=== PATIENT | female | born 1950 | race Caucasian/White ===

== ENCOUNTER → 2024-01-01 10:17 | Outpatient (REF) | payer MEDICARE, OTHER, SELFPAY | LOC: HWRAD 10:17 | PROVIDERS: ATTENDING PHYSICIAN Nurse Practitioner Family | DX: F17.210 Nicotine dependence, cigarettes, uncomplicated (principal) | CPT/HCPCS: 71271 ==

== ENCOUNTER → 2024-03-18 13:54 | Outpatient (REF) | payer MEDICARE, OTHER, SELFPAY | LOC: RAD 13:54 | PROVIDERS: ATTENDING PHYSICIAN Surgery Vascular Surgery; FAMILY PHYSICIAN Internal Medicine | DX: N18.9 Chronic kidney disease, unspecified (principal); Z01.818 Encounter for other preprocedural examination | CPT/HCPCS: 93985 ==

== ENCOUNTER 2024-03-23 09:55 | Day surgery (SDC) | payer MEDICARE, OTHER, SELFPAY ==
--- NOTE | 2024-03-17 11:12 | PTCARENOTE ---
Patients 01/[address] abnormal- Nancy @ Dr. Musa office notified
[2024-03-23] VITALS (28 sets, daily range): BP systolic 139–215; BP diastolic 40–119; BMI 26.1
[2024-03-23 10:52] LABS: Glucose - Point of Care 108 mg/dl (70-99)
[2024-03-23] MEDS: VANCOCIN 200 IV (10:53)
[2024-03-23] MEDS: BACTROBAN NASAL 1 GRAM NASAL (10:53)
[2024-03-23] MEDS: PERIDEX 0.12% ORAL RINSE 15 ML PO (10:54)
[2024-03-23] MEDS: NSS 500 IV (10:54)
[2024-03-23 11:06] LABS: Hematocrit 31.8 % (37.0-47.0); Hemoglobin 10.2 g/dL (12.0-16.0); Mean Corp Hgb Conc. 32.1 g/dL (33.0-37.0); Mean Corpuscular Hgb 28.3 pg (27.0-31.0); Mean Corpuscular Volume 88.3 fL (81.0-99.0); Mean Platelet Volume 9.2 fL (7.4-10.4); Platelet Count 267 10^3/uL (130-400); Red Cell Dist. Width 13.9 % (11.5-14.5); White Blood Cell Count 7.4 10^3/uL (4.8-10.8)
[2024-03-23 11:17] LABS: INR 0.96; PT 12.5 Sec (11.4-14.6)
[2024-03-23] MEDS: APRESOLINE 10 MG IV ×2 (11:27→12:34)
[2024-03-23 12:05] LABS: Blood Urea Nitrogen 64 mg/dl (7-17); Carbon Dioxide 26 mmol/L (22-30); Chloride 102 mmol/L (98-107); Estimated Creatinine Clearance 15 ml/min; Glucose 112 mg/dl (70-99); Potassium 4.4 mmol/L (3.5-5.1); Sodium 133 mmol/L (135-145); eGFR 16.68
--- NOTE | 2024-03-23 12:26 | PTCARENOTE ---
1110: Dr. Gudino advised of BPs 200s/50's. Rec'd orders for hydralazine 10mg.
1125: Hydralazine administered.
1140: Dr. Gudino at bedside for anesthesia eval.
1200: pt oob with assist to BR. Voids w/o difficulty.
1215: Dr Gudino advised of current BP 199/63.
--- NOTE | 2024-03-23 12:52 | W.SUR.PREOP ---
Pre-Operative Surgical Note
-
I have examined this patient prior to the performance of the scheduled procedure.
The patient's condition is unchanged from the time of the current History and
Physical and the patient is able to undergo the scheduled procedure.
--- NOTE | 2024-03-23 15:37 | W.IMMPOSTOP ---
Surgical Immed Post Op Note
-
Primary Surgeon: Dr. Collin Rhodes III, MD
Assisting Surgeon: Dr. Thomas Martinez MD, PhD (PGY-1)
Pre-op Diagnosis: End stage renal disease with need for dialysis
Post-op Diagnosis: End stage renal disease with need for dialysis
Procedure Performed: left upper extremity AV fistula (brachio-basilic) first stage
Anesthesia Type: General
Specimen / Cultures: None
Estimated Blood Loss: 20cc
Complications: None
Operative Findings: Patient was placed in the supine position. Ultrasound was used to identify and nick the course of the brachial artery and basilic vein. Following intubation, the patient's left upper extremity was prepped and draped. Incision
was made and the soft tissues were dissected down to expose the basilic vein. The vein was exposed circumferentially and branches were suture ligated and divided. A vessel loop was passed around the basilic vein proximally. Then the brachial artery
was dissected and exposed circumferentially. Proximal and distal control were obtained on the brachial artery. The basilic vein was divided and heparinized saline was injected into the vein proximally. Arteriotomy was made and extended in the
brachial artery and heparinized saline was injected into the artery. An end to side anastomosis was performed with running 7-0 prolene sutures. Repair stitched were placed as needed. A 3-0 vicryl was used to tack a stump from a venous branch off of
the basilic vein to avoid it from kinking. Hemostasis was achieved and the soft tissue and skin was closed in layers with skin glue. At the conclusion of the case, an excellent thrill was noted in the basilic vein and a strong radial pulse was noted
in the left upper extremity.
[2024-03-23 15:41] LABS: Glucose - Point of Care 145 mg/dl (70-99)
--- NOTE | 2024-03-23 16:03 | OR.RPT ---
Operative Report
Operative Report
Date of Operation: 03/23/2024
Pre Op Diagnosis: Chronic kidney disease with anticipated need for hemodialysis
Post Op Diagnosis: Chronic kidney disease with anticipated need for hemodialysis
Procedure: Creation of left upper extremity brachiobasilic AV fistula (first stage of a planned two-stage basilic vein transposition)
Surgeon: Collin Rhodes III, MD
Web Merchandiser: Thomas Martinez MD PhD, PGY1
Anesthesia: General
Complications: None
Estimated Blood Loss: 20 cc
History and Indications for Procedure: 73-year-old female with chronic kidney disease and anticipated need for hemodialysis initiation she was taken to the operating room for AV access creation.
Procedure in Detail: Ted Foster was correctly identified and placed supine on the operating table. After adequate induction of anesthesia the left arm was positioned, prepped and draped in the usual sterile fashion. Preoperative antibiotics
were administered. A timeout procedure was performed with the nursing and anesthesia staff confirming the patients identity as well as the nature and laterality of the procedure.
I performed intraoperative ultrasound on the veins of the left arm. I identified the upper arm basilic vein from the elbow to the axilla. The brachial artery was also identified in the distal upper arm and proximal forearm. The appropriate site for
the incision was then identified in the distal upper arm, just proximal to the elbow.
An incision was then made in the distal upper arm. Careful sharp dissection was performed and the basilic vein exposed. Branches of the vein were ligated between ties. The brachial artery was exposed with sharp dissection. Proximal and distal
control was obtained with vessel loops.
The distal end of the basilic vein was ligated with a clip. The vein was transected and flushed proximally with heparinized saline. The vein flushed easily and without resistance and dilated quite nicely. The vessel loops on the artery were secured.
An arteriotomy was made with an 11-blade. This was extended just slightly proximally and distally with Valle scissors. The proximal and distal artery was flushed with heparinized saline. The end of the vein was spatulated slightly. An end-to-side
anastomosis was performed from the end of the basilic vein to the brachial artery with a running 7-0 Prolene. At the completion of the anastomosis the proximal vessel loop was released first. After several heartbeats the distal brachial artery loop
was released. The suture line was closely inspected and hemostasis achieved. There was an excellent thrill in the vein. There was a good pulse in the brachial artery proximal and distal to the anastomosis.
The wound was irrigated with saline. Hemostasis was achieved in the wound bed. The wound was closed in multiple layers and sterile dressings applied. The patient had an easily palpable thrill which was marked at the skin level. She had a palpable
left radial pulse at the wrist.
The patient tolerated the procedure well and was taken to the PACU in stable condition.
Attestation: I was present and responsible for the entire procedure
Signed:
Collin Rhodes III, MD
[facility]
[phone] (xbso)
== END 2024-03-23 17:30 | disposition home or self-care (01) ==
LOC: CATH 09:55
PROVIDERS: ATTENDING PHYSICIAN Surgery Vascular Surgery; FAMILY PHYSICIAN Family Medicine
DX: I13.0 Hypertensive heart and chronic kidney disease with heart failure and stage 1 through stage 4 chronic kidney disease, or unspecified chronic kidney disease (principal); E11.22 Type 2 diabetes mellitus with diabetic chronic kidney disease; N18.9 Chronic kidney disease, unspecified; I50.30 Unspecified diastolic (congestive) heart failure; Z87.891 Personal history of nicotine dependence; Z79.4 Long term (current) use of insulin
CPT/HCPCS: 36821; 80048; 82962; 85027; 85610; 85730

== ENCOUNTER 2024-03-27 11:36 | Inpatient (IN) | payer MEDICARE, OTHER, SELFPAY ==
[2024-03-27] VITALS (10 sets, daily range): BP systolic 92–156; BP diastolic 55–73; BMI 26.6; BMI 25.9
--- NOTE | 2024-03-27 07:08 | ED.GENMED ---
History of Present Illness
General
Chief Complaint: Breathing Problem
Source: patient
Exam Limitations: dementia
Time Seen by Provider: 03/27/24 06:39
Nursing documentation reviewed up to this point in time: agreed with
Travel History
Have you had any contact with someone who has COVID-19?: No
Do you have any symptoms of coronavirus? Fever > 100 degrees, chills, cough, shortness of breath, sore throat, loss of taste or smell, muscle aches, or headache?: No
History of Present Illness
History of Present Illness:
73-year-old female from her facility usually is on the second floor uses nighttime oxygen today was found on the first floor, short of breath EMS was called low pulse ox placed on oxygen given a neb now feeling better she is without complaints
patient's poor historian, denies any chest pain or shortness of breath no fevers
Past History
Past History
ED Past Medical History: CHF, COPD, Fibromyalgia, GERD, HTN, Hypercholesterolemia, IDDM, Hypothyroidism, Psychiatric and Other
ED Past Surgical History: Appendectomy, Cholecystectomy, Gynecological, Orthopedic and Other
Social History
Tobacco: Former smoker
Alcohol: Former
Drug: Former user
Personal:
Living: custodial
Employment: Not employed
Family History
Family History: Other
Review of Systems
Review of Systems
All Other Systems: Not applicable
Constitutional: Denies fever or fatigue
Respiratory: Reports cough and trouble breathing
Phy Exam
Physical Exam
Physical Exam:
Physical Exam
General: no apparent distress, not acutely ill
Neck: No jaw
Heart: Regular
Lungs: Rhonchi right greater than
Abdomen: Not
Neuro: alert and oriented.
Skin: no rash
Psychiatric: cooperative
Extremities: Question healing fistula to left antecubital fossa
Scores
Heart Failure Risk
Heart Failure Risk Score: Not Applicable
Course
Orders/Labs/Results
Orders:
Orders
03/27/24 07:06
Electrocardiogram (*1) Stat
Reason for Study: Other
Other Reason for Exam: pneumonia
Cardiac Monitoring- Treatment ONCE
EKG- Treatment ONCE
CR Chest - 2 Views Urgent
Comment:
Reason For Exam: SOB
03/27/24 07:07
Ipratropium/Albuterol Sulfate [Duoneb] 3 ml INH R NOW STA
03/27/24 07:32
Complete Blood Count/With Diff Urgent
Comprehensive Metabolic Panel Urgent
NT-proBNP Urgent
Comment: ADD ON
03/27/24 09:26
Furosemide [Lasix] 60 mg IV NOW STA
03/27/24 09:30
Add On- LAB Urgent
Tests Added?: Pbnp
03/27/24 11:14
Admit/Transfer Patient As Directed
Co-Sign Provider:
Level of Care: Inpatient admission
Assign to:: Telemetry
Physician / Group: Berto
Diagnosis: Possible CHF
Reason for Telemetry: Acute Heart Failure
Date to Stop Telemetry: 03/30/24
Time to Stop Telemetry: 11:00
Reason for Hospitalization: see progress note
Expected length of stay greater than two midnights?: Yes
ELOS- Estimated Length of Stay in days: 3
I certify the patient meets the requirements for IP care: Yes
Code Status As Directed
Resuscitation Status: Full Code
03/30/24 11:00
DC Protocol for Telemetry ONCE
Abnormal Lab Results
03/27/24
07:32
WBC 12.6 H 10^3/uL
(4.8-10.8)
RBC 3.49 L 10^6/uL
(4.20-5.40)
Hgb 9.9 L g/dL
(12.0-16.0)
Hct 30.7 L %
(37.0-47.0)
MCHC 32.2 L g/dL
(33.0-37.0)
Abs Immat Gran (auto) 0.1 H 10^3/uL
(0-0.05)
Absolute Neuts (auto) 10.8 H 10^3/uL
(1.4-6.5)
Absolute Lymphs (auto) 0.4 L 10^3/uL
(1.2-3.4)
Absolute Monos (auto) 1.1 H 10^3/uL
(0.1-0.6)
Immature Gran % 0.7 H %
(0-0.5)
Neutrophils % 85.5 H %
(42.2-75.2)
Lymphocytes % 3.3 L %
(20.5-51.1)
Sodium 131 L mmol/L
(135-145)
BUN 77 H mg/dl
(7-17)
Creatinine 3.4 H mg/dL
(0.6-1.0)
Glucose 154 H mg/dl
(70-99)
Calcium 7.5 L mg/dl
(8.4-10.2)
Total Protein 5.2 L g/dl
(6.3-8.2)
Albumin 3.1 L g/dl
(3.5-5.0)
03/27/24 07:32
03/27/24 07:32
Vital Signs
Initial and Last Documented VS:
Initial Vital Signs
Temp Pulse Resp BP Pulse Ox
98 F 87 28 133/66 99
03/27/24 06:16 03/27/24 06:16 03/27/24 06:16 03/27/24 06:16 03/27/24 06:16
Last Documented Vital Signs
Temp Pulse Resp BP Pulse Ox
98 F 89 24 104/61 100
03/27/24 06:16 03/27/24 10:14 03/27/24 09:30 03/27/24 11:05 03/27/24 12:30
MDM/Problems Addressed
Differential Diagnosis Includes:
Chronic SOB with oxygen COPD heart failure aspiration
MDM/Problems Addressed:
Shortness of
Chronic conditions affecting care: COPD
Acute Exacerbation and/or Progression of Chronic Illness: COPD
*Radiology
Radiology exam reviewed: preliminary read by ED provider
*EKG
Interpreted by ED Provider?: Yes
Interpretation: abnormal
Comparison EKG: no comparison EKG present
Heart Rate: 78
Rate: normal
Ischemia: non-specific ST changes
*Clinical Nurse Manager Interpretation
Rate: normal
Interpretation: normal
Heart Rate: 78
Rhythm: sinus
*Critical Care Note
Total Time (30-74mins, 75-104mins- exclusive of procedures): Not Applicable
Update Note
Update Note:
Update, patient feels comfortable at her baseline oxygen does have some rhonchi will give a neb check chest x-ray labs and EKG
10 AM chest x-ray noted report noted labs noted has increased oxygen requirement increased creatinine we will try to diurese low threshold to admit message sent to hospitalist and textile technical officer
ED Attending Note
-
Portions of this chart may have been created with voice recognition software.� Occasional wrong word or��sound alike� substitutions may have occurred due to the inherent limitations of voice recognition software.
Discharge Plan
Departure
Patient Disposition: Admit
Date of Disposition: 03/27/24
Time of Disposition: 10:19
Admit to: Telemetry
Presentation/result/management discussed w/ accepting MD/DO: Hospitalist
Patient with high blood pressure during this ER visit?: Yes
Condition: Fair
Discharge Problem:
Chronic diastolic (congestive) heart failure, CKD (chronic kidney disease) stage 4, GFR 15-29 ml/min, Anemia, Bipolar disorder, Chronic obstructive pulmonary disease, Alzheimer's dementia, Chronic respiratory failure with hypoxia, Acute heart
failure with preserved ejection fraction (HFpEF), Respiratory insufficiency
Interventions
Interventions:
*Risk Screen - Suicide Last Done: 03/27/24 06:17
*General Assessment Last Done: 03/27/24 06:17
*Neglect/Abuse Screening Last Done: 03/27/24 06:19
*ED COVID-19 Vaccine History Last Done: 03/27/24 06:20
ED- Cardiac Assessment Last Done: 03/27/24 06:42
ED- Pulmonary Assessment Last Done: 03/27/24 06:44
[2024-03-27] MEDS: DUONEB 3 ML INH (07:32)
[2024-03-27 07:43] LABS: % Basophils 0.3 % (0-2); % Eosinophils 1.6 % (0-6); % Immature Granulocytes 0.7 % (0-0.5); % Lymphocytes 3.3 % (20.5-51.1); % Monocytes 8.6 % (1.7-9.3); % Neutrophils 85.5 % (42.2-75.2); Absolute Eosinophils 0.2 10^3/uL (0-0.7); Absolute Immature Granulocytes 0.1 10^3/uL (0-0.05); Absolute Lymphocytes 0.4 10^3/uL (1.2-3.4); Absolute Monocytes 1.1 10^3/uL (0.1-0.6); Absolute Neutrophils 10.8 10^3/uL (1.4-6.5); Hematocrit 30.7 % (37.0-47.0); Hemoglobin 9.9 g/dL (12.0-16.0); Mean Corp Hgb Conc. 32.2 g/dL (33.0-37.0); Mean Corpuscular Hgb 28.4 pg (27.0-31.0); Mean Platelet Volume 8.9 fL (7.4-10.4); Nucleated Red Blood Cells % 0 %; Platelet Count 236 10^3/uL (130-400); Red Blood Cell Count 3.49 10^6/uL (4.20-5.40); Red Cell Dist. Width 13.9 % (11.5-14.5); White Blood Cell Count 12.6 10^3/uL (4.8-10.8)
[2024-03-27 07:55] LABS: ALT (SGPT) 15 U/L (0-35); AST (SGOT) 26 U/L (14-36); Albumin 3.1 g/dl (3.5-5.0); Alkaline Phosphatase 73 U/L (38-126); Blood Urea Nitrogen 77 mg/dl (7-17); Calcium 7.5 mg/dl (8.4-10.2); Carbon Dioxide 26 mmol/L (22-30); Chloride 98 mmol/L (98-107); Estimated Creatinine Clearance 13 ml/min; Glucose 154 mg/dl (70-99); Potassium 3.8 mmol/L (3.5-5.1); Sodium 131 mmol/L (135-145); Total Bilirubin 0.2 mg/dl (0.2-1.3); Total Protein 5.2 g/dl (6.3-8.2); eGFR 13.78
[2024-03-27] MEDS: LASIX 60 MG IV (10:14)
[2024-03-27 10:31] LABS: NT-proBNP 25600 pg/ml
--- NOTE | 2024-03-27 11:23 | HPS.HSE ---
Family Physician
-
Family Physician: YUE HAZEL MD
Chief Complaint
-
Shortness of breath
History of Present Illness
Patient has dementia. She is pleasantly confused in the ER. She is not able to provide history because of confusion. She thinks that her son brought her here to the hospital when she is actually living in a assisted living facility.
History is from the ER, daughter.
Patient had a AV fistula placed last week and she did okay.
Daughter says she was called In the morning from the facility due to her mom having shortness of breath.
According to daughter patient is on chronic oxygen but she never wears it and that is a problem.
Apparently she was found on the first floor of the facility with shortness of breath. EMS was called. Her pulse ox was low and she was placed on oxygen. She also got nebulizer en route.
Medical History
Past Medical History
Past Medical History: Reports CHF (Normal EF), GERD, HTN, Hypothyroidism, IDDM and Renal Failure
Past Surgical History: Reports Appendectomy and Cholecystectomy
Social History
Unable to obtain full social history at this time due to: Dementia
Tobacco: Non-smoker
Alcohol: None
Drug: None
Living: Assisted Living
Family History
Family History: Not pertinent
Allergies / Home Medications
Allergies reflects when Allergies were last updated in [facility].
Home Medications with original date entered in [facility]
Allergy/Medication List:
Allergies
Allergy/AdvReac Type Severity Reaction Status Date / Time
amoxicillin [From Augmentin] Allergy Rash Verified 03/18/24 08:53
bee venom protein (honey bee) Allergy Unknown Verified 03/18/24 08:53
cephalexin [From Keflex] Allergy Unknown Verified 03/18/24 08:53
clarithromycin Allergy gi problems Verified 03/18/24 08:53
clavulanic acid Allergy Unknown Verified 03/18/24 08:53
[From Augmentin]
ibuprofen Allergy Contraindication Verified 03/18/24 08:53
(use
Tylenol)
per MR
iodine Allergy Unknown Verified 03/18/24 08:53
iodoform Allergy Rash Verified 03/18/24 08:53
lamotrigine Allergy enid Verified 03/18/24 08:53
shanice
syndrome
morphine [Morphine] Allergy Unknown Verified 03/18/24 08:53
nitrofurantoin Allergy headache Verified 03/18/24 08:53
oxcarbazepine Allergy Hives Verified 03/18/24 08:53
potassium iodide Allergy Unknown Verified 03/18/24 08:53
quetiapine [From Seroquel] Allergy Unknown Verified 03/18/24 08:53
shellfish derived Allergy Unknown Verified 03/18/24 08:53
sodium iodide Allergy Rash Verified 03/18/24 08:53
Home Medications
acetaminophen 325 mg tablet (Tylenol) 325 mg PO TID PRN mild pain 05/28/22
albuterol sulfate 90 mcg/actuation aerosol inhaler 2 puff inhalation R Q6HPRN PRN sob/wheezing 05/28/22
aspirin 81 mg tablet,delayed release 81 mg PO DAILY@0800 Blood clot prevention/tx 05/28/22
atorvastatin 20 mg tablet 20 mg PO DAILY@1999 High cholesterol 05/28/22
fluticasone fur. 100 mcg-umeclid 62.5 mcg-vilant 25 mcg inhalat.powder (Trelegy Ellipta) 1 inh inhalation R DAILY@0800 Lung/breathing issues 05/28/22
levothyroxine 75 mcg tablet 75 mcg PO DAILY@0600 Thyroid 05/28/22
aripiprazole 2 mg tablet 2 mg PO BID@0800,1999 Mental Health/Anxiety 05/01/23
loratadine 10 mg tablet 10 mg PO DAILY@0800 Allergies 05/01/23
sennosides 8.6 mg-docusate sodium 50 mg tablet (Senexon-S) 1 tab PO BID@0800,1999 Constipation 05/10/23
diphenhydramine HCl 25 mg tablet 25 mg PO DAILYPRN PRN itching 06/02/23
sodium bicarbonate 650 mg tablet 650 mg PO BID@0800,1999 Supplement 06/02/23
umeclidinium 62.5 mcg/actuation blister powder for inhalation (Incruse Ellipta) 1 inh inhalation R DAILY@0800 Lung/Breathing Issues 06/02/23
diltiazem HCl 240 mg capsule,extended release 24 hr 240 mg PO DAILY@0800 Heart Disease/Condition 11/03/23
hydralazine 100 mg tablet 100 mg PO TID blood pressure 11/03/23
ipratropium 0.5 mg-albuterol 3 mg (2.5 mg base)/3 mL nebulization soln 3 ml inhalation R QIDPRN PRN sob 11/03/23
loperamide 2 mg tablet (Imodium A-D) 2 mg PO QIDPRN PRN diarrhea 11/03/23
metoprolol tartrate 50 mg tablet 50 mg PO BID@0800,1999 blood pressure 11/03/23
prednisone 5 mg tablet 5 mg PO DAILY@0800 inflammation 11/03/23
sertraline 50 mg tablet 50 mg PO DAILY@0800 Mental Health/Anxiety 11/03/23
insulin glargine 100 unit/mL subcutaneous solution 5 unit SC HS diabetes 11/19/23
insulin aspart U-100 100 unit/mL (3 mL) subcutaneous pen (Novolog FlexPen U-100 Insulin aspart) 2 unit (0.02 mL) SC QAC #15 mL 11/21/23
Review of Systems
-
Unable to obtain full review of systems at this time due to: Dementia
Physical Exam
Vital Signs
Vital Signs
Temp Pulse Resp BP Pulse Ox
98 F 89 19 100/55 100
03/27/24 06:16 03/27/24 10:14 03/27/24 09:15 03/27/24 10:14 03/27/24 09:15
Physical Exam
General: No Apparent Distress and Comfortable
HEENT: Moist mucous membranes
Respiratory: Crackles (bibasal) and Non Labored Respirations; No Wheezes or Accessory Resp Muscle Use
Cardiac: S1/S2 and Regular Rhythm
GI: Soft and Non Tender
Musculoskeletal: No Edema
Neuro: Awake, Alert, Oriented (self only) and No Motor Deficits
Psych: Calm
Laboratory Results
-
03/27/24 07:32
03/27/24 07:32
Laboratory Results
Total Bilirubin 0.2 mg/dl (0.2-1.3) 03/27/24 07:32
AST 26 U/L (14-36) 03/27/24 07:32
ALT 15 U/L (0-35) 03/27/24 07:32
Alkaline Phosphatase 73 U/L (38-126) 03/27/24 07:32
Data Reviewed
-
Diagnostic Radiology: Report Reviewed by me (cxr)
Lab Data: Labs Reviewed by me
Impression/Plan
-
Acute shortness of breath-difficult to assess her symptomatic she has got dementia. She is currently stays comfortable with her breathing. Apparently she was noted to be acutely short of breath this morning in the facility. She got chronic
hypoxic respiratory insufficiency on O2 but she does not wear it so she was found to be hypoxic which improved with the application of oxygen. She is currently on nasal cannula saturating well.
Bilateral pleural effusion with bilateral atelectasis/consolidation but other effusions noted. BNP is very high. Increased creatinine compared to baseline noted. I suspect possible acute CHF. I do see her weight is stable.
Admit to telemetry. Started IV Lasix. Consult nephrology. Check troponins. EKG shows no evidence of acute ST-T changes.
Mild elevation leukocytosis noted but no fever. No cough. Doubt pneumonia. Hold on antibiotics. If continued rise will consider antibiotics. No active bronchospasm.
Patient known to have normal EF.
Chronic hypoxic respite insufficiency-continue with oxygen.
History of obstructive sleep apnea.
COPD
No evidence of exacerbation.
CKD stage IV
Elevated creatinine compared to baseline noted rule out FIDENCIO. Consult nephrology.
HX CVA
-BLOOD COORDINATOR asa/statin
GERD
ESSENTIAL HYPERTENSION
-Continue home medication
DM
-Continued home treatment
HYPOTHYROIDISM
Continue home medication
DEMENTIA
Continue home medications
DVT PPx hep subQ
FULL CODE
--- NOTE | 2024-03-27 14:56 | W.CON.NEPH ---
Consultation
-
Date/Time Consultation Requested: 03/27/24 1130
Date/Time Consultation Performed: 03/27/24 1530
Requesting Provider: Bhavik Glynn
Performing Provider: Heather Gamble
Reason for Consultation: CKD 4
Medical History
-
Chief Complaint: sob
History of Present Illness:
Ms Jean is 73y/o F from assisted living with dementia on Sertraline, CKD4 baseline cr high [address] Amaya last saw on 03/17 HTN on CCB, BB, hydralazine, DCHF On lasix ,IDDM brought to the hospital after found on floor, hypoxic and sob.
Daughter was called in and who brought her to ER. Pt can not provide history with baseline confusion. Patient had a AV fistula placed last week , reportedly patient is on chronic oxygen but she never wears it and that is a problem. No family during
visit, most of the history obtained through chart and nursing. Pt is very confused and only knows name and place.She offers no cp or sob. on RA currently. No n/v or dysuria.
Past Medical History
CHF (Normal EF), GERD, HTN, Hypothyroidism, IDDM
CKD stage IV, Optical stroke, depression, chronic pain, fibromyalgia, bipolar in remission, history of AK I from lithium toxicity, hemodialysis 2006
COPD, bilateral carotid artery stenosis, anxiety and history of pancreatitis, hyperlipidemia
Past Surgical History: Other (Appendectomy and Cholecystectomy, AVF 03/23/24, hysterectomy, fractured leg repair with pins, left knee surgery, C3-4 567 fusion, bunionectomy)
Social History
Tobacco: Former Smoker
Alcohol: Former
Living: Assisted Living
Family History
father age of 60 with lung cancer, heart disease.
Mother age of 50s with uterine cancer
Brother with the diabetes
Family History: Not Pertinent
Allergies / Home Medications
Allergy/AdvReac Type Severity Reaction Status Date / Time
amoxicillin [From Augmentin] Allergy Rash Verified 03/27/24 12:41
bee venom protein (honey bee) Allergy Unknown Verified 03/27/24 12:41
cephalexin [From Keflex] Allergy Unknown Verified 03/27/24 12:41
clarithromycin Allergy gi problems Verified 03/27/24 12:41
clavulanic acid Allergy Unknown Verified 03/27/24 12:41
[From Augmentin]
ibuprofen Allergy Contraindication Verified 03/27/24 12:41
(use
Tylenol)
per MR
iodine Allergy Unknown Verified 03/27/24 12:41
iodoform Allergy Rash Verified 03/27/24 12:41
lamotrigine Allergy enid Verified 03/27/24 12:41
shanice
syndrome
morphine [Morphine] Allergy Unknown Verified 03/27/24 12:41
nitrofurantoin Allergy headache Verified 03/27/24 12:41
oxcarbazepine Allergy Hives Verified 03/27/24 12:41
potassium iodide Allergy Unknown Verified 03/27/24 12:41
quetiapine [From Seroquel] Allergy Unknown Verified 03/27/24 12:41
shellfish derived Allergy Unknown Verified 03/27/24 12:41
sodium iodide Allergy Rash Verified 03/27/24 12:41
�Medication �Instructions �Recorded �Confirmed �Type
acetaminophen 325 mg tablet 325 mg PO TID PRN mild pain 05/28/22 03/27/24 History
(Tylenol)
albuterol sulfate 90 mcg/actuation 2 puff inhalation R Q6HPRN PRN 05/28/22 03/27/24 History
aerosol inhaler sob/wheezing
aspirin 81 mg tablet,delayed 81 mg PO DAILY Blood clot 05/28/22 03/27/24 History
release prevention/tx
atorvastatin 20 mg tablet 20 mg PO QPM High cholesterol 05/28/22 03/27/24 History
fluticasone fur. 100 mcg-umeclid 1 inh inhalation R DAILY 05/28/22 03/27/24 History
62.5 mcg-vilant 25 mcg Lung/breathing issues
inhalat.powder (Trelegy Ellipta)
levothyroxine 75 mcg tablet 75 mcg PO DAILY@0600 Thyroid 05/28/22 03/27/24 History
aripiprazole 2 mg tablet 2 mg PO BID Mental Health/Anxiety 05/01/23 03/27/24 History
loratadine 10 mg tablet 10 mg PO DAILY Allergies 05/01/23 03/27/24 History
sennosides 8.6 mg-docusate sodium 1 tab PO BID Constipation 05/10/23 03/27/24 History
50 mg tablet (Senexon-S)
diphenhydramine HCl 25 mg tablet 25 mg PO HS 06/02/23 03/27/24 History
sodium bicarbonate 650 mg tablet 650 mg PO BID Supplement 06/02/23 03/27/24 History
umeclidinium 62.5 mcg/actuation 1 inh inhalation R DAILY 06/02/23 03/27/24 History
blister powder for inhalation Lung/Breathing Issues
(Incruse Ellipta)
diltiazem HCl 240 mg 240 mg PO DAILY Heart 11/03/23 03/27/24 History
capsule,extended release 24 hr Disease/Condition
hydralazine 100 mg tablet 100 mg PO TID blood pressure 11/03/23 03/27/24 History
ipratropium 0.5 mg-albuterol 3 mg 3 ml inhalation R QIDPRN PRN sob 11/03/23 03/27/24 History
(2.5 mg base)/3 mL nebulization
soln
loperamide 2 mg tablet (Imodium 2 mg PO QIDPRN PRN diarrhea 11/03/23 03/27/24 History
A-D)
metoprolol tartrate 50 mg tablet 50 mg PO BID blood pressure 11/03/23 03/27/24 History
prednisone 5 mg tablet 5 mg PO DAILY inflammation 11/03/23 03/27/24 History
sertraline 50 mg tablet 50 mg PO DAILY Mental 11/03/23 03/27/24 History
Health/Anxiety
insulin glargine 100 unit/mL 5 unit SC HS diabetes 11/19/23 03/27/24 History
subcutaneous solution
insulin aspart U-100 100 unit/mL 2 unit (0.02 mL) SC QAC #15 mL 11/21/23 03/27/24 Rx
(3 mL) subcutaneous pen (Novolog
FlexPen U-100 Insulin aspart)
bacitracin 500 unit/gram topical 1 applic topical TID 03/27/24 03/27/24 History
ointment
calcium carbonate 500 mg PO DAILY 03/27/24 03/27/24 History
diphenhydramine HCl 25 mg capsule 25 mg PO DAILY PRN itching 03/27/24 03/27/24 History
(Benadryl)
furosemide 40 mg tablet 60 mg PO DAILY 03/27/24 03/27/24 History
Review of Systems
-
difficult to obtain as patient is confused
Physical Exam
Vital Signs
Vital Signs
Temp Pulse Resp BP Pulse Ox
98 F 89 24 104/61 100
03/27/24 06:16 03/27/24 10:14 03/27/24 09:30 03/27/24 11:05 03/27/24 12:30
Lab Results
WBC 12.6 10^3/uL (4.8-10.8) H 03/27/24 07:32
RBC 3.49 10^6/uL (4.20-5.40) L 03/27/24 07:32
Hgb 9.9 g/dL (12.0-16.0) L 03/27/24 07:32
Hct 30.7 % (37.0-47.0) L 03/27/24 07:32
Plt Count 236 10^3/uL (130-400) 03/27/24 07:32
Sodium 131 mmol/L (135-145) L 03/27/24 07:32
Potassium 3.8 mmol/L (3.5-5.1) 03/27/24 07:32
Chloride 98 mmol/L (98-107) 03/27/24 07:32
Carbon Dioxide 26 mmol/L (22-30) 03/27/24 07:32
BUN 77 mg/dl (7-17) H 03/27/24 07:32
Creatinine 3.4 mg/dL (0.6-1.0) H 03/27/24 07:32
eGFR 13.78 03/27/24 07:32
Glucose 154 mg/dl (70-99) H 03/27/24 07:32
Calcium 7.5 mg/dl (8.4-10.2) L 03/27/24 07:32
Fkg-L-Avnmwbtpkqd Pept 94819 pg/ml 03/27/24 07:32
Albumin 3.1 g/dl (3.5-5.0) L 03/27/24 07:32
CXR:
IMPRESSION:
Increased bibasilar opacification since prior study which could represent atelectasis and/or pneumonia and possible small bilateral pleural effusions.
Physical Exam
General: Awake, Alert, No Distress and Nontoxic
HEENT: EOMI and Anicteric
Respiratory: Clear, Normal Excursion and Nonlabored Respirations
Cardiac: S1/S2
Abdomen: Soft, Nontender and Nondistended
Musculoskeletal: No Cyanosis and No Edema
Skin: No Rash
Neuro: Nonfocal/Grossly Intact
Psych: Appropriate and Other (confused)
Vascular Access: AVF
Data Reviewed
-
Radiology: Image Personally Visualized and interpreted and Report Reviewed by me
Labs: Labs Reviewed by me
Assessment/Plan
-
Impression:
Acute shortness of breath-suspected acute DCHF
Acute on Chronic hypoxic respite insufficiency
History of obstructive sleep apnea.
COPD
CKD stage IV-cr in [address] Amaya
Anemia
hyponatremia
HX CVA
GERD
ESSENTIAL HYPERTENSION
DM
HYPOTHYROIDISM
DEMENTIA
Plan:
A/w sob from facility
CXR noted bilat infiltrate and mild effusion with high BNP
agree with diuresis lasix 80 IV daily
renal function stable at baseline
hypervolemic hypernatremia-start FR
BP are soft, holding meds
follow h/h, check fe labs
monitor daily labs and wts
no emergent need of HD
[2024-03-27] MEDS: NSS (PRESERVATIVE FREE) 0.25 ML IV (15:00)
[2024-03-27] MEDS: ATIVAN 0.5 MG IV (15:00)
--- NOTE | 2024-03-27 15:35 | PTCARENOTE ---
Pt recieved from ED. Pt is restless and agitated. Attempting to pull out her IV and refused BP check.Pt is wandering in room Ativan was given as per order. Report given to 2N RN. was notified in regards of troponin levels.
--- NOTE | 2024-03-27 15:43 | CM ---
Patient from [facility] with Hx dementia with Dx Acute shortness of breath.
Spoke with Holley, nurse [facility]; the patient resides at [facility].
She is assisted with ADLs and ambulates independently without any assistive devices.
Her only DME is oxygen.
No VN services currently
PCP - Asim Rutherford
Pharmacy - [facility]
Holley says daughter Lulu has been their primary contact re; patient's care.
Spoke with patient's daughter Lulu, [place];
she confirms her mother is confused at baseline but recognizes family members/
She expressed concern patient was wandering at [facility] and whether family shoud consider SNF for more close observation. She does not think her mother needs a locked memory care unit.
Lulu volunteers that the patient recently had a new HD fistula placed in preparation for possible dialysis.
She says all 3 children are POA for healthcare - her sister Lisbeth, brother Jonathon and herself.
CM Consult: Advanced Directive
Lulu would like to speak with Dr Thomson to clarify the family's wishes in regard to code status---> message to Dr Thomson.
Daughter is hoping patient can return to [facility] at d/c.
Plan contact [facility] about patient's return when closer to d/c.
--- NOTE | 2024-03-27 15:53 | PTCARENOTE ---
Pt received from via wheelchair, minimal assist ambulating to bed from wheelchair, VSS, pt resting comfortably in bed with 1:1 sitter at bedside.
[2024-03-27 15:57] LABS: Glucose - Point of Care 154 mg/dl (70-99)
[2024-03-27] MEDS: ASPIR LOW (ENTERIC COATED) 81 MG PO (17:25)
[2024-03-27] MEDS: CARDIZEM CD 240 MG PO (17:25)
[2024-03-27] MEDS: LIPITOR 20 MG PO (17:25)
[2024-03-27] MEDS: BACITRACIN OINTMENT 1 APPLIC TOPICAL ×2 (17:26→21:47)
[2024-03-27] MEDS: ZOLOFT 50 MG PO (17:26)
[2024-03-27] MEDS: DELTASONE 5 MG PO (17:26)
[2024-03-27 17:28] LABS: Glucose - Point of Care 131 mg/dl (70-99)
[2024-03-27] MEDS: NOVOLOG FLEXPEN 2 UNITS SC (17:28)
[2024-03-27] MEDS: SYMBICORT 160/4.5 MCG INHALER 2 PUFF INH (18:10)
[2024-03-27] MEDS: ABILIFY 2 MG PO (19:54)
[2024-03-27] MEDS: SENOKOT-S 1 TABLET PO (19:55)
[2024-03-27] MEDS: LOPRESSOR 50 MG PO (19:55)
[2024-03-27] MEDS: HEPARIN 5000 UNITS SC (19:55)
[2024-03-27] MEDS: SODIUM BICARBONATE 650 MG PO (19:56)
[2024-03-27 21:19] LABS: Glucose - Point of Care 230 mg/dl (70-99)
[2024-03-27] MEDS: BENADRYL 25 MG PO (21:46)
[2024-03-27] MEDS: APRESOLINE 100 MG PO (21:46)
[2024-03-27] MEDS: LANTUS 0.0500000000000000028 UNITS SC (21:46)
[2024-03-28 03:23] VITALS: BP 120/60
[2024-03-28] MEDS: BENADRYL 25 MG PO ×2 (05:45→22:27)
[2024-03-28] MEDS: SYNTHROID 75 MCG PO (05:45)
[2024-03-28 07:57] VITALS: BP 169/82
[2024-03-28] MEDS: OSCAL CAL 500 500 MG PO (08:30)
[2024-03-28] MEDS: ABILIFY 2 MG PO ×2 (08:30→20:07)
[2024-03-28] MEDS: CARDIZEM CD 240 MG PO (08:30)
[2024-03-28] MEDS: ASPIR LOW (ENTERIC COATED) 81 MG PO (08:31)
[2024-03-28] MEDS: LOPRESSOR 50 MG PO ×2 (08:31→20:06)
[2024-03-28] MEDS: APRESOLINE 100 MG PO ×3 (08:31→22:28)
[2024-03-28] MEDS: LASIX 80 MG IV (08:31)
[2024-03-28] MEDS: CLARITIN 10 MG PO (08:31)
[2024-03-28] MEDS: SODIUM BICARBONATE 650 MG PO ×2 (08:31→20:07)
[2024-03-28] MEDS: SENOKOT-S 1 TABLET PO ×2 (08:31→20:07)
[2024-03-28] MEDS: DELTASONE 5 MG PO (08:31)
[2024-03-28] MEDS: ZOLOFT 50 MG PO (08:31)
[2024-03-28] MEDS: HEPARIN 5000 UNITS SC ×2 (08:32→20:04)
[2024-03-28 08:44] LABS: Glucose - Point of Care 130 mg/dl (70-99)
[2024-03-28] MEDS: SPIRIVA RESPIMAT 2.5 MCG INH (09:05)
[2024-03-28] MEDS: SYMBICORT 160/4.5 MCG INHALER INH (09:06)
[2024-03-28] MEDS: BACITRACIN OINTMENT 1 APPLIC TOPICAL ×3 (09:33→22:27)
[2024-03-28] MEDS: NOVOLOG FLEXPEN 2 UNITS SC ×3 (09:33→18:04)
[2024-03-28 09:38] LABS: Blood Urea Nitrogen 81 mg/dl (7-17); Calcium 8.4 mg/dl (8.4-10.2); Carbon Dioxide 22 mmol/L (22-30); Chloride 98 mmol/L (98-107); Estimated Creatinine Clearance 14 ml/min; Glucose 133 mg/dl (70-99); Iron 54 ug/dl (37-170); Potassium 4.3 mmol/L (3.5-5.1); Sodium 130 mmol/L (135-145); eGFR 14.82
[2024-03-28 09:47] LABS: Percent Saturation 18 % (20-50); Total Iron Binding Capacity 285 ug/dl (265-497)
[2024-03-28 10:22] LABS: Troponin I 0.747 ng/ml
--- NOTE | 2024-03-28 10:28 | W.PN.NEPH.PH ---
Today's Communication / Plan
-
cotn lasix
Assessment/Plan
-
Impression:
Acute shortness of breath-suspected acute DCHF
Acute on Chronic hypoxic respite insufficiency
History of obstructive sleep apnea.
COPD
CKD stage IV-cr in [address] Amaya
Anemia
hyponatremia
HX CVA
GERD
ESSENTIAL HYPERTENSION
DM
HYPOTHYROIDISM
DEMENTIA
Plan:
A/w sob from facility
CXR noted bilat infiltrate and mild effusion with high BNP
cont diuresis lasix 80 IV daily
renal function stable at baseline
hypervolemic hypernatremia-cont FR
BP are labile, back on home meds
follow h/h,Fe sat 18%, start IV fe
monitor daily labs and wts
no emergent need of HD
-
-
Date of Service: March 28, 2024
CC / HPI / ROS
-
Chief Complaint:
CKD4
History of Present Illness:
cr better at 3.2, k 4.3, na 130
BP increasing trend
wt is down
on 3lit O2
Review of Systems:
confused
can not provide any history
offers no cp or sob
Labs
-
Labs:
WBC 12.6 10^3/uL (4.8-10.8) H 03/27/24 07:32
RBC 3.49 10^6/uL (4.20-5.40) L 03/27/24 07:32
Hgb 9.9 g/dL (12.0-16.0) L 03/27/24 07:32
Hct 30.7 % (37.0-47.0) L 03/27/24 07:32
Plt Count 236 10^3/uL (130-400) 03/27/24 07:32
Sodium 130 mmol/L (135-145) L 03/28/24 09:10
Potassium 4.3 mmol/L (3.5-5.1) 03/28/24 09:10
Chloride 98 mmol/L (98-107) 03/28/24 09:10
Carbon Dioxide 22 mmol/L (22-30) 03/28/24 09:10
BUN 81 mg/dl (7-17) H 03/28/24 09:10
Creatinine 3.2 mg/dL (0.6-1.0) H 03/28/24 09:10
eGFR 14.82 03/28/24 09:10
Glucose 133 mg/dl (70-99) H 03/28/24 09:10
Calcium 8.4 mg/dl (8.4-10.2) 03/28/24 09:10
Ovo-J-Tknkgwqlddt Pept 97444 pg/ml 03/27/24 07:32
Albumin 3.1 g/dl (3.5-5.0) L 03/27/24 07:32
Physical Exam
-
Vital Signs:
Vital Signs
Temp Pulse Resp BP Pulse Ox
98.3 F 75 20 169/82 97
03/28/24 03:23 03/28/24 08:30 03/28/24 03:23 03/28/24 08:30 03/28/24 03:23
Cardiovascular:: Regular rate and rhythm
Respiratory:: Bilateral: Rales (at bases)
Lung Excursion:: Normal
Abdomen:: Nontender and Soft
Extremity Edema:: None: Bilateral:
Rhodes Catheter: No
[2024-03-28 11:15] VITALS: BP 138/60
[2024-03-28 12:00] LABS: Glucose - Point of Care 198 mg/dl (70-99)
--- NOTE | 2024-03-28 12:05 | CON.CAR ---
Consultation
Consultation Request
Date/Time Consultation Requested: 03/28/2024
Date/Time Consultation Performed: 03/28/2024
Requesting Provider: Dr. Thomson
Performing Provider: Dr. Ramirez
Reason for Consultation: Shortness of breath
Medical History
-
Chief Complaint: Shortness of breath
History of Present Illness:
72-year-old female (known to Dr. Dai, her primary solutions manager; patient has been noncompliant with office follow-up and was last evaluated 02/2022) currently living at assisted living with significant dementia (currently on 1:1 monitoring), chronic
HFpEF, known coronary and aortic calcification on CT, paroxysmal atrial tachycardia, COPD, and CKD (followed by Nephrology; underwent AV fistula graft last week) presenting with shortness of breath.� The patient was brought to the hospital after
being found on the floor short of breath and hypoxic. The patient is a poor historian due to her underlying dementia; unable to answer questions appropriately. She underwent an AV fistula graft last week. Cardiology was consulted for elevated
cardiac troponin and CHF.
Past Medical History
Past Medical History: Arrhythmias (PAT), CHF (HFpEF), COPD, HTN and Hypercholesterolemia
Past Surgical History: Appendectomy, Gynecological (Hysterectomy) and Orthopedic (Multiple procedures)
Social History
Tobacco: Non-Smoker
Alcohol: None
Drug: None
Living: Assisted Living
Family History
Family History: Reviewed & Not Pertinent
Allergies / Home Medications
Allergy/AdvReac Type Severity Reaction Status Date / Time
amoxicillin [From Augmentin] Allergy Rash Verified 03/27/24 12:41
bee venom protein (honey bee) Allergy Unknown Verified 03/27/24 12:41
cephalexin [From Keflex] Allergy Unknown Verified 03/27/24 12:41
clarithromycin Allergy gi problems Verified 03/27/24 12:41
clavulanic acid Allergy Unknown Verified 03/27/24 12:41
[From Augmentin]
ibuprofen Allergy Contraindication Verified 05/04/24 12:41
(use
Tylenol)
per MR
iodine Allergy Unknown Verified 03/27/24 12:41
iodoform Allergy Rash Verified 03/27/24 12:41
lamotrigine Allergy enid Verified 03/27/24 12:41
shanice
syndrome
morphine [Morphine] Allergy Unknown Verified 03/27/24 12:41
nitrofurantoin Allergy headache Verified 03/27/24 12:41
oxcarbazepine Allergy Hives Verified 03/27/24 12:41
potassium iodide Allergy Unknown Verified 03/27/24 12:41
quetiapine [From Seroquel] Allergy Unknown Verified 03/27/24 12:41
shellfish derived Allergy Unknown Verified 03/27/24 12:41
sodium iodide Allergy Rash Verified 03/27/24 12:41
�Medication �Instructions �Recorded �Confirmed �Type
acetaminophen 325 mg tablet 325 mg PO TID PRN mild pain 05/28/22 03/27/24 History
(Tylenol)
albuterol sulfate 90 mcg/actuation 2 puff inhalation R Q6HPRN PRN 05/28/22 03/27/24 History
aerosol inhaler sob/wheezing
aspirin 81 mg tablet,delayed 81 mg PO DAILY Blood clot 05/28/22 03/27/24 History
release prevention/tx
atorvastatin 20 mg tablet 20 mg PO QPM High cholesterol 05/28/22 03/27/24 History
fluticasone fur. 100 mcg-umeclid 1 inh inhalation R DAILY 05/28/22 03/27/24 History
62.5 mcg-vilant 25 mcg Lung/breathing issues
inhalat.powder (Trelegy Ellipta)
levothyroxine 75 mcg tablet 75 mcg PO DAILY@0600 Thyroid 05/28/22 03/27/24 History
aripiprazole 2 mg tablet 2 mg PO BID Mental Health/Anxiety 05/01/23 03/27/24 History
loratadine 10 mg tablet 10 mg PO DAILY Allergies 05/01/23 03/27/24 History
sennosides 8.6 mg-docusate sodium 1 tab PO BID Constipation 05/10/23 03/27/24 History
50 mg tablet (Senexon-S)
diphenhydramine HCl 25 mg tablet 25 mg PO HS Sleep 06/02/23 03/27/24 History
sodium bicarbonate 650 mg tablet 650 mg PO BID Supplement 06/02/23 03/27/24 History
umeclidinium 62.5 mcg/actuation 1 inh inhalation R DAILY 06/02/23 03/27/24 History
blister powder for inhalation Lung/Breathing Issues
(Incruse Ellipta)
diltiazem HCl 240 mg 240 mg PO DAILY Heart 11/03/23 03/27/24 History
capsule,extended release 24 hr Disease/Condition
hydralazine 100 mg tablet 100 mg PO TID blood pressure 11/03/23 03/27/24 History
ipratropium 0.5 mg-albuterol 3 mg 3 ml inhalation R QIDPRN PRN sob 11/03/23 03/27/24 History
(2.5 mg base)/3 mL nebulization
soln
loperamide 2 mg tablet (Imodium 2 mg PO QIDPRN PRN diarrhea 11/03/23 03/27/24 History
A-D)
metoprolol tartrate 50 mg tablet 50 mg PO BID blood pressure 11/03/23 03/27/24 History
prednisone 5 mg tablet 5 mg PO DAILY inflammation 11/03/23 03/27/24 History
sertraline 50 mg tablet 50 mg PO DAILY Mental 11/03/23 03/27/24 History
Health/Anxiety
insulin glargine 100 unit/mL 5 unit SC HS diabetes 11/19/23 03/27/24 History
subcutaneous solution
insulin aspart U-100 100 unit/mL 2 unit (0.02 mL) SC QAC #15 mL 11/21/23 03/27/24 Rx
(3 mL) subcutaneous pen (Novolog
FlexPen U-100 Insulin aspart)
bacitracin 500 unit/gram topical 1 applic topical TID Infection 03/27/24 03/27/24 History
ointment
calcium carbonate 500 mg PO DAILY Supplement 03/27/24 03/27/24 History
diphenhydramine HCl 25 mg capsule 25 mg PO DAILY PRN itching 03/27/24 03/27/24 History
(Benadryl)
furosemide 40 mg tablet 60 mg PO DAILY Fluid 03/27/24 03/27/24 History
Retention/Swelling
Review of Systems
-
Unable to obtain full review of systems at this time due to: Dementia
Physical Exam
Vital Signs
Temp Pulse Resp BP Pulse Ox
98.6 F 66 18 138/60 98
03/28/24 11:15 03/28/24 11:15 03/28/24 11:15 03/28/24 11:15 03/28/24 11:15
Lab Results
03/27/24 07:32
03/28/24 09:10
Troponin I 0.747 ng/ml H* 03/28/24 09:10
Qxh-T-Odzuzcwgwnq Pept 03720 pg/ml 03/27/24 07:32
Physical Exam
General: No Apparent Distress and Comfortable
HEENT: Normocephalic
Respiratory: Rhonchi
Cardiac: S1/S2, Murmur (Soft 2/6 systolic murmur) and Peripheral Edema (Trace)
Breast: Deferred by me
GI: Soft and Non Tender
Rectal: Deferred by Provider
Musculoskeletal: Edema (Trace)
Skin: Warm and Dry
Neuro: AO x 3
Psych: Calm and Confused
Impression / Plan
-
72-year-old female (known to Dr. Dai, her primary solutions manager; patient has been noncompliant with office follow-up and was last evaluated 02/2022) currently living at assisted living with significant dementia (currently on 1:1 monitoring), chronic
HFpEF, known coronary and aortic calcification on CT, paroxysmal atrial tachycardia, hyperlipidemia, COPD, and CKD (followed by Nephrology; underwent AV fistula graft last week) presenting with shortness of breath.� The patient was brought to the
hospital after being found on the floor short of breath and hypoxic. The patient is a poor historian due to her underlying dementia; unable to answer questions appropriately. She underwent an AV fistula graft last week. Cardiology was consulted
for elevated cardiac troponin and CHF.
Acute on chronic hypoxic respiratory insufficiency/HFpEF:
-Continue Lasix 80 mg IV BID for now (she is typically on 60 mg PO daily at home); monitor renal function.
-Treatment of underlying COPD as per primary team.
-Monitor Daily weight, I/Os, and BMP (diuresis requires intensive monitoring given her renal disease).
CKD4:
-Creatinine is 3.2 today, was 3.4 yesterday; nephrology consulted.
Elevated troponin
-New inferolateral T wave inversion; could be ischemic in etiology, but patient denies any chest pain and looks comfortable.
-Troponin peak 1.32, down trending down.
-The patient is a poor candidate for any aggressive cardiac measures due to significant dementia and inability to comply with recommendations.
-Troponin elevation could also be secondary to acute nonischemic myocardial injury in the setting of progressive CKD and HFpEF.
-Will obtain repeat echocardiogram tomorrow.
-Continue aspirin 81 mg daily and statin.
Paroxysmal atrial tachycardia:
-Continue metoprolol tartrate 50 twice daily and Cardizem CD 40 mg daily.
-conveyor monitor.
Hypertension:
-Blood pressure fairly controlled on current medications; continue.
Hyperlipidemia:
-Continue atorvastatin 20 mg daily.
Former tobacco abuse:
-Continue cessation
Advanced Dementia:
-Currently on 1:1 observation; management as primary team.
Data Reviewed
-
EKG: Report Reviewed by me (EKG: Sinus rhythm; new inferolateral T wave inversion)
Old Records: Reviewed (Cardiology office note 02/27/22.)
--- NOTE | 2024-03-28 13:24 | W.PN.HOSP.TC ---
Today's Communication/Plan
-
cw IV diuretics
ECHO in am
Assessment / Plan
Assessment / Plan
Acute shortness of breath-difficult to assess her symptomatic she has got dementia. She is currently stays comfortable with her breathing. Apparently she was noted to be acutely short of breath this morning in the facility. She got chronic
hypoxic respiratory insufficiency on O2 but she does not wear it so she was found to be hypoxic which improved with the application of oxygen. She is currently on nasal cannula saturating well.
Bilateral pleural effusion with bilateral atelectasis/consolidation but other effusions noted. BNP is very high. Increased creatinine compared to baseline noted. I suspect possible acute CHF. I do see her weight is stable.
cw telemetry.
cw IV Lasix.
Nephrology following.
Mild elevation leukocytosis noted but no fever. No cough. Doubt pneumonia. Hold on antibiotics. If continued rise will consider antibiotics. No active bronchospasm.
Patient known to have normal EF.
Elevated Troponins -cardiology input noted. Unclear if ischemic or nonischemic myocardial injury in the setting of chronic kidney disease and heart failure. Repeat echo for tomorrow. Recommend to continue medical management. Patient without
chest pain.
Hyponatremia in setting of CHF and hypervolemia -cw Lasix and follow
Chronic hypoxic respite insufficiency-continue with oxygen.
History of obstructive sleep apnea.
COPD
No evidence of exacerbation.
CKD stage IV
Elevated creatinine compared to baseline noted rule out FIDENCIO. Consult nephrology.
HX CVA
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
GERD
ESSENTIAL HYPERTENSION
-Continue home medication
DM
-Continued home treatment
HYPOTHYROIDISM
Continue home medication
DEMENTIA
Continue home medications
DVT PPx hep subQ
FULL CODE
Anticipated Discharge: > 48 hours
Subjective/Interval History
-
Date of Service: March 28, 2024
Pleasantly confused.
Denies any shortness of breath or chest pain.
No agitation. Cooperative with exam. Follows commands.
Objective Data
-
Labs:
Laboratory Results
03/28/24
09:10
Sodium 130 L
Potassium 4.3
Chloride 98
Carbon Dioxide 22
BUN 81 H
Creatinine 3.2 H
Glucose 133 H
Calcium 8.4
Vital Signs:
Vital Signs
Temp Pulse Resp BP Pulse Ox
98.6 F 66 18 138/60 98
03/28/24 11:15 03/28/24 11:15 03/28/24 11:15 03/28/24 11:15 03/28/24 11:15
I&O
03/27/24 03/28/24 03/29/24
06:59 06:59 06:59
Intake Total 640 / 640 900 / 900
Balance 640 / 640 900 / 900
Review of Systems
-
Unable to obtain full review of systems at this time due to: Dementia
Physical Exam
-
General: No Apparent Distress
HEENT: Moist Mucous Membranes
Respiratory: Clear to Auscultation
Cardiac: Regular Rhythm and S1/S2
GI: Soft
Neuro: Awake, Alert and Oriented (Self)
Psych: Calm
Data Reviewed
-
Labs: Labs Reviewed by me
[2024-03-28] MEDS: FERRLECIT 110 MG IV (13:32)
[2024-03-28] MEDS: TYLENOL 325 MG PO (13:32)
[2024-03-28 14:51] VITALS: BMI 26.2
[2024-03-28 14:58] VITALS: BP 146/63
[2024-03-28 17:20] LABS: Glucose - Point of Care 141 mg/dl (70-99)
[2024-03-28] MEDS: LIPITOR 20 MG PO (18:04)
[2024-03-28 19:15] VITALS: BP 156/61
[2024-03-28] MEDS: SYMBICORT 160/4.5 MCG INHALER 2 PUFF INH (19:56)
[2024-03-28 21:29] LABS: Glucose - Point of Care 184 mg/dl (70-99)
[2024-03-28] MEDS: LANTUS 0.0500000000000000028 UNITS SC (22:27)
[2024-03-28 23:25] VITALS: BP 163/72
[2024-03-29 03:25] VITALS: BP 168/75
[2024-03-29 06:00] VITALS: BMI 26.5
[2024-03-29] MEDS: SYNTHROID 75 MCG PO (06:06)
[2024-03-29] MEDS: TYLENOL 650 MG PO (06:07)
[2024-03-29 07:01] LABS: Blood Urea Nitrogen 81 mg/dl (7-17); Calcium 7.7 mg/dl (8.4-10.2); Carbon Dioxide 25 mmol/L (22-30); Chloride 96 mmol/L (98-107); Estimated Creatinine Clearance 14 ml/min; Glucose 122 mg/dl (70-99); Potassium 3.9 mmol/L (3.5-5.1); Sodium 127 mmol/L (135-145); eGFR 14.82
[2024-03-29] MEDS: SYMBICORT 160/4.5 MCG INHALER 2 PUFF INH ×2 (07:24→20:08)
[2024-03-29] MEDS: SPIRIVA RESPIMAT 2.5 MCG 2 PUFF INH (07:25)
[2024-03-29 08:34] VITALS: BP 166/69
[2024-03-29] MEDS: ASPIR LOW (ENTERIC COATED) 81 MG PO (10:09)
[2024-03-29] MEDS: ABILIFY 2 MG PO ×2 (10:09→19:58)
[2024-03-29] MEDS: DELTASONE 5 MG PO (10:09)
[2024-03-29] MEDS: SODIUM BICARBONATE 650 MG PO ×2 (10:09→19:59)
[2024-03-29] MEDS: APRESOLINE 100 MG PO ×3 (10:09→22:30)
[2024-03-29] MEDS: CARDIZEM CD 240 MG PO (10:09)
[2024-03-29] MEDS: CLARITIN 10 MG PO (10:09)
[2024-03-29] MEDS: ZOLOFT 50 MG PO (10:10)
[2024-03-29] MEDS: HEPARIN 5000 UNITS SC ×2 (10:10→19:59)
[2024-03-29] MEDS: OSCAL CAL 500 500 MG PO (10:10)
[2024-03-29] MEDS: LOPRESSOR 50 MG PO (10:10)
[2024-03-29] MEDS: BACITRACIN OINTMENT 1 APPLIC TOPICAL ×3 (10:10→22:12)
[2024-03-29] MEDS: SENOKOT-S 1 TABLET PO ×2 (10:10→19:59)
[2024-03-29] MEDS: LASIX 80 MG IV ×2 (10:11→17:00)
[2024-03-29] MEDS: NOVOLOG FLEXPEN 2 UNITS SC ×3 (10:12→17:12)
[2024-03-29 10:44] LABS: Glucose - Point of Care 130 mg/dl (70-99)
--- NOTE | 2024-03-29 10:47 | W.PN.NEPH.PH ---
Today's Communication / Plan
-
Add fluid restriction
Increase Lasix to 80 mg IV twice daily
Follow BMP
Check postvoid bladder scan
Assessment/Plan
-
Impression:
Acute shortness of breath-suspected acute DCHF
Acute on Chronic hypoxic respite insufficiency
History of obstructive sleep apnea.
COPD
CKD stage IV-cr in [address] Amaya
Anemia
hyponatremia
HX CVA
GERD
ESSENTIAL HYPERTENSION
DM
HYPOTHYROIDISM
DEMENTIA
Plan:
A/w sob from facility
Hyponatremia worsening
Creatinine unchanged at baseline
CXR noted bilat infiltrate and mild effusion with high BNP
cont diuresis lasix 80 IV daily , urine output not recorded , weights up
Will increase Lasix to 80 IV twice daily, check postvoid bladder scan
hypervolemic hypernatremia-will add fluid restriction
BP are labile, back on home meds
follow h/h,Fe sat 18%, started IV fe
monitor daily labs and wts
no emergent need of HD
-
-
Date of Service: March 29, 2024
CC / HPI / ROS
-
Chief Complaint:
CKD4
History of Present Illness:
cr \\at 3.2, k 4.3
Hyponatremia worsening
BP increasing trend
on 3lit O2
Review of Systems:
confused
can not provide any history
offers no cp or sob
Weights up
Urine output not recorded
Labs
-
Labs:
WBC 12.6 10^3/uL (4.8-10.8) H 03/27/24 07:32
RBC 3.49 10^6/uL (4.20-5.40) L 03/27/24 07:32
Hgb 9.9 g/dL (12.0-16.0) L 03/27/24 07:32
Hct 30.7 % (37.0-47.0) L 03/27/24 07:32
Plt Count 236 10^3/uL (130-400) 03/27/24 07:32
Sodium 127 mmol/L (135-145) L 03/29/24 05:29
Potassium 3.9 mmol/L (3.5-5.1) 03/29/24 05:29
Chloride 96 mmol/L (98-107) L 03/29/24 05:29
Carbon Dioxide 25 mmol/L (22-30) 03/29/24 05:29
BUN 81 mg/dl (7-17) H 03/29/24 05:29
Creatinine 3.2 mg/dL (0.6-1.0) H 03/29/24 05:29
eGFR 14.82 03/29/24 05:29
Glucose 122 mg/dl (70-99) H 03/29/24 05:29
Calcium 7.7 mg/dl (8.4-10.2) L 03/29/24 05:29
Ptm-R-Kxgibcxiiah Pept 32506 pg/ml 03/27/24 07:32
Albumin 3.1 g/dl (3.5-5.0) L 03/27/24 07:32
Physical Exam
-
Vital Signs:
Vital Signs
Temp Pulse Resp BP Pulse Ox
97.9 F 65 18 166/69 99
03/29/24 08:34 03/29/24 08:34 03/29/24 08:34 03/29/24 08:34 03/29/24 08:34
Cardiovascular:: Regular rate and rhythm
Respiratory:: Bilateral: Coarse
Lung Excursion:: Normal
Abdomen:: Nontender and Soft
Bowel Sounds:: Normal
Extremity Edema:: +1: Bilateral:
Rhodes Catheter: No
[2024-03-29 11:25] VITALS: BP 141/52
--- NOTE | 2024-03-29 11:29 | W.PN.CD ---
Today's Communication / Plan
-
change metoprolol to coreg 25mg bid
stop diltiazem
cont IV lasix
Impression / Plan
-
72-year-old female (known to Dr. Dai, her primary lawyer criminal; patient has been noncompliant with office follow-up and was last evaluated 02/2022) currently living at assisted living with significant dementia (currently on 1:1 monitoring), chronic
HFpEF, known coronary and aortic calcification on CT, paroxysmal atrial tachycardia, hyperlipidemia, COPD, and CKD4 (followed by Nephrology; underwent AV fistula graft last week) presenting with shortness of breath.� The patient was brought to the
hospital after being found on the floor short of breath and hypoxic. The patient is a poor historian due to her underlying dementia; unable to answer questions appropriately. She underwent an AV fistula graft last week. Cardiology was consulted
for elevated cardiac troponin and CHF.
Elevated troponin
-no chest pain
-New inferior and anterolateral T wave inversion
-Troponin peak 1.32
-echo 03/29: EF 55% and apical hypokinesis; Stage II DD, no sig valve disease
-I suspect this is Takustubo with acute non-ischemic myocardial injury
-she is not a good candidate for cath with advanced dementia and CKD4
-med mgmt: change metoprolol to coreg 25mg bid
-other meds will be limited by CKD4
Acute on chronic HFpEF:
-high risk with CKD4, and nephrology consulted
-cont lasix 80mg IV bid
CKD4:
-fistula placed last week for HD planning
Paroxysmal atrial tachycardia:
-Continue coreg
-I stopped diltiazem with uptitration of beta eddie
Hypertension:
-monitor with diuresis: now on hydralazine 100mg tid, coreg 25mg bid
-I stopped diltiazem with uptitration of beta eddie: can add amlodipine if BP trends up
CAD: by coronary artery calcification on CT
-no angina
-cont ASA, statin
Hyperlipidemia:
-Continue atorvastatin 20 mg daily.
Former tobacco abuse:
-Continue cessation
Advanced Dementia:
-Currently on 1:1 observation; management as primary team.
Physical Exam
Vital Signs/Labs
Vital Signs
Temp Pulse Resp BP Pulse Ox
97.9 F 64 18 141/52 98
03/29/24 08:34 03/29/24 11:25 03/29/24 11:25 03/29/24 11:25 03/29/24 11:25
03/28/24 03/29/24 03/30/24
06:59 06:59 06:59
Actual Weight 68.492 kg 69.899 kg
03/27/24 07:32
03/29/24 05:29
03/27/24
07:32
Zqs-S-Wnniwcplbwf Pept [id number]
LAB Results
03/27/24 03/27/24 03/27/24
15:03 17:15 23:33
Troponin I 1.150 H* 1.320 H* 1.050 H*
03/28/24
09:10
Troponin I 0.747 H*
Physical Exam
Constitutional: No acute distress and Comfortable
EENT: Moist mucous membranes
Cardiovascular: Rhythm & rate is regular, Systolic murmur absent, Pedal edema present and JVD present
Respiratory: Respiratory effort normal and Lungs clear to auscul.
GI: Soft, Distention absent and Flat
Neuro/Psych: Alert
Data Reviewed
-
Date of Service: March 29, 2024
EKG: Other (Tele: SR 60s)
Labs: Labs Reviewed by me
[2024-03-29] MEDS: FERRLECIT 110 MG IV (13:19)
[2024-03-29 13:31] LABS: Glucose - Point of Care 243 mg/dl (70-99)
--- NOTE | 2024-03-29 15:31 | W.PN.HOSP.TC ---
Addendum entered and electronically signed by Tien Ernst MD 03/30/24 01:13:
Attending Addendum-
I saw and evaluated the patient. I reviewed the resident�s note and agree with findings and plan as documented in the resident�s note. Patient is poor historian due to dementia Patient is residnet of [facility]. Has no complaints. Full 12 point ROS
reviewed and negative except as documented-limited due to dementia Eam: Gen NAD heart RRR lungs crackles at base abd soft NT ND Le trace edema Plan:
# AE HFpEF-
- daily weights strict I and O fluid restrict
- weights stable appears on the dryer side
- lasix per nephro
- echo 5/-EF 55% ? takotsubos
- poor candidate for cath
- DC metoprolol started on coreg
#Elevated Troponins
-cardiology input noted.
-likely nonischemic myocardial injury in the setting of chronic kidney disease and heart failure
-trend
#Hypervolemic Hyponatremia
- lasix trial
- repeat labs in am
- likely check osms/urine studies if worsening
# Chronic hypoxic respiratory insufficiency-continue with oxygen.
History of obstructive sleep apnea.
# COPD
No evidence of exacerbation.
# CKD stage IV ->V
- CR @ baseline 3
- appreciate nephro input
- AV fistula placed last week
- maturation 4-6 weeks
- no need for urgent HD
- cont IV lasix and monitor
- check renal us and PVR's
# HX CVA
-MINING MANAGER asa/statin
# GERD
-cont meds
# ESSENTIAL HYPERTENSION
-Continue home medication
-DC metoprolol start coreg
# DM
-Continued home insulin treatment
# HYPOTHYROIDISM
-Continue home medication
# DEMENTIA
- Continue home medications
- poor prog
# Pulmonary Nodules/Ex Tob Abuse
- seen on LDCT 01/17
- f/u 3 months this month
DVT PPx hep subQ
FULL CODE
Time spent coordinating care, review of plan of care with resident, review of records, med rec, consults, notes, labs, rads, d/w nursing � 57 mins
Original Note:
Today's Communication/Plan
-
CBC and CMP in a.m.
IV Lasix increased to 80 mg twice daily, monitor and replete electrolytes
Monitor I's and O's and trend weight
Monitor H&H
Monitor creatinine level
Assessment / Plan
Assessment / Plan
Assessment:
Ms. Foster is a 73-year-old female with dementia, HFpEF, paroxysmal atrial tachycardia, COPD, CKD, from assisted nursing facility who was admitted 03/27/2024 with hypoxia and shortness of breath.� She is on chronic oxygen in the facility but never
wears them.� She was admitted with a presumptive decompensated CHF.� Patient is a poor historian because of dementia.� She underwent an AV fistula graft last week and tolerated. Bilateral pleural effusion with bilateral atelectasis/consolidation but
other effusions noted. BNP is very high. Increased creatinine compared to baseline noted.
Impression:
Presentation with hypoxia and acute shortness of breath
Oxygen requirement improved.
Elevated troponin on admission
Trending down, peaked at 1.32
Mild leukocytosis with no fever.
Worsening hyponatremia.
Microcytic anemia
Iron deficiency anemia.
Conditions MINING MANAGER:
History of obstructive sleep apnea.
COPD
CKD stage IV-cr in [address] Amaya
Anemia
hyponatremia
HX CVA
GERD
ESSENTIAL HYPERTENSION
DM
HYPOTHYROIDISM
DEMENTIA
Presentation with hypoxia and acute shortness of breath:
-Acute on chronic hypoxic respiratory insufficiency secondary to pulmonary effusion vs acute decompensated heart failure.
-IV Lasix increased to 80 mg twice daily today per nephrology.
-BP labile
-Monitor I & O's.
-Trend weight.
-Supplemental oxygen as needed.
Elevated troponin level on admission:
-Patient with no chest pain.
-Troponin level trending down, peaked at 1.32. Most likely due to nonischemic myocardial stretch in the setting of HFpEF and CKD.
-Echo 03/29/2024 with preserved LV ejection fraction and new hypokinesis of apical segments representing Takotsubo cardiomyopathy.
-Not a candidate for heart cath given advanced dementia and CKD stage IV.
-Metoprolol changed to Coreg 25 mg twice daily by cardiology.
-Cardiology following, recs appreciated.
Mild leukocytosis with no fever:
-Patient with mild cough with no fever.
-CXR 03/27/2024 with increased bilateral bibasilar opacification likely atelectasis/pneumonia, small bilateral pleural effusion.
-This is likely reactive, doubt pneumonia.
-Trend white counts, consider antibiotics if worsening.
Worsening hyponatremia.
-This is most likely hypervolemic hyponatremia in the setting of decompensated CHF and acute on chronic CKD
-Continue IV Lasix.
-Monitor daily weights/I's and O's.
-Follow labs and replete electrolytes as needed.
Microcytic anemia
-Iron deficiency anemia.
-Iron transfusion today, patient tolerated.
-Monitor H&H.
CKD stage IV:
-Worsening creatinine compared to baseline.
-Left AV fistula in place in preparation for HD.
-Patient not stable for HD at this moment.
-Renally dose all medications.
-Nephrology following.
Proximal atrial tachycardia:
-Stop Cardizem.
-Continue Coreg at 25 mg twice daily.
-Cardiology following.
Hyperlipidemia
-Continue atorvastatin 20 mg daily.
Advanced dementia:
-1:1 discontinued per nursing request.
-Patient will remain on bed alarm and possibly admit sitter if she becomes agitated.
-Close monitoring.
COPD
- No evidence of exacerbation.
CKD stage IV
HX CVA
-MINING MANAGER asa/statin
GERD
ESSENTIAL HYPERTENSION
-Continue home medication
DM
-Continued home treatment
Hypothyroidism
Continue levothyroxine at home dose
DVT PPx
-Heparin subQ
FULL CODE

Data:
Echo 03/29/2024:
Normal left ventricular systolic function. LV ejection fraction is 55% by visual assessment.
Hyokinesis of the apical segments: pattern may be consistent with Takustubo cardiomyopathy.
Stage II diastolic dysfunction suggestive of abnormal relaxation and increased filling pressures.
Aortic sclerosis without stenosis.
Mild tricuspid regurgitation. Mildly elevated PASP. Estimated pulmonary artery pressure of 42 mmHg assuming a right atrial pressure of 3 mmHg.
Compared to 07/18/23: apical hypokinesis is new.
CXR 03/27/2024:
Increased bibasilar opacification since prior study which could represent atelectasis and/or pneumonia and possible small bilateral pleural effusions.
Anticipated Discharge: > 48 hours
Subjective/Interval History
-
Date of Service: March 29, 2024
Objective Data
-
Labs:
Laboratory Results
03/29/24
05:29
Sodium 127 L
Potassium 3.9
Chloride 96 L
Carbon Dioxide 25
BUN 81 H
Creatinine 3.2 H
Glucose 122 H
Calcium 7.7 L
Vital Signs:
Vital Signs
Temp Pulse Resp BP Pulse Ox
97.9 F 64 18 141/52 98
03/29/24 08:34 03/29/24 11:25 03/29/24 11:25 03/29/24 11:25 03/29/24 11:25
I&O
03/28/24 03/29/24 03/30/24
06:59 06:59 06:59
Intake Total 640 / 640 2099
Balance 640 / 640 2099
Review of Systems
-
Unable to obtain full review of systems at this time due to: Dementia
Physical Exam
-
General: No Apparent Distress and Comfortable
HEENT: Moist Mucous Membranes
Respiratory: Crackles (Mild bilateral basal) and Non Labored Respirations; Negative Wheezes
Cardiac: Regular Rhythm and S1/S2
GI: Soft, Nontender and Normal Bowel Sounds
Musculoskeletal: No Clubbing and No Edema
Skin: Warm and Dry
Neuro: Awake, Alert and Oriented (Self only)
Psych: Calm and Confused
Data Reviewed
-
Diagnostic Radiology: Image personally visualized and interpreted, Report Reviewed by me and Discussed with Physician
Labs: Labs Reviewed by me
Old Records: Reviewed
[2024-03-29 15:39] VITALS: BP 142/62
--- NOTE | 2024-03-29 16:23 | CM ---
Fluid restriction, Lasix IV increased, , following BMP, post-void bladder scan, cardiac med adjustments, Has HD fistula, no need for HD at this time. Discharge Plan of Care: TBD...prefers return to [place].
[2024-03-29] MEDS: LIPITOR 20 MG PO (17:02)
[2024-03-29 17:13] LABS: Glucose - Point of Care 121 mg/dl (70-99)
--- NOTE | 2024-03-29 17:28 | PTCARENOTE ---
Pt calm throughout shift. 1:1 order d/c's. Continues with bed and chair alarm. OOB in recliner watching movies and having a good appetite fro meals. Urinated throughout shift in toilet, no incontinence noted. Pt bladder scanned as per order PVR
20ml. Call fowler within reach.
[2024-03-29 19:25] VITALS: BP 147/58
[2024-03-29] MEDS: COREG 25 MG PO (19:58)
[2024-03-29 21:58] LABS: Glucose - Point of Care 140 mg/dl (70-99)
[2024-03-29] MEDS: BENADRYL 25 MG PO (22:13)
[2024-03-29] MEDS: LANTUS 0.0500000000000000028 UNITS SC (22:31)
[2024-03-29 23:30] VITALS: BP 144/50
[2024-03-30 03:58] VITALS: BP 140/47
[2024-03-30] MEDS: SYNTHROID 75 MCG PO (05:49)
[2024-03-30 06:00] VITALS: BMI 26.1
[2024-03-30 07:01] LABS: % Basophils 0.7 % (0-2); % Immature Granulocytes 0.4 % (0-0.5); % Lymphocytes 9.5 % (20.5-51.1); % Monocytes 8.1 % (1.7-9.3); % Neutrophils 76.3 % (42.2-75.2); Absolute Eosinophils 0.3 10^3/uL (0-0.7); Absolute Lymphocytes 0.5 10^3/uL (1.2-3.4); Absolute Monocytes 0.5 10^3/uL (0.1-0.6); Absolute Neutrophils 4.2 10^3/uL (1.4-6.5); Hemoglobin 8.6 g/dL (12.0-16.0); Mean Corp Hgb Conc. 31.9 g/dL (33.0-37.0); Mean Corpuscular Hgb 28.4 pg (27.0-31.0); Mean Corpuscular Volume 89.1 fL (81.0-99.0); Mean Platelet Volume 9.7 fL (7.4-10.4); Nucleated Red Blood Cells % 0 %; Platelet Count 229 10^3/uL (130-400); Red Blood Cell Count 3.03 10^6/uL (4.20-5.40); Red Cell Dist. Width 14.1 % (11.5-14.5); White Blood Cell Count 5.6 10^3/uL (4.8-10.8)
[2024-03-30 07:15] VITALS: BP 153/60
[2024-03-30 07:20] LABS: Blood Urea Nitrogen 85 mg/dl (7-17); Calcium 7.9 mg/dl (8.4-10.2); Carbon Dioxide 26 mmol/L (22-30); Chloride 98 mmol/L (98-107); Estimated Creatinine Clearance 13 ml/min; Glucose 100 mg/dl (70-99); Potassium 3.7 mmol/L (3.5-5.1); Sodium 130 mmol/L (135-145); eGFR 14.29
[2024-03-30] MEDS: SPIRIVA RESPIMAT 2.5 MCG 2 PUFF INH (07:54)
[2024-03-30] MEDS: SYMBICORT 160/4.5 MCG INHALER 2 PUFF INH ×2 (07:54→19:39)
[2024-03-30 08:01] LABS: Glucose - Point of Care 99 mg/dl (70-99)
--- NOTE | 2024-03-30 08:03 | W.PN.CD ---
Today's Communication / Plan
-
- continue diuresis to new goal weight
Impression / Plan
-
Impression: 72F with dyspnea and hypoxia
PMH: significant dementia, chronic HFpEF, known coronary and aortic calcification on CT, paroxysmal atrial tachycardia, hyperlipidemia, COPD, and CKD4 (
Elevated troponin
-no chest pain
-New inferior and anterolateral T wave inversion
-Troponin peak 1.32
-echo /6: EF 55% and apical hypokinesis; Stage II DD, no sig valve disease
-We suspect this is Takustubo with acute non-ischemic myocardial injury
-she is not a good candidate for cath with advanced dementia and CKD4
-med mgmt: change metoprolol to coreg 25mg bid
-other meds will be limited by CKD4
Acute on chronic HFpEF:
-high risk with CKD4, and nephrology consulted
-cont lasix 80mg IV bid
-we will need to reset goal weight
CKD4:
-fistula placed last week for HD planning
-HD in advanced dementia is an interesting issue
Paroxysmal atrial tachycardia:
-Continue coreg
-We stopped diltiazem with uptitration of beta eddie
Hypertension:
-monitor with diuresis: now on hydralazine 100mg tid, coreg 25mg bid
-I stopped diltiazem with uptitration of beta eddie: can add amlodipine if BP trends up
CAD: by coronary artery calcification on CT
-no angina
-cont ASA, statin
Hyperlipidemia:
-Continue atorvastatin 20 mg daily.
Former tobacco abuse:
-Continue cessation
Advanced Dementia:
Subjective: Seems comfortable.
Physical Exam
Vital Signs/Labs
Vital Signs
Temp Pulse Resp BP Pulse Ox
36.7 C 65 14 140/47 92
03/30/24 03:58 03/30/24 07:58 03/30/24 07:58 03/30/24 03:58 03/30/24 07:58
03/29/24 03/30/24 03/31/24
06:59 06:59 06:59
Actual Weight 154 lb 1.6 oz 151 lb 14.4 oz
03/30/24 06:07
03/30/24 06:06
03/27/24
07:32
Mrn-K-Horeujkzask Pept [id number]
LAB Results
03/27/24 03/27/24 03/27/24
15:03 17:15 23:33
Troponin I 1.150 H* 1.320 H* 1.050 H*
03/28/24
09:10
Troponin I 0.747 H*
Physical Exam
Constitutional: No acute distress
EENT: Anicteric and Moist mucous membranes
Cardiovascular: Rhythm & rate is regular, Pedal edema is absent, Systolic murmur absent and Diastolic murmur absent
Respiratory: Respiratory effort normal
GI: Soft, Distention absent, Non tender and Normal bowel sounds
Neuro/Psych: Alert
Data Reviewed
-
Date of Service: March 30, 2024
[2024-03-30] MEDS: NOVOLOG FLEXPEN SC (08:39)
[2024-03-30] MEDS: APRESOLINE 100 MG PO ×3 (08:41→22:40)
[2024-03-30] MEDS: OSCAL CAL 500 500 MG PO (08:41)
[2024-03-30] MEDS: CLARITIN 10 MG PO (08:41)
[2024-03-30] MEDS: ABILIFY 2 MG PO ×2 (08:41→20:30)
[2024-03-30] MEDS: ASPIR LOW (ENTERIC COATED) 81 MG PO (08:41)
[2024-03-30] MEDS: SENOKOT-S 1 TABLET PO ×2 (08:42→20:30)
[2024-03-30] MEDS: HEPARIN 5000 UNITS SC ×2 (08:42→20:30)
[2024-03-30] MEDS: ZOLOFT 50 MG PO (08:42)
[2024-03-30] MEDS: DELTASONE 5 MG PO (08:42)
[2024-03-30] MEDS: SODIUM BICARBONATE 650 MG PO ×2 (08:42→20:30)
[2024-03-30] MEDS: COREG 25 MG PO ×2 (08:42→20:30)
[2024-03-30] MEDS: BACITRACIN OINTMENT 1 APPLIC TOPICAL ×3 (08:45→22:40)
[2024-03-30] MEDS: LASIX IV (08:58)
[2024-03-30] MEDS: LASIX 80 MG PO ×2 (10:28→16:56)
--- NOTE | 2024-03-30 11:05 | W.PN.NEPH.PH ---
Today's Communication / Plan
-
Observe on oral Lasix
Maintain fluid restrict
Assessment/Plan
-
Impression:
Acute shortness of breath-suspected acute DCHF
Acute on Chronic hypoxic respite insufficiency
History of obstructive sleep apnea.
COPD
CKD stage IV-cr in [address] Amaya
Anemia
hyponatremia
HX CVA
GERD
ESSENTIAL HYPERTENSION
DM
HYPOTHYROIDISM
DEMENTIA
LUE AVF
Plan:
A/w sob from facility
hypervolemic Hyponatremia improved to 130 after adding fluid restriction and maintaining lasix
Creatinine at 3.3 and remains non oliguric
CXR noted bilateral infiltrate and mild effusion with high BNP
maintain Lasix to 80po twice daily, checked postvoid bladder scan
BP are labile, back on home meds
follow h/h,Fe sat 18%, started IV fe
monitor daily labs and wts
no emergent need of HD
-
-
Date of Service: March 30, 2024
CC / HPI / ROS
-
Chief Complaint:
CKD4
History of Present Illness:
creatinine at 3.3,
Hyponatremia improved
BP increasing trend
Review of Systems:
Remains on oxygen
Able to answer most questions
offers no cp or sob
Weights down
Urine output not recorded
Labs
-
Labs:
WBC 5.6 10^3/uL (4.8-10.8) 03/30/24 06:07
RBC 3.03 10^6/uL (4.20-5.40) L 03/30/24 06:07
Hgb 8.6 g/dL (12.0-16.0) L 03/30/24 06:07
Hct 27.0 % (37.0-47.0) L 03/30/24 06:07
Plt Count 229 10^3/uL (130-400) 03/30/24 06:07
Sodium 130 mmol/L (135-145) L 03/30/24 06:06
Potassium 3.7 mmol/L (3.5-5.1) 03/30/24 06:06
Chloride 98 mmol/L (98-107) 03/30/24 06:06
Carbon Dioxide 26 mmol/L (22-30) 03/30/24 06:06
BUN 85 mg/dl (7-17) H 03/30/24 06:06
Creatinine 3.3 mg/dL (0.6-1.0) H 03/30/24 06:06
eGFR 14.29 03/30/24 06:06
Glucose 100 mg/dl (70-99) H 03/30/24 06:06
Calcium 7.9 mg/dl (8.4-10.2) L 03/30/24 06:06
Sag-R-Hrdrenqdyid Pept 70725 pg/ml 03/27/24 07:32
Albumin 3.1 g/dl (3.5-5.0) L 03/27/24 07:32
Physical Exam
-
Vital Signs:
Vital Signs
Temp Pulse Resp BP Pulse Ox
98.4 F 72 14 153/60 100
03/30/24 07:15 03/30/24 10:28 03/30/24 07:58 03/30/24 10:28 03/30/24 08:00
Cardiovascular:: Regular rate and rhythm
Respiratory:: Bilateral: Coarse
Lung Excursion:: Normal
Abdomen:: Nontender and Soft
Extremity Edema:: None: Bilateral:
Rhodes Catheter: No
Other Findings::
Left upper extremity AV fistula with good thrill and bruit, tender to touch
[2024-03-30 11:15] VITALS: BP 148/61
[2024-03-30 12:13] LABS: Glucose - Point of Care 177 mg/dl (70-99)
[2024-03-30] MEDS: NOVOLOG FLEXPEN 2 UNITS SC ×2 (12:17→16:56)
[2024-03-30] MEDS: TYLENOL 650 MG PO (13:43)
--- NOTE | 2024-03-30 14:13 | W.PN.HOSP.TC ---
Addendum entered and electronically signed by Tien Ernst MD 03/31/24 00:34:
Attending Addendum-
I saw and evaluated the patient. I reviewed the resident�s note and agree with findings and plan as documented in the resident�s note. Patient is poor historian due to dementia. nursing states patient was agitated last PM. Currently calm. 'i feel
good today. whats the problem?' Has no complaints. Full 12 point ROS reviewed and negative except as documented-limited due to dementia Exam: Gen NAD heart RRR lungs crackles at base abd soft NT ND LE trace edema Neuro AAO x 1 Plan:
# AE HFpEF-
- resolved
- daily weights strict I and O fluid restrict
- weights stable appears on the dryer side
- IV lasix transition to PO
- echo 5/6-EF 55% ? takotsubo
- poor candidate for cath
- DC metoprolol started on coreg
#Elevated Troponins
-cardiology input noted.
-likely nonischemic myocardial injury in the setting of chronic kidney disease and heart failure
-trend
#Hypervolemic Hyponatremia
- lasix transition to PO
- repeat labs in am
- likely check osms/urine studies if worsening
# Chronic hypoxic respiratory insufficiency-
- History of obstructive sleep apnea
- weaned off 02
# COPD
No evidence of exacerbation.
# CKD stage IV ->V
- CR @ baseline 3
- appreciate nephro input
- AV fistula placed last week
- maturation 4-6 weeks
- no need for urgent HD
- cont IV lasix and monitor
# HX CVA
-PROJECT DEVELOPMENT MANAGER asa/statin
# GERD
-cont meds
# ESSENTIAL HYPERTENSION
- stable monitor
- DC metoprolol cont coreg
# DM
-Continue home insulin treatment
-monitor accuchecks
# HYPOTHYROIDISM
-Continue home medication
# DEMENTIA
- Continue home medications
- poor prog
# Pulmonary Nodules/Ex Tob Abuse
- seen on LDCT 01/17
- f/u 3 months this month
DVT PPx hep subQ
Code Verified with POA- DNR
Dispo DC in 24 to 48 hours to [place]
Time spent coordinating care, review of plan of care with resident, review of records, med rec, consults, notes, labs, rads, d/w nursing � 55 mins
Original Note:
Today's Communication/Plan
-
Continue fluid restriction while on diuresis
Monitor creatinine
Monitor H&H with p.o. iron every other day
Daughter updated CODE STATUS is DNR.
Assessment / Plan
Assessment / Plan
Assessment:
Ms. Foster is a 73-year-old female with dementia, HFpEF, paroxysmal atrial tachycardia, COPD, CKD, from assisted nursing facility (), who was admitted 03/27/2024 with hypoxia and shortness of breath.� She is on chronic oxygen in the
facility but never wears them.� She was admitted with a presumptive decompensated CHF.� Patient is a poor historian because of dementia.� She underwent an AV fistula graft last week and tolerated. Bilateral pleural effusion with bilateral
atelectasis/consolidation but other effusions noted. BNP is very high. Increased creatinine compared to baseline noted.
Impression:
Presentation with hypoxia and acute shortness of breath
Saturating 100% on room air
Elevated troponin on admission
Resolved
Mild leukocytosis with no fever.
Resolved
Worsening hyponatremia.
Improving
Anemia.
Normocytic with iron supplementation
Conditions PROJECT DEVELOPMENT MANAGER:
History of obstructive sleep apnea.
COPD
CKD stage IV-cr in [address] Amaya
Anemia
hyponatremia
HX CVA
GERD
ESSENTIAL HYPERTENSION
DM
HYPOTHYROIDISM
DEMENTIA
Presentation with hypoxia and acute shortness of breath:
-Acute on chronic hypoxic respiratory insufficiency secondary to pulmonary effusion vs acute decompensated heart failure.
-Oxygen requirements improved patient now saturating 100% on room air with 80 mg IV Lasix twice daily.
-IV Lasix changed to PO 80 mg twice daily due to patient's agitation.
-Monitor I & O's and trend daily weight while on Lasix.
Elevated troponin level on admission:
-Patient with no chest pain.
-Troponin level trending down, peaked at 1.32. Most likely due to nonischemic myocardial stretch (Takotsubo) in the setting of HFpEF and CKD.
-Echo 03/29/2024 with preserved LV ejection fraction and new hypokinesis of apical segments representing Takotsubo cardiomyopathy.
-Continue Coreg.
-Cardiology following, recs appreciated.
Mild leukocytosis with no fever:
-WBC count within normal limits.
-CXR 03/27/2024 with increased bilateral bibasilar opacification likely atelectasis/pneumonia, small bilateral pleural effusion.
-This is likely reactive, doubt pneumonia.
Worsening hyponatremia.
-Improved IV Lasix and fluid restriction; most likely hypervolemic hyponatremia in the setting of decompensated CHF and acute on chronic CKD.
-Transitioned to 80 mg twice daily oral Lasix, patient tolerating IV lines.
-Monitor daily weights/I's&O's.
-Follow labs and replete electrolytes as needed.
Microcytic anemia
-Iron deficiency anemia.
-Patient pulled IV lines, hence transitioned to oral iron supplementation.
-Monitor H&H.
CKD stage IV:
-Baseline creatinine 2.9-3.1.
-Worsening creatinine 3.3 today.
-Left AV fistula in place in preparation for HD, however I do not think patient is a candidate for HD given her dementia.
-Renally dose all medications.
-Nephrology following.
Proximal atrial tachycardia:
-Continue Coreg at 25 mg twice daily, Cardizem discontinued by cardiology.
-Cardiology following.
Hyperlipidemia
-Continue atorvastatin 20 mg daily.
Advanced dementia:
-Patient on bed alarm.
-Close monitoring.
Essential hypertension:
-BP labile.
-Continue home medication
-Monitor hemodynamics
COPD:
- No evidence of exacerbation.
HX CVA:
-PROJECT DEVELOPMENT MANAGER asa/statin, continue
Hypothyroidism:
Continue levothyroxine at home dose.
DVT PPx:
-Heparin subQ.
DNR (daughter updated 03/30/2024)

Data:
Echo 03/29/2024:
Normal left ventricular systolic function. LV ejection fraction is 55% by visual assessment.
Hyokinesis of the apical segments: pattern may be consistent with Takustubo cardiomyopathy.
Stage II diastolic dysfunction suggestive of abnormal relaxation and increased filling pressures.
Aortic sclerosis without stenosis.
Mild tricuspid regurgitation. Mildly elevated PASP. Estimated pulmonary artery pressure of 42 mmHg assuming a right atrial pressure of 3 mmHg.
Compared to 8/25/23: apical hypokinesis is new.
CXR 03/27/2024:
Increased bibasilar opacification since prior study which could represent atelectasis and/or pneumonia and possible small bilateral pleural effusions.
Anticipated Discharge: 24 - 48 hours
Subjective/Interval History
-
Date of Service: March 30, 2024
No significant acute events reported overnight. Patient's intermittently agitated pulling her IV lines but easily redirected. Called daughter (Lulu) today, who updated CODE STATUS of normal to be DNR living Will. Daughter's #[phone], reach
out formal questions or clarifications.
Objective Data
-
Labs:
Laboratory Results
03/30/24 03/30/24
06:06 06:07
WBC 5.6
Hgb 8.6 L
Hct 27.0 L
Plt Count 229
Sodium 130 L
Potassium 3.7
Chloride 98
Carbon Dioxide 26
BUN 85 H
Creatinine 3.3 H
Glucose 100 H
Calcium 7.9 L
Vital Signs:
Vital Signs
Temp Pulse Resp BP Pulse Ox
98.3 F 66 16 148/61 100
03/30/24 11:15 03/30/24 11:15 03/30/24 11:15 03/30/24 11:15 03/30/24 11:15
I&O
03/29/24 03/30/24 03/31/24
06:59 06:59 06:59
Intake Total 2099 1540 / 1540
Balance 2099 1540 / 1540
Review of Systems
-
Unable to obtain full review of systems at this time due to: Dementia
Physical Exam
-
General: No Apparent Distress and Comfortable
HEENT: Moist Mucous Membranes
Respiratory: Crackles (Mild bilateral basal) and Non Labored Respirations; Negative Wheezes
Cardiac: Regular Rhythm and S1/S2
GI: Soft, Nontender and Normal Bowel Sounds
Musculoskeletal: No Clubbing and No Edema
Skin: Warm and Dry
Neuro: Awake, Alert and Oriented (Self only)
Psych: Calm and Confused
Data Reviewed
-
Diagnostic Radiology: Image personally visualized and interpreted, Report Reviewed by me and Discussed with Physician
Labs: Labs Reviewed by me
Old Records: Reviewed
[2024-03-30 15:15] VITALS: BP 141/49
--- NOTE | 2024-03-30 16:07 | CM ---
On PO Lasix and fluid restriction. Await therapy evaluation. resides at [facility] [place].
[2024-03-30 16:53] LABS: Glucose - Point of Care 184 mg/dl (70-99)
[2024-03-30] MEDS: LIPITOR 20 MG PO (17:01)
[2024-03-30 19:28] VITALS: BP 130/59
[2024-03-30 21:35] LABS: Glucose - Point of Care 153 mg/dl (70-99)
[2024-03-30] MEDS: BENADRYL 25 MG PO (22:40)
[2024-03-30] MEDS: LANTUS 0.0500000000000000028 UNITS SC (22:40)
--- NOTE | 2024-03-30 22:46 | PTCARENOTE ---
Pt removing tele box frequently. tele discontinuation protocol reassessed and pt meets criteria to have tele removed. Tele d/c'd per protocol.
[2024-03-30 23:02] VITALS: BP 148/63
[2024-03-31] MEDS: SYNTHROID 75 MCG PO (05:36)
[2024-03-31 05:39] VITALS: BMI 25.9
[2024-03-31 07:14] LABS: Blood Urea Nitrogen 88 mg/dl (7-17); Calcium 7.8 mg/dl (8.4-10.2); Carbon Dioxide 27 mmol/L (22-30); Chloride 98 mmol/L (98-107); Estimated Creatinine Clearance 13 ml/min; Glucose 84 mg/dl (70-99); Potassium 3.9 mmol/L (3.5-5.1); Sodium 130 mmol/L (135-145); eGFR 14.29
--- NOTE | 2024-03-31 07:22 | W.PN.HOSP.TC ---
Addendum entered and electronically signed by Tien Ernst MD 03/31/24 23:11:
Attending Addendum-
I saw and evaluated the patient. I reviewed the resident�s note and agree with findings and plan as documented in the resident�s note. Patient is poor historian due to dementia. pleasant 'i dont want to go i like it here' Has no complaints. Full 12
point ROS reviewed and negative except as documented-limited due to dementia Exam: Gen NAD heart RRR lungs crackles at base abd soft NT ND LE trace edema Neuro AAO x 1 Plan:
# AE HFpEF-
- resolved
- daily weights strict I and O fluid restrict
- weights stable appears on the dryer side
- IV lasix transition to PO 80 po BID
- echo 5/6-EF 55% ? takotsubo
- poor candidate for cath
- DC metoprolol cont coreg
#Elevated Troponins
-cardiology input noted.
-likely nonischemic myocardial injury in the setting of chronic kidney disease and heart failure
-trend
#Hypervolemic Hyponatremia
- lasix transition to PO
- likely check osms/urine studies if worsening
- chronic and stable
# Chronic hypoxic respiratory insufficiency-
- History of obstructive sleep apnea
- weaned off 02
# COPD
No evidence of exacerbation.
# CKD stage IV ->V
- CR @ baseline 3
- appreciate nephro input
- AV fistula placed last week
- maturation 4-6 weeks
- no need for urgent HD
- cont IV lasix and monitor
# HX CVA
-LOCUM [employer]ENENS HOSPITALIST asa/statin
# GERD
-cont meds
# ESSENTIAL HYPERTENSION
- stable monitor
- DC metoprolol cont coreg
# DM
-Continue home insulin treatment L 5 novolog 2/2/2
-monitor accuchecks
# HYPOTHYROIDISM
-Continue home medication
# DEMENTIA
- Continue home medications
- poor prog
# Pulmonary Nodules/Ex Tob Abuse
- seen on LDCT 01/17
- f/u 3 months as OP
Code Verified with POA- DNR
Dispo DC to [facility]
Time spent coordinating care, review of plan of care with resident, review of records, dc planning, transition of care,med rec, consults, notes, labs, rads, d/w nursing � 36 mins
Original Note:
Today's Communication/Plan
-
Continue oral Lasix 80 mg 3 times daily
Continue home medications
Discharge planning
Assessment / Plan
Assessment / Plan
Assessment:
Ms. Foster is a 73-year-old female with dementia, HFpEF, paroxysmal atrial tachycardia, COPD, CKD, from assisted nursing facility ([facility]), who was admitted 03/27/2024 with hypoxia and shortness of breath.� She is on chronic oxygen in the
facility but never wears them.� She was admitted with a presumptive decompensated CHF.� Patient is a poor historian because of dementia.� She underwent an AV fistula graft last week and tolerated. Bilateral pleural effusion with bilateral
atelectasis/consolidation but other effusions noted. BNP is very high. Increased creatinine compared to baseline noted.
Impression:
Presentation with hypoxia and acute shortness of breath
Saturating 100% on room air
Elevated troponin on admission
Resolved
Mild leukocytosis with no fever.
Resolved
Worsening hyponatremia.
Improving
Anemia.
Normocytic with iron supplementation
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
History of obstructive sleep apnea.
COPD
CKD stage IV-cr in [address] Amaya
Anemia
hyponatremia
HX CVA
GERD
ESSENTIAL HYPERTENSION
DM
HYPOTHYROIDISM
DEMENTIA
Presentation with hypoxia and acute shortness of breath:
-Acute on chronic hypoxic respiratory insufficiency secondary to pulmonary effusion vs acute decompensated heart failure.
-Oxygen requirements improved patient now saturating 100% on room air with 80 mg IV Lasix twice daily.
-IV Lasix changed to PO 80 mg twice daily due to patient's agitation.
-Monitor I & O's and trend daily weight while on Lasix.
Acute decompensated HFpEF:
-Resolved.
-Troponin level trending down, peaked at 1.32. Most likely due to nonischemic myocardial stretch (Takotsubo) in the setting of HFpEF and CKD.
-Echo 03/29/2024 with preserved LV ejection fraction and new hypokinesis of apical segments representing Takotsubo cardiomyopathy.
-Continue Coreg.
-Cardiology following, recs appreciated.
Mild leukocytosis with no fever:
-WBC count within normal limits.
-CXR 03/27/2024 with increased bilateral bibasilar opacification likely atelectasis/pneumonia, small bilateral pleural effusion.
-This is likely reactive, doubt pneumonia.
Hyponatremia:
-Improved stable at 130 with IV Lasix and fluid restriction.
-Transitioned to 80 mg twice daily oral Lasix, patient tolerating IV lines.
-Monitor daily weights/I's&O's.
-Follow labs and replete electrolytes as needed.
Microcytic anemia
-Iron deficiency anemia.
-Patient pulled IV lines, hence transitioned to oral iron supplementation.
-Monitor H&H.
CKD stage IV:
-Creatinine stable at 3.3.
-Left AV fistula in place in preparation for HD, however I do not think patient is a candidate for HD given her dementia.
-Renally dose all medications.
-Nephrology following.
Proximal atrial tachycardia:
-Continue Coreg at 25 mg twice daily, Cardizem discontinued by cardiology.
-Cardiology following.
Hyperlipidemia
-Continue atorvastatin 20 mg daily.
Advanced dementia:
-Patient on bed alarm.
-Close monitoring.
Essential hypertension:
-BP labile.
-Continue home medication
-Monitor hemodynamics
COPD:
- No evidence of exacerbation.
HX CVA:
-LOC[employer] TENENS HOSPITALIST asa/statin, continue
Hypothyroidism:
Continue levothyroxine at home dose.
DVT PPx:
-Heparin subQ.
DNR (daughter updated 03/30/2024)

Data:
Echo 03/29/2024:
Normal left ventricular systolic function. LV ejection fraction is 55% by visual assessment.
Hyokinesis of the apical segments: pattern may be consistent with Takustubo cardiomyopathy.
Stage II diastolic dysfunction suggestive of abnormal relaxation and increased filling pressures.
Aortic sclerosis without stenosis.
Mild tricuspid regurgitation. Mildly elevated PASP. Estimated pulmonary artery pressure of 42 mmHg assuming a right atrial pressure of 3 mmHg.
Compared to 07/18/23: apical hypokinesis is new.
CXR 03/27/2024:
Increased bibasilar opacification since prior study which could represent atelectasis and/or pneumonia and possible small bilateral pleural effusions.
Anticipated Discharge: Today
Subjective/Interval History
-
Date of Service: March 31, 2024
There was no significant event reported overnight. Patient was seen in bed in no acute distress. Denies chest pain, shortness of breath, abdominal pain, headache, chills.
Objective Data
-
Labs:
Laboratory Results
03/31/24
05:49
Sodium 130 L
Potassium 3.9
Chloride 98
Carbon Dioxide 27
BUN 88 H
Creatinine 3.3 H
Glucose 84
Calcium 7.8 L
Vital Signs:
Vital Signs
Temp Pulse Resp BP Pulse Ox
98.1 F 68 18 148/63 93
03/30/24 23:02 03/30/24 23:02 03/30/24 23:02 03/30/24 23:02 03/30/24 23:02
I&O
03/30/24 03/31/24 04/01/24
06:59 06:59 06:59
Intake Total 1540 / 1540 1180 / 1180
Output Total 1000 / 1000
Balance 1540 / 1540 180 / 180
Review of Systems
-
Unable to obtain full review of systems at this time due to: Dementia
Physical Exam
-
General: No Apparent Distress and Comfortable
HEENT: Moist Mucous Membranes
Respiratory: Crackles (Mild bilateral basal) and Non Labored Respirations; Negative Wheezes
Cardiac: Regular Rhythm and S1/S2
GI: Soft, Nontender and Normal Bowel Sounds
Musculoskeletal: No Clubbing and No Edema
Skin: Warm and Dry
Neuro: Awake, Alert and Oriented (Self only)
Psych: Calm and Confused
Data Reviewed
-
Diagnostic Radiology: Image personally visualized and interpreted, Report Reviewed by me and Discussed with Physician
Labs: Labs Reviewed by me
Old Records: Reviewed
[2024-03-31 07:31] LABS: Glucose - Point of Care 96 mg/dl (70-99)
[2024-03-31] MEDS: SYMBICORT 160/4.5 MCG INHALER 2 PUFF INH (07:39)
[2024-03-31] MEDS: SPIRIVA RESPIMAT 2.5 MCG 2 PUFF INH (07:39)
--- NOTE | 2024-03-31 08:29 | W.PN.CD ---
Today's Communication / Plan
-
- cont lasix as directed by nephrology
- no new cardiac recommendations and I will sign off
- follow up with us in 2-4 weeks after discharge
Impression / Plan
-
Impression: 72F with dyspnea and hypoxia
PMH: significant dementia, chronic HFpEF, known coronary and aortic calcification on CT, paroxysmal atrial tachycardia, hyperlipidemia, COPD, and CKD4 (
Elevated troponin
-no chest pain
-New inferior and anterolateral T wave inversion
-Troponin peak 1.32
-echo 03/29: EF 55% and apical hypokinesis; Stage II DD, no sig valve disease
-We suspect this is Takustubo with acute non-ischemic myocardial injury
-she is not a good candidate for cath with advanced dementia and CKD4
-med mgmt: change metoprolol to coreg 25mg bid
-other meds will be limited by CKD4
Acute on chronic HFpEF:
-high risk with CKD4, and nephrology consulted
-cont lasix as directed by nephrology
-we will need to reset goal weight
CKD4:
-fistula placed last week for HD planning
-HD in advanced dementia is an interesting issue
Paroxysmal atrial tachycardia:
-Continue coreg
-We stopped diltiazem with uptitration of beta eddie
Hypertension:
-monitor with diuresis: now on hydralazine 100mg tid, coreg 25mg bid
-I stopped diltiazem with uptitration of beta eddie: can add amlodipine if BP trends up
CAD: by coronary artery calcification on CT
-no angina
-cont ASA, statin
Hyperlipidemia:
-Continue atorvastatin 20 mg daily.
Former tobacco abuse:
-Continue cessation
Advanced Dementia:
Dispo
- no new cardiac recommendations and I will sign off
- follow up with us in 2-4 weeks after discharge
Subjective: Seems comfortable. No dyspnea
Physical Exam
Vital Signs/Labs
Vital Signs
Temp Pulse Resp BP Pulse Ox
36.7 C 76 16 148/63 95
03/30/24 23:02 03/31/24 07:45 03/31/24 07:45 03/30/24 23:02 03/31/24 07:45
03/30/24 03/31/24 04/01/24
06:59 06:59 06:59
Actual Weight 151 lb 14.4 oz 151 lb
03/30/24 06:07
03/31/24 05:49
03/27/24
07:32
Rra-D-Irvrsikqmau Pept [id number]
LAB Results
03/28/24
09:10
Troponin I 0.747 H*
Physical Exam
Constitutional: No acute distress
EENT: Anicteric and Moist mucous membranes
Cardiovascular: Rhythm & rate is regular
Respiratory: Respiratory effort normal, Lungs clear to auscul. and Crackles Absent
GI: Soft and Distention absent
Neuro/Psych: Alert
Data Reviewed
-
Date of Service: March 31, 2024
--- NOTE | 2024-03-31 09:20 | W.HF.CON ---
Heart Failure
- LV Function
Left ventricular function study result: LV Ejection fraction >40%
Ejection Fraction Percentage: 55
- ARNI
Patient already on ARNI: No
Heart Failure ARNI Not Indicated: LV Ejection Fraction >/= 40%
- ACEI/ARB
Patient already on ACEI/ARB: No
Heart Failure ACEI/ARB Not Indicated: LV Ejection Fraction > 40%
- Beta Nieves
Patient already on Evidence Based Beta Nieves: Yes
- Mineralocorticord Receptor Antagonist
Patient already on MRA: No
Heart Failure MRA Not Indicated: LV Ejection Fraction > 40%
- SGLT-2 Inhibitor
Patient already on SGLT-2 Inhibitor: No
Heart Failure SGLT-2 Inhibitor Not Indicated: LV Ejection Fraction >40%
- NYHA CHF Classification
NYHA CHF Classification Level: Class III - Symptoms w/ min exertion, interferes w/ nml daily activity
- ACC/AHA Stage
ACC/AHA Stage: Stage C: Symptomatic Heart Failure
[2024-03-31] MEDS: NOVOLOG FLEXPEN SC (09:46)
[2024-03-31] MEDS: CLARITIN 10 MG PO (09:47)
[2024-03-31] MEDS: ZOLOFT 50 MG PO (09:47)
[2024-03-31] MEDS: OSCAL CAL 500 500 MG PO (09:47)
[2024-03-31] MEDS: ABILIFY 2 MG PO (09:47)
[2024-03-31] MEDS: LASIX 80 MG PO ×2 (09:47→15:34)
[2024-03-31] MEDS: FEOSOL 325 MG PO (09:47)
[2024-03-31] MEDS: ASPIR LOW (ENTERIC COATED) 81 MG PO (09:47)
[2024-03-31] MEDS: SENOKOT-S 1 TABLET PO (09:48)
[2024-03-31] MEDS: COREG 25 MG PO (09:48)
[2024-03-31] MEDS: DELTASONE 5 MG PO (09:48)
[2024-03-31] MEDS: APRESOLINE 100 MG PO ×2 (09:48→15:34)
[2024-03-31] MEDS: HEPARIN 5000 UNITS SC (09:48)
[2024-03-31] MEDS: SODIUM BICARBONATE 650 MG PO (09:48)
[2024-03-31] MEDS: BACITRACIN OINTMENT 1 APPLIC TOPICAL ×2 (09:59→15:34)
[2024-03-31 11:58] LABS: Glucose - Point of Care 125 mg/dl (70-99)
[2024-03-31 12:50] VITALS: BP 178/75
[2024-03-31] MEDS: NOVOLOG FLEXPEN 2 UNITS SC (13:03)
--- NOTE | 2024-03-31 13:44 | CM ---
Patient has been medically cleared for discharge back to [facility] with no additional skilled services. Ambulance transport due to dementia will be scheduled. [facility] does not provide transport. Daughter, Lisbeth notified.
[facility] is able to accept today.
Nurse to Nurse Report # [phone] Ask for Nursing
FAX# [phone]
--- NOTE | 2024-03-31 13:45 | W.PN.NEPH.PH ---
Today's Communication / Plan
-
observe, add amlodipine if needed for HTN
Assessment/Plan
-
Impression:
Acute shortness of breath-suspected acute DCHF
Acute on Chronic hypoxic respite insufficiency
History of obstructive sleep apnea.
COPD
CKD stage IV-cr in [address] Amaya
Anemia
hyponatremia
HX CVA
GERD
ESSENTIAL HYPERTENSION
DM
HYPOTHYROIDISM
DEMENTIA
LUE AVF
Plan:
A/w sob from facility
hypervolemic Hyponatremia improved to 130 after adding fluid restriction and maintaining lasix
Creatinine stable at 3.3 and remains non oliguric
CXR noted bilateral infiltrate and mild effusion with high BNP
maintain Lasix to 80po twice daily, checked postvoid bladder scan
chr met acidosis on po bicarb
BP are increasing trend, CCB changed to coreg per cards, add Amlodipine if needed
not candidate for cath with advanced dementia
follow h/h,Fe sat 18%, s/p IV fex2 on po now
monitor daily labs and wts
no emergent need of HD, new AVF feels fine
d/c plan
-
-
Date of Service: March 31, 2024
CC / HPI / ROS
-
Chief Complaint:
CKD4
History of Present Illness:
creatinine at 3.3, stable
Hyponatremia stable at 130
BP increasing trend
wt slow to improve
Review of Systems:
Remains off oxygen
Able to answer most questions but forgetful
offers no cp or sob
non oliguric
Labs
-
Labs:
WBC 5.6 10^3/uL (4.8-10.8) 03/30/24 06:07
RBC 3.03 10^6/uL (4.20-5.40) L 03/30/24 06:07
Hgb 8.6 g/dL (12.0-16.0) L 03/30/24 06:07
Hct 27.0 % (37.0-47.0) L 03/30/24 06:07
Plt Count 229 10^3/uL (130-400) 03/30/24 06:07
Sodium 130 mmol/L (135-145) L 03/31/24 05:49
Potassium 3.9 mmol/L (3.5-5.1) 03/31/24 05:49
Chloride 98 mmol/L (98-107) 03/31/24 05:49
Carbon Dioxide 27 mmol/L (22-30) 03/31/24 05:49
BUN 88 mg/dl (7-17) H 03/31/24 05:49
Creatinine 3.3 mg/dL (0.6-1.0) H 03/31/24 05:49
eGFR 14.29 03/31/24 05:49
Glucose 84 mg/dl (70-99) 03/31/24 05:49
Calcium 7.8 mg/dl (8.4-10.2) L 03/31/24 05:49
Eyt-J-Xyclrdgqlip Pept [id number] pg/ml 03/27/24 07:32
Albumin 3.1 g/dl (3.5-5.0) L 03/27/24 07:32
Physical Exam
-
Vital Signs:
Vital Signs
Temp Pulse Resp BP Pulse Ox
98.1 F 77 16 178/74 95
03/31/24 07:15 03/31/24 09:48 03/31/24 07:45 03/31/24 09:48 03/31/24 07:45
Cardiovascular:: Regular rate and rhythm
Respiratory:: Bilateral: Rales
Lung Excursion:: Normal
Abdomen:: Nontender and Soft
Extremity Edema:: None: Bilateral: (trace)
Rhodes Catheter: No
[2024-03-31 15:15] VITALS: BP 153/61
[2024-03-31 16:58] LABS: Glucose - Point of Care 171 mg/dl (70-99)
--- NOTE | 2024-03-31 20:47 | W.DS.TRANS ---
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
-
Discharge Instructions:
Sleep Apnea Risk Intermediate
Discharge Diagnosis/Procedures Acute exacerbation of HFpEF
Diet Regular,Low Sodium
Activity With assistance,As tolerated
Driving Restrictions As prior to admission
Bathing Restrictions None
Other Services OT,PT
Instructions: *PCP/Other Hand Surgeon Heart Failure Instructions
Stand-Alone Forms:
Changes to Home Medications: Yes
Discharge Medications:
DC Medications w/original date entered in [facility]
acetaminophen 325 mg tablet (Tylenol) 325 mg PO TID PRN mild pain 05/28/22
albuterol sulfate 90 mcg/actuation aerosol inhaler 2 puff inhalation R Q6HPRN PRN sob/wheezing 05/28/22
aspirin 81 mg tablet,delayed release 81 mg PO DAILY Blood clot prevention/tx 05/28/22
atorvastatin 20 mg tablet 20 mg PO QPM High cholesterol 05/28/22
fluticasone fur. 100 mcg-umeclid 62.5 mcg-vilant 25 mcg inhalat.powder (Trelegy Ellipta) 1 inh inhalation R DAILY Lung/breathing issues 05/28/22
levothyroxine 75 mcg tablet 75 mcg PO DAILY@0600 Thyroid 05/28/22
aripiprazole 2 mg tablet 2 mg PO BID Mental Health/Anxiety 05/01/23
loratadine 10 mg tablet 10 mg PO DAILY Allergies 05/01/23
sennosides 8.6 mg-docusate sodium 50 mg tablet (Senexon-S) 1 tab PO BID Constipation 05/10/23
diphenhydramine HCl 25 mg tablet 25 mg PO HS Sleep 06/02/23
sodium bicarbonate 650 mg tablet 650 mg PO BID Supplement 06/02/23
umeclidinium 62.5 mcg/actuation blister powder for inhalation (Incruse Ellipta) 1 inh inhalation R DAILY Lung/Breathing Issues 06/02/23
diltiazem HCl 240 mg capsule,extended release 24 hr 240 mg PO DAILY Heart Disease/Condition 11/03/23
hydralazine 100 mg tablet 100 mg PO TID blood pressure 11/03/23
ipratropium 0.5 mg-albuterol 3 mg (2.5 mg base)/3 mL nebulization soln 3 ml inhalation R QIDPRN PRN sob 11/03/23
loperamide 2 mg tablet (Imodium A-D) 2 mg PO QIDPRN PRN diarrhea 11/03/23
metoprolol tartrate 50 mg tablet 50 mg PO BID blood pressure 11/03/23
prednisone 5 mg tablet 5 mg PO DAILY inflammation 11/03/23
sertraline 50 mg tablet 50 mg PO DAILY Mental Health/Anxiety 11/03/23
insulin glargine 100 unit/mL subcutaneous solution 5 unit SC HS diabetes 11/19/23
insulin aspart U-100 100 unit/mL (3 mL) subcutaneous pen (Novolog FlexPen U-100 Insulin aspart) 2 unit (0.02 mL) SC QAC #15 mL 11/21/23
bacitracin 500 unit/gram topical ointment 1 applic topical TID Infection 03/27/24
calcium carbonate 500 mg PO DAILY Supplement 03/27/24
diphenhydramine HCl 25 mg capsule (Benadryl) 25 mg PO DAILY PRN itching 03/27/24
furosemide 80 mg tablet 80 mg PO BID@0800,1600 #60 tabs 03/31/24
Home Medication Changes
Pending Results: No
--- NOTE | 2024-03-31 20:48 | W.DCSUMMARY ---
Addendum entered and electronically signed by Tien Ernst MD 03/31/24 23:08:
Attending Addendum:
Read reviewed and agree. See same day progress note for additional details.
Ruben rEnst MD
Original Note:
Documented by User: Sukhdev Quijano MD, Resident 03/31/24 21:02
Discharge Summary
Discharge Data
Date of Admission: 03/27/24
Date of Discharge: 03/31/24
-
Pending Results: No
Hospital Course
Patient is a 74-year-old female with past medical history of dementia, CKD 4 baseline CR 3, hypertension, HFpEF on Lasix, who presented to ED ED on 03/27/2024 from [facility], with hypoxia and shortness of breath after being
seen short of breath in the facility. While in the ED, hemoglobin was 9.9, sodium was 131, creatinine was 3.4, and elevated troponin. She also had mild leukocytosis with no fever or cough. Her chest x-ray showed bilateral pleural effusion with
bilateral atelectasis/consolidation on the high BNP. Patient was seen conjunction with nephrology and cardiology. During the course of her stay in the hospital, she was treated with IV Lasix and her oxygen requirement improved. Patient is
currently stable and ready for discharge. Patient has been examined on the date of discharge.
Discharge Plan
-
Patient Disposition: Assisted Living
Discharge Diagnosis/Procedures: Acute exacerbation of HFpEF
Diet: Regular and Low Sodium
Activity: With assistance and As tolerated
Driving Restrictions: As prior to admission
Bathing Restrictions: None
Other Services: PT and OT
Instructions: *PCP/Other Tape Controlled Machine Stitcher Heart Failure Instructions
Referrals:
Wiliam Dai MD [Active] - in two to four weeks
YUE HAZEL MD [Family Provider] -
Additional Discharge Medication Instructions: Start furosemide 80 mg BID
Prescriptions:
New
furosemide 80 mg Tablet
80 mg PO BID@0800,1600 Qty: 60 0RF
Continued
acetaminophen [Tylenol] 325 mg Tablet
325 mg PO TID PRN (Reason: mild pain)
aspirin 81 mg Tablet,Delayed Release (Dr/Ec)
81 mg PO DAILY
levothyroxine 75 mcg Tablet
75 mcg PO DAILY@0600
Trelegy Ellipta 100-62.5-25 mcg Blister With Device
1 inh INHALATION R DAILY
atorvastatin 20 mg Tablet
20 mg PO QPM
albuterol sulfate 90 mcg/actuation Hfa Aerosol Inhaler
2 puff INHALATION R Q6HPRN PRN (Reason: sob/wheezing)
loratadine 10 mg Tablet
10 mg PO DAILY
aripiprazole 2 mg tablet
2 mg PO BID
sennosides-docusate sodium [Senexon-S] 8.6-50 mg tablet
1 tab PO BID
diphenhydramine HCl 25 mg Tablet
25 mg PO HS
Incruse Ellipta 62.5 mcg/actuation blister with device
1 inh INHALATION R DAILY
sodium bicarbonate 650 mg tablet
650 mg PO BID
ipratropium-albuterol 0.5 mg-3 mg(2.5 mg base)/3 mL Solution For Nebulization
3 ml INHALATION R QIDPRN PRN (Reason: sob)
loperamide [Imodium A-D] 2 mg Tablet
2 mg PO QIDPRN MDD 8 mg/24 hrs PRN (Reason: diarrhea)
hydralazine 100 mg Tablet
100 mg PO TID
metoprolol tartrate 50 mg Tablet
50 mg PO BID
sertraline 50 mg Tablet
50 mg PO DAILY
diltiazem HCl 240 mg capsule,extended release 24hr
240 mg PO DAILY
prednisone 5 mg tablet
5 mg PO DAILY
insulin glargine 100 unit/mL Solution
5 unit SC HS
insulin aspart U-100 [Novolog FlexPen U-100 Insulin] 100 unit/mL (3 mL) insulin pen
2 unit SC QAC Qty: 15 0RF
Rx Instructions:
HOLD FOR BLOOD SUGAR LESS THAN 120
bacitracin 500 unit/gram Ointment
1 applic TOPICAL TID
Patient Comments:
03/27/2024: apply to R middle finger
calcium carbonate 500 mg calcium (1,250 mg) Tablet
500 mg PO DAILY
diphenhydramine HCl [Benadryl] 25 mg Capsule
25 mg PO DAILY PRN (Reason: itching)
Discontinued
furosemide 40 mg Tablet
60 mg PO DAILY
Discharge Orders:
Discharge Patient (As Directed); Ordered 03/31/24
Ordered By: Sukhdev Quijano
Discharge Date and Time
Discharge Date/Time: 03/31/24 17:13
Print Language: FILIPINO

Documented by User: Tien Ernst MD 03/31/24 23:06
Discharge Summary
Discharge Data
Date of Admission: 03/27/24
Date of Discharge: 03/31/24
Discharge Plan
-
Patient Disposition: Assisted Living
Discharge Diagnosis/Procedures: Acute exacerbation of HFpEF
Diet: Regular and Low Sodium
Activity: With assistance and As tolerated
Driving Restrictions: As prior to admission
Bathing Restrictions: None
Other Services: PT and OT
Instructions: *PCP/Other Tape Controlled Machine Stitcher Heart Failure Instructions
Referrals:
Wiliam Dai MD [Active] - in two to four weeks
YUE HAZEL MD [Family Provider] -
Additional Discharge Medication Instructions: Start furosemide 80 mg BID
Prescriptions:
New
furosemide 80 mg Tablet
80 mg PO BID@0800,1600 Qty: 60 0RF
Continued
acetaminophen [Tylenol] 325 mg Tablet
325 mg PO TID PRN (Reason: mild pain)
aspirin 81 mg Tablet,Delayed Release (Dr/Ec)
81 mg PO DAILY
levothyroxine 75 mcg Tablet
75 mcg PO DAILY@0600
Trelegy Ellipta 100-62.5-25 mcg Blister With Device
1 inh INHALATION R DAILY
atorvastatin 20 mg Tablet
20 mg PO QPM
albuterol sulfate 90 mcg/actuation Hfa Aerosol Inhaler
2 puff INHALATION R Q6HPRN PRN (Reason: sob/wheezing)
loratadine 10 mg Tablet
10 mg PO DAILY
aripiprazole 2 mg tablet
2 mg PO BID
sennosides-docusate sodium [Senexon-S] 8.6-50 mg tablet
1 tab PO BID
diphenhydramine HCl 25 mg Tablet
25 mg PO HS
Incruse Ellipta 62.5 mcg/actuation blister with device
1 inh INHALATION R DAILY
sodium bicarbonate 650 mg tablet
650 mg PO BID
ipratropium-albuterol 0.5 mg-3 mg(2.5 mg base)/3 mL Solution For Nebulization
3 ml INHALATION R QIDPRN PRN (Reason: sob)
loperamide [Imodium A-D] 2 mg Tablet
2 mg PO QIDPRN MDD 8 mg/24 hrs PRN (Reason: diarrhea)
hydralazine 100 mg Tablet
100 mg PO TID
metoprolol tartrate 50 mg Tablet
50 mg PO BID
sertraline 50 mg Tablet
50 mg PO DAILY
diltiazem HCl 240 mg capsule,extended release 24hr
240 mg PO DAILY
prednisone 5 mg tablet
5 mg PO DAILY
insulin glargine 100 unit/mL Solution
5 unit SC HS
insulin aspart U-100 [Novolog FlexPen U-100 Insulin] 100 unit/mL (3 mL) insulin pen
2 unit SC QAC Qty: 15 0RF
Rx Instructions:
HOLD FOR BLOOD SUGAR LESS THAN 120
bacitracin 500 unit/gram Ointment
1 applic TOPICAL TID
Patient Comments:
03/27/2024: apply to R middle finger
calcium carbonate 500 mg calcium (1,250 mg) Tablet
500 mg PO DAILY
diphenhydramine HCl [Benadryl] 25 mg Capsule
25 mg PO DAILY PRN (Reason: itching)
Discontinued
furosemide 40 mg Tablet
60 mg PO DAILY
Discharge Orders:
Discharge Patient (As Directed); Ordered 03/31/24
Ordered By: Sukhdev Quijano
Discharge Date and Time
Discharge Date/Time: 03/31/24 17:13
Print Language: FILIPINO
== END 2024-03-31 17:13 | disposition home or self-care (01) | DRG 291 ==
LOC: 2 NORTH 11:36
PROVIDERS: Specialist; Student in an Organized Health Care Education/Training Program; ADMITTING PHYSICIAN Internal Medicine; ATTENDING PHYSICIAN Family Medicine; CONSULT PHYSICIAN Internal Medicine; EMERGENCY PHYSICIAN Emergency Medicine; FAMILY PHYSICIAN Internal Medicine
DX: I13.0 Hypertensive heart and chronic kidney disease with heart failure and stage 1 through stage 4 chronic kidney disease, or unspecified chronic kidney disease (principal); I50.33 Acute on chronic diastolic (congestive) heart failure; N18.4 Chronic kidney disease, stage 4 (severe); J44.0 Chronic obstructive pulmonary disease with (acute) lower respiratory infection; J96.11 Chronic respiratory failure with hypoxia; J98.11 Atelectasis; F02.83 Dementia in other diseases classified elsewhere, unspecified severity, with mood disturbance; E87.1 Hypo-osmolality and hyponatremia; I47.19 Other supraventricular tachycardia; E03.9 Hypothyroidism, unspecified; E11.22 Type 2 diabetes mellitus with diabetic chronic kidney disease; E78.00 Pure hypercholesterolemia, unspecified; K21.9 Gastro-esophageal reflux disease without esophagitis; I5A Non-ischemic myocardial injury (non-traumatic); G89.29 Other chronic pain; D50.9 Iron deficiency anemia, unspecified; G47.33 Obstructive sleep apnea (adult) (pediatric); M79.7 Fibromyalgia; I25.10 Atherosclerotic heart disease of native coronary artery without angina pectoris; D64.9 Anemia, unspecified; R91.8 Other nonspecific abnormal finding of lung field; F31.9 Bipolar disorder, unspecified; G30.9 Alzheimer's disease, unspecified; D72.829 Elevated white blood cell count, unspecified; Z66 Do not resuscitate; Z87.891 Personal history of nicotine dependence; Z99.81 Dependence on supplemental oxygen; Z91.199 Patient's noncompliance with other medical treatment and regimen due to unspecified reason; Z88.8 Allergy status to other drugs, medicaments and biological substances; Z88.6 Allergy status to analgesic agent; Z88.1 Allergy status to other antibiotic agents; Z88.3 Allergy status to other anti-infective agents; Z91.030 Bee allergy status; Z91.041 Radiographic dye allergy status; Z88.0 Allergy status to penicillin; Z91.013 Allergy to seafood; Z79.82 Long term (current) use of aspirin; Z79.890 Hormone replacement therapy; Z79.51 Long term (current) use of inhaled steroids; Z79.4 Long term (current) use of insulin; Z86.73 Personal history of transient ischemic attack (TIA), and cerebral infarction without residual deficits; Z80.49 Family history of malignant neoplasm of other genital organs; Z83.3 Family history of diabetes mellitus; Z80.1 Family history of malignant neoplasm of trachea, bronchus and lung; Z82.49 Family history of ischemic heart disease and other diseases of the circulatory system
CPT/HCPCS: 71046; 80048; 80053; 82728; 82962; 83540; 83550; 83880; 84484; 85025; 87070; 93005; 93306; 94640; 96374; 97161; 99285; J2916

== ENCOUNTER 2024-04-12 09:46 | Inpatient (IN) | payer MEDICARE, OTHER, SELFPAY ==
[2024-04-11] VITALS (7 sets, daily range): BP systolic 158–189; BP diastolic 47–84; BMI 26.7
[2024-04-11 18:45] LABS: % Basophils 0.4 % (0-2); % Eosinophils 2.1 % (0-6); % Immature Granulocytes 0.6 % (0-0.5); % Lymphocytes 3.9 % (20.5-51.1); % Monocytes 6.5 % (1.7-9.3); % Neutrophils 86.5 % (42.2-75.2); Absolute Eosinophils 0.2 10^3/uL (0-0.7); Absolute Lymphocytes 0.3 10^3/uL (1.2-3.4); Absolute Monocytes 0.5 10^3/uL (0.1-0.6); Absolute Neutrophils 6.2 10^3/uL (1.4-6.5); Hematocrit 32.5 % (37.0-47.0); Mean Corp Hgb Conc. 30.8 g/dL (33.0-37.0); Mean Corpuscular Hgb 28.2 pg (27.0-31.0); Mean Corpuscular Volume 91.8 fL (81.0-99.0); Mean Platelet Volume 9.3 fL (7.4-10.4); Nucleated Red Blood Cells % 0 %; Platelet Count 231 10^3/uL (130-400); Red Blood Cell Count 3.54 10^6/uL (4.20-5.40); Red Cell Dist. Width 14.6 % (11.5-14.5); White Blood Cell Count 7.1 10^3/uL (4.8-10.8)
[2024-04-11 19:03] LABS: ALT (SGPT) 16 U/L (0-35); AST (SGOT) 21 U/L (14-36); Albumin 3.3 g/dl (3.5-5.0); Alkaline Phosphatase 62 U/L (38-126); Blood Urea Nitrogen 93 mg/dl (7-17); Calcium 7.6 mg/dl (8.4-10.2); Carbon Dioxide 31 mmol/L (22-30); Chloride 95 mmol/L (98-107); Estimated Creatinine Clearance 13 ml/min; Glucose 160 mg/dl (70-99); Lipase 140 U/L (23-300); Potassium 4.3 mmol/L (3.5-5.1); Sodium 134 mmol/L (135-145); Total Bilirubin 0.3 mg/dl (0.2-1.3); Total Protein 5.4 g/dl (6.3-8.2); eGFR 13.31
[2024-04-11 19:13] LABS: Troponin I 0.027 ng/ml
--- NOTE | 2024-04-11 20:10 | ED.GENMED ---
History of Present Illness
General
Chief Complaint: Chest Problem
Source: patient, ambulance crew, penitentiary and penitentiary records
Exam Limitations: dementia
Time Seen by Provider: 04/11/24 18:36
Nursing documentation reviewed up to this point in time: agreed with
Travel History
Have you had any contact with someone who has COVID-19?: Unable to Answer
Do you have any symptoms of coronavirus? Fever > 100 degrees, chills, cough, shortness of breath, sore throat, loss of taste or smell, muscle aches, or headache?: Unable to Answer
History of Present Illness
History of Present Illness:
73-year-old female with a past medical history of COPD, hypertension, hyperlipidemia, CHF, chronic respiratory failure on 2 L of home oxygen (apparently has a history of noncompliance), distant history of polysubstance use, insulin-dependent
diabetes, chronic kidney disease stage IV, hypothyroidism who presents to the emergency department from [facility] where she lives in assisted living. She presents via EMS today for evaluation after she was noted to be grabbing at her chest
apparently having chest pain and appeared winded/dyspnea. Staff notes that earlier today patient was not wearing her oxygen and her daughter brought her downstairs because patient was becoming short of breath and having some chest pain. Oxygen was
noted to be 88% and she was placed on her nasal oxygen with improvement. Tonight at dinner she seemed to be doing well but when she walked back to her room from dinner staff witnessed that she was grabbing her chest apparently in pain and looked to
be out of breath so EMS was called to the scene. Per EMS on arrival patient denied any complaints and she was transported to the emergency room. Apparently when nurse performed triage she was complaining of abdominal pain. On my assessment
patient is pleasantly confused which is apparently her baseline. She cannot recall any of the above symptoms or history�according to staff this is not unusual. She denies any chest pain to me. Denies any abdominal pain. She denies any back pain.
She denies any shortness of breath. She denies feeling dizzy. Denies feeling nauseated.
Past History
Past History
ED Past Medical History: CHF, COPD, Fibromyalgia, GERD, HTN, Hypercholesterolemia, IDDM, Hypothyroidism, Psychiatric and Other
ED Past Surgical History: Appendectomy, Cholecystectomy, Gynecological, Orthopedic and Other
Social History
Tobacco: Former smoker
Alcohol: Former
Drug: Former user
Personal:
Living: penitentiary
Employment: Not employed
Family History
Family History: Other
Review of Systems
Review of Systems
Unable to obtain full review of systems at this time due to: dementia
All Other Systems: Not applicable
Phy Exam
Physical Exam
Physical Exam:
General: Awake, alert, oriented to person and place but not time; no acute distress
Head: Normocephalic, atraumatic
Eyes: Conjunctiva normal
Throat: Airway intact, handling secretions
Neck: Trachea midline, supple without meningismus
Lungs: Clear to auscultation bilaterally, no wheezing, rales, rhonchi
Heart: Regular rate and rhythm, no murmurs, gallops, or rubs appreciated
Abd: Soft, non distended, nontender to deep palpation
Neuro: No gross deficit
Skin: Dry, no rash
Extremities: Trace edema around the ankles, distal extremities warm and well-perfused
Scores
Heart Failure Risk
Heart Failure Risk Score: Not Applicable
Heart Score for Chest Pain Patients
STEMI patient?: Not applicable
Withdrawal Assessment of Alcohol
Withdrawal Assessment Completed?: Not applicable
Course
Orders/Labs/Results
Orders:
Orders
04/11/24 18:20
EKG [Electrocardiogram (*1)] Urgent
Reason for Study: Chest Pain
EKG- Treatment ONCE
04/11/24 18:35
Complete Blood Count/With Diff Urgent
Comprehensive Metabolic Panel Urgent
Lipase Urgent
Troponin I Urgent
04/11/24 19:11
CXR2 [CR Chest - 2 Views ] Urgent
Comment:
Reason For Exam: hypoxia
04/11/24 20:29
NT-proBNP Urgent
Troponin I Urgent
Abnormal Lab Results
04/11/24
18:35
RBC 3.54 L 10^6/uL
(4.20-5.40)
Hgb 10.0 L g/dL
(12.0-16.0)
Hct 32.5 L %
(37.0-47.0)
MCHC 30.8 L g/dL
(33.0-37.0)
RDW 14.6 H %
(11.5-14.5)
Absolute Lymphs (auto) 0.3 L 10^3/uL
(1.2-3.4)
Immature Gran % 0.6 H %
(0-0.5)
Neutrophils % 86.5 H %
(42.2-75.2)
Lymphocytes % 3.9 L %
(20.5-51.1)
Sodium 134 L mmol/L
(135-145)
Chloride 95 L mmol/L
(98-107)
Carbon Dioxide 31 H mmol/L
(22-30)
BUN 93 H mg/dl
(7-17)
Creatinine 3.5 H mg/dL
(0.6-1.0)
Glucose 160 H mg/dl
(70-99)
Calcium 7.6 L mg/dl
(8.4-10.2)
Total Protein 5.4 L g/dl
(6.3-8.2)
Albumin 3.3 L g/dl
(3.5-5.0)
04/11/24 18:35
04/11/24 18:35
Vital Signs
Initial and Last Documented VS:
Initial Vital Signs
Temp Pulse Resp BP Pulse Ox
36.9 C 62 18 159/47 92
04/11/24 18:21 04/11/24 18:21 04/11/24 18:21 04/11/24 18:21 04/11/24 18:21
Last Documented Vital Signs
Temp Pulse Resp BP Pulse Ox
36.9 C 62 22 159/47 94
04/11/24 18:21 04/11/24 19:00 04/11/24 19:00 04/11/24 18:24 04/11/24 19:10
MDM/Problems Addressed
Differential Diagnosis Includes:
Differential diagnosis is somewhat difficult as main presenting complaint is that patient was grabbing at her chest, due to her dementia she cannot tell us exactly what happened and it is somewhat unclear if she was dyspneic or having
pain�differential diagnosis would include but not limited to GERD, ACS, CHF exacerbation, COPD exacerbation, pneumonia, pneumothorax
MDM/Problems Addressed:
73-year-old female presents for evaluation after clutching her chest earlier�she has a history of dementia and is very poor historian. She does not appear to be in pain now she denies any symptoms to me. Apparently on arrival she did complain of
some abdominal pain. She was hypertensive in triage but her vital signs are otherwise normal that she is saturating appropriately on 2 L of oxygen. Physical exam as above. Will plan for check labs including CBC and CMP, troponins, BNP. Will
check a chest x-ray. Check an EKG. Will monitor on telemetry and reassess after the above.
Labs reviewed: CBC shows stable anemia, CMP shows creatinine of 3.5 which is stable. Her BNP is greater than 27,000; serial troponins negative. Chest x-ray shows findings consistent with CHF exacerbation. Patient currently takes 80 mg of Lasix
twice daily�given her significant chronic kidney disease and already high dose of diuretic outpatient will admit for management of her CHF exacerbation�will start with 40 of IV Lasix for now. Discussed with hospitalist.
Chronic conditions affecting care:
Dementia, CHF, COPD
Acute Exacerbation and/or Progression of Chronic Illness:
Acutely hypertensive
Acute Exacerbation and/or Progression of Chronic Illness: HTN
*Radiology
Radiology exam reviewed: radiology read reviewed
*Pulse Oximetry
Patient hypoxic: no
*EKG
Interpreted by ED Provider?: Yes
Comparison EKG: no changes
Heart Rate: 61
Rate: normal
Rhythm: sinus
[place]: normal axis
Interval: normal interval
QRS Pattern: normal QRS
Ischemia: T-wave inversion (Anterior lateral and inferior T wave inversions similar to prior)
*Critical Care Note
Total Time (30-74mins, 75-104mins- exclusive of procedures): Not Applicable
Data Reviewed
Review of Other/Old Records Reveals: Labs and Records
Source: patient, records, ambulance crew, penitentiary and penitentiary records
Patient Management
Discussion with other providers: Hospitalist (Discussed with hospitalist) and custodial staff (Discussed directly with penitentiary staff)
Escalation/DeEscalation of care consider admission/obs:
Admission indicated
ED Attending Note
-
Portions of this chart may have been created with voice recognition software.� Occasional wrong word or��sound alike� substitutions may have occurred due to the inherent limitations of voice recognition software.
Discharge Plan
Departure
Patient Disposition: Admit
Date of Disposition: 04/11/24
Time of Disposition: 21:21
Admit to doctor: Federico
Presentation/result/management discussed w/ accepting MD/DO: Hospitalist
Discharge Problem:
Acute exacerbation of CHF (congestive heart failure)
Prescriptions:
No Action
acetaminophen [Tylenol] 325 mg Tablet
325 mg PO TID PRN (Reason: mild pain)
aspirin 81 mg Tablet,Delayed Release (Dr/Ec)
81 mg PO DAILY
levothyroxine 75 mcg Tablet
75 mcg PO DAILY@0600
Trelegy Ellipta 100-62.5-25 mcg Blister With Device
1 inh INHALATION R DAILY
atorvastatin 20 mg Tablet
20 mg PO QPM
albuterol sulfate 90 mcg/actuation Hfa Aerosol Inhaler
2 puff INHALATION R Q6HPRN PRN (Reason: sob/wheezing)
loratadine 10 mg Tablet
10 mg PO DAILY
aripiprazole 2 mg tablet
2 mg PO BID
sennosides-docusate sodium [Senexon-S] 8.6-50 mg tablet
1 tab PO BID
diphenhydramine HCl 25 mg Tablet
25 mg PO HS
Incruse Ellipta 62.5 mcg/actuation blister with device
1 inh INHALATION R DAILY
sodium bicarbonate 650 mg tablet
650 mg PO BID
ipratropium-albuterol 0.5 mg-3 mg(2.5 mg base)/3 mL Solution For Nebulization
3 ml INHALATION R QIDPRN PRN (Reason: sob)
loperamide [Imodium A-D] 2 mg Tablet
2 mg PO QIDPRN MDD 8 mg/24 hrs PRN (Reason: diarrhea)
hydralazine 100 mg Tablet
100 mg PO TID
metoprolol tartrate 50 mg Tablet
50 mg PO BID
sertraline 50 mg Tablet
50 mg PO DAILY
diltiazem HCl 240 mg capsule,extended release 24hr
240 mg PO DAILY
prednisone 5 mg tablet
5 mg PO DAILY
insulin glargine 100 unit/mL Solution
5 unit SC HS
insulin aspart U-100 [Novolog FlexPen U-100 Insulin] 100 unit/mL (3 mL) insulin pen
2 unit SC QAC Qty: 15 0RF
Rx Instructions:
HOLD FOR BLOOD SUGAR LESS THAN 120
bacitracin 500 unit/gram Ointment
1 applic TOPICAL TID
Patient Comments:
03/27/2024: apply to R middle finger
calcium carbonate 500 mg calcium (1,250 mg) Tablet
1,000 mg PO DAILY
diphenhydramine HCl [Benadryl] 25 mg Capsule
25 mg PO DAILY PRN (Reason: itching)
furosemide 80 mg Tablet
80 mg PO BID@0800,1600 Qty: 60 0RF
Referrals:
YUE HAZEL MD [Family Provider] -
Interventions
Interventions:
*Risk Screen - Suicide Last Done: 04/11/24 18:21
*General Assessment Last Done: 04/11/24 18:37
*Neglect/Abuse Screening Last Done: 04/11/24 18:37
ED- Fall Risk Assessment Last Done: 04/11/24 18:38
*ED COVID-19 Vaccine History Last Done: 04/11/24 18:37
ED- Cardiac Assessment Last Done: 04/11/24 18:38
ED- Pulmonary Assessment Last Done: 04/11/24 18:38
Discharge Date and Time
Print Language: PUERTO RICAN
[2024-04-11 21:02] LABS: NT-proBNP > 27000 pg/ml
[2024-04-11 21:07] LABS: Troponin I 0.026 ng/ml
--- NOTE | 2024-04-11 21:29 | HPS.HSE ---
Family Physician
-
Family Physician: YUE HAZEL MD
Chief Complaint
-
SOB
History of Present Illness
The patient is a 73 yo woman with PMH significant for dementia, COPD, CKD stage IV (baseline creat 3.0), HTN, HFpEF on Lasix, recent hospitalization 03/27-03/31/2024 from [facility], due to acute exacerbation HFpEF, presents to
the ED today due to symptoms at [facility], noted to be grabbing at her chest and appeared winded with dyspnea. Staff noted (per ED note) that she was not wearing her oxygen earlier today, and she was having chest pain. Her oxygen
was 88% on RA and it improved on home 2 liters. After walking back to her room after dinner tonight staff witnessed her grabbing her chest again and appearing short of breath. Her baseline mentation is that pleasantly confused. She cannot recall
events of the day.
Sodium 134 (higher then recent value 03/31 of 130), creatinine on discharge 3.3 (3.5 today), troponin 0.027 and 0.026, pro-BNP > 92052
ED txt:
Lasix 40 IV once
Medical History
Past Medical History
Past Medical History: Reports CHF (Normal EF), COPD (chronic hypoxic respiratory failure on home O2 2 Liters), GERD, HTN, Hypercholesterolemia, Hypothyroidism, IDDM, Renal Failure (CKD stage IV) and Other (Dementia, distant history of polysubstance
use, JORDAN)
Past Surgical History: Reports Appendectomy, Cholecystectomy, Gynocological and Orthopedic
Social History
Unable to obtain full social history at this time due to: Dementia
Tobacco: Former Smoker
Alcohol: Former
Drug: Former User
Personal:
Living: Assisted Living
Family History
Family History: Not pertinent
Allergies / Home Medications
Allergies reflects when Allergies were last updated in [facility].
Home Medications with original date entered in [facility]
Allergy/Medication List:
Allergies
Allergy/AdvReac Type Severity Reaction Status Date / Time
amoxicillin [From Augmentin] Allergy Rash Verified 04/11/24 18:54
bee venom protein (honey bee) Allergy Unknown Verified 04/11/24 18:54
cephalexin [From Keflex] Allergy Unknown Verified 04/11/24 18:54
clarithromycin Allergy gi problems Verified 04/11/24 18:54
clavulanic acid Allergy Unknown Verified 04/11/24 18:54
[From Augmentin]
ibuprofen Allergy Contraindication Verified 04/11/24 18:54
(use
Tylenol)
per MR
iodine Allergy Unknown Verified 04/11/24 18:54
iodoform Allergy Rash Verified 04/11/24 18:54
lamotrigine Allergy enid Verified 04/11/24 18:54
shanice
syndrome
morphine [Morphine] Allergy Unknown Verified 04/11/24 18:54
nitrofurantoin Allergy headache Verified 04/11/24 18:54
oxcarbazepine Allergy Hives Verified 04/11/24 18:54
potassium iodide Allergy Unknown Verified 04/11/24 18:54
quetiapine [From Seroquel] Allergy Unknown Verified 04/11/24 18:54
shellfish derived Allergy Unknown Verified 04/11/24 18:54
sodium iodide Allergy Rash Verified 04/11/24 18:54
Home Medications
acetaminophen 325 mg tablet (Tylenol) 325 mg PO TID PRN mild pain 05/28/22
albuterol sulfate 90 mcg/actuation aerosol inhaler 2 puff inhalation R Q6HPRN PRN sob/wheezing 05/28/22
aspirin 81 mg tablet,delayed release 81 mg PO DAILY Blood clot prevention/tx 05/28/22
atorvastatin 20 mg tablet 20 mg PO QPM High cholesterol 05/28/22
fluticasone fur. 100 mcg-umeclid 62.5 mcg-vilant 25 mcg inhalat.powder (Trelegy Ellipta) 1 inh inhalation R DAILY Lung/breathing issues 07/05/22
levothyroxine 75 mcg tablet 75 mcg PO DAILY@0600 Thyroid 05/28/22
aripiprazole 2 mg tablet 2 mg PO BID Mental Health/Anxiety 05/01/23
loratadine 10 mg tablet 10 mg PO DAILY Allergies 05/01/23
sennosides 8.6 mg-docusate sodium 50 mg tablet (Senexon-S) 1 tab PO BID Constipation 05/10/23
diphenhydramine HCl 25 mg tablet 25 mg PO HS Sleep 06/02/23
sodium bicarbonate 650 mg tablet 650 mg PO BID Supplement 06/02/23
umeclidinium 62.5 mcg/actuation blister powder for inhalation (Incruse Ellipta) 1 inh inhalation R DAILY Lung/Breathing Issues 06/02/23
diltiazem HCl 240 mg capsule,extended release 24 hr 240 mg PO DAILY Heart Disease/Condition 11/03/23
hydralazine 100 mg tablet 100 mg PO TID blood pressure 11/03/23
ipratropium 0.5 mg-albuterol 3 mg (2.5 mg base)/3 mL nebulization soln 3 ml inhalation R QIDPRN PRN sob 11/03/23
loperamide 2 mg tablet (Imodium A-D) 2 mg PO QIDPRN PRN diarrhea 11/03/23
metoprolol tartrate 50 mg tablet 50 mg PO BID blood pressure 11/03/23
prednisone 5 mg tablet 5 mg PO DAILY inflammation 11/03/23
sertraline 50 mg tablet 50 mg PO DAILY Mental Health/Anxiety 11/03/23
insulin glargine 100 unit/mL subcutaneous solution 5 unit SC HS diabetes 11/19/23
insulin aspart U-100 100 unit/mL (3 mL) subcutaneous pen (Novolog FlexPen U-100 Insulin aspart) 2 unit (0.02 mL) SC QAC #15 mL 11/21/23
bacitracin 500 unit/gram topical ointment 1 applic topical TID Infection 03/27/24
calcium carbonate 1,000 mg PO DAILY Supplement 03/27/24
diphenhydramine HCl 25 mg capsule (Benadryl) 25 mg PO DAILY PRN itching 03/27/24
furosemide 80 mg tablet 80 mg PO BID@0800,1600 #60 tabs 03/31/24
Review of Systems
-
Unable to obtain full review of systems at this time due to: Dementia
A 12 point ROS was completed and negative except as noted: Yes
Physical Exam
Vital Signs
Vital Signs
Temp Pulse Resp BP Pulse Ox
98.5 F 62 22 159/47 94
04/11/24 18:21 04/11/24 19:00 04/11/24 19:00 04/11/24 18:24 04/11/24 19:10
Physical Exam
General: Well Developed, Well Nourished, No Apparent Distress, Comfortable and Conversant
HEENT: NormoCephalic, Anicteric and Moist mucous membranes
Respiratory: Clear
Cardiac: S1/S2 and Regular Rhythm
GI: Soft, Non Tender and Non Distended
Musculoskeletal: No Clubbing, No Cyanosis and No Edema
Skin: Warm and Dry
Neuro: AO x 3 and No Motor Deficits
Psych: Calm
Laboratory Results
-
04/11/24 18:35
04/11/24 18:35
Laboratory Results
Total Bilirubin 0.3 mg/dl (0.2-1.3) 04/11/24 18:35
AST 21 U/L (14-36) 04/11/24 18:35
ALT 16 U/L (0-35) 04/11/24 18:35
Alkaline Phosphatase 62 U/L (38-126) 04/11/24 18:35
Troponin I 0.026 ng/ml 04/11/24 20:29
Lipase 140 U/L (23-300) 04/11/24 18:35
Data Reviewed
-
Diagnostic Radiology: Report Reviewed by me (Cardiomegaly with small pleural effusions, minimal interstitial edema and Mild changes of CHF. No focal airspace process.)
Impression/Plan
-
IMPRESSION:
The patient is a 73 yo woman with PMH significant for dementia, COPD, CKD stage IV (baseline creat 3.0), HTN, HFpEF on Lasix, recent hospitalization 03/27-03/31/2024 from [facility], due to acute exacerbation HFpEF, presents to
the ED today due to symptoms at [facility], noted to be grabbing at her chest and appeared winded with dyspnea. Staff noted (per ED note) that she was not wearing her oxygen earlier today, and she was having chest pain. Her oxygen
was 88% on RA and it improved on home 2 liters. After walking back to her room after dinner tonight staff witnessed her grabbing her chest again and appearing short of breath. Her baseline mentation is that pleasantly confused. She cannot recall
events of the day.
Sodium 134 (higher then recent value 03/31 of 130), creatinine on discharge 3.3 (3.5 today), troponin 0.027 and 0.026, pro-BNP > 09430
ED txt:
Lasix 40 IV once
History of hypervolemic Hyponatremia
- fluid restriction
- Lasix
# AE HFpEF associated with possible chest pain (patient with advanced dementia and does not recall CP nor is she c/o CP at this time)
- Admit tele monitoring
- serial troponin
- daily weights, strict I/O, continue fluid restrict
- IV Lasix 80 mg IV BID for now
- Cardiology consultation appreciated
- Recent echo 03/29-EF 55% with concern for Takotsubo at recent admission-not a candidate for catherization noted at that time, trop is flat 0.026 and 0.027
- cont metoprolol w hold parameters
#Hypervolemic Hyponatremia , chronic, Na 135
- chronic and stable
# Chronic hypoxic respiratory insufficiency-
- History of obstructive sleep apnea
- on O2 2 L (baseline)
# COPD
-Not in exacerbation.
-Monitor, continue home meds
# CKD stage IV ->V
- CR @ baseline 3, today is 3.5
- patient making urine
- AV fistula placed end of February-of note, has good bruit but no thrill
- no need for urgent HD, consider Nephro consult pending am labs
- cont IV lasix and monitor
# HX CVA
-CANDY MAKER HELPER asa/statin
# GERD
-cont meds
# ESSENTIAL HYPERTENSION
- stable monitor
- continue home meds with parameters
# DM
-Continue home insulin
-monitor accuchecks and SSI
# Hypothyroidism
-Continue home medication
# Dementia
- Continue home medications
- poor prog
# Pulmonary Nodules/Ex Tob Abuse
- seen on LDCT 01/17
- f/u 3 months as OP as noted on prior admission
DNR confirmed with patient's daughter
DVT proph - hep SQ
[2024-04-11] MEDS: LASIX 40 MG IV (21:50)
[2024-04-11] MEDS: BENADRYL 25 MG PO (23:21)
[2024-04-12] VITALS (11 sets, daily range): BP systolic 101–204; BP diastolic 45–71; PULSE 65; O2SAT 98; BMI 26.7; BMI 28.1
[2024-04-12 02:33] LABS: Troponin I 0.026 ng/ml
--- NOTE | 2024-04-12 03:30 | EDRN ---
Report received, introduced myself to patient, patient is confused and had just pulled out IV, mits placed on patient for safety and a new IV placed, 1:1 placed with patient as well
[2024-04-12] MEDS: NOVOLOG FLEXPEN SC ×2 (04:02→09:36)
--- NOTE | 2024-04-12 04:30 | EDRN ---
Patient up to bedside commode to urinate, patient rips off mitts on hands states 'can't take them anymore' reminded not to pull IV out, patient is itching at EKG leads, hypoallergenic lead stickers are on patient at time, patient slightly agitated
as well, BP of 201/63. Informed Michelle nogueira NP of patient ripping monitor off due ot leads being itchy and of patients BP. Michelle is reviewing patients chart to see what we can give to help patients agitation.
[2024-04-12 05:00] LABS: Hematocrit 33.1 % (37.0-47.0); Hemoglobin 10.9 g/dL (12.0-16.0); Mean Corp Hgb Conc. 32.9 g/dL (33.0-37.0); Mean Corpuscular Hgb 28.9 pg (27.0-31.0); Mean Corpuscular Volume 87.8 fL (81.0-99.0); Mean Platelet Volume 9.2 fL (7.4-10.4); Platelet Count 267 10^3/uL (130-400); Red Blood Cell Count 3.77 10^6/uL (4.20-5.40); Red Cell Dist. Width 14.6 % (11.5-14.5); White Blood Cell Count 8.6 10^3/uL (4.8-10.8)
[2024-04-12 05:15] LABS: Blood Urea Nitrogen 94 mg/dl (7-17); Calcium 8.2 mg/dl (8.4-10.2); Carbon Dioxide 25 mmol/L (22-30); Chloride 99 mmol/L (98-107); Estimated Creatinine Clearance 13 ml/min; Glucose 112 mg/dl (70-99); Magnesium 1.8 mg/dl (1.6-2.3); Potassium 3.7 mmol/L (3.5-5.1); Sodium 136 mmol/L (135-145); eGFR 13.78
[2024-04-12] MEDS: BENADRYL 25 MG IV (05:20)
[2024-04-12] MEDS: SYNTHROID 75 MCG PO (06:14)
--- NOTE | 2024-04-12 06:18 | EDRN ---
Turned lights down and covered patient for comfort level, she states she wants to try to ge some rest.
[2024-04-12 07:29] LABS: Glucose - Point of Care 112 mg/dl (70-99)
[2024-04-12] MEDS: NOVOLOG FLEXPEN-LOW RESISTANCE SC (07:49)
[2024-04-12] MEDS: CARDIZEM CD 240 MG PO (08:05)
[2024-04-12] MEDS: ASPIR LOW (ENTERIC COATED) 81 MG PO (08:05)
[2024-04-12] MEDS: LASIX 80 MG IV ×2 (08:06→15:47)
[2024-04-12] MEDS: LOPRESSOR 50 MG PO ×2 (08:06→20:32)
[2024-04-12] MEDS: SODIUM BICARBONATE 650 MG PO ×2 (08:06→20:32)
[2024-04-12] MEDS: ZOLOFT 50 MG PO (08:06)
[2024-04-12] MEDS: APRESOLINE 100 MG PO ×3 (08:06→21:51)
[2024-04-12] MEDS: HEPARIN 5000 UNITS SC ×2 (08:06→20:32)
[2024-04-12] MEDS: SENOKOT-S 1 TABLET PO ×2 (08:06→20:32)
--- NOTE | 2024-04-12 08:51 | CON.CAR ---
Addendum entered and electronically signed by Flo Dewitt MD 04/12/24 17:08:
I saw and examined the patient.
The MAIL PROCESSOR's note was reviewed and I agree with the note.
Comment: She will benefit from IV diuresis. With her advanced CKD this is a high risk situation. Prognosis guarded for short and intermediate term.
Original Note:
Consultation
Consultation Request
Date/Time Consultation Requested: 04/12/244
Date/Time Consultation Performed: 04/12/24814
Requesting Provider: Dr. Dale
Performing Provider: Vonda SWENSON for Dr. Dewitt
Reason for Consultation: CHF
Medical History
-
Chief Complaint: SOB
History of Present Illness:
73 y/o female with significant dementia, HFpEF, known coronary and aortic calcification on CT, paroxysmal atrial tachycardia, HLD, COPD, and CKD4 who was recently hospitalized and had CHF exacerbation and was diuresed. She was sent to have new
inferior and anterolateral T wave inversion. Echo showed EF 55% and apical hypokinesis. Trop was 1.32. Takotsubo was suspected. Not felt to be good candidate for cath. Diuretic dosing was increased at d/c. She is here from her assisted living after
she was reported to have SOB and 'clutching her chest'. Per report, she was not wearing her typical oxygen and O2 sat was 88%. Per chart, she also reported some abdominal pain. She is admitted with suspicion for CHF exacerbation and is in for IV
diuresis. During my assessment, she is confused and agitated. She is a poor historian. She took off her oxygen by nasal cannula and her heart monitor leads. I provided emotional support and was able to place those things back on her and assess her.
She is not in respiratory distress. She has wheezing to assessment.
Past Medical History
Past Medical History: Arrhythmias (PAT), CHF, COPD, HTN and Hypercholesterolemia
Social History
Tobacco: Non-Smoker
Living: Assisted Living
Family History
Family History: Reviewed & Not Pertinent
Allergies / Home Medications
Allergy/AdvReac Type Severity Reaction Status Date / Time
amoxicillin [From Augmentin] Allergy Rash Verified 04/11/24 18:54
bee venom protein (honey bee) Allergy Unknown Verified 04/11/24 18:54
cephalexin [From Keflex] Allergy Unknown Verified 04/11/24 18:54
clarithromycin Allergy gi problems Verified 04/11/24 18:54
clavulanic acid Allergy Unknown Verified 04/11/24 18:54
[From Augmentin]
ibuprofen Allergy Contraindication Verified 04/11/24 18:54
(use
Tylenol)
per MR
iodine Allergy Unknown Verified 04/11/24 18:54
iodoform Allergy Rash Verified 04/11/24 18:54
lamotrigine Allergy enid Verified 04/11/24 18:54
shanice
syndrome
morphine [Morphine] Allergy Unknown Verified 04/11/24 18:54
nitrofurantoin Allergy headache Verified 04/11/24 18:54
oxcarbazepine Allergy Hives Verified 04/11/24 18:54
potassium iodide Allergy Unknown Verified 04/11/24 18:54
quetiapine [From Seroquel] Allergy Unknown Verified 04/11/24 18:54
shellfish derived Allergy Unknown Verified 04/11/24 18:54
sodium iodide Allergy Rash Verified 04/11/24 18:54
�Medication �Instructions �Recorded �Confirmed �Type
acetaminophen 325 mg tablet 325 mg PO TIDPRN PRN mild pain 05/28/22 04/12/24 History
(Tylenol)
albuterol sulfate 90 mcg/actuation 2 puff inhalation R Q6HPRN PRN 05/28/22 04/12/24 History
aerosol inhaler sob/wheezing
aspirin 81 mg tablet,delayed 81 mg PO DAILY Blood clot 05/28/22 04/12/24 History
release prevention/tx
atorvastatin 20 mg tablet 20 mg PO QPM High cholesterol 05/28/22 04/12/24 History
fluticasone fur. 100 mcg-umeclid 1 inh inhalation R DAILY 05/28/22 04/12/24 History
62.5 mcg-vilant 25 mcg Lung/breathing issues
inhalat.powder (Trelegy Ellipta)
levothyroxine 75 mcg tablet 75 mcg PO DAILY@0600 Thyroid 05/28/22 04/12/24 History
aripiprazole 2 mg tablet 2 mg PO BID Mental Health/Anxiety 05/01/23 04/12/24 History
loratadine 10 mg tablet 10 mg PO DAILY Allergies 05/01/23 04/12/24 History
sennosides 8.6 mg-docusate sodium 1 tab PO BID Constipation 05/10/23 04/12/24 History
50 mg tablet (Senexon-S)
diphenhydramine HCl 25 mg tablet 25 mg PO HS Sleep 06/02/23 04/12/24 History
sodium bicarbonate 650 mg tablet 650 mg PO BID Supplement 06/02/23 04/12/24 History
umeclidinium 62.5 mcg/actuation 1 inh inhalation R DAILY 06/02/23 04/12/24 History
blister powder for inhalation Lung/Breathing Issues
(Incruse Ellipta)
diltiazem HCl 240 mg 240 mg PO DAILY Heart 11/03/23 04/12/24 History
capsule,extended release 24 hr Disease/Condition
hydralazine 100 mg tablet 100 mg PO TID blood pressure 11/03/23 04/12/24 History
ipratropium 0.5 mg-albuterol 3 mg 3 ml inhalation R QIDPRN PRN sob 11/03/23 04/12/24 History
(2.5 mg base)/3 mL nebulization
soln
loperamide 2 mg tablet (Imodium 2 mg PO QIDPRN PRN diarrhea 11/03/23 04/12/24 History
A-D)
metoprolol tartrate 50 mg tablet 50 mg PO BID blood pressure 11/03/23 04/12/24 History
prednisone 5 mg tablet 5 mg PO DAILY inflammation 11/03/23 04/12/24 History
sertraline 50 mg tablet 50 mg PO DAILY Mental 11/03/23 04/12/24 History
Health/Anxiety
bacitracin 500 unit/gram topical 1 applic topical TID Infection 03/27/24 04/12/24 History
ointment
calcium carbonate 1,000 mg PO DAILY Supplement 03/27/24 04/12/24 History
diphenhydramine HCl 25 mg capsule 25 mg PO DAILY PRN itching 03/27/24 04/12/24 History
(Benadryl)
furosemide 80 mg tablet 80 mg PO BID@0800,1600 #60 tabs 03/31/24 04/12/24 Rx
insulin aspart U-100 100 unit/mL 2 unit SC ACHS 04/12/24 04/12/24 History
(3 mL) subcutaneous pen
insulin glargine-yfgn 100 unit/mL 5 unit SC HS 04/12/24 04/12/24 History
subcutaneous solution
Review of Systems
-
Unable to obtain full review of systems at this time due to: Dementia
History Source: Other (chart- as above)
Respiratory: Trouble Breathing
Physical Exam
Vital Signs
Temp Pulse Resp BP Pulse Ox
98.9 F 69 22 172/53 92
04/12/24 08:08 04/12/24 08:08 04/12/24 08:08 04/12/24 08:08 04/12/24 08:08
Lab Results
04/12/24 04:41
04/12/24 04:41
Troponin I 0.026 ng/ml 04/12/24 02:01
Ngo-L-Wbphoawsnqq Pept > 70638 pg/ml 04/11/24 20:29
Physical Exam
General: Well Developed
HEENT: Normocephalic and Anicteric
Respiratory: Wheezes and Other (O2 by [place])
Cardiac: Regular Rhythm
Musculoskeletal: No Edema
Neuro: Awake, Alert and Other (confused and agitated)
Psych: Confused and Agitated
Impression / Plan
-
Hkinq-ru-gpvkrll HFpEF:
-recent echo as below with EF 55%, but concern for Takotsubo
-BNP >27,000, CXR suggestive CHF
-monitor response to lasix IV 80 BID- requires intensive monitoring. patient with significant renal disease as below, likely nephro c/s this admit.
COPD:
-patient wheezing to assessment, on medical therapy, on O2 by [place]
-management per primary
CKD4:
-following with nephro and apparently a fistula was recently placed for HD planning
-likely nephro consult this admit
Paroxysmal atrial tachycardia:
-stable in SR
-on CCB/BB
-monitor telemetry
Hypertension:
-on hydralazine, BB, CCB
-BP quite elevated at times, but she has been agitated
-monitor with diuresis
Dementia, significant:
-supportive care
-management per primary
Data Reviewed
-
EKG: Tracing Personally Visualized and interpreted (SR with T wave inversions anterolaterally and inferiorly)
Radiology: Report Reviewed by me (CXR: Cardiomegaly with small pleural effusions, minimal interstitial edema and Mild changes of CHF. No focal airspace process.)
Medical Tests (Nuc Med, Echo etc): Report Reviewed by me (Echo 03/29/24: Ejection fraction is 55%. Hypokinesis of the apical segments: pattern may be consistent with Takustubo cardiomyopathy. Stage II diastolic dysfunction. Aortic sclerosis without
stenosis. Mild tricuspid regurgitation. Mildly elevated PASP)
Labs: Labs Reviewed by me
--- NOTE | 2024-04-12 09:28 | W.PN.HOSP.TC ---
Addendum entered and electronically signed by Karolyn Rodriguez MD 04/12/24 10:29:
Spoke to daughter Lisbeth and updated. She states that patient does not keep her oxygen on the facility cannot force her to do so. We discussed about sleep study as outpatient and possible sleep apnea which daughter agrees that she takes her oxygen
off when she sleeps. She does not have CPAP
Daughter states that patient takes the prednisone for a long.
Original Note:
Today's Communication/Plan
-
Diuretics
Add ceftriaxone
Speech evaluation
Increase steroids
Renal evaluation
Assessment / Plan
Assessment / Plan
73-year-old female presented to the hospital from assisted living because of shortness of breath and reported chest pain. Saturations were low at 88% but patient was not wearing her usual oxygen. Patient was recently admitted here for CHF and had
dialysis. She has dementia not able to give me any history.
On examination awake and alert, apparent dementia
Cardiovascular system sinus rhythm,
Chest bilateral coarse breath sounds-Rhonchi
Abdomen soft and nontender
No pedal edema
# Acute on chronic heart failure with preserved ejection fraction
Echo-03/29/2024-normal LV function. EF 55%. Hypokinesis of apical segments c/w Takotsubo cardiomyopathy. Stage II diastolic dysfunction. Aortic stenosis without stenosis. Mild TR. Pulmonary pressure 42 mmHg.
BNP over 27,000 and chest x-ray with overload
Continue Lasix 80 mg IV twice daily with monitoring of renal function
Unclear regarding patient's compliance with diet , salt and fluid restriction
# COPD-with mild exacerbation
Chronic respiratory failure on home oxygen
Speech evaluation to rule out aspiration
Coarse breath sounds with productive cough-add antibiotics and a short course of steroids
Continue Trelegy Ellipta, Incruse Ellipta or equivalent and nebulizer treatments
# Chronic any disease stage IV
AV fistula was recently placed
Continue sodium bicarb
Nephrology evaluation
# Paroxysmal atrial tachycardia-in sinus rhythm currently
Continue calcium channel blockers and beta-blockers
Telemetry monitoring
# Diabetes-usually uses Lantus 5 units at night and 2 units of NovoLog AC
Lantus with sliding scale here
# Hypertension
Continue Cardizem to 40 mg p.o. daily, hydralazine 10 mg p.o. 3 times daily, metoprolol 50 mg p.o. twice daily
# Hypothyroidism-continue Synthroid
# Hyperlipidemia/atherosclerosis bipolar disease-continue atorvastatin
# Coronary artery disease-coronary calcifications on CT-continue aspirin and statin
# Significant dementia
# Anxiety/bipolar disease-continue sertraline, Abilify
# History of CVA-aspirin statin
# GERD-Add Pepcid
# Chronic anemia likely secondary to CKD
# Sleep apnea-unclear if she is on-PAP device
# Insomnia on Benadryl at night
# Chronic steroid use-unclear if it is for COPD-will need to verify
# Ex-smoker
# DVT prophylaxis-subcutaneous heparin
Left a message for daughter Lisbeth
D/W RN at bed side
Anticipated Discharge: 24 - 48 hours
Subjective/Interval History
-
Date of Service: April 12, 2024
Objective Data
-
Labs:
Laboratory Results
04/12/24
04:41
WBC 8.6
Hgb 10.9 L
Hct 33.1 L
Plt Count 267
Sodium 136
Potassium 3.7
Chloride 99
Carbon Dioxide 25
BUN 94 H
Creatinine 3.4 H
Glucose 112 H
Calcium 8.2 L
Vital Signs:
Vital Signs
Temp Pulse Resp BP Pulse Ox
98.9 F 69 22 172/53 92
04/12/24 08:08 04/12/24 08:08 04/12/24 08:08 04/12/24 08:08 04/12/24 08:08
I&O
04/11/24 04/12/24 04/13/24
06:59 06:59 06:59
Output Total 450 / 450
Balance -450 / -450
[2024-04-12] MEDS: SPIRIVA RESPIMAT 2.5 MCG INH (09:53)
[2024-04-12] MEDS: SYMBICORT 80/4.5 MCG INHALER INH (09:53)
--- NOTE | 2024-04-12 10:00 | PTOTSP ---
Speech Language Pathology
Pt seen for clinical bedside swallow evaluation. Anxious and tearful throughout. P.O. trials of puree, regular solids, and thin liquids provided. Adequate mastication, bolus formation, and A-P transit noted with no oral residue. No overt signs
of aspiration. No focal airspace process on CXR and WBC WNL.
Recommend:
(1) Regular solids/thin liquids
(2) General aspiration precautions
(3) Meds as tolerated
(4) BIOINFORMATICS DEVELOPER to sign off. Please reconsult as indicated
[2024-04-12 11:24] LABS: Troponin I 0.038 ng/ml
--- NOTE | 2024-04-12 11:46 | W.CON.NEPH ---
Consultation
-
Date/Time Consultation Requested: 04/12/24 10a
Date/Time Consultation Performed: 04/12/24 11:30a
Requesting Provider: Dr. Rodriguez
Performing Provider: Dr. Amaya
Reason for Consultation: CKD5
Medical History
-
Chief Complaint: SOB
History of Present Illness:
Ms Jean is 73yo F from assisted living with dementia on Sertraline, CKD5 with baseline cr in the mid [address] Amaya last seen on 03/17. She recently had LUE AVF creation on 03/23/24 without complication. She has HTN on a multidrug
regimen that had been stable, Diastolic heart failure on lasix. Diabetes mellitus type 2 on insulin therapy which is controlled. She was brought to the emergency room this time because she was found to be apparently short of breath and clutching
her chest at assisted living. She was felt to be in overt heart failure here with hypoxemia requiring supplemental oxygen. Currently, her mental status appears to be at baseline. She reports no chest pain. She reports only minimal shortness of
breath. She has no nausea or vomiting. Her creatinine has been stable thus far for her CKD 5.
Past Medical History
CHF (Normal EF), GERD, HTN, Hypothyroidism, IDDM
CKD stage V, Optical stroke, depression, chronic pain, fibromyalgia, bipolar in remission, history of CKD from lithium toxicity, hemodialysis 2006
COPD, bilateral carotid artery stenosis, anxiety and history of pancreatitis, hyperlipidemia
LUE AVF
Past Surgical History: Other (Appendectomy and Cholecystectomy, AVF 03/23/24, hysterectomy, fractured leg repair with pins, left knee surgery, C3-4 567 fusion, bunionectomy)
Social History
Tobacco: Former Smoker
Alcohol: Former
Living: Assisted Living
Family History
father age of 60 with lung cancer, heart disease.
Mother age of 50s with uterine cancer
Brother with the diabetes
Family History: Not Pertinent
Allergies / Home Medications
Allergy/AdvReac Type Severity Reaction Status Date / Time
amoxicillin [From Augmentin] Allergy Rash Verified 04/11/24 18:54
bee venom protein (honey bee) Allergy Unknown Verified 04/11/24 18:54
cephalexin [From Keflex] Allergy Unknown Verified 04/11/24 18:54
clarithromycin Allergy gi problems Verified 04/11/24 18:54
clavulanic acid Allergy Unknown Verified 04/11/24 18:54
[From Augmentin]
ibuprofen Allergy Contraindication Verified 04/11/24 18:54
(use
Tylenol)
per MR
iodine Allergy Unknown Verified 04/11/24 18:54
iodoform Allergy Rash Verified 04/11/24 18:54
lamotrigine Allergy enid Verified 04/11/24 18:54
shanice
syndrome
morphine [Morphine] Allergy Unknown Verified 04/11/24 18:54
nitrofurantoin Allergy headache Verified 04/11/24 18:54
oxcarbazepine Allergy Hives Verified 04/11/24 18:54
potassium iodide Allergy Unknown Verified 04/11/24 18:54
quetiapine [From Seroquel] Allergy Unknown Verified 04/11/24 18:54
shellfish derived Allergy Unknown Verified 04/11/24 18:54
sodium iodide Allergy Rash Verified 04/11/24 18:54
�Medication �Instructions �Recorded �Confirmed �Type
acetaminophen 325 mg tablet 325 mg PO TIDPRN PRN mild pain 05/28/22 04/12/24 History
(Tylenol)
albuterol sulfate 90 mcg/actuation 2 puff inhalation R Q6HPRN PRN 05/28/22 04/12/24 History
aerosol inhaler sob/wheezing
aspirin 81 mg tablet,delayed 81 mg PO DAILY Blood clot 05/28/22 04/12/24 History
release prevention/tx
atorvastatin 20 mg tablet 20 mg PO QPM High cholesterol 05/28/22 04/12/24 History
fluticasone fur. 100 mcg-umeclid 1 inh inhalation R DAILY 05/28/22 04/12/24 History
62.5 mcg-vilant 25 mcg Lung/breathing issues
inhalat.powder (Trelegy Ellipta)
levothyroxine 75 mcg tablet 75 mcg PO DAILY@0600 Thyroid 05/28/22 04/12/24 History
aripiprazole 2 mg tablet 2 mg PO BID Mental Health/Anxiety 05/01/23 04/12/24 History
loratadine 10 mg tablet 10 mg PO DAILY Allergies 05/01/23 04/12/24 History
sennosides 8.6 mg-docusate sodium 1 tab PO BID Constipation 05/10/23 04/12/24 History
50 mg tablet (Senexon-S)
diphenhydramine HCl 25 mg tablet 25 mg PO HS Sleep 06/02/23 04/12/24 History
sodium bicarbonate 650 mg tablet 650 mg PO BID Supplement 06/02/23 04/12/24 History
umeclidinium 62.5 mcg/actuation 1 inh inhalation R DAILY 06/02/23 04/12/24 History
blister powder for inhalation Lung/Breathing Issues
(Incruse Ellipta)
diltiazem HCl 240 mg 240 mg PO DAILY Heart 11/03/23 04/12/24 History
capsule,extended release 24 hr Disease/Condition
hydralazine 100 mg tablet 100 mg PO TID blood pressure 11/03/23 04/12/24 History
ipratropium 0.5 mg-albuterol 3 mg 3 ml inhalation R QIDPRN PRN sob 11/03/23 04/12/24 History
(2.5 mg base)/3 mL nebulization
soln
loperamide 2 mg tablet (Imodium 2 mg PO QIDPRN PRN diarrhea 11/03/23 04/12/24 History
A-D)
metoprolol tartrate 50 mg tablet 50 mg PO BID blood pressure 11/03/23 04/12/24 History
prednisone 5 mg tablet 5 mg PO DAILY inflammation 11/03/23 04/12/24 History
sertraline 50 mg tablet 50 mg PO DAILY Mental 11/03/23 04/12/24 History
Health/Anxiety
bacitracin 500 unit/gram topical 1 applic topical TID Infection 03/27/24 04/12/24 History
ointment
calcium carbonate 1,000 mg PO DAILY Supplement 03/27/24 04/12/24 History
diphenhydramine HCl 25 mg capsule 25 mg PO DAILY PRN itching 03/27/24 04/12/24 History
(Benadryl)
furosemide 80 mg tablet 80 mg PO BID@0800,1600 Fluid 04/12/24 04/12/24 History
Retention/Swelling
insulin aspart U-100 100 unit/mL 2 unit SC ACHS diabetes 04/12/24 04/12/24 History
(3 mL) subcutaneous pen
insulin glargine-yfgn 100 unit/mL 5 unit SC HS diabetes 04/12/24 04/12/24 History
subcutaneous solution
Review of Systems
-
Mild shortness of breath. The remainder of the complete review of systems was negative
All other systems: Negative unless noted
Physical Exam
Vital Signs
Vital Signs
Temp Pulse Resp BP Pulse Ox
98.9 F 80 32 204/71 93
04/12/24 08:08 04/12/24 08:49 04/12/24 08:56 04/12/24 10:28 04/12/24 10:30
Lab Results
WBC 8.6 10^3/uL (4.8-10.8) 04/12/24 04:41
RBC 3.77 10^6/uL (4.20-5.40) L 04/12/24 04:41
Hgb 10.9 g/dL (12.0-16.0) L 04/12/24 04:41
Hct 33.1 % (37.0-47.0) L 04/12/24 04:41
Plt Count 267 10^3/uL (130-400) 04/12/24 04:41
Sodium 136 mmol/L (135-145) 04/12/24 04:41
Potassium 3.7 mmol/L (3.5-5.1) 04/12/24 04:41
Chloride 99 mmol/L (98-107) 04/12/24 04:41
Carbon Dioxide 25 mmol/L (22-30) 04/12/24 04:41
BUN 94 mg/dl (7-17) H 04/12/24 04:41
Creatinine 3.4 mg/dL (0.6-1.0) H 04/12/24 04:41
eGFR 13.78 04/12/24 04:41
Glucose 112 mg/dl (70-99) H 04/12/24 04:41
Calcium 8.2 mg/dl (8.4-10.2) L 04/12/24 04:41
Kbj-B-Ebewhvryani Pept > 84159 pg/ml 04/11/24 20:29
Albumin 3.3 g/dl (3.5-5.0) L 04/11/24 18:35
Physical Exam
Patient is awake alert oriented and in no distress. Mood and affect were pleasant, insight and judgment were good. Pupils are equal round and reactive to light, extraocular movements are intact, sclera were anicteric. Hearing was normal, ears and
nose are intact. Oropharynx was clear. Neck was supple with trachea midline and no thyromegaly. Heart was regular rate and rhythm without rubs. Lower extremities without edema. Lungs were without rales to auscultation bilaterally and with normal
excursion. Abdomen was soft, nontender, with normal active bowel sounds, and no hepatosplenomegaly. Skin was without rash and with normal turgor. AV fistula in left upper arm was with good thrill and bruit
Data Reviewed
-
Radiology: Image Personally Visualized and interpreted (Chest x-ray on April 11, 2024 by my reading shows cardiomegaly vascular prominence mild effusions bilaterally)
Medical Tests (Nuc Med, Echo etc): Image Personally Visualized and interpreted (EKG on April 11, 2024 by my read shows normal sinus rhythm PACs septal Q waves)
Labs: Labs Reviewed by me (WBC 8.6, hemoglobin 10.9, platelets 267, sodium 136, potassium 3.7, BUN 94, bicarbonate 25, creatinine 3.4, magnesium 1.8, calcium 8.2, troponin 0.038, proBNP greater than 27,000)
Assessment/Plan
-
Impression:
Acute shortness of breath-suspected acute decompensated heart failure preserved EF
Acute on chronic hypoxic respite insufficiency
History of obstructive sleep apnea.
COPD
CKD stage V-baseline 3.4
Anemia
Hypertension
Diabetes mellitus type 2
Mild dementia
Left upper extremity AV fistula
Plan:
Agree with diuresis with intravenous Lasix 80 mg twice daily
Follow-up basic metabolic profile
Continue sodium bicarb for metabolic acidosis
No urgent indications for dialysis at this time
Hopefully diuresis will allow improvement of blood pressures
As needed hydralazine and labetalol
[2024-04-12 11:58] LABS: Glucose - Point of Care 168 mg/dl (70-99)
[2024-04-12] MEDS: DELTASONE 50 MG PO (11:58)
[2024-04-12] MEDS: PEPCID 20 MG PO (11:58)
[2024-04-12 12:49] LABS: Glycohemoglobin (HgbA1c) 6.6 % (4.0-5.6)
[2024-04-12] MEDS: NOVOLOG FLEXPEN 2 UNITS SC ×2 (13:39→17:48)
[2024-04-12] MEDS: ABILIFY 2 MG PO ×2 (13:39→20:32)
[2024-04-12] MEDS: ROBITUSSIN 200 MG PO ×3 (13:39→21:52)
[2024-04-12] MEDS: NOVOLOG FLEXPEN-LOW RESISTANCE 1 UNITS SC (13:40)
[2024-04-12 16:28] LABS: Glucose - Point of Care 225 mg/dl (70-99)
[2024-04-12] MEDS: NOVOLOG FLEXPEN-LOW RESISTANCE 3 UNITS SC (17:49)
[2024-04-12] MEDS: LIPITOR 20 MG PO (17:49)
[2024-04-12] MEDS: SYMBICORT 80/4.5 MCG INHALER 2 PUFF INH (20:42)
[2024-04-12 21:43] LABS: Glucose - Point of Care 213 mg/dl (70-99)
[2024-04-12] MEDS: BENADRYL 25 MG PO (21:52)
[2024-04-12] MEDS: LANTUS 0.0500000000000000028 UNITS SC (21:54)
[2024-04-13 03:00] VITALS: BP 149/92
[2024-04-13] MEDS: SYNTHROID 75 MCG PO (05:39)
[2024-04-13 06:00] VITALS: BMI 25.1
[2024-04-13 06:59] LABS: Blood Urea Nitrogen 95 mg/dl (7-17); Carbon Dioxide 26 mmol/L (22-30); Chloride 97 mmol/L (98-107); Estimated Creatinine Clearance 11 ml/min; Glucose 181 mg/dl (70-99); Potassium 3.9 mmol/L (3.5-5.1); Sodium 134 mmol/L (135-145); eGFR 11.69
[2024-04-13 07:00] VITALS: BP 150/63
[2024-04-13 07:44] LABS: Glucose - Point of Care 185 mg/dl (70-99)
[2024-04-13] MEDS: SPIRIVA RESPIMAT 2.5 MCG 2 PUFF INH (07:46)
[2024-04-13] MEDS: SYMBICORT 80/4.5 MCG INHALER 2 PUFF INH ×2 (07:46→18:20)
[2024-04-13] MEDS: NOVOLOG FLEXPEN 2 UNITS SC ×3 (08:24→17:12)
[2024-04-13] MEDS: NOVOLOG FLEXPEN-LOW RESISTANCE 1 UNITS SC (08:24)
[2024-04-13] MEDS: ROBITUSSIN 200 MG PO ×4 (08:25→23:52)
[2024-04-13] MEDS: LASIX 80 MG IV (08:26)
[2024-04-13] MEDS: HEPARIN 5000 UNITS SC ×2 (08:27→20:56)
[2024-04-13] MEDS: PEPCID 20 MG PO (08:28)
[2024-04-13] MEDS: LOPRESSOR 50 MG PO ×2 (08:28→20:55)
[2024-04-13] MEDS: SENOKOT-S 1 TABLET PO ×2 (08:28→20:55)
[2024-04-13] MEDS: ASPIR LOW (ENTERIC COATED) 81 MG PO (08:28)
[2024-04-13] MEDS: SODIUM BICARBONATE 650 MG PO ×2 (08:28→20:56)
[2024-04-13] MEDS: CARDIZEM CD 240 MG PO (08:29)
[2024-04-13] MEDS: APRESOLINE 100 MG PO ×3 (08:29→23:52)
[2024-04-13] MEDS: DELTASONE 50 MG PO (08:30)
[2024-04-13] MEDS: ZOLOFT 50 MG PO (08:30)
[2024-04-13] MEDS: ABILIFY 2 MG PO ×2 (08:30→20:55)
--- NOTE | 2024-04-13 08:33 | W.PN.CD ---
Today's Communication / Plan
-
-Continue lasix 80 IV BID.
Impression / Plan
-
Qfxak-je-fgqnjjy HFpEF:
-recent echo as below with EF 55%, but concern for Takotsubo
-BNP >27,000, CXR suggestive CHF
-Continue lasix 80 IV BID.
COPD:
-patient wheezing to assessment, on medical therapy, on O2 by UT
-management as per primary team
CKD4:
-A fistula was recently placed for HD planning
-Nephrology following.
Paroxysmal atrial tachycardia:
-stable in SR
-on CCB/BB
-monitor telemetry
Hypertension:
-on hydralazine, BB, CCB
-BP quite elevated at times, but she has been agitated
-monitor with diuresis
Dementia, significant:
-supportive care
-management per primary
Physical Exam
Vital Signs/Labs
Vital Signs
Temp Pulse Resp BP Pulse Ox
97.8 F 60 16 150/63 98
04/13/24 07:00 04/13/24 07:49 04/13/24 07:49 04/13/24 07:00 04/13/24 07:49
04/12/24 04/13/24 04/14/24
06:59 06:59 06:59
Actual Weight 70.4 kg 66.366 kg
04/12/24 04:41
04/13/24 05:55
Magnesium 1.8 mg/dl (1.6-2.3) 04/12/24 04:41
04/11/24
20:29
Imu-R-Dgxkmnzhteq Pept > 30102
LAB Results
04/11/24 04/11/24 04/12/24
18:35 20:29 02:01
Troponin I 0.027 0.026 0.026
05/20/24
10:20
Troponin I 0.038 H*
Physical Exam
Constitutional: No acute distress and Comfortable
EENT: Anicteric
Cardiovascular: Rhythm & rate is regular, Pedal edema is absent, Systolic murmur present (/) and S1S2 is normal
Respiratory: Respiratory effort normal and Rhonchi Present (bibasilar)
GI: Soft
Neuro/Psych: Alert
Other: Skin (warm, dry, intact)
Data Reviewed
-
Date of Service: April 13, 2024
EKG: Tracing Personally Visualized and interpreted (telemetry: sinuis rhythm)
Labs: Labs Reviewed by me
[2024-04-13 11:00] VITALS: BP 149/61
--- NOTE | 2024-04-13 11:49 | W.PN.HOSP.TC ---
Addendum entered and electronically signed by Karolyn Rodriguez MD 04/14/24 13:00:
Troponin-non ischemic myocardial injury
Addendum entered and electronically signed by Karolyn Rodriguez MD 04/14/24 07:47:
correction CKD stage 5
Addendum entered and electronically signed by Karolyn Rodriguez MD 04/13/24 12:21:
spoke to daughter and updated
Original Note:
Today's Communication/Plan
-
Diuresis
Watch Creat rising
SHort course of steroids and AB
Assessment / Plan
Assessment / Plan
73-year-old female presented to the hospital from assisted living because of shortness of breath and reported chest pain. Saturations were low at 88% but patient was not wearing her usual oxygen. Patient was recently admitted here for CHF and had
dialysis. She has dementia not able to give me any history.
On examination awake and alert, apparent dementia
Cardiovascular system sinus rhythm,
Chest -No Rhonchi today
Abdomen soft and nontender
No pedal edema
# Acute on chronic heart failure with preserved ejection fraction
Echo-03/29/2024-normal LV function. EF 55%. Hypokinesis of apical segments c/w Takotsubo cardiomyopathy. Stage II diastolic dysfunction. Aortic stenosis without stenosis. Mild TR. Pulmonary pressure 42 mmHg.
BNP over 27,000 and chest x-ray with overload
Continue Lasix 80 mg IV twice daily with monitoring of renal function
Unclear regarding patient's compliance with diet , salt and fluid restriction
# COPD-with mild exacerbation
Chronic respiratory failure on home oxygen
Speech evaluation to rule out aspiration
Coarse breath sounds with productive cough-continue antibiotics and a short course of steroids
Continue Trelegy Ellipta, Incruse Ellipta or equivalent and nebulizer treatments
# Chronic any disease stage IV
AV fistula was recently placed
Continue sodium bicarb
Nephrology evaluation appreciated.
# Paroxysmal atrial tachycardia-in sinus rhythm currently
Continue calcium channel blockers and beta-blockers
Telemetry monitoring
# Diabetes-usually uses Lantus 5 units at night and 2 units of NovoLog AC
Lantus with sliding scale here
# Hypertension
Continue Cardizem to 40 mg p.o. daily, hydralazine 10 mg p.o. 3 times daily, metoprolol 50 mg p.o. twice daily
# Hypothyroidism-continue Synthroid
# Hyperlipidemia/atherosclerosis bipolar disease-continue atorvastatin
# Coronary artery disease-coronary calcifications on CT-continue aspirin and statin
# Significant dementia
# Anxiety/bipolar disease-continue sertraline, Abilify
# History of CVA-aspirin statin
# GERD-Add Pepcid
# Chronic anemia likely secondary to CKD
# Sleep apnea-unclear if she is not on-PAP device as OP. Daughter aware re OP Sleep study.
# Insomnia on Benadryl at night
# Chronic steroid use-for COPD
# Ex-smoker
# DVT prophylaxis-subcutaneous heparin
04/12/24-Spoke to daughter Lisbeth and updated. She states that patient does not keep her oxygen on the facility cannot force her to do so. We discussed about sleep study as outpatient and possible sleep apnea which daughter agrees that she takes her
Anticipated Discharge: 24 - 48 hours
Subjective/Interval History
-
Date of Service: April 13, 2024
Objective Data
-
Labs:
Laboratory Results
04/13/24
05:55
Sodium 134 L
Potassium 3.9
Chloride 97 L
Carbon Dioxide 26
BUN 95 H
Creatinine 3.9 H
Glucose 181 H
Calcium 8.0 L
Vital Signs:
Vital Signs
Temp Pulse Resp BP Pulse Ox
98.0 F 67 17 149/61 97
04/13/24 11:00 04/13/24 11:00 04/13/24 11:00 04/13/24 11:00 04/13/24 11:00
I&O
04/12/24 04/13/24 04/14/24
06:59 06:59 06:59
Intake Total 480 / 480
Output Total 450 / 450
Balance
[2024-04-13 12:06] LABS: Glucose - Point of Care 241 mg/dl (70-99)
[2024-04-13] MEDS: NOVOLOG FLEXPEN-LOW RESISTANCE 2 UNITS SC (12:09)
--- NOTE | 2024-04-13 12:13 | W.PN.NEPH.PH ---
Today's Communication / Plan
-
hold lasix
Assessment/Plan
-
Impression:
Acute shortness of breath-suspected acute decompensated heart failure preserved EF
Acute on chronic hypoxic respite insufficiency
History of obstructive sleep apnea.
COPD
CKD stage V-baseline 3.4
Anemia
Hypertension
Diabetes mellitus type 2
Mild dementia
Left upper extremity AV fistula
Plan:
hold lasix, suspect rapid diuresis FIDENCIO
Follow-up basic metabolic profile
Continue sodium bicarb for metabolic acidosis
No urgent indications for dialysis at this time
-
-
Date of Service: April 13, 2024
CC / HPI / ROS
-
Chief Complaint:
CKD5
History of Present Illness:
FIDENCIO/Cr up to 3.9
diuresed well for CHF with IV lasix
BP better
Review of Systems:
on supplemental O2
no CP
no SOB
Labs
-
Labs:
WBC 8.6 10^3/uL (4.8-10.8) 04/12/24 04:41
RBC 3.77 10^6/uL (4.20-5.40) L 04/12/24 04:41
Hgb 10.9 g/dL (12.0-16.0) L 04/12/24 04:41
Hct 33.1 % (37.0-47.0) L 04/12/24 04:41
Plt Count 267 10^3/uL (130-400) 04/12/24 04:41
Sodium 134 mmol/L (135-145) L 04/13/24 05:55
Potassium 3.9 mmol/L (3.5-5.1) 04/13/24 05:55
Chloride 97 mmol/L (98-107) L 04/13/24 05:55
Carbon Dioxide 26 mmol/L (22-30) 04/13/24 05:55
BUN 95 mg/dl (7-17) H 04/13/24 05:55
Creatinine 3.9 mg/dL (0.6-1.0) H 04/13/24 05:55
eGFR 11.69 04/13/24 05:55
Glucose 181 mg/dl (70-99) H 04/13/24 05:55
Calcium 8.0 mg/dl (8.4-10.2) L 04/13/24 05:55
Qoq-B-Zhpuprimblc Pept > 06693 pg/ml 04/11/24 20:29
Albumin 3.3 g/dl (3.5-5.0) L 04/11/24 18:35
Physical Exam
-
Vital Signs:
Vital Signs
Temp Pulse Resp BP Pulse Ox
98.0 F 67 17 149/61 97
04/13/24 11:00 04/13/24 11:00 04/13/24 11:00 04/13/24 11:00 04/13/24 11:00
Cardiovascular:: Regular rate and rhythm
Respiratory:: Bilateral: Coarse
Lung Excursion:: Normal
Abdomen:: Nontender and Soft
Bowel Sounds:: Normal
Extremity Edema:: None: Bilateral:
Other Findings::
AVF thrill
[2024-04-13] MEDS: VIBRAMYCIN 100 MG PO ×2 (13:05→23:52)
--- NOTE | 2024-04-13 13:07 | PN.CDI ---
CDI
- -
CDI:
Physician Documentation Request
Admit Date: 04/12/24 09:46
Dear Doctor Jennifer,
Patient is admitted with acute on chronic heart failure with preserved ejection fraction. Patient is noted in hospitalist progress notes to have CKD 4 AV fistula recently placed.
Nephrology refers to the CKD as CKD 5
In an attempt to clarify potential conflicting documentation , please clarify the patient's renal status:
____ - CKD IV
____ -CKD V
____ - Other
Use of terms such as suspected, likely, concern for, or probable (associated with a specific diagnosis that is being evaluated, monitored, or treated as if it exists) are acceptable and can be coded in the inpatient setting, when documented at the
time of discharge.
Thank you,
Vira Pinedo RN, BSN
CDI Specialist
tiger text
Please use your independent medical judgment in providing your response.
*Source: Kidney Disease: Improving Global Outcomes (KDIGO) 2012
--- NOTE | 2024-04-13 15:24 | CM ---
Chart reviewed, spoke with pt and her daughter Lisbeth
Pt is a resident at [facility] in assisted living
She is able to ambulate without assist, needs assist with adl's, goes to community dining room for meals
DME - oxygen - non-compliant with use
PCP - Asim Rutherford
Pharm - [facility]
Called [phone] to confirm information and discuss PT recs - LM
Plan - Anticipate return to when medically ready
[2024-04-13 15:34] VITALS: BP 143/52
[2024-04-13 16:26] LABS: Glucose - Point of Care 305 mg/dl (70-99)
[2024-04-13] MEDS: NOVOLOG FLEXPEN-LOW RESISTANCE 4 UNITS SC (17:13)
[2024-04-13] MEDS: LIPITOR 20 MG PO (17:13)
--- NOTE | 2024-04-13 18:24 | PTCARENOTE ---
Pt removing tele monitor and refuses to let RN replace monitor at this time.
[2024-04-13 19:38] VITALS: BP 123/45
--- NOTE | 2024-04-13 20:40 | PTCARENOTE ---
@2009; Pt disoriented to place/time and confused.Pt attempting to walk out of room looking for her cat' carrier.Pt gait is stable.Pt would only wear her tele monitor for 20minutes and removed it.Pt not able to let nurses reapply tele monitor due to
her confusion.@2015;Instructed LEELA Rivera on above note via TT.@2029; Moved pt into room 333 for observation and safety.Bed alarm maintained.
[2024-04-13 21:37] LABS: Glucose - Point of Care 263 mg/dl (70-99)
[2024-04-13 23:12] VITALS: BP 164/59
[2024-04-13] MEDS: LANTUS 0.0500000000000000028 UNITS SC (23:51)
[2024-04-13] MEDS: BENADRYL 25 MG PO (23:52)
[2024-04-14] VITALS (7 sets, daily range): BP systolic 141–190; BP diastolic 54–70; BMI 25.5
[2024-04-14] MEDS: APRESOLINE 5 MG IV (03:41)
[2024-04-14] MEDS: FLUSH (NSS) 1 FLUSH IV (03:43)
[2024-04-14] MEDS: SYNTHROID 75 MCG PO (06:30)
[2024-04-14 07:40] LABS: Glucose - Point of Care 149 mg/dl (70-99)
[2024-04-14] MEDS: NOVOLOG FLEXPEN 2 UNITS SC ×3 (07:42→18:02)
[2024-04-14] MEDS: NOVOLOG FLEXPEN-LOW RESISTANCE SC ×2 (07:43→17:58)
[2024-04-14] MEDS: ROBITUSSIN 200 MG PO ×3 (07:43→21:42)
[2024-04-14] MEDS: CARDIZEM CD 240 MG PO (07:43)
[2024-04-14] MEDS: VIBRAMYCIN 100 MG PO ×2 (07:43→21:43)
[2024-04-14] MEDS: ZOLOFT 50 MG PO (07:43)
[2024-04-14] MEDS: PEPCID 10 MG PO (07:43)
[2024-04-14] MEDS: ASPIR LOW (ENTERIC COATED) 81 MG PO (07:43)
[2024-04-14] MEDS: SENOKOT-S 1 TABLET PO ×2 (07:44→21:44)
[2024-04-14] MEDS: DELTASONE 40 MG PO (07:44)
[2024-04-14] MEDS: SODIUM BICARBONATE 650 MG PO (07:44)
[2024-04-14] MEDS: APRESOLINE 100 MG PO ×3 (07:44→23:53)
[2024-04-14] MEDS: LOPRESSOR 50 MG PO ×2 (07:44→21:44)
[2024-04-14] MEDS: ABILIFY 2 MG PO ×2 (07:45→21:43)
[2024-04-14] MEDS: HEPARIN SC (07:46)
[2024-04-14 07:47] LABS: Blood Urea Nitrogen 111 mg/dl (7-17); Carbon Dioxide 27 mmol/L (22-30); Chloride 95 mmol/L (98-107); Estimated Creatinine Clearance 10 ml/min; Glucose 145 mg/dl (70-99); Potassium 4.1 mmol/L (3.5-5.1); Sodium 133 mmol/L (135-145); eGFR 10.12
[2024-04-14] MEDS: IMDUR (EXTENDED RELEASE) 30 MG PO (08:13)
[2024-04-14] MEDS: SYMBICORT 80/4.5 MCG INHALER 2 PUFF INH ×2 (08:30→20:45)
[2024-04-14] MEDS: SPIRIVA RESPIMAT 2.5 MCG 2 PUFF INH (08:31)
--- NOTE | 2024-04-14 08:32 | W.PN.CD ---
Today's Communication / Plan
-
-Lasix is now being held secondary to worsening CKD; Nephrology managing.
-Uncontrolled hypertension.
-Will add isosorbide mononitrate ER 30 mg daily.
Impression / Plan
-
Elqgf-vo-fqkzamq HFpEF:
-recent echo as below with EF 55%, but concern for Takotsubo
-BNP >27,000, CXR suggestive CHF
-Lasix is now being held secondary to worsening CKD; Nephrology managing.
COPD:
-Respiratory status appears to be stable/improved.
CKD4:
-A fistula was recently placed for HD planning
-Nephrology following.
Paroxysmal atrial tachycardia:
-Remains stable in SR
-Continue CCB/BB
Hypertension:
-Uncontrolled hypertension.
-Will add isosorbide mononitrate ER 30 mg daily.
-Continue current doses of hydralazine, Cardizem CD, and Lopressor
Dementia, significant:
-supportive care
-management per primary
Physical Exam
Vital Signs/Labs
Vital Signs
Temp Pulse Resp BP Pulse Ox
98.4 F 66 17 190/70 93
04/14/24 07:00 04/14/24 07:44 04/14/24 07:00 04/14/24 07:44 04/14/24 07:00
04/13/24 04/14/24 04/15/24
06:59 06:59 06:59
Actual Weight 66.366 kg 67.358 kg
04/12/24 04:41
04/14/24 05:54
Magnesium 1.8 mg/dl (1.6-2.3) 04/12/24 04:41
04/11/24
20:29
Swa-S-Zhvsmxlziwk Pept > 36553
LAB Results
04/11/24 04/11/24 04/12/24
18:35 20:29 02:01
Troponin I 0.027 0.026 0.026
04/12/24
10:20
Troponin I 0.038 H*
Physical Exam
Constitutional: No acute distress and Comfortable
EENT: Anicteric
Cardiovascular: Rhythm & rate is regular, Pedal edema is absent, Systolic murmur present (2/6) and S1S2 is normal
Respiratory: Respiratory effort normal and Rhonchi Present (Scant bibasilar)
GI: Soft
Neuro/Psych: Alert
Other: Skin (Warm, dry, intact)
Data Reviewed
-
Date of Service: April 14, 2024
EKG: Tracing Personally Visualized and interpreted (Telemetry: Sinus rhythm)
Labs: Labs Reviewed by me
--- NOTE | 2024-04-14 10:07 | PN.CDI ---
CDI
- -
CDI:
Physician Documentation Request
Admit Date: 04/12/24 09:46
Dear Doctor Jennifer,
Patient is admitted with acute on chronic heart failure with preserved ejection fraction.
Troponin results:
Laboratory Tests
04/11/24 04/11/24 04/12/24
18:35 20:29 02:01
Troponin I 0.027 0.026 0.026
04/12/24
10:20
Troponin I 0.038 H*
Could you please provide a diagnosis that supports the above lab abnormalities and additional evaluation/ monitoring:
Nonischemic myocardial injury
Type II CO demand ischemia
Other
Use of terms such as suspected, likely, concern for, or probable (associated with a specific diagnosis that is being evaluated, monitored, or treated as if it exists) are acceptable and can be coded in the inpatient setting, when documented at the
time of discharge.
Thank you,
Vira Pinedo RN, BSN
CDI Specialist
tiger text
Please use your independent medical judgment in providing your response.
--- NOTE | 2024-04-14 12:05 | W.PN.HOSP.TC ---
Today's Communication/Plan
-
BP not under control
Isosorbide added by Cards
HR won't tolerate Clonidine
I have reached out to renal to discuss
BP may be volume mediated.
Bladder scan
I am afraid she may be heading towards HD
Assessment / Plan
Assessment / Plan
73-year-old female presented to the hospital from assisted living because of shortness of breath and reported chest pain. Saturations were low at 88% but patient was not wearing her usual oxygen. Patient was recently admitted here for CHF and had
dialysis. She has dementia not able to give me any history.
On examination awake and alert, apparent dementia
Cardiovascular system sinus rhythm,
Chest -No Rhonchi today
Abdomen soft and nontender
No pedal edema
# Acute on chronic heart failure with preserved ejection fraction
Echo-03/29/2024-normal LV function. EF 55%. Hypokinesis of apical segments c/w Takotsubo cardiomyopathy. Stage II diastolic dysfunction. Aortic stenosis without stenosis. Mild TR. Pulmonary pressure 42 mmHg.
BNP over 27,000 and chest x-ray with overload
Continue Lasix 80 mg IV twice daily placed on Hold
Unclear regarding patient's compliance with diet , salt and fluid restriction
# COPD-with mild exacerbation
Chronic respiratory failure on home oxygen
Speech evaluation to rule out aspiration
Coarse breath sounds with productive cough-continue antibiotics and a short course of steroids
Continue Trelegy Ellipta, Incruse Ellipta or equivalent and nebulizer treatments
# FIDENCIO on Chronic any disease stage V
AV fistula was recently placed
Continue sodium bicarb
Nephrology evaluation appreciated.
Creat worsening
Check Bladder Scan
Lasix on Hold.
# Paroxysmal atrial tachycardia-in sinus rhythm currently
Continue calcium channel blockers and beta-blockers
Telemetry monitoring
# Diabetes-usually uses Lantus 5 units at night and 2 units of NovoLog AC
Lantus with sliding scale here
# Hypertension
Continue Cardizem 240 mg p.o. daily, hydralazine 100 mg p.o. 3 times daily, metoprolol 50 mg p.o. twice daily
BP still not under control
Isosorbide added by Cards
HR won't tolerate Clonidine
# Hypothyroidism-continue Synthroid
# Hyperlipidemia/atherosclerosis bipolar disease-continue atorvastatin
# Coronary artery disease-coronary calcifications on CT-continue aspirin and statin
# Significant dementia
# Anxiety/bipolar disease-continue sertraline, Abilify
# History of CVA-aspirin statin
# GERD- Pepcid
# Chronic anemia likely secondary to CKD
# Sleep apnea-unclear if she is not on-PAP device as OP. Daughter aware re OP Sleep study.
# Insomnia on Benadryl at night
# Chronic steroid use-for COPD
# Ex-smoker
# DVT prophylaxis-subcutaneous heparin
Anticipated Discharge: > 48 hours
Subjective/Interval History
-
Date of Service: April 14, 2024
Objective Data
-
Labs:
Laboratory Results
04/14/24
05:54
Sodium 133 L
Potassium 4.1
Chloride 95 L
Carbon Dioxide 27
BUN 111 H*
Creatinine 4.4 H*
Glucose 145 H
Calcium 8.0 L
Vital Signs:
Vital Signs
Temp Pulse Resp BP Pulse Ox
98.3 F 60 20 157/54 93
04/14/24 11:26 04/14/24 11:26 04/14/24 08:36 04/14/24 11:26 04/14/24 11:26
I&O
04/13/24 04/14/24 04/15/24
06:59 06:59 06:59
Intake Total 480 / 480 600 / 600
Output Total 450 / 450
Balance 30 / 30 600 / 600
[2024-04-14 12:06] LABS: Glucose - Point of Care 220 mg/dl (70-99)
[2024-04-14] MEDS: NOVOLOG FLEXPEN-LOW RESISTANCE 2 UNITS SC (13:23)
--- NOTE | 2024-04-14 14:15 | CM ---
configuration management manager following for d/c planning
Chart reviewed - pt off unit
Cards following - adjusting meds
Renal following FIDENCIO
PT recommended HH - Called [phone] to discuss recommendation - LM
CM will continue to follow for d/c needs
Plan - anticipate return to with PT when medically stable
--- NOTE | 2024-04-14 15:05 | W.PN.NEPH.PH ---
Today's Communication / Plan
-
- CXR pending
- plan to start chlorthalidone
Assessment/Plan
-
Impression:
Acute shortness of breath-suspected acute decompensated heart failure preserved EF
Acute on chronic hypoxic respite insufficiency
History of obstructive sleep apnea.
COPD
CKD stage V-baseline 3.4
Anemia
Hypertension
Diabetes mellitus type 2
Mild dementia
Left upper extremity AV fistula
Plan:
change lasix to chlorthalidone for BP effect and more gentle diuresis.
Follow-up basic metabolic profile
stop sodium bicarb as CO2 above goal at 27 at this time
No urgent indications for dialysis at this time
-
-
Date of Service: April 14, 2024
CC / HPI / ROS
-
Chief Complaint:
CKD5
History of Present Illness:
FIDENCIO/Cr up to 4.4
diuresed well for CHF with IV lasix but stopped due to overdiuresis. plan for chlorthalidone today
BP elevated
Review of Systems:
on supplemental O2
no CP
no SOB
Labs
-
Labs:
WBC 8.6 10^3/uL (4.8-10.8) 04/12/24 04:41
RBC 3.77 10^6/uL (4.20-5.40) L 04/12/24 04:41
Hgb 10.9 g/dL (12.0-16.0) L 04/12/24 04:41
Hct 33.1 % (37.0-47.0) L 04/12/24 04:41
Plt Count 267 10^3/uL (130-400) 04/12/24 04:41
Sodium 133 mmol/L (135-145) L 04/14/24 05:54
Potassium 4.1 mmol/L (3.5-5.1) 04/14/24 05:54
Chloride 95 mmol/L (98-107) L 04/14/24 05:54
Carbon Dioxide 27 mmol/L (22-30) 04/14/24 05:54
BUN 111 mg/dl (7-17) H* 04/14/24 05:54
Creatinine 4.4 mg/dL (0.6-1.0) H* 04/14/24 05:54
eGFR 10.12 04/14/24 05:54
Glucose 145 mg/dl (70-99) H 04/14/24 05:54
Calcium 8.0 mg/dl (8.4-10.2) L 04/14/24 05:54
Wzj-E-Kcihexnvtsh Pept > 68985 pg/ml 04/11/24 20:29
Albumin 3.3 g/dl (3.5-5.0) L 04/11/24 18:35
Physical Exam
-
Vital Signs:
Vital Signs
Temp Pulse Resp BP Pulse Ox
98.3 F 60 20 157/54 93
04/14/24 11:26 04/14/24 11:26 04/14/24 08:36 04/14/24 11:26 04/14/24 11:26
Cardiovascular:: Regular rate and rhythm
Respiratory:: Bilateral: Coarse
Lung Excursion:: Normal
Abdomen:: Nontender and Soft
Bowel Sounds:: Normal
Extremity Edema:: None: Bilateral:
Rhodes Catheter: No
--- NOTE | 2024-04-14 15:36 | PTCARENOTE ---
Patient refusing bladder scan at this time. MD Rodriguez made aware.
[2024-04-14] MEDS: Hygroton 25 MG PO (15:47)
[2024-04-14 16:50] LABS: Glucose - Point of Care 270 mg/dl (70-99)
[2024-04-14] MEDS: APRESOLINE IV (16:56)
--- NOTE | 2024-04-14 17:10 | PTCARENOTE ---
Pt blood pressure elevated at 162/84 but hydralazine can not be given IV because patient ripped out IV. IV team called and tried to replace but pt became aggressive and would not let them place another one. MD Rodriguez aware.
[2024-04-14] MEDS: ATIVAN 0.5 MG PO (17:58)
[2024-04-14] MEDS: NOVOLOG FLEXPEN SC (17:58)
[2024-04-14] MEDS: ROBITUSSIN PO (17:59)
[2024-04-14] MEDS: LIPITOR 20 MG PO (17:59)
[2024-04-14] MEDS: NOVOLOG FLEXPEN-LOW RESISTANCE 3 UNITS SC (18:02)
[2024-04-14 21:40] LABS: Glucose - Point of Care 413 mg/dl (70-99)
[2024-04-14] MEDS: BENADRYL 25 MG PO (21:45)
[2024-04-14] MEDS: HEPARIN 5000 UNITS SC (21:46)
[2024-04-14 22:16] LABS: Glucose 320 mg/dl (70-99)
[2024-04-14] MEDS: LANTUS 0.0500000000000000028 UNITS SC (22:31)
[2024-04-15] MEDS: NOVOLOG FLEXPEN 4 UNITS SC (00:17)
[2024-04-15 02:20] LABS: Glucose - Point of Care 200 mg/dl (70-99)
[2024-04-15 05:36] VITALS: BMI 25.8
[2024-04-15] MEDS: SYNTHROID 75 MCG PO (06:34)
[2024-04-15 07:00] VITALS: BP 179/65
[2024-04-15] MEDS: SYMBICORT 80/4.5 MCG INHALER 2 PUFF INH ×2 (07:51→20:45)
[2024-04-15] MEDS: SPIRIVA RESPIMAT 2.5 MCG 2 PUFF INH (07:51)
[2024-04-15 07:54] LABS: Glucose - Point of Care 162 mg/dl (70-99)
--- NOTE | 2024-04-15 08:19 | W.PN.CD ---
Today's Communication / Plan
-
-Nephrology added chlorthalidone yesterday.
-Renal function is worsening and blood pressure remains uncontrolled; dialysis is likely needed.
-Blood pressure remains uncontrolled--did improve for a bit yesterday.
-Will increase isosorbide mononitrate to 30 mg BID.
-Continue current doses of Cardizem CD, hydralazine, and Lopressor for now.
Impression / Plan
-
Hhpki-uy-vzdlbuv HFpEF:
-recent echo as below with EF 55%, but concern for Takotsubo
-BNP >27,000, CXR suggestive CHF
-Nephrology added chlorthalidone yesterday.
-Renal function is worsening and blood pressure remains uncontrolled; dialysis is likely needed.
COPD:
-Respiratory status appears to be stable/improved.
CKD4:
-A fistula was recently placed for HD planning
-Worsening renal function; dialysis is likely needed.
-Nephrology following.
Paroxysmal atrial tachycardia:
-Remains stable in SR
-Continue CCB/BB
Hypertension:
-Blood pressure remains uncontrolled--did improve for a bit yesterday.
-Will increase isosorbide mononitrate to 30 mg BID.
-Continue current doses of Cardizem CD, hydralazine, and Lopressor for now.
Dementia, significant:
-supportive care
-management per primary
Physical Exam
Vital Signs/Labs
Vital Signs
Temp Pulse Resp BP Pulse Ox
97.9 F 68 20 179/65 94
04/15/24 07:00 04/15/24 07:54 04/15/24 07:54 04/15/24 07:00 04/15/24 07:54
04/14/24 04/15/24 04/16/24
06:59 06:59 06:59
Actual Weight 67.358 kg 68.22 kg
04/12/24 04:41
04/14/24 21:50
Magnesium 1.8 mg/dl (1.6-2.3) 04/12/24 04:41
04/11/24
20:29
Kax-Z-Hdjvekcnwgh Pept > 96449
LAB Results
04/12/24
10:20
Troponin I 0.038 H*
Physical Exam
Constitutional: No acute distress and Comfortable
EENT: Anicteric
Cardiovascular: Rhythm & rate is regular, Pedal edema is absent, Systolic murmur present (2/) and S1S2 is normal
Respiratory: Respiratory effort normal
GI: Soft
Neuro/Psych: Alert
Other: Skin (Warm, dry, intact)
Data Reviewed
-
Date of Service: April 15, 2024
Labs: Labs Reviewed by me
[2024-04-15] MEDS: NOVOLOG FLEXPEN 2 UNITS SC ×3 (09:04→16:45)
[2024-04-15] MEDS: NOVOLOG FLEXPEN-LOW RESISTANCE 1 UNITS SC (09:04)
[2024-04-15] MEDS: ABILIFY 2 MG PO ×2 (09:05→20:31)
[2024-04-15] MEDS: IMDUR (EXTENDED RELEASE) PO (09:05)
[2024-04-15] MEDS: VIBRAMYCIN 100 MG PO ×2 (09:05→20:31)
[2024-04-15] MEDS: Hygroton 25 MG PO (09:05)
[2024-04-15] MEDS: ASPIR LOW (ENTERIC COATED) 81 MG PO (09:05)
[2024-04-15] MEDS: SENOKOT-S 1 TABLET PO ×2 (09:05→20:31)
[2024-04-15] MEDS: DELTASONE 40 MG PO (09:06)
[2024-04-15] MEDS: ZOLOFT 50 MG PO (09:06)
[2024-04-15] MEDS: LOPRESSOR 50 MG PO ×2 (09:06→20:31)
[2024-04-15] MEDS: APRESOLINE 100 MG PO ×3 (09:06→22:46)
[2024-04-15] MEDS: HEPARIN 5000 UNITS SC ×2 (09:08→20:32)
[2024-04-15] MEDS: CARDIZEM CD 240 MG PO (09:08)
[2024-04-15] MEDS: ROBITUSSIN 200 MG PO ×3 (09:09→22:46)
[2024-04-15] MEDS: PEPCID 10 MG PO (09:09)
[2024-04-15] MEDS: IMDUR (EXTENDED RELEASE) 30 MG PO ×2 (09:12→20:31)
[2024-04-15 10:15] LABS: Blood Urea Nitrogen 112 mg/dl (7-17); Calcium 8.1 mg/dl (8.4-10.2); Carbon Dioxide 28 mmol/L (22-30); Chloride 93 mmol/L (98-107); Estimated Creatinine Clearance 10 ml/min; Glucose 140 mg/dl (70-99); Potassium 3.9 mmol/L (3.5-5.1); Sodium 129 mmol/L (135-145)
[2024-04-15 11:51] VITALS: BP 154/61
[2024-04-15 11:59] LABS: Glucose - Point of Care 203 mg/dl (70-99)
[2024-04-15] MEDS: NOVOLOG FLEXPEN-LOW RESISTANCE 2 UNITS SC ×2 (12:23→16:46)
[2024-04-15] MEDS: ROBITUSSIN PO (12:23)
--- NOTE | 2024-04-15 12:50 | W.PN.HOSP.TC ---
Today's Communication/Plan
-
watch creat
Hold Lasix
Does not look volume overloaded clinically
BNP may be also from her Renal failure
Assessment / Plan
Assessment / Plan
73-year-old female presented to the hospital from assisted living because of shortness of breath and reported chest pain. Saturations were low at 88% but patient was not wearing her usual oxygen. Patient was recently admitted here for CHF and had
dialysis. She has dementia not able to give me any history.
On examination awake and alert, apparent dementia
Cardiovascular system sinus rhythm,
Chest -No Rhonchi today, few rales
Abdomen soft and nontender
No pedal edema
# Acute on chronic heart failure with preserved ejection fraction
Echo-03/29/2024-normal LV function. EF 55%. Hypokinesis of apical segments c/w Takotsubo cardiomyopathy. Stage II diastolic dysfunction. Aortic stenosis without stenosis. Mild TR. Pulmonary pressure 42 mmHg.
BNP over 27,000 and chest x-ray with mild overload
Lasix 80 mg IV twice daily placed on Hold
# COPD-with mild exacerbation
Chronic respiratory failure on home oxygen
Speech evaluation to rule out aspiration
Coarse breath sounds with productive cough-continue antibiotics and a short course of steroids
Continue Trelegy Ellipta, Incruse Ellipta or equivalent and nebulizer treatments
Taper steroids
# FIDENCIO on Chronic any disease stage V
AV fistula was recently placed
Continue sodium bicarb
Nephrology evaluation appreciated.
Creat worsening
Check Bladder Scan
Lasix on Hold.
# Hyponatremia- watch
# Paroxysmal atrial tachycardia-in sinus rhythm currently
Continue calcium channel blockers and beta-blockers
Telemetry monitoring
# Diabetes-usually uses Lantus 5 units at night and 2 units of NovoLog AC
Lantus with sliding scale here
# Hypertension
Continue Cardizem 240 mg p.o. daily, hydralazine 100 mg p.o. 3 times daily, metoprolol 50 mg p.o. twice daily
BP better with chlorthalidone
Isosorbide added by Cards
HR won't tolerate Clonidine
# Hypothyroidism-continue Synthroid
# Hyperlipidemia/atherosclerosis bipolar disease-continue atorvastatin
# Coronary artery disease-coronary calcifications on CT-continue aspirin and statin
# Significant dementia
# Anxiety/bipolar disease-continue sertraline, Abilify
# History of CVA-aspirin statin
# GERD- Pepcid
# Chronic anemia likely secondary to CKD
# Sleep apnea-unclear if she is not on-PAP device as OP. Daughter aware re OP Sleep study.
# Insomnia on Benadryl at night
# Chronic steroid use-for COPD
# Ex-smoker
# DVT prophylaxis-subcutaneous heparin
Spoke to daughter and updated.
Anticipated Discharge: > 48 hours
Subjective/Interval History
-
Date of Service: April 15, 2024
Objective Data
-
Labs:
Laboratory Results
04/15/24
09:14
Sodium 129 L
Potassium 3.9
Chloride 93 L
Carbon Dioxide 28
BUN 112 H*
Creatinine 4.2 H*
Glucose 140 H
Calcium 8.1 L
Vital Signs:
Vital Signs
Temp Pulse Resp BP Pulse Ox
97.9 F 62 20 154/61 94
04/15/24 07:00 04/15/24 11:51 04/15/24 07:54 04/15/24 11:51 04/15/24 07:54
I&O
04/14/24 04/15/24 04/16/24
06:59 06:59 06:59
Intake Total 600 / 600
Balance 600 / 600
--- NOTE | 2024-04-15 13:22 | CM ---
Case management following for d/c planning
Pt from
PT/OT recommending HH
Called [phone], spoke with nurse Lulu
Aware of needs - reports that facility uses [facility] for HH - will send referral in Care port when pt closer to d/c for HH needs
Plan - Return to with [facility] when medically ready
--- NOTE | 2024-04-15 14:58 | W.PN.NEPH.PH ---
Today's Communication / Plan
-
- restart lasix
Assessment/Plan
-
Impression:
Acute shortness of breath-suspected acute decompensated heart failure preserved EF
Acute on chronic hypoxic respite insufficiency
History of obstructive sleep apnea.
COPD
CKD stage V-baseline 3.4
Anemia
Hypertension
Diabetes mellitus type 2
Mild dementia
Left upper extremity AV fistula
Plan:
chlorthalidone caused worsening hyponatremia
Consider changing metop to coreg (will defer to cardiology) for more BP effect
restart diuretics today at lower dose (40IV BID)
Follow-up basic metabolic profile
stop sodium bicarb as CO2 above goal at 27 at this time
No urgent indications for dialysis at this time
-
-
Date of Service: April 15, 2024
CC / HPI / ROS
-
Chief Complaint:
CKD5
History of Present Illness:
FIDENCIO/Cr up to 4.2
diuresed well for CHF with IV lasix but stopped due to overdiuresis. plan to restart diuretics today at lower dose 40IV BID
BP elevated
Review of Systems:
on supplemental O2
no CP
no SOB
Labs
-
Labs:
WBC 8.6 10^3/uL (4.8-10.8) 04/12/24 04:41
RBC 3.77 10^6/uL (4.20-5.40) L 04/12/24 04:41
Hgb 10.9 g/dL (12.0-16.0) L 04/12/24 04:41
Hct 33.1 % (37.0-47.0) L 04/12/24 04:41
Plt Count 267 10^3/uL (130-400) 04/12/24 04:41
Sodium 129 mmol/L (135-145) L 04/15/24 09:14
Potassium 3.9 mmol/L (3.5-5.1) 04/15/24 09:14
Chloride 93 mmol/L (98-107) L 04/15/24 09:14
Carbon Dioxide 28 mmol/L (22-30) 04/15/24 09:14
BUN 112 mg/dl (7-17) H* 04/15/24 09:14
Creatinine 4.2 mg/dL (0.6-1.0) H* 04/15/24 09:14
eGFR 10.70 04/15/24 09:14
Glucose 140 mg/dl (70-99) H 04/15/24 09:14
Calcium 8.1 mg/dl (8.4-10.2) L 04/15/24 09:14
Plw-O-Zgvcpwiifea Pept > 06227 pg/ml 04/11/24 20:29
Albumin 3.3 g/dl (3.5-5.0) L 04/11/24 18:35
Physical Exam
-
Vital Signs:
Vital Signs
Temp Pulse Resp BP Pulse Ox
97.9 F 62 20 154/61 94
04/15/24 07:00 04/15/24 11:51 04/15/24 07:54 04/15/24 11:51 04/15/24 07:54
Cardiovascular:: Regular rate and rhythm
Respiratory:: Bilateral: Coarse
Lung Excursion:: Normal
Abdomen:: Nontender and Soft
Bowel Sounds:: Normal
Extremity Edema:: +1: Bilateral:
Rhodes Catheter: No
[2024-04-15 15:00] VITALS: BP 139/52
[2024-04-15 16:23] LABS: Glucose - Point of Care 234 mg/dl (70-99)
[2024-04-15] MEDS: LIPITOR 20 MG PO (17:15)
[2024-04-15] MEDS: LASIX 40 MG IV (18:20)
[2024-04-15 21:35] LABS: Glucose - Point of Care 270 mg/dl (70-99)
[2024-04-15] MEDS: LANTUS 0.0500000000000000028 UNITS SC (22:46)
[2024-04-15] MEDS: BENADRYL 25 MG PO (22:48)
[2024-04-15 23:05] VITALS: BP 169/64
[2024-04-16] MEDS: SYNTHROID 75 MCG PO (06:20)
[2024-04-16 06:51] LABS: Blood Urea Nitrogen 117 mg/dl (7-17); Calcium 8.4 mg/dl (8.4-10.2); Carbon Dioxide 25 mmol/L (22-30); Chloride 94 mmol/L (98-107); Estimated Creatinine Clearance 10 ml/min; Glucose 159 mg/dl (70-99); Potassium 4.1 mmol/L (3.5-5.1); Sodium 130 mmol/L (135-145)
[2024-04-16 07:32] VITALS: BP 198/76
[2024-04-16 07:45] LABS: Glucose - Point of Care 166 mg/dl (70-99)
[2024-04-16] MEDS: NOVOLOG FLEXPEN 2 UNITS SC ×2 (08:14→12:37)
[2024-04-16] MEDS: NOVOLOG FLEXPEN-LOW RESISTANCE 1 UNITS SC (08:15)
[2024-04-16] MEDS: SPIRIVA RESPIMAT 2.5 MCG 2 PUFF INH (08:19)
[2024-04-16] MEDS: SYMBICORT 80/4.5 MCG INHALER 2 PUFF INH ×2 (08:19→19:48)
[2024-04-16] MEDS: ROBITUSSIN 200 MG PO (08:30)
[2024-04-16] MEDS: VIBRAMYCIN 100 MG PO ×2 (08:30→20:19)
[2024-04-16] MEDS: HEPARIN 5000 UNITS SC ×2 (08:30→20:19)
[2024-04-16] MEDS: ABILIFY 2 MG PO ×2 (08:30→20:19)
[2024-04-16] MEDS: DELTASONE 30 MG PO (08:30)
[2024-04-16] MEDS: SENOKOT-S 1 TABLET PO ×2 (08:31→20:19)
[2024-04-16] MEDS: ASPIR LOW (ENTERIC COATED) 81 MG PO (08:31)
[2024-04-16] MEDS: APRESOLINE 100 MG PO ×3 (08:31→23:51)
[2024-04-16] MEDS: ZOLOFT 50 MG PO (08:31)
[2024-04-16] MEDS: IMDUR (EXTENDED RELEASE) 30 MG PO ×2 (08:31→20:19)
[2024-04-16] MEDS: PEPCID 10 MG PO (08:31)
[2024-04-16] MEDS: LOPRESSOR 50 MG PO (08:31)
[2024-04-16] MEDS: CARDIZEM CD 240 MG PO (08:31)
[2024-04-16] MEDS: LASIX IV (10:14)
--- NOTE | 2024-04-16 10:14 | PTCARENOTE ---
RN relayed to hospitalist through tiger text that patient has removed 6th IV. Pt also continues to remove limb alert, ID, and DNR bracelets. RN got patient a med-sitter and notified MD that she has IV Lasix ordered but no IV. The Nephro MD note
said that pt may likely need HD. IV team suggested that if patient has to get an HD line, they also insert a pigtail so we can give IV medications to patient. Relayed all of this information to hospitalist. Hospitalist told RN to hold all IV
medications for now and she will reach out to nephro for a plan.
[2024-04-16 10:33] VITALS: BMI 25.6
--- NOTE | 2024-04-16 10:39 | W.PN.CD ---
Addendum entered and electronically signed by Amish Bragg MD 04/16/24 13:48:
I saw and examined the patient.
The [employer]'s note was reviewed and I agree with the note.
Comment: 73F with HF complicated by FIDENCIO/CKD
- diurese as directed by nephrology
- increased BP meds again today
Original Note:
Today's Communication / Plan
-
IV Lasix restarted yesterday by nephrology.
Impression / Plan
-
Pbabb-va-nxxgpno HFpEF:
-recent echo as below with EF 55%, but concern for Takotsubo
-BNP >27,000, CXR suggestive CHF
-Nephrology restarted IV Lasix BID yesterday.
-Renal function is worsening and blood pressure remains uncontrolled; dialysis is likely needed.
COPD:
-Respiratory status appears to be stable/improved.
CKD4:
-A fistula was recently placed for HD planning
-Worsening renal function; dialysis is likely needed.
-Nephrology following.
Paroxysmal atrial tachycardia:
-Remains stable in SR
-Continue CCB/BB
Hypertension:
-Blood pressure remains high, but monitor result with IV Lasix resumed.
-Will increase isosorbide mononitrate to 30 mg BID.
-Continue current doses of Cardizem CD, hydralazine, and Lopressor for now.
-Consider switching Lopressor to Coreg.
Dementia, significant:
-supportive care
-management per primary
Physical Exam
Vital Signs/Labs
Vital Signs
Temp Pulse Resp BP Pulse Ox
98.3 F 65 18 198/76 94
04/16/24 07:32 04/16/24 08:25 04/16/24 08:25 04/16/24 07:32 04/16/24 08:25
04/15/24 04/16/2404/17/24
06:59 06:59 06:59
Actual Weight 68.22 kg 67.585 kg
04/12/24 04:41
04/16/24 05:39
Magnesium 1.8 mg/dl (1.6-2.3) 04/12/24 04:41
04/11/24
20:29
Cwx-H-Xxntdrkdjvr Pept > 31342
Physical Exam
Constitutional: No acute distress
EENT: Anicteric and Moist mucous membranes
Cardiovascular: Rhythm & rate is regular
Respiratory: Rhonchi Present (diffuse)
GI: Soft, Non tender and Normal bowel sounds
Neuro/Psych: AO x 3
Other: Skin (warm, dry)
Data Reviewed
-
Date of Service: April 16, 2024
Medical Decision Making: Reviewed Test Results
EKG: Tracing Personally Visualized and interpreted
Echo: Report Reviewed by me
Labs: Labs Reviewed by me
Old Records: Reviewed
--- NOTE | 2024-04-16 10:44 | W.PN.NEPH.PH ---
Today's Communication / Plan
-
diurese
Assessment/Plan
-
Impression:
Acute shortness of breath-suspected acute decompensated heart failure preserved EF
Acute on chronic hypoxic respite insufficiency
History of obstructive sleep apnea.
COPD
CKD stage V-baseline 3.4
Anemia
Hypertension
Diabetes mellitus type 2
Mild dementia
Left upper extremity AV fistula
Plan:
continue lasix 40mg IV BID
follow BMP
clonidine, watch HR
d/w patient again regarding dialysis. She says that she would accept it if possible, but then says that she does not know, this was a similar conversation we had with her daughter present at last office visit
-
-
Date of Service: April 16, 2024
CC / HPI / ROS
-
Chief Complaint:
CKD5
History of Present Illness:
FIDENCIO/Cr up to 4.3
weights slightly higher
Na 130 stable
Review of Systems:
no supplemental O2
no CP
no SOB
Labs
-
Labs:
WBC 8.6 10^3/uL (4.8-10.8) 04/12/24 04:41
RBC 3.77 10^6/uL (4.20-5.40) L 04/12/24 04:41
Hgb 10.9 g/dL (12.0-16.0) L 04/12/24 04:41
Hct 33.1 % (37.0-47.0) L 04/12/24 04:41
Plt Count 267 10^3/uL (130-400) 04/12/24 04:41
Sodium 130 mmol/L (135-145) L 04/16/24 05:39
Potassium 4.1 mmol/L (3.5-5.1) 04/16/24 05:39
Chloride 94 mmol/L (98-107) L 04/16/24 05:39
Carbon Dioxide 25 mmol/L (22-30) 04/16/24 05:39
BUN 117 mg/dl (7-17) H* 04/16/24 05:39
Creatinine 4.3 mg/dL (0.6-1.0) H* 04/16/24 05:39
eGFR 10.40 04/16/24 05:39
Glucose 159 mg/dl (70-99) H 04/16/24 05:39
Calcium 8.4 mg/dl (8.4-10.2) 04/16/24 05:39
Wyl-E-Nkqwbxvjerf Pept > 47397 pg/ml 04/11/24 20:29
Albumin 3.3 g/dl (3.5-5.0) L 04/11/24 18:35
Physical Exam
-
Vital Signs:
Vital Signs
Temp Pulse Resp BP Pulse Ox
98.3 F 65 18 198/76 94
04/16/24 07:32 04/16/24 08:25 04/16/24 08:25 04/16/24 07:32 04/16/24 08:25
Cardiovascular:: Regular rate and rhythm
Respiratory:: Bilateral: Coarse
Lung Excursion:: Normal
Abdomen:: Nontender and Soft
Bowel Sounds:: Normal
Extremity Edema:: None: Bilateral:
[2024-04-16 11:02] VITALS: BP 184/68
[2024-04-16] MEDS: CATAPRES 0.100000000000000006 MG PO ×2 (11:19→20:19)
[2024-04-16 11:31] LABS: Glucose - Point of Care 297 mg/dl (70-99)
[2024-04-16] MEDS: NOVOLOG FLEXPEN-LOW RESISTANCE 3 UNITS SC (12:37)
[2024-04-16 12:40] VITALS: BP 152/56
--- NOTE | 2024-04-16 13:12 | W.PN.HOSP.TC ---
Today's Communication/Plan
-
Plans per renal
Watch BP
Lasix and Clonidine
She needs to be on tele
Assessment / Plan
Assessment / Plan
73-year-old female presented to the hospital from assisted living because of shortness of breath and reported chest pain. Saturations were low at 88% but patient was not wearing her usual oxygen. Patient was recently admitted here for CHF and had
dialysis. She has dementia not able to give me any history.
On examination awake and alert, apparent dementia
Cardiovascular system sinus rhythm,
Chest - few rales
Abdomen soft and nontender
No pedal edema
# Acute on chronic heart failure with preserved ejection fraction
Echo-03/29/2024-normal LV function. EF 55%. Hypokinesis of apical segments c/w Takotsubo cardiomyopathy. Stage II diastolic dysfunction. Aortic stenosis without stenosis. Mild TR. Pulmonary pressure 42 mmHg.
BNP over 27,000 and chest x-ray with mild overload
Lasix 40 mg IV twice daily
# COPD-with mild exacerbation
Chronic respiratory failure on home oxygen
Speech evaluation to rule out aspiration
Coarse breath sounds with productive cough-continue antibiotics and a short course of steroids
Continue Trelegy Ellipta, Incruse Ellipta or equivalent and nebulizer treatments
Taper steroids
# FIDENCIO on Chronic any disease stage V
AV fistula was recently placed
Continue sodium bicarb
Nephrology evaluation appreciated.
Creat worsening
Lasix added back
# Hyponatremia- watch
# Paroxysmal atrial tachycardia-in sinus rhythm currently
Continue calcium channel blockers and beta-blockers
Telemetry monitoring
# Diabetes-usually uses Lantus 5 units at night and 2 units of NovoLog AC
will do Lantus 6 HS and 3 AC
Lantus with sliding scale here
# Hypertension
Continue Cardizem 240 mg p.o. daily, hydralazine 100 mg p.o. 3 times daily, metoprolol 50 mg p.o. twice daily
Isosorbide added by Cards
Clonidine added, Watch HR
Chlorthalidone stopped due to Hyponatremia
# Hypothyroidism-continue Synthroid
# Hyperlipidemia/atherosclerosis bipolar disease-continue atorvastatin
# Coronary artery disease-coronary calcifications on CT-continue aspirin and statin
# Significant dementia
# Anxiety/bipolar disease-continue sertraline, Abilify
# History of CVA-aspirin statin
# GERD- Pepcid
# Chronic anemia likely secondary to CKD
# Sleep Apnea-unclear if she is not on-PAP device as OP. Daughter aware re OP Sleep study.
# Insomnia on Benadryl at night
# Chronic steroid use-for COPD
# Ex-smoker
# DVT prophylaxis-Subcutaneous heparin
D/W RN
D/W
Very difficult situation as the patient is not clear if she would want dialysis or not. She has been taking IVs out she has had 6 IVs taken out by herself this hospital stay. I do not see how she can keep the tunneled catheter on if she needs
dialysis to be initiated prior to her fistula maturing.
Anticipated Discharge: > 48 hours
Subjective/Interval History
-
Date of Service: April 16, 2024
Objective Data
-
Labs:
Laboratory Results
04/16/24
05:39
Sodium 130 L
Potassium 4.1
Chloride 94 L
Carbon Dioxide 25
BUN 117 H*
Creatinine 4.3 H*
Glucose 159 H
Calcium 8.4
Vital Signs:
Vital Signs
Temp Pulse Resp BP Pulse Ox
98.3 F 54 16 152/56 94
04/16/24 07:32 04/16/24 12:40 04/16/24 12:40 04/16/24 12:40 04/16/24 08:25
I&O
04/15/24 04/16/24 04/17/24
06:59 06:59 06:59
Intake Total 1340 / 1340
Balance 1340 / 1340
--- NOTE | 2024-04-16 14:29 | CM ---
Case management following for d/c planning
Chart reviewed
Pt from
PT/OT recommending HH
Called [phone], spoke with nurse Lulu
Aware of needs - reports that facility uses [facility] for HH - will send referral in Care port when pt closer to d/c for HH needs
Following labs, may need HD
Plan - Return to with [facility] when medically ready
[2024-04-16] MEDS: ROBITUSSIN PO ×5 (14:36→23:57)
[2024-04-16 15:13] VITALS: BP 137/56
[2024-04-16] MEDS: LASIX 80 MG PO (15:13)
[2024-04-16 16:34] LABS: Glucose - Point of Care 228 mg/dl (70-99)
[2024-04-16] MEDS: NOVOLOG FLEXPEN 3 UNITS SC (16:34)
[2024-04-16] MEDS: LIPITOR 20 MG PO (16:34)
[2024-04-16] MEDS: NOVOLOG FLEXPEN-LOW RESISTANCE 2 UNITS SC (16:34)
--- NOTE | 2024-04-16 18:57 | PTCARENOTE ---
Pt has removed tele monitor 6x this shift so far, even with med sitter in the room watching her for safety. Pt is irritable and cursing at RN. RN spoke with pt's daughter today on the phone and updated her on her mothers plan of care.
[2024-04-16 19:42] VITALS: BP 162/59
[2024-04-16] MEDS: COREG 12.5 MG PO (20:18)
[2024-04-16 21:32] LABS: Glucose - Point of Care 267 mg/dl (70-99)
[2024-04-16 23:37] VITALS: BP 163/61
[2024-04-16] MEDS: LANTUS 0.0599999999999999978 UNITS SC (23:50)
[2024-04-16] MEDS: BENADRYL 25 MG PO (23:51)
[2024-04-17] VITALS (7 sets, daily range): BP systolic 131–163; BP diastolic 48–69; BMI 25.3
[2024-04-17] MEDS: SYNTHROID 75 MCG PO (06:08)
[2024-04-17] MEDS: SYMBICORT 80/4.5 MCG INHALER 2 PUFF INH ×2 (06:27→18:18)
[2024-04-17] MEDS: SPIRIVA RESPIMAT 2.5 MCG 2 PUFF INH (06:28)
[2024-04-17 07:22] LABS: Glucose - Point of Care 173 mg/dl (70-99)
[2024-04-17] MEDS: CARDIZEM CD 240 MG PO (08:33)
[2024-04-17] MEDS: VIBRAMYCIN 100 MG PO ×2 (08:33→20:38)
[2024-04-17] MEDS: APRESOLINE 100 MG PO ×3 (08:33→21:19)
[2024-04-17] MEDS: CATAPRES 0.100000000000000006 MG PO ×2 (08:33→20:38)
[2024-04-17] MEDS: ABILIFY 2 MG PO ×2 (08:33→20:38)
[2024-04-17] MEDS: IMDUR (EXTENDED RELEASE) 30 MG PO ×2 (08:33→20:37)
[2024-04-17] MEDS: LASIX 80 MG PO ×2 (08:33→16:13)
[2024-04-17] MEDS: HEPARIN 5000 UNITS SC ×2 (08:34→20:38)
[2024-04-17] MEDS: PEPCID 10 MG PO (08:34)
[2024-04-17] MEDS: ASPIR LOW (ENTERIC COATED) 81 MG PO (08:34)
[2024-04-17] MEDS: DELTASONE 30 MG PO (08:34)
[2024-04-17] MEDS: ROBITUSSIN 200 MG PO (08:35)
[2024-04-17] MEDS: NOVOLOG FLEXPEN 3 UNITS SC ×3 (08:35→16:58)
[2024-04-17] MEDS: SENOKOT-S 1 TABLET PO ×2 (08:35→20:38)
[2024-04-17] MEDS: NOVOLOG FLEXPEN-LOW RESISTANCE 1 UNITS SC (08:36)
[2024-04-17] MEDS: COREG 12.5 MG PO (08:38)
[2024-04-17] MEDS: ZOLOFT 50 MG PO (08:38)
--- NOTE | 2024-04-17 08:39 | W.PN.CD ---
Addendum entered and electronically signed by Flo Dewitt MD 04/17/24 11:30:
I saw and examined the patient.
The HOSPITAL RECEPTIONIST's note was reviewed and I agree with the note except as below.
Comment: Although the sinus ryan is asymptomatic I prefer we back off on some of the meds that can produce sinus ryan. Will decrease Coreg.
Original Note:
Today's Communication / Plan
-
Continue current doses of Cardizem CD, hydralazine, and Coreg.
continue IV Lasix per nephrology.
Impression / Plan
-
Ontge-iu-fkavukz HFpEF:
-recent echo as below with EF 55%, but concern for Takotsubo
-BNP >27,000, CXR suggestive CHF
-Nephrology restarted IV Lasix BID yesterday.
-Renal function is worse, creat 4.3 today; dialysis is likely needed.
COPD:
-Respiratory status appears to be stable/improved.
CKD4:
-A fistula was recently placed for HD planning.
-Worsening renal function; dialysis is likely needed.
-Nephrology following.
Paroxysmal atrial tachycardia:
-Remains stable in SR.
-Continue CCB/BB.
Hypertension:
-BP improved, monitor.
-IV Lasix per nephrology.
-BB switched to Coreg, continue.
-Continue isosorbide mononitrate 30 mg BID.
-Continue current doses of Cardizem CD, hydralazine, and Coreg.
Dementia, significant:
-supportive care.
-management per primary.
Physical Exam
Vital Signs/Labs
Vital Signs
Temp Pulse Resp BP Pulse Ox
97.5 F 55 16 163/61 95
04/17/24 07:16 04/17/24 07:16 04/17/24 07:16 04/17/24 07:16 04/17/24 07:16
04/16/24 04/17/24 04/18/24
06:59 06:59 06:59
Actual Weight 66.905 kg
Magnesium 1.8 mg/dl (1.6-2.3) 04/12/24 04:41
04/11/24
20:29
Uni-O-Qjvrijggart Pept > 17134
Physical Exam
Constitutional: No acute distress
EENT: Anicteric and Moist mucous membranes
Cardiovascular: Rhythm & rate is regular
Respiratory: Respiratory effort normal and Lungs clear to auscul.
GI: Soft, Non tender and Normal bowel sounds
Neuro/Psych: Alert
Other: Skin (warm, dry)
Data Reviewed
-
Date of Service: April 17, 2024
Medical Decision Making: Reviewed Test Results
EKG: Tracing Personally Visualized and interpreted
Echo: Report Reviewed by me
Labs: Labs Reviewed by me
Old Records: Reviewed
[2024-04-17 09:34] LABS: Hematocrit 31.3 % (37.0-47.0); Hemoglobin 10.4 g/dL (12.0-16.0); Mean Corp Hgb Conc. 33.2 g/dL (33.0-37.0); Mean Corpuscular Hgb 29.1 pg (27.0-31.0); Mean Corpuscular Volume 87.7 fL (81.0-99.0); Mean Platelet Volume 9.4 fL (7.4-10.4); Platelet Count 266 10^3/uL (130-400); Red Blood Cell Count 3.57 10^6/uL (4.20-5.40); Red Cell Dist. Width 13.6 % (11.5-14.5); White Blood Cell Count 4.4 10^3/uL (4.8-10.8)
[2024-04-17 09:55] LABS: Blood Urea Nitrogen 114 mg/dl (7-17); Calcium 8.8 mg/dl (8.4-10.2); Carbon Dioxide 26 mmol/L (22-30); Chloride 93 mmol/L (98-107); Estimated Creatinine Clearance 11 ml/min; Glucose 124 mg/dl (70-99); Sodium 130 mmol/L (135-145); eGFR 11.69
--- NOTE | 2024-04-17 11:08 | W.PN.NEPH.PH ---
Today's Communication / Plan
-
follow BMP
Assessment/Plan
-
Impression:
Acute shortness of breath-suspected acute decompensated heart failure preserved EF
Acute on chronic hypoxic respite insufficiency
History of obstructive sleep apnea.
COPD
CKD stage V-baseline 3.4
Anemia
Hypertension
Diabetes mellitus type 2
Mild dementia
Left upper extremity AV fistula
Plan:
continue lasix 80mg BID po
follow BMP
continue clonidine
given her rash decisions pulling out IVs, dialysis may not be a good option in the future, regardless of access as any pulling of the access would result in significant morbidity/mortality risk.
-
-
Date of Service: April 17, 2024
CC / HPI / ROS
-
Chief Complaint:
CKD5
History of Present Illness:
FIDENCIO/Cr down to 3.9
now on po lasix as she has pulled out multiple PIVs, says she pulled them out of anger and wanting to go home
Na 130 stable
Review of Systems:
no supplemental O2
no CP
no SOB
Labs
-
Labs:
WBC 4.4 10^3/uL (4.8-10.8) L 04/17/24 09:02
RBC 3.57 10^6/uL (4.20-5.40) L 04/17/24 09:02
Hgb 10.4 g/dL (12.0-16.0) L 04/17/24 09:02
Hct 31.3 % (37.0-47.0) L 04/17/24 09:02
Plt Count 266 10^3/uL (130-400) 04/17/24 09:02
Sodium 130 mmol/L (135-145) L 04/17/24 09:02
Potassium 4.0 mmol/L (3.5-5.1) 04/17/24 09:02
Chloride 93 mmol/L (98-107) L 04/17/24 09:02
Carbon Dioxide 26 mmol/L (22-30) 04/17/24 09:02
BUN 114 mg/dl (7-17) H* 04/17/24 09:02
Creatinine 3.9 mg/dL (0.6-1.0) H 04/17/24 09:02
eGFR 11.69 04/17/24 09:02
Glucose 124 mg/dl (70-99) H 04/17/24 09:02
Calcium 8.8 mg/dl (8.4-10.2) 04/17/24 09:02
Asp-X-Paihmkbbqdw Pept > 98635 pg/ml 04/11/24 20:29
Albumin 3.3 g/dl (3.5-5.0) L 04/11/24 18:35
Physical Exam
-
Vital Signs:
Vital Signs
Temp Pulse Resp BP Pulse Ox
97.6 F 58 17 132/48 95
04/17/24 11:07 04/17/24 11:07 04/17/24 11:07 04/17/24 11:07 04/17/24 11:07
Cardiovascular:: Regular rate and rhythm
Respiratory:: Bilateral: CTA
Lung Excursion:: Normal
Abdomen:: Nontender and Soft
Bowel Sounds:: Normal
Extremity Edema:: +1: Bilateral:
[2024-04-17 11:22] LABS: Glucose - Point of Care 247 mg/dl (70-99)
[2024-04-17] MEDS: NOVOLOG FLEXPEN-LOW RESISTANCE 2 UNITS SC (12:40)
[2024-04-17] MEDS: ROBITUSSIN PO ×3 (12:50→21:19)
--- NOTE | 2024-04-17 13:20 | W.PN.HOSP.TC ---
Today's Communication/Plan
-
BMP in am
Assessment / Plan
Assessment / Plan
73-year-old female presented to the hospital from assisted living because of shortness of breath and reported chest pain. Saturations were low at 88% but patient was not wearing her usual oxygen. Patient was recently admitted here for CHF and had
dialysis. She has dementia not able to give me any history.
On examination awake and alert, apparent dementia
Cardiovascular system sinus rhythm,
Chest - few rales, decreased left base
Abdomen soft and nontender
No pedal edema
# Acute on chronic heart failure with preserved ejection fraction
Echo-03/29/2024-normal LV function. EF 55%. Hypokinesis of apical segments c/w Takotsubo cardiomyopathy. Stage II diastolic dysfunction. Aortic stenosis without stenosis. Mild TR. Pulmonary pressure 42 mmHg.
BNP over 27,000 and chest x-ray with mild overload
Lasix 40 mg IV twice daily changed to PO as she takes IV out.
# COPD-with mild exacerbation
Chronic respiratory failure on home oxygen
Speech evaluation to rule out aspiration
Coarse breath sounds with productive cough-continue antibiotics and a short course of steroids
Continue Trelegy Ellipta, Incruse Ellipta or equivalent and nebulizer treatments
Taper steroids
# FIDENCIO on Chronic any disease stage V
AV fistula was recently placed
Continue sodium bicarb
Nephrology evaluation appreciated.
Creat worsening
Lasix added back
# Hyponatremia- watch
# Paroxysmal atrial tachycardia-in sinus rhythm currently
Continue calcium channel blockers and beta-blockers
Telemetry monitoring
# Diabetes-usually uses Lantus 5 units at night and 2 units of NovoLog AC
will do Lantus 6 HS and 3 AC
Lantus with sliding scale here
# Hypertension
Continue Cardizem 240 mg p.o. daily, hydralazine 100 mg p.o. 3 times daily, metoprolol changed to coreg
Isosorbide added by Cards
Clonidine added, Watch HR
Chlorthalidone stopped due to Hyponatremia
# Hypothyroidism-continue Synthroid
# Hyperlipidemia/atherosclerosis bipolar disease-continue atorvastatin
# Coronary artery disease-coronary calcifications on CT-continue aspirin and statin
# Significant dementia
# Anxiety/bipolar disease-continue sertraline, Abilify
# History of CVA-aspirin statin
# GERD- Pepcid
# Chronic anemia likely secondary to CKD
# Sleep Apnea-unclear if she is not on-PAP device as OP. Daughter aware re OP Sleep study.
# Insomnia on Benadryl at night
# Chronic steroid use-for COPD
# Ex-smoker
# DVT prophylaxis-Subcutaneous heparin
D/W RN
D/W
D/W Case management
Very difficult situation as the patient is not clear if she would want dialysis or not. She has been taking IVs out she has had 6 IVs taken out by herself this hospital stay. I do not see how she can keep the tunneled catheter on if she needs
dialysis to be initiated prior to her fistula maturing.
RN messaged me as daughter In [place] (One POA) requested to talk to hospice. I Have been talking to a daughter in [facility] ( who is also POA) who doesnt want hospice. I requested that both of them talk to the children come to consensus.
If she is not going on dialysis she would qualify for hospice for renal failure. Daughter aware about that.
At this point we will plan on keeping the patient here until kidney function improves enough for her to be watched as outpatient.
Per discussion with case management [facility] may not [facility] the patient [facility] on the weekend or holidays !
Anticipated Discharge: 24 - 48 hours
Subjective/Interval History
-
Date of Service: April 17, 2024
Objective Data
-
Labs:
Laboratory Results
04/17/24
09:02
WBC 4.4 L
Hgb 10.4 L
Hct 31.3 L
Plt Count 266
Sodium 130 L
Potassium 4.0
Chloride 93 L
Carbon Dioxide 26
BUN 114 H*
Creatinine 3.9 H
Glucose 124 H
Calcium 8.8
Vital Signs:
Vital Signs
Temp Pulse Resp BP Pulse Ox
97.6 F 58 17 132/48 95
04/17/24 11:07 04/17/24 11:07 04/17/24 11:07 04/17/24 11:07 04/17/24 11:07
I&O
04/16/24 04/17/24 04/18/24
06:59 06:59 06:59
Intake Total 1340 / 1340 1080 / 1080
Balance 1340 / 1340 1080 / 1080
[2024-04-17 16:18] LABS: Glucose - Point of Care 267 mg/dl (70-99)
[2024-04-17] MEDS: NOVOLOG FLEXPEN-LOW RESISTANCE 3 UNITS SC (16:59)
[2024-04-17] MEDS: LIPITOR 20 MG PO (17:22)
[2024-04-17 21:12] LABS: Glucose - Point of Care 233 mg/dl (70-99)
[2024-04-17] MEDS: BENADRYL 25 MG PO (21:19)
[2024-04-17] MEDS: COREG 6.25 MG PO (21:19)
[2024-04-17] MEDS: LANTUS 0.0599999999999999978 UNITS SC (21:20)
[2024-04-18] MEDS: APRESOLINE 10 MG PO (02:38)
[2024-04-18 02:45] VITALS: BP 170/68
--- NOTE | 2024-04-18 02:45 | PTCARENOTE ---
Pt. frequently taking monitor worker off throughout shift. Pt initially pleasant and able to be redirected in the beginning of the shift. PCT entered the room around 0230 to check VS and replace tele leads due to patient removing them for a 5th
time this shift. Pt. using aggressive language towards PCT. PCT notified this nurse, this nurse entered the patients room where she claimed that she was 'worried for the children at the playground.' Reminded patient that she was in the hospital to
which patient replied, 'don't be stupid, I know where I am.' Pt. then stated that she needed to go to the bathroom. This RN attempted to place non-skid socks back on patient who then grabbed the sock out of this RN's hand and said 'stop being such a
bitch.' This RN assisted patient with ambulation into the bathroom where patient became tearful about 'the children and babies.' Patient then apologized to this RN for 'being nasty.' This RN asked if it was okay to take VS, which patient was
agreeable to. BP elevated. PRN hydralazine given, patient was agreeable to take. This RN then asked to replace telemetry leads to which patient replied 'yeah, we should probably do that.' This RN threw out the old leads, as they were no longer able
to be used. Pt. angry that this RN threw old leads in the trash. Pt. then called this RN 'an asshole' and stated 'I'll punch you in the face.' Pt. encouraged to sit back in bed, which she did. Med sitter in room. Will try to place telemetry back on
patient. Plan of care ongoing.
[2024-04-18] MEDS: SYNTHROID 75 MCG PO (05:30)
[2024-04-18 06:00] VITALS: BMI 25.0
[2024-04-18 07:00] VITALS: BP 178/66
[2024-04-18] MEDS: SYMBICORT 80/4.5 MCG INHALER 2 PUFF INH ×2 (07:36→18:06)
[2024-04-18] MEDS: SPIRIVA RESPIMAT 2.5 MCG 2 PUFF INH (07:37)
[2024-04-18 07:57] LABS: Glucose - Point of Care 166 mg/dl (70-99)
[2024-04-18 08:06] LABS: Blood Urea Nitrogen 119 mg/dl (7-17); Calcium 8.2 mg/dl (8.4-10.2); Carbon Dioxide 26 mmol/L (22-30); Chloride 93 mmol/L (98-107); Estimated Creatinine Clearance 11 ml/min; Glucose 146 mg/dl (70-99); Potassium 3.7 mmol/L (3.5-5.1); Sodium 130 mmol/L (135-145); eGFR 11.69
[2024-04-18] MEDS: VIBRAMYCIN 100 MG PO ×2 (08:34→20:21)
[2024-04-18] MEDS: DELTASONE 20 MG PO (08:34)
[2024-04-18] MEDS: SENOKOT-S 1 TABLET PO ×2 (08:34→20:21)
[2024-04-18] MEDS: ASPIR LOW (ENTERIC COATED) 81 MG PO (08:34)
[2024-04-18] MEDS: ABILIFY 2 MG PO ×2 (08:34→20:21)
[2024-04-18] MEDS: ROBITUSSIN 200 MG PO ×4 (08:34→21:19)
[2024-04-18] MEDS: PEPCID 10 MG PO (08:34)
[2024-04-18] MEDS: ZOLOFT 50 MG PO (08:34)
[2024-04-18] MEDS: IMDUR (EXTENDED RELEASE) 30 MG PO ×2 (08:34→20:21)
[2024-04-18] MEDS: CATAPRES 0.100000000000000006 MG PO ×2 (08:35→20:21)
[2024-04-18] MEDS: APRESOLINE 100 MG PO ×3 (08:35→21:19)
[2024-04-18] MEDS: LASIX 80 MG PO ×2 (08:35→17:08)
[2024-04-18] MEDS: CARDIZEM CD 240 MG PO (08:35)
[2024-04-18] MEDS: COREG 6.25 MG PO ×2 (08:35→23:07)
[2024-04-18] MEDS: HEPARIN 5000 UNITS SC ×2 (08:36→20:21)
[2024-04-18] MEDS: NOVOLOG FLEXPEN 3 UNITS SC (08:45)
[2024-04-18] MEDS: NOVOLOG FLEXPEN-LOW RESISTANCE 1 UNITS SC ×2 (08:45→12:49)
--- NOTE | 2024-04-18 10:05 | W.PN.CD ---
Today's Communication / Plan
-
Continue current dilt/coreg regimen
Diuresis and BP management per nephrology
Cardiology will sign off
Impression / Plan
-
Rjaeu-fs-jvwumrk HFpEF:
-Echo 03/29/2024: EF 55%, apical hypo suggesting Takotsubo
-BNP >27,000, CXR suggestive CHF
-Nephrology restarted IV Lasix BID => weight coming down
-Renal function is worse, creat 4.3 today; dialysis is likely needed.
COPD
CKD5, fistula was recently placed for HD planning, nephrology involved, dialysis anticipated in future
Paroxysmal atrial tachycardia: Remains stable in SR. Dit and the Coreg (dose lowered on 04/17/2024
Hypertension, defer to nephrology
Dementia, significant:
-supportive care.
-management per primary.
Subjective: in bed supine comfortable and in no distress. Denies CP, palp, dyspnea
Physical Exam
Vital Signs/Labs
Vital Signs
Temp Pulse Resp BP Pulse Ox
97.8 F 58 16 178/66 99
04/18/24 07:00 04/18/24 07:40 04/18/24 07:40 04/18/24 07:00 04/18/24 07:40
04/17/24 04/18/24 04/19/24
06:59 06:59 06:59
Actual Weight 66.905 kg 65.913 kg
04/17/24 09:02
04/18/24 07:31
Magnesium 1.8 mg/dl (1.6-2.3) 04/12/24 04:41
04/11/24
20:29
Ljg-X-Zbthhefywnf Pept > 00254
Physical Exam
Constitutional: No acute distress
EENT: Anicteric
Cardiovascular: Rhythm & rate is regular and Pedal edema is absent
Respiratory: Respiratory effort normal and Lungs clear to auscul.
GI: Soft and Distention absent
Neuro/Psych: AO x 3
Data Reviewed
-
Date of Service: April 18, 2024
[2024-04-18 10:36] VITALS: BP 139/49
[2024-04-18 11:45] LABS: Glucose - Point of Care 183 mg/dl (70-99)
--- NOTE | 2024-04-18 11:54 | W.PN.NEPH.PH ---
Today's Communication / Plan
-
follow BMP
Assessment/Plan
-
Impression:
Acute shortness of breath-suspected acute decompensated heart failure preserved EF
Acute on chronic hypoxic respite insufficiency
History of obstructive sleep apnea.
COPD
CKD stage V-baseline 3.4
Anemia
Hypertension
Diabetes mellitus type 2
Mild dementia
Left upper extremity AV fistula
Plan:
continue lasix 80mg BID po
follow BMP
continue clonidine, coreg reduced
given her rash decisions pulling out IVs, dialysis may not be a good option in the future, regardless of access as any pulling of the access would result in significant morbidity/mortality risk.
daughters are split on whether they think dialysis should be an option
-
-
Date of Service: April 18, 2024
CC / HPI / ROS
-
Chief Complaint:
CKD5
History of Present Illness:
FIDENCIO/Cr down to 3.9 stable
BUN 119 stable
now on po lasix as she has pulled out multiple PIVs, says she pulled them out of anger and wanting to go home
Na 130 stable
Review of Systems:
no supplemental O2
no CP
no SOB
Labs
-
Labs:
WBC 4.4 10^3/uL (4.8-10.8) L 04/17/24 09:02
RBC 3.57 10^6/uL (4.20-5.40) L 04/17/24 09:02
Hgb 10.4 g/dL (12.0-16.0) L 04/17/24 09:02
Hct 31.3 % (37.0-47.0) L 04/17/24 09:02
Plt Count 266 10^3/uL (130-400) 04/17/24 09:02
Sodium 130 mmol/L (135-145) L 04/18/24 07:31
Potassium 3.7 mmol/L (3.5-5.1) 04/18/24 07:31
Chloride 93 mmol/L (98-107) L 04/18/24 07:31
Carbon Dioxide 26 mmol/L (22-30) 04/18/24 07:31
BUN 119 mg/dl (7-17) H* 04/18/24 07:31
Creatinine 3.9 mg/dL (0.6-1.0) H 04/18/24 07:31
eGFR 11.69 04/18/24 07:31
Glucose 146 mg/dl (70-99) H 04/18/24 07:31
Calcium 8.2 mg/dl (8.4-10.2) L 04/18/24 07:31
Gvq-E-Kbihqafmxhs Pept > 66905 pg/ml 04/11/24 20:29
Albumin 3.3 g/dl (3.5-5.0) L 04/11/24 18:35
Physical Exam
-
Vital Signs:
Vital Signs
Temp Pulse Resp BP Pulse Ox
97.8 F 53 17 139/49 97
04/18/24 10:36 04/18/24 10:36 04/18/24 10:36 04/18/24 10:36 04/18/24 10:36
Cardiovascular:: Regular rate and rhythm
Respiratory:: Bilateral: Coarse
Lung Excursion:: Normal
Abdomen:: Nontender and Soft
Bowel Sounds:: Normal
Extremity Edema:: None: Bilateral:
[2024-04-18] MEDS: NOVOLOG FLEXPEN 4 UNITS SC ×2 (12:49→17:09)
--- NOTE | 2024-04-18 14:32 | W.PN.HOSP.TC ---
Today's Communication/Plan
-
watch renal function
When stable transfer back to [facility] who wont take pt back on week ends or holidays
Assessment / Plan
Assessment / Plan
73-year-old female presented to the hospital from assisted living because of shortness of breath and reported chest pain. Saturations were low at 88% but patient was not wearing her usual oxygen. Patient was recently admitted here for CHF and had
dialysis. She has dementia not able to give me any history.
On examination awake and alert, apparent dementia
Cardiovascular system sinus rhythm,
Chest - few rales, decreased left base
Abdomen soft and nontender
No pedal edema
# Acute on chronic heart failure with preserved ejection fraction
Echo-03/29/2024-normal LV function. EF 55%. Hypokinesis of apical segments c/w Takotsubo cardiomyopathy. Stage II diastolic dysfunction. Aortic stenosis without stenosis. Mild TR. Pulmonary pressure 42 mmHg.
BNP over 27,000 and chest x-ray with mild overload
Lasix 40 mg IV twice daily changed to PO as she takes IV out.
# COPD-with mild exacerbation
Chronic respiratory failure on home oxygen
Speech evaluation to rule out aspiration
Coarse breath sounds with productive cough-continue antibiotics and a short course of steroids
Continue Trelegy Ellipta, Incruse Ellipta or equivalent and nebulizer treatments
Taper steroids and switch to OP 5 mg dose in the next 3-4 days
# FIDENCIO on Chronic any disease stage V
AV fistula was recently placed
Continue sodium bicarb
Nephrology evaluation appreciated.
Creat slightly better.
Lasix added back
# Hyponatremia- watch
# Paroxysmal atrial tachycardia-in sinus rhythm currently
Continue calcium channel blockers and beta-blockers
Telemetry monitoring
# Diabetes-usually uses Lantus 5 units at night and 2 units of NovoLog AC
will do Lantus 6 HS and 3 AC
Lantus with sliding scale here
# Hypertension
Continue Cardizem 240 mg p.o. daily, hydralazine 100 mg p.o. 3 times daily, metoprolol changed to coreg
Isosorbide added by Cards
Clonidine added, Watch HR
Chlorthalidone stopped due to Hyponatremia
# Hypothyroidism-continue Synthroid
# Hyperlipidemia/atherosclerosis bipolar disease-continue atorvastatin
# Coronary artery disease-coronary calcifications on CT-continue aspirin and statin
# Significant dementia
# Anxiety/bipolar disease-continue sertraline, Abilify
# History of CVA-aspirin statin
# GERD- Pepcid
# Chronic anemia likely secondary to CKD
# Sleep Apnea-unclear if she is not on-PAP device as OP. Daughter aware re OP Sleep study.
# Insomnia on Benadryl at night
# Chronic steroid use-for COPD
# Ex-smoker
# DVT prophylaxis-Subcutaneous heparin
D/W RN
D/W
Very difficult situation as the patient is not clear if she would want dialysis or not. She has been taking IVs out she has had 6 IVs taken out by herself this hospital stay. I do not see how she can keep the tunneled catheter on if she needs
dialysis to be initiated prior to her fistula maturing.
RN messaged me as daughter In [place] (One POA) requested to talk to hospice. I Have been talking to a daughter in [facility] ( who is also POA) who doesn't want hospice. I requested that both of them talk to the children come to consensus.
If she is not going on dialysis she would qualify for hospice for renal failure. Daughter aware about that.
At this point we will plan on keeping the patient here until kidney function improves enough for her to be watched as outpatient.
Per discussion with case management [facility] may not [facility] the patient [facility] on the weekend or holidays !
Anticipated Discharge: 24 - 48 hours
Subjective/Interval History
-
Date of Service: April 18, 2024
Objective Data
-
Labs:
Laboratory Results
04/18/24
07:31
Sodium 130 L
Potassium 3.7
Chloride 93 L
Carbon Dioxide 26
BUN 119 H*
Creatinine 3.9 H
Glucose 146 H
Calcium 8.2 L
Vital Signs:
Vital Signs
Temp Pulse Resp BP Pulse Ox
97.8 F 53 17 139/49 97
04/18/24 10:36 04/18/24 10:36 04/18/24 10:36 04/18/24 10:36 04/18/24 10:36
I&O
04/17/24 04/18/24 04/19/24
06:59 06:59 06:59
Intake Total 1080 / 1080 780 / 780
Balance 1080 / 1080 780 / 780
[2024-04-18 15:00] VITALS: BP 130/50
[2024-04-18 16:47] LABS: Glucose - Point of Care 229 mg/dl (70-99)
[2024-04-18] MEDS: NOVOLOG FLEXPEN-LOW RESISTANCE 2 UNITS SC (17:08)
[2024-04-18] MEDS: LIPITOR 20 MG PO (17:08)
[2024-04-18 19:15] VITALS: BP 127/47
[2024-04-18 21:07] LABS: Glucose - Point of Care 201 mg/dl (70-99)
[2024-04-18] MEDS: BENADRYL 25 MG PO (21:19)
[2024-04-18] MEDS: LANTUS 0.0599999999999999978 UNITS SC (21:19)
[2024-04-18 23:09] VITALS: BP 143/54
[2024-04-19] VITALS (7 sets, daily range): BP systolic 115–169; BP diastolic 53–66; PULSE 66; O2SAT 99; BMI 25.0
[2024-04-19] MEDS: TYLENOL 325 MG PO (02:42)
--- NOTE | 2024-04-19 06:08 | W.PN.HOSP.TC ---
Today's Communication/Plan
-
cont diuresis as per nephro
steroid taper
PT/OT
discharge planning back to [facility] assisted living with home services
Assessment / Plan
Assessment / Plan
Physical Exam
General: No pallor, cyanosis, or jaundice.
HEENT: Throat clear. PERRLA Normocephalic atraumatic
NECK: Supple. No JVD Carotid Bruits
RESPIRATORY: Lungs clear to auscultation. No crackles wheezes stridor
CVS: S1, S2 normal. RRR. No murmur, rub or gallop.
ABDOMEN: Soft, non-tender. No distension. BS+/normal.
EXTREMITIES: No peripheral cyanosis or edema.
RECONCILER: AOx1 oriented to self only
73-year-old female presented to the hospital from assisted living because of shortness of breath and reported chest pain. Saturations were low at 88% but patient was not wearing her usual oxygen. Patient was recently admitted here for CHF and had
dialysis. She has dementia not able to give me any history.
# Acute on chronic heart failure with preserved ejection fraction
Echo-03/29/2024-normal LV function. EF 55%. Hypokinesis of apical segments c/w Takotsubo cardiomyopathy. Stage II diastolic dysfunction. Aortic stenosis without stenosis. Mild TR. Pulmonary pressure 42 mmHg.
BNP over 27,000 and chest x-ray with mild overload
Lasix 40 mg IV twice daily changed to PO as she takes IV out.
# COPD-with mild exacerbation
Chronic respiratory failure on home oxygen
Speech evaluation to rule out aspiration
Coarse breath sounds with productive cough-continue antibiotics and a short course of steroids
Continue Trelegy Ellipta, Incruse Ellipta or equivalent and nebulizer treatments
Taper steroids and switch to OP 5 mg dose in the next 3-4 days
# FIDENCIO on Chronic Kidney disease stage V
AV fistula was recently placed
Continue sodium bicarb
Nephrology evaluation appreciated patient not appropriate for dialysis d/t dementia with behavioral disturbances (pulling out IV's), daughter Lisbeth noted in agreement.
Kidney function relatively stable at this time possible new baseline 3.9-4.3, cont diuresis as per nephro
# Hyponatremia- watch
# Paroxysmal atrial tachycardia-in sinus rhythm currently
Continue calcium channel blockers and beta-blockers
Telemetry monitoring
# Diabetes-usually uses Lantus 5 units at night and 2 units of NovoLog AC
will do Lantus 6 HS and 3 AC
Lantus with sliding scale here
# Hypertension
Continue Cardizem 240 mg p.o. daily, hydralazine 100 mg p.o. 3 times daily, metoprolol changed to coreg
Isosorbide added by Cards
Clonidine added, Watch HR
Chlorthalidone stopped due to Hyponatremia
# Hypothyroidism-continue Synthroid
# Hyperlipidemia/atherosclerosis bipolar disease-continue atorvastatin
# Coronary artery disease-coronary calcifications on CT-continue aspirin and statin
# Significant dementia
# Anxiety/bipolar disease-continue sertraline, Abilify
# History of CVA-aspirin statin
# GERD- Pepcid
# Chronic anemia likely secondary to CKD
# Sleep Apnea-unclear if she is not on-PAP device as OP. Daughter aware re OP Sleep study.
# Insomnia on Benadryl at night
# Chronic steroid use-for COPD
# Ex-smoker
# DVT prophylaxis-Subcutaneous heparin
PT eval appreciated Home Health
I spent a total of 55 minutes with the patient or on the floor. More than 50% of this time involved counseling and coordination of care.
Anticipated Discharge: 24 - 48 hours
Subjective/Interval History
-
Date of Service: April 19, 2024
Seen and examined at bedside in no acute distress. AOx1 oriented only to self but calm cooperative coherent. Reports overall feeling well. Denies new acute issues at this time.
Objective Data
-
Labs:
Laboratory Results
04/19/24
06:00
Sodium Pending
Potassium Pending
Chloride Pending
Carbon Dioxide Pending
BUN Pending
Creatinine Pending
Glucose Pending
Calcium Pending
Vital Signs:
Vital Signs
Temp Pulse Resp BP Pulse Ox
97.8 F 56 18 152/54 94
04/19/24 03:01 04/19/24 03:01 04/19/24 03:01 04/19/24 03:01 04/19/24 03:01
I&O
04/17/24 04/18/24 04/19/24
06:59 06:59 06:59
Intake Total 1080 / 1080 780 / 780 360 / 360
Balance 1080 / 1080 780 / 780 360 / 360
[2024-04-19] MEDS: SYNTHROID 75 MCG PO (06:28)
[2024-04-19 07:22] LABS: Glucose - Point of Care 160 mg/dl (70-99)
[2024-04-19] MEDS: DELTASONE 20 MG PO (07:37)
[2024-04-19] MEDS: VIBRAMYCIN 100 MG PO ×2 (07:37→20:00)
[2024-04-19] MEDS: ZOLOFT 50 MG PO (07:37)
[2024-04-19] MEDS: ASPIR LOW (ENTERIC COATED) 81 MG PO (07:37)
[2024-04-19] MEDS: HEPARIN 5000 UNITS SC ×2 (07:37→20:00)
[2024-04-19] MEDS: SENOKOT-S 1 TABLET PO ×2 (07:37→20:00)
[2024-04-19] MEDS: IMDUR (EXTENDED RELEASE) 30 MG PO ×2 (07:37→20:00)
[2024-04-19] MEDS: ROBITUSSIN PO ×2 (07:37→07:52)
[2024-04-19] MEDS: PEPCID 10 MG PO (07:37)
[2024-04-19] MEDS: ABILIFY 2 MG PO ×2 (07:37→20:00)
[2024-04-19] MEDS: LASIX 80 MG PO ×2 (07:39→17:03)
[2024-04-19] MEDS: APRESOLINE 100 MG PO ×3 (07:39→21:05)
[2024-04-19] MEDS: COREG 6.25 MG PO (07:39)
[2024-04-19] MEDS: CARDIZEM CD PO (07:39)
[2024-04-19] MEDS: CATAPRES 0.100000000000000006 MG PO ×2 (07:40→19:59)
[2024-04-19] MEDS: NOVOLOG FLEXPEN-LOW RESISTANCE 1 UNITS SC (07:40)
[2024-04-19] MEDS: NOVOLOG FLEXPEN 4 UNITS SC ×3 (07:41→17:04)
[2024-04-19] MEDS: SYMBICORT 80/4.5 MCG INHALER 2 PUFF INH (08:00)
[2024-04-19] MEDS: SPIRIVA RESPIMAT 2.5 MCG 2 PUFF INH (08:00)
[2024-04-19 09:27] LABS: Blood Urea Nitrogen 119 mg/dl (7-17); Calcium 8.6 mg/dl (8.4-10.2); Carbon Dioxide 26 mmol/L (22-30); Chloride 90 mmol/L (98-107); Estimated Creatinine Clearance 10 ml/min; Glucose 141 mg/dl (70-99); Sodium 128 mmol/L (135-145)
--- NOTE | 2024-04-19 11:35 | W.PN.NEPH.PH ---
Today's Communication / Plan
-
DC planning
Assessment/Plan
-
Impression:
Acute shortness of breath-suspected acute decompensated heart failure preserved EF
Acute on chronic hypoxic respite insufficiency
History of obstructive sleep apnea.
COPD
CKD stage V-baseline 3.4
Anemia
Hypertension
Diabetes mellitus type 2
Mild dementia
Left upper extremity AV fistula
Plan:
continue lasix 80mg BID po
follow BMP
continue clonidine, stop carvedilol
I discussed with her daughter Lisbeth. We discussed the viewpoints of both her and her sister Lulu who is in [place]. We discussed the current events including impulsive behavior of pulling out IV lines. We discussed how this behavior may impact
overall dialysis usage including pulling out a dialysis catheter or pulling on needles while on dialysis while using AV fistula. There are also concerns that she may not be able to sit still for a 4-hour dialysis treatment. The daughters have
actually tried to hire someone to sit with her at home prior to putting her in assisted living and she had not tolerated this for more than 2 days. At this point we are in agreement that dialysis would be a very impractical option and it will not
be offered. We did discuss hospice though at this time it does not appear that she has a need for hospice services. In addition, it is likely that her assisted living should be able to arrange for hospice as an outpatient should that need arise in
the future. Discharge back to assisted living is reasonable at this time with the current regimen.
-
-
Date of Service: April 19, 2024
CC / HPI / ROS
-
Chief Complaint:
CKD5
History of Present Illness:
FIDENCIO/Cr up to 4.2 but overall stable
BUN 119 stable
now on po lasix as she has pulled out multiple PIVs, says she pulled them out of anger and wanting to go home
Na 128 stable
Review of Systems:
no supplemental O2
no CP
no SOB
Labs
-
Labs:
WBC 4.4 10^3/uL (4.8-10.8) L 04/17/24 09:02
RBC 3.57 10^6/uL (4.20-5.40) L 04/17/24 09:02
Hgb 10.4 g/dL (12.0-16.0) L 04/17/24 09:02
Hct 31.3 % (37.0-47.0) L 04/17/24 09:02
Plt Count 266 10^3/uL (130-400) 04/17/24 09:02
Sodium 128 mmol/L (135-145) L 04/19/24 06:41
Potassium 4.0 mmol/L (3.5-5.1) 04/19/24 06:41
Chloride 90 mmol/L (98-107) L 04/19/24 06:41
Carbon Dioxide 26 mmol/L (22-30) 04/19/24 06:41
BUN 119 mg/dl (7-17) H* 04/19/24 06:41
Creatinine 4.2 mg/dL (0.6-1.0) H* 04/19/24 06:41
eGFR 10.70 04/19/24 06:41
Glucose 141 mg/dl (70-99) H 04/19/24 06:41
Calcium 8.6 mg/dl (8.4-10.2) 04/19/24 06:41
Mfu-T-Mxvpzeviyay Pept > 33964 pg/ml 04/11/24 20:29
Albumin 3.3 g/dl (3.5-5.0) L 04/11/24 18:35
Physical Exam
-
Vital Signs:
Vital Signs
Temp Pulse Resp BP Pulse Ox
97.8 F 55 16 115/63 98
04/19/24 07:00 04/19/24 07:40 04/19/24 08:03 04/19/24 07:40 04/19/24 08:03
Cardiovascular:: Regular rate and rhythm
Respiratory:: Bilateral: CTA
Lung Excursion:: Normal
Abdomen:: Nontender and Soft
Bowel Sounds:: Normal
Extremity Edema:: None: Bilateral:
[2024-04-19 11:46] LABS: Glucose - Point of Care 240 mg/dl (70-99)
[2024-04-19] MEDS: NOVOLOG FLEXPEN-LOW RESISTANCE 2 UNITS SC (12:12)
[2024-04-19] MEDS: ROBITUSSIN 200 MG PO ×3 (12:13→21:05)
[2024-04-19 16:33] LABS: Glucose - Point of Care 258 mg/dl (70-99)
[2024-04-19] MEDS: LIPITOR 20 MG PO (17:03)
[2024-04-19] MEDS: NOVOLOG FLEXPEN-LOW RESISTANCE 3 UNITS SC (17:05)
[2024-04-19] MEDS: SYMBICORT 80/4.5 MCG INHALER INH (19:54)
[2024-04-19] MEDS: BENADRYL 25 MG PO (21:05)
[2024-04-19 21:12] LABS: Glucose - Point of Care 115 mg/dl (70-99)
[2024-04-19] MEDS: LANTUS 0.0599999999999999978 UNITS SC (21:14)
[2024-04-19] MEDS: APRESOLINE 10 MG PO (23:09)
[2024-04-20 03:00] VITALS: BP 170/71
[2024-04-20 03:28] VITALS: BMI 25.1
[2024-04-20 04:17] VITALS: BP 158/69
[2024-04-20 06:00] VITALS: BMI 25.1
[2024-04-20 07:00] VITALS: BP 181/78
[2024-04-20] MEDS: ROBITUSSIN 200 MG PO ×3 (07:12→17:07)
[2024-04-20] MEDS: VIBRAMYCIN 100 MG PO (07:13)
[2024-04-20] MEDS: HEPARIN 5000 UNITS SC (07:13)
[2024-04-20] MEDS: SENOKOT-S 1 TABLET PO (07:13)
[2024-04-20] MEDS: CARDIZEM CD 240 MG PO (07:13)
[2024-04-20] MEDS: ASPIR LOW (ENTERIC COATED) 81 MG PO (07:13)
[2024-04-20] MEDS: PEPCID 10 MG PO (07:13)
[2024-04-20] MEDS: LASIX 80 MG PO ×2 (07:13→17:07)
[2024-04-20] MEDS: SYNTHROID 75 MCG PO (07:13)
[2024-04-20] MEDS: DELTASONE 20 MG PO (07:13)
[2024-04-20] MEDS: ABILIFY 2 MG PO (07:13)
[2024-04-20] MEDS: APRESOLINE 100 MG PO ×2 (07:13→17:07)
[2024-04-20] MEDS: ZOLOFT 50 MG PO (07:13)
[2024-04-20] MEDS: CATAPRES 0.100000000000000006 MG PO (07:13)
[2024-04-20] MEDS: IMDUR (EXTENDED RELEASE) 30 MG PO (07:13)
--- NOTE | 2024-04-20 07:16 | W.PN.HOSP.TC ---
Addendum entered and electronically signed by Dong Sanchez MD 04/20/24 13:40:
Beta eddie Coreg discontinued as per nephro d/t concern bradycardia and interaction with Clonidine.
Original Note:
Today's Communication/Plan
-
Discharge
Assessment / Plan
Assessment / Plan
Physical Exam
General: No pallor, cyanosis, or jaundice.
HEENT: Throat clear. PERRLA Normocephalic atraumatic
NECK: Supple. No JVD Carotid Bruits
RESPIRATORY: Lungs clear to auscultation. No crackles wheezes stridor
CVS: S1, S2 normal. RRR. No murmur, rub or gallop.
ABDOMEN: Soft, non-tender. No distension. BS+/normal.
EXTREMITIES: No peripheral cyanosis or edema.
NURSING PROJECT COORDINATOR: AOx1 oriented to self only
73-year-old female presented to the hospital from assisted living because of shortness of breath and reported chest pain. Saturations were low at 88% but patient was not wearing her usual oxygen. Patient was recently admitted here for CHF and had
dialysis. She has dementia not able to give me any history.
# Acute on chronic heart failure with preserved ejection fraction
Echo-03/29/2024-normal LV function. EF 55%. Hypokinesis of apical segments c/w Takotsubo cardiomyopathy. Stage II diastolic dysfunction. Aortic stenosis without stenosis. Mild TR. Pulmonary pressure 42 mmHg.
BNP over 27,000 and chest x-ray with mild overload
Lasix 40 mg IV twice daily changed to PO as she takes IV out.
# COPD-with mild exacerbation
Chronic respiratory failure on home oxygen
Speech evaluation to rule out aspiration
Coarse breath sounds with productive cough-continue antibiotics and a short course of steroids
Continue Trelegy Ellipta, Incruse Ellipta or equivalent and nebulizer treatments
Taper steroids and switch to OP 5 mg dose in the next 3-4 days
# FIDENCIO on Chronic Kidney disease stage V
AV fistula was recently placed
Continue sodium bicarb
Nephrology evaluation appreciated patient not appropriate for dialysis d/t dementia with behavioral disturbances (pulling out IV's), daughter Lisbeth noted in agreement.
Kidney function relatively stable at this time possible new baseline 3.9-4.3
# Hyponatremia- watch
# Paroxysmal atrial tachycardia-in sinus rhythm currently
Continue calcium channel blockers and beta-blockers
Telemetry monitoring
# Diabetes-usually uses Lantus 5 units at night and 2 units of NovoLog AC
will do Lantus 6 HS and 3 AC
Lantus with sliding scale here
insulin requirement will likely improve with steroid taper
# Hypertension
Continue Cardizem 240 mg p.o. daily, hydralazine 100 mg p.o. 3 times daily, metoprolol changed to coreg
Isosorbide added by Cards
Clonidine added, Watch HR
Chlorthalidone stopped due to Hyponatremia
# Hypothyroidism-continue Synthroid
# Hyperlipidemia/atherosclerosis bipolar disease-continue atorvastatin
# Coronary artery disease-coronary calcifications on CT-continue aspirin and statin
# Significant dementia
# Anxiety/bipolar disease-continue sertraline, Abilify
# History of CVA-aspirin statin
# GERD- Pepcid
# Chronic anemia likely secondary to CKD
# Sleep Apnea-unclear if she is not on-PAP device as OP. Daughter aware re OP Sleep study.
# Insomnia on Benadryl at night
# Chronic steroid use-for COPD
# Ex-smoker
# DVT prophylaxis-Subcutaneous heparin
PT eval appreciated Home Health
Medically stable for discharge home with home health services and outpatient follow up recommendations.
discussed with patient and patient's daughter Lisbeth
Total Time Preparing Discharge ___50____ minutes including examination of the patient, summary of the hospital stay, instructions for continuing care to all relevant caregivers; and preparation of discharge records, prescriptions, and referral
forms if necessary.
Anticipated Discharge: Today
Subjective/Interval History
-
Date of Service: April 20, 2024
Seen and examined at bedside in no acute distress sitting up comfortably in bed. Mood somewhat labile tearful but not agitated calm cooperative. Reports feeling depressed but denies thoughts of harming others or self.
Objective Data
-
Vital Signs:
Vital Signs
Temp Pulse Resp BP Pulse Ox
97.8 F 77 19 158/69 95
04/20/24 03:00 04/20/24 03:00 04/20/24 03:00 04/20/24 04:17 04/20/24 03:00
I&O
04/19/24 04/20/24 04/21/24
06:59 06:59 06:59
Intake Total 480 / 480 600 / 600
Balance 480 / 480 600 / 600
[2024-04-20] MEDS: SPIRIVA RESPIMAT 2.5 MCG 2 PUFF INH (07:46)
[2024-04-20] MEDS: SYMBICORT 80/4.5 MCG INHALER 2 PUFF INH (07:46)
[2024-04-20 07:53] LABS: Glucose - Point of Care 128 mg/dl (70-99)
[2024-04-20] MEDS: NOVOLOG FLEXPEN-LOW RESISTANCE SC (07:59)
[2024-04-20] MEDS: NOVOLOG FLEXPEN 4 UNITS SC ×2 (09:02→12:32)
--- NOTE | 2024-04-20 09:45 | CM ---
Addendum entered by Bernice Hinds 04/20/24 16:00:
Spoke with pts daughter Lisbeth - aware mother to return to today at 5:30PM
Discussed IMM with daughter
Facility made aware of transport time
Addendum entered by Bernice Hinds 04/20/24 14:16:
Accepted for services by Stacie
For discharge today back to
Called [phone], spoke with Connor - aware pt for d/c
Plan - return to new with [facility] [phone], ask for nursing; F - [phone]
[facility] - - [phone]
Original Note:
agricultural equipment sales manager following for d/c planning
PT recommending - [phone] requesting referral be sent to [facility]
Referral sent in Care Port
Plan - Return to New with [facility] when medically ready
[2024-04-20 10:56] VITALS: BP 148/52
[2024-04-20 11:40] LABS: Glucose - Point of Care 184 mg/dl (70-99)
[2024-04-20] MEDS: NOVOLOG FLEXPEN-LOW RESISTANCE 1 UNITS SC (12:31)
--- NOTE | 2024-04-20 13:55 | W.DCSUMMARY ---
Discharge Summary
Discharge Data
Date of Admission: 04/12/24
Date of Discharge: 04/20/24
-
Pending Results: No
Discharge Plan
-
Patient Disposition: Home with Home Care
Discharge Diagnosis/Procedures: Acute on chronic heart failure with preserved ejection fraction
COPD-with mild exacerbation
FIDENCIO on Chronic Kidney disease stage V, poor candidate for dialysis due to dementia with behavioral disturbances
Mild Hyponatremia
Paroxysmal atrial tachycardia
Diabetes
Hypertension
Hypothyroidism
Hyperlipidemia/atherosclerosis bipolar disease-continue atorvastatin
Coronary artery disease-coronary calcifications on CT-continue aspirin and statin
Anxiety/bipolar
History of Stroke
GERD
Chronic anemia likely secondary to Chronic Kidney Disease
Suspected Sleep Apnea Outpatient Sleep study.
Insomnia
Chronic steroid use for COPD
Ex-smoker
Condition: Fair
Diet: Diabetic, Carb Controlled
Activity: As tolerated
Driving Restrictions: No driving
Bathing Restrictions: None
Blood Work: Please repeat CBC and BMP with primary care provider in 1 week of discharge.
Others Tests: Repeat Chest X-ray and obtain outpatient sleep study with primary care provider in 1 month of discharge.
Other Services: VN, PT and OT
Specialty Instructions: Weigh Daily- Call MD for wt gain/loss 3 lbs overnight/5 lbs in 1 week
Activity Restrictions/Additional Instructions:
Please follow up with primary care provider in 1 week of discharge.
Home medications
acetaminophen 325 mg tablet (Tylenol) 325 mg PO TIDPRN PRN mild pain 05/28/22
albuterol sulfate 90 mcg/actuation aerosol inhaler 2 puff inhalation R Q6HPRN PRN sob/wheezing 05/28/22
aspirin 81 mg tablet,delayed release 81 mg PO DAILY coronary artery disease history stroke
atorvastatin 20 mg tablet 20 mg PO QPM history stroke Hyperlipidemia
fluticasone fur. 100 mcg-umeclid 62.5 mcg-vilant 25 mcg inhalat.powder (Trelegy Ellipta) 1 inh inhalation R DAILY COPD
levothyroxine 75 mcg tablet 75 mcg PO DAILY@0600 Hypothyroidism
aripiprazole 2 mg tablet 2 mg PO BID Bipolar Anxiety Depression
loratadine 10 mg tablet 10 mg PO DAILY Allergies
sennosides 8.6 mg-docusate sodium 50 mg tablet (Senexon-S) 1 tab PO BID Constipation
diphenhydramine HCl 25 mg tablet 25 mg PO HS Sleep
sodium bicarbonate 650 mg tablet 650 mg PO BID Supplement
umeclidinium 62.5 mcg/actuation blister powder for inhalation (Incruse Ellipta) 1 inh inhalation R DAILY Lung/Breathing Issues COPD
diltiazem HCl 240 mg capsule,extended release 24 hr 240 mg PO DAILY Hypertension Paroxysmal Atrial Tachycardia
hydralazine 100 mg tablet 100 mg PO TID blood pressure
ipratropium 0.5 mg-albuterol 3 mg (2.5 mg base)/3 mL nebulization soln 3 ml inhalation R QIDPRN PRN COPD
loperamide 2 mg tablet (Imodium A-D) 2 mg PO QIDPRN PRN diarrhea
prednisone 5 mg tablet 5 mg PO DAILY for COPD on hold while on prednisone taper COPD exacerbation, ok to resume when taper completes
sertraline 50 mg tablet 50 mg PO DAILY Mental Health/Anxiety
calcium carbonate 1,000 mg PO DAILY Supplement
diphenhydramine HCl 25 mg capsule (Benadryl) 25 mg PO DAILY PRN itching
furosemide 80 mg tablet 80 mg PO BID@0800,1600 Fluid Retention/Swelling Heart Failure
insulin aspart U-100 100 unit/mL (3 mL) subcutaneous pen 2 unit SC ACHS diabetes
insulin glargine-yfgn 100 unit/mL subcutaneous solution 5 unit SC HS diabetes
New medications
clonidine HCl 0.1 mg tablet 0.1 mg PO BID for hypertension, home metoprolol subsequently discontinued due to concern interaction and bradycardia
isosorbide mononitrate 30 mg tablet,extended release 24 hr 30 mg PO BID for Hypertension/Angina
prednisone 10 mg tablet 10 mg PO DAILY 3 days for COPD exacerbation, resume home prednisone 5 mg daily when 3 day taper is completed.
Please take medications as prescribed/recommended and follow up with primary care provider and/or other healthcare provider involved in your care for refills and/or further adjustment to your medication regimen as necessary.
Instructions: *CBC Heart Failure Instructions
Referrals:
YUE HAZEL MD [Family Provider] - in one week
Prescriptions:
New
isosorbide mononitrate 30 mg Tablet Extended Release 24 Hr
30 mg PO BID 30 Days Qty: 60 0RF
clonidine HCl 0.1 mg Tablet
0.1 mg PO BID 30 Days Qty: 60 0RF
prednisone 10 mg tablet
10 mg PO DAILY 3 Days Qty: 3 0RF
Continued
acetaminophen [Tylenol] 325 mg Tablet
325 mg PO TIDPRN PRN (Reason: mild pain)
aspirin 81 mg Tablet,Delayed Release (Dr/Ec)
81 mg PO DAILY
levothyroxine 75 mcg Tablet
75 mcg PO DAILY@0600
Trelegy Ellipta 100-62.5-25 mcg Blister With Device
1 inh INHALATION R DAILY
atorvastatin 20 mg Tablet
20 mg PO QPM
albuterol sulfate 90 mcg/actuation Hfa Aerosol Inhaler
2 puff INHALATION R Q6HPRN PRN (Reason: sob/wheezing)
loratadine 10 mg Tablet
10 mg PO DAILY
aripiprazole 2 mg tablet
2 mg PO BID
sennosides-docusate sodium [Senexon-S] 8.6-50 mg tablet
1 tab PO BID
diphenhydramine HCl 25 mg Tablet
25 mg PO HS
Incruse Ellipta 62.5 mcg/actuation blister with device
1 inh INHALATION R DAILY
sodium bicarbonate 650 mg tablet
650 mg PO BID
ipratropium-albuterol 0.5 mg-3 mg(2.5 mg base)/3 mL Solution For Nebulization
3 ml INHALATION R QIDPRN PRN (Reason: sob)
loperamide [Imodium A-D] 2 mg Tablet
2 mg PO QIDPRN MDD 8 mg/24 hrs PRN (Reason: diarrhea)
hydralazine 100 mg Tablet
100 mg PO TID
sertraline 50 mg Tablet
50 mg PO DAILY
diltiazem HCl 240 mg capsule,extended release 24hr
240 mg PO DAILY
calcium carbonate 500 mg calcium (1,250 mg) Tablet
1,000 mg PO DAILY
diphenhydramine HCl [Benadryl] 25 mg Capsule
25 mg PO DAILY PRN (Reason: itching)
insulin aspart U-100 100 unit/mL (3 mL) Insulin Pen
2 unit SC ACHS
insulin glargine-yfgn 100 unit/mL Solution
5 unit SC HS
furosemide 80 mg tablet
80 mg PO BID@0800,1600
Held
prednisone 5 mg tablet
5 mg PO DAILY
Hold Instructions: resume after prednisone taper, 10 mg daily for 3 days, completes.
Discontinued
metoprolol tartrate 50 mg Tablet
50 mg PO BID
bacitracin 500 unit/gram Ointment
1 applic TOPICAL TID
Rx Instructions:
apply to R middle finger
Discharge Orders:
Discharge Patient (As Directed); Ordered 04/20/24
Ordered By: Dong Sanchez
Discharge Date and Time
Print Language: ROMANIAN
--- NOTE | 2024-04-20 14:45 | W.PN.NEPH.PH ---
Today's Communication / Plan
-
- no changes to regimen
- likely d/c today
Assessment/Plan
-
Impression:
Acute shortness of breath-suspected acute decompensated heart failure preserved EF
Acute on chronic hypoxic respite insufficiency
History of obstructive sleep apnea.
COPD
CKD stage V-baseline 3.4
Anemia
Hypertension
Diabetes mellitus type 2
Mild dementia
Left upper extremity AV fistula
Plan:
continue lasix 80mg BID po
follow BMP
continue clonidine, stop carvedilol
Per Dr. Amaya:
I discussed with her daughter Lisbeth. We discussed the viewpoints of both her and her sister Lulu who is in [place]. We discussed the current events including impulsive behavior of pulling out IV lines. We discussed how this behavior may impact
overall dialysis usage including pulling out a dialysis catheter or pulling on needles while on dialysis while using AV fistula. There are also concerns that she may not be able to sit still for a 4-hour dialysis treatment. The daughters have
actually tried to hire someone to sit with her at home prior to putting her in assisted living and she had not tolerated this for more than 2 days. At this point we are in agreement that dialysis would be a very impractical option and it will not
be offered. We did discuss hospice though at this time it does not appear that she has a need for hospice services. In addition, it is likely that her assisted living should be able to arrange for hospice as an outpatient should that need arise in
the future. Discharge back to assisted living is reasonable at this time with the current regimen.
-
-
Date of Service: April 20, 2024
CC / HPI / ROS
-
Chief Complaint:
CKD5
History of Present Illness:
FIDENCIO/Cr up to 4.2 but overall stable
BUN 119 stable
now on po lasix as she has pulled out multiple PIVs, says she pulled them out of anger and wanting to go home
Na 128 stable
Review of Systems:
no supplemental O2
no CP
no SOB
Labs
-
Labs:
WBC 4.4 10^3/uL (4.8-10.8) L 04/17/24 09:02
RBC 3.57 10^6/uL (4.20-5.40) L 04/17/24 09:02
Hgb 10.4 g/dL (12.0-16.0) L 04/17/24 09:02
Hct 31.3 % (37.0-47.0) L 04/17/24 09:02
Plt Count 266 10^3/uL (130-400) 04/17/24 09:02
Sodium 128 mmol/L (135-145) L 04/19/24 06:41
Potassium 4.0 mmol/L (3.5-5.1) 04/19/24 06:41
Chloride 90 mmol/L (98-107) L 04/19/24 06:41
Carbon Dioxide 26 mmol/L (22-30) 04/19/24 06:41
BUN 119 mg/dl (7-17) H* 04/19/24 06:41
Creatinine 4.2 mg/dL (0.6-1.0) H* 04/19/24 06:41
eGFR 10.70 04/19/24 06:41
Glucose 141 mg/dl (70-99) H 04/19/24 06:41
Calcium 8.6 mg/dl (8.4-10.2) 04/19/24 06:41
Fub-H-Perscwdwafj Pept > 71110 pg/ml 04/11/24 20:29
Albumin 3.3 g/dl (3.5-5.0) L 04/11/24 18:35
Physical Exam
-
Vital Signs:
Vital Signs
Temp Pulse Resp BP Pulse Ox
98.0 F 67 16 148/52 96
04/20/24 10:56 04/20/24 10:56 04/20/24 10:56 04/20/24 10:56 04/20/24 10:56
Cardiovascular:: Regular rate and rhythm
Respiratory:: Bilateral: CTA
Lung Excursion:: Normal
Abdomen:: Nontender and Soft
Bowel Sounds:: Normal
Extremity Edema:: +1: Bilateral:
Rhodes Catheter: No
[2024-04-20 15:00] VITALS: BP 142/65
[2024-04-20 16:50] LABS: Glucose - Point of Care 256 mg/dl (70-99)
[2024-04-20] MEDS: NOVOLOG FLEXPEN SC (17:06)
[2024-04-20] MEDS: NOVOLOG FLEXPEN-LOW RESISTANCE 3 UNITS SC (17:06)
[2024-04-20] MEDS: LIPITOR 20 MG PO (17:07)
== END 2024-04-20 18:55 | disposition home health service (06) | DRG 291 ==
LOC: 3 WEST ACU 09:46
PROVIDERS: Hospitalist; ADMITTING PHYSICIAN Internal Medicine; ATTENDING PHYSICIAN Internal Medicine; CONSULT PHYSICIAN Specialist; EMERGENCY PHYSICIAN Emergency Medicine; FAMILY PHYSICIAN Internal Medicine; OTHER PHYSICIAN Internal Medicine Cardiovascular Disease
DX: I13.2 Hypertensive heart and chronic kidney disease with heart failure and with stage 5 chronic kidney disease, or end stage renal disease (principal); I50.33 Acute on chronic diastolic (congestive) heart failure; E87.1 Hypo-osmolality and hyponatremia; J96.11 Chronic respiratory failure with hypoxia; F03.A18 Unspecified dementia, mild, with other behavioral disturbance; I47.19 Other supraventricular tachycardia; F03.A11 Unspecified dementia, mild, with agitation; E87.20 Acidosis, unspecified; J44.1 Chronic obstructive pulmonary disease with (acute) exacerbation; N18.5 Chronic kidney disease, stage 5; N17.9 Acute kidney failure, unspecified; E11.22 Type 2 diabetes mellitus with diabetic chronic kidney disease; I5A Non-ischemic myocardial injury (non-traumatic); D63.1 Anemia in chronic kidney disease; E78.00 Pure hypercholesterolemia, unspecified; I25.10 Atherosclerotic heart disease of native coronary artery without angina pectoris; K21.9 Gastro-esophageal reflux disease without esophagitis; M79.7 Fibromyalgia; G47.33 Obstructive sleep apnea (adult) (pediatric); E03.9 Hypothyroidism, unspecified; Z66 Do not resuscitate; Z99.81 Dependence on supplemental oxygen; Z91.199 Patient's noncompliance with other medical treatment and regimen due to unspecified reason; Z87.891 Personal history of nicotine dependence; Z79.82 Long term (current) use of aspirin; Z79.890 Hormone replacement therapy; Z79.4 Long term (current) use of insulin; Z79.52 Long term (current) use of systemic steroids; Z88.8 Allergy status to other drugs, medicaments and biological substances; Z88.6 Allergy status to analgesic agent; Z88.1 Allergy status to other antibiotic agents; Z91.030 Bee allergy status; Z91.041 Radiographic dye allergy status; Z88.5 Allergy status to narcotic agent; Z88.0 Allergy status to penicillin; Z91.013 Allergy to seafood; Z86.73 Personal history of transient ischemic attack (TIA), and cerebral infarction without residual deficits; Z80.1 Family history of malignant neoplasm of trachea, bronchus and lung; Z80.49 Family history of malignant neoplasm of other genital organs; Z83.3 Family history of diabetes mellitus
CPT/HCPCS: 71046; 80048; 80053; 82947; 82962; 83036; 83690; 83735; 83880; 84484; 85025; 85027; 87070; 92610; 93005; 94640; 96374; 97116; 97162; 99285

== ENCOUNTER 2024-04-26 22:47 | Inpatient (IN) | payer MEDICARE, OTHER, SELFPAY ==
[2024-04-26 15:26] VITALS: BP 153/81
[2024-04-26 15:28] VITALS: BP 153/81
[2024-04-26 15:36] VITALS: BMI 30.7
[2024-04-26 15:43] LABS: % Basophils 0.2 % (0-2); % Eosinophils 0.5 % (0-6); % Immature Granulocytes 0.8 % (0-0.5); % Lymphocytes 1.6 % (20.5-51.1); % Monocytes 6.5 % (1.7-9.3); % Neutrophils 90.4 % (42.2-75.2); Absolute Basophils 0.1 10^3/uL (0-0.2); Absolute Eosinophils 0.1 10^3/uL (0-0.7); Absolute Immature Granulocytes 0.2 10^3/uL (0-0.05); Absolute Lymphocytes 0.3 10^3/uL (1.2-3.4); Absolute Monocytes 1.4 10^3/uL (0.1-0.6); Absolute Neutrophils 18.8 10^3/uL (1.4-6.5); Hematocrit 36.8 % (37.0-47.0); Mean Corp Hgb Conc. 32.6 g/dL (33.0-37.0); Mean Corpuscular Hgb 28.5 pg (27.0-31.0); Mean Corpuscular Volume 87.4 fL (81.0-99.0); Mean Platelet Volume 9.3 fL (7.4-10.4); Nucleated Red Blood Cells % 0 %; Platelet Count 264 10^3/uL (130-400); Red Blood Cell Count 4.21 10^6/uL (4.20-5.40); Red Cell Dist. Width 13.9 % (11.5-14.5); White Blood Cell Count 20.9 10^3/uL (4.8-10.8)
[2024-04-26 15:56] LABS: Lactic Acid 0.9 mmol/L (0.7-2.0)
[2024-04-26 15:57] LABS: COVID-19 Antigen Negative (Negative)
[2024-04-26 16:00] LABS: ALT (SGPT) 13 U/L (0-35); AST (SGOT) 27 U/L (14-36); Albumin 3.7 g/dl (3.5-5.0); Alkaline Phosphatase 55 U/L (38-126); Calcium 8.9 mg/dl (8.4-10.2); Carbon Dioxide 29 mmol/L (22-30); Chloride 89 mmol/L (98-107); Estimated Creatinine Clearance 12 ml/min; Glucose 125 mg/dl (70-99); Potassium 3.5 mmol/L (3.5-5.1); Sodium 132 mmol/L (135-145); Total Bilirubin 0.9 mg/dl (0.2-1.3); eGFR 12.87
--- NOTE | 2024-04-26 16:06 | ED.GENMED ---
History of Present Illness
General
Chief Complaint: Heart Rate Problem
Source: snf
Exam Limitations: none
Time Seen by Provider: 04/26/24 15:25
Nursing documentation reviewed up to this point in time: agreed with
Travel History
Have you had any contact with someone who has COVID-19?: No
Do you have any symptoms of coronavirus? Fever > 100 degrees, chills, cough, shortness of breath, sore throat, loss of taste or smell, muscle aches, or headache?: No
History of Present Illness
History of Present Illness:
The patient is a 73-year-old female with a past medical history of dementia, CHF and diabetes who was sent for elevated heart rate and fever. Patient does not offer any history, due to her dementia. She is sitting fairly comfortably with
occasional cough.
Past History
Past History
ED Past Medical History: CHF, COPD, Fibromyalgia, GERD, HTN, Hypercholesterolemia, IDDM, Hypothyroidism, Psychiatric and Other
ED Past Surgical History: Appendectomy, Cholecystectomy, Gynecological, Orthopedic and Other
Social History
Tobacco: Former smoker
Alcohol: Former
Drug: Former user
Personal:
Living: snf
Employment: Not employed
Family History
Family History: Other
Review of Systems
Review of Systems
Allergies reviewed?: Yes
Unable to obtain full review of systems at this time due to: dementia
All Other Systems: Not applicable
Phy Exam
Physical Exam
Physical Exam:
Physical Exam
General: no apparent distress, not acutely ill
Neck: supple.
Heart: Tachycardic, irregular
Lungs: No acute respiratory distress. Occasional cough
Abdomen: normal bowel sounds. not tender. no CVAT
Neuro: alert and oriented. no focal neurological deficits
Skin: no rash
Psychiatric: well kept. interactive and cooperative
Extremities: no edema. no calf tenderness. negative homans. good distal pulses
Course
Orders/Labs/Results
Orders:
Orders
04/26/24 15:23
EKG [Electrocardiogram (*1)] Urgent
Reason for Study: Tachycardia
EKG- Treatment ONCE
04/26/24 15:33
CMP [Comprehensive Metabolic Panel] Urgent
Blood Culture Q30M
DEDE Source: Blood/Venous
Specimen Description:
Comment: FROM 2 SEPARATE SITES
04/26/24 15:34
CBC/With Diff [Complete Blood Count/With Diff] Urgent
Lactic Acid Q4H
Comment: ON ICE, CANCEL 2ND ORDER IF FIRST LACTIC ACID LEVEL <2
NT-proBNP Urgent
Comment: PROBNP ADDED ON BY FLOOR 3:45PM 04-26-24
Troponin I Urgent
04/26/24 15:35
COVID-19 Antigen Urgent
Source: Nasal Swab
Blood Culture Q30M
DEDE Source: Blood/Venous
Specimen Description:
Comment: FROM 2 SEPARATE SITES
Influenza A+B Rapid Molecular Urgent
DEDE Source: Nasal Swab
Specimen Description:
04/26/24 15:44
Add On- LAB Urgent
Tests Added?: pro BnP
04/26/24 15:59
0.9% Sodium Chloride 1000 ml [Nss] 1,000 ml IV BOLUS
Acetaminophen [Tylenol] 1,000 mg PO NOW STA
04/26/24 16:02
CR Chest - 2 Views Urgent
Comment:
Reason For Exam: fever
04/26/24 16:06
Urinalysis Reflex To Culture Urgent
04/26/24 17:00
Vancomycin 1 Gram/200 ml [Vancocin] 1 gram in 200 ml IV NOW
04/26/24 17:03
Piperacillin/Tazo 4.5 Gram [Zosyn] 4.5 gram in 100 ml IV NOW
04/26/24 21:39
Heparin 4,000 units IV NOW STA
Nursing to Place Non Medication Order As Directed
Physician Order: PTT 6 hours after initial start of Heparin infusion
04/26/24 21:45
Heparin 74153 Units/250 ml 25,000 units in 250 ml IV PER PROTOCOL
Weight to be used for heparin protocol in kilograms (kg):: 71.4
Protocol:: Cardiac Tx/Acute Coronary
PTT Goal Range to be used:: PTT 73 to 111 seconds
Order type:: Initial
INITIAL Infusion Dose (UNITS/KG/hr) & then follow protocol:: 12 units/kg/hr
Infusion Dose in UNITS/hr & then follow protocol (UNITS/hr):: 850
INFUSION RATE in mL/hr & then follow protocol (mL/hr):: 8.5
PTT less than or equal to 64 seconds:: Increase rate by 200 units/hr (+ 2 mL/hr)
PTT 64.1 to 72.9 seconds:: Increase rate by 100 units/hr (+ 1 mL/hr)
PTT 73 to 111 seconds:: Target Range. No change in rate.
PTT 111.1 to 130.9 seconds:: Decrease rate by 100 units/hr (- 1 mL/hr)
PTT 131 to 199.9 seconds:: HOLD for 1 hr. Then decrease rate by 200 units/hr (- 2 mL/hr)
PTT greater than or equal to 200 seconds:: HOLD for 2 hrs & Notify Provider. Then decrease by 200 units/hr (-
2 mL/hr)
Lab follow-up:: Each change, PTT q6h until 2 consecutive are therapeutic. Then PTT
daily.
04/26/24 22:07
Admit/Transfer Patient As Directed
Co-Sign Provider:
Level of Care: Inpatient admission
Assign to:: Telemetry
Physician / Group: whit
Diagnosis: pneumonia
Reason for Telemetry: Arrhythmia
Date to Stop Telemetry: 04/29/24
Time to Stop Telemetry: 11:00
Reason for Hospitalization: pneumonia
Expected length of stay greater than two midnights?: Yes
ELOS- Estimated Length of Stay in days: 3
I certify the patient meets the requirements for IP care: Yes
04/26/24 22:10
Code Status As Directed
Resuscitation Status: Full Code
04/26/24 22:25
Strep pneumoniae Antigen Stat
DEDE Source: Urine
Specimen Description:
04/26/24 22:26
CARDIOLOGY CONSULT Routine
Consulting Provider: Flo Dewitt
Was physician already notified: No
Reason for consult: new onset atrial fib
04/26/24 22:29
Consult Notification Routine
Specialty to Notify: Cardiology
04/26/24 22:47
PTT Urgent
Comment: Obtain baseline before beginning heparin infusion if not already collected
04/29/24 11:00
DC Protocol for Telemetry ONCE
Abnormal Lab Results
04/26/24 04/26/24
15:33 15:34
WBC 20.9 H 10^3/uL
(4.8-10.8)
Hct 36.8 L %
(37.0-47.0)
MCHC 32.6 L g/dL
(33.0-37.0)
Abs Immat Gran (auto) 0.2 H 10^3/uL
(0-0.05)
Absolute Neuts (auto) 18.8 H 10^3/uL
(1.4-6.5)
Absolute Lymphs (auto) 0.3 L 10^3/uL
(1.2-3.4)
Absolute Monos (auto) 1.4 H 10^3/uL
(0.1-0.6)
Immature Gran % 0.8 H %
(0-0.5)
Neutrophils % 90.4 H %
(42.2-75.2)
Lymphocytes % 1.6 L %
(20.5-51.1)
Sodium 132 L mmol/L
(135-145)
Chloride 89 L mmol/L
(98-107)
BUN 129 H* mg/dl
(7-17)
Creatinine 3.6 H mg/dL
(0.6-1.0)
Glucose 125 H mg/dl
(70-99)
Troponin I 0.130 H* ng/ml
Total Protein 6.0 L g/dl
(6.3-8.2)
04/26/24 15:34
04/26/24 15:33
Vital Signs
Initial and Last Documented VS:
Initial Vital Signs
Temp Pulse Resp BP Pulse Ox
100.6 F H 140 20 153/81 100
04/26/24 15:26 04/26/24 15:26 04/26/24 15:26 04/26/24 15:26 04/26/24 15:26
Last Documented Vital Signs
Temp Pulse Resp BP Pulse Ox
98.8 F 131 22 124/66 97
04/26/24 18:25 04/26/24 22:45 04/26/24 22:45 04/26/24 18:02 04/26/24 22:45
MDM/Problems Addressed
Differential Diagnosis Includes:
Sepsis, pneumonia, UTI
MDM/Problems Addressed:
Patient presents with acute tachycardia and fever
Chronic conditions affecting care:
Given patient has a history of COPD and CHF she is at increased risk of pneumonia
Chronic conditions affecting care: Cardiomyopathy and COPD
Acute Exacerbation and/or Progression of Chronic Illness:
Patient may have acute exacerbation of chronic COPD
*Radiology
Radiology exam reviewed: radiology read reviewed
*Pulse Oximetry
Patient hypoxic: no
*EKG
Interpreted by ED Provider?: Yes
Interpretation: abnormal
Comparison EKG: changes noted (Now shows A-fib and tachycardia)
Rate: tachycardiac
Rhythm: a-fib
[place]: normal axis
Interval: normal interval
QRS Pattern: normal QRS
Ischemia: ST depression
*Scientific Database Curator Interpretation
Rate: tachycardiac
Interpretation: abnormal
Rhythm: a-fib
*Critical Care Note
Total Time (30-74mins, 75-104mins- exclusive of procedures): Not Applicable
Data Reviewed
Review of Other/Old Records Reveals: Discharge Summary (Discharge summary reviewed from March 2024 from hospitalist which shows that patient was just admitted for CHF exacerbation)
Source: snf and previous hospital records
Patient Management
Discussion with other providers: Hospitalist
Escalation/DeEscalation of care consider admission/obs:
Given patient's high white blood cell count and fever and concerns for hospital-acquired pneumonia, patient admitted to the hospital.
ED Attending Note
-
Portions of this chart may have been created with voice recognition software.� Occasional wrong word or��sound alike� substitutions may have occurred due to the inherent limitations of voice recognition software.
Discharge Plan
Departure
Patient Disposition: Admit
Date of Disposition: 04/26/24
Time of Disposition: 19:57
Admit to: Telemetry
Presentation/result/management discussed w/ accepting MD/DO: Hospitalist
Condition: Fair
Covid-19: Negative COVID-19
Discharge Problem:
Hospital acquired PNA, New onset a-fib
Interventions
Interventions:
*Risk Screen - Suicide Last Done: 04/26/24 15:26
*General Assessment Last Done: 04/26/24 15:26
*Neglect/Abuse Screening Last Done: 04/26/24 15:26
ED- Fall Risk Assessment Last Done: 04/26/24 15:37
*ED COVID-19 Vaccine History Last Done: 04/26/24 15:36
ED- Cardiac Assessment Last Done: 04/26/24 15:37
ED- Pulmonary Assessment Last Done: 04/26/24 15:37
[2024-04-26] MEDS: TYLENOL 1000 MG PO (16:11)
[2024-04-26] MEDS: NSS 1000 IV (16:11)
[2024-04-26 16:14] VITALS: BP 154/73
[2024-04-26 16:16] LABS: Blood Urea Nitrogen 129 mg/dl (7-17)
[2024-04-26 16:16] LABS: NT-proBNP 23100 pg/ml
[2024-04-26] MEDS: ZOSYN 100 IV (17:30)
[2024-04-26] MEDS: VANCOCIN 200 IV (17:47)
[2024-04-26 18:02] VITALS: BP 124/66
--- NOTE | 2024-04-26 21:39 | HPS.HSE ---
Addendum entered and electronically signed by Allen Caballero DO 04/27/24 01:26:
Late Entry - Patient seen and examined 04/26/24.
Patient seen and examined independently. Agree with findings and plan as set forth by LEELA Albrecht.
Patient is a 73y F with PMH significant for CHF, COPD and recent hospitalization for the same who presents to ED from [place] for evaluation of fever and tachycardia. Patient does not contribute to this history. She answers some questions
occasionally, but then sates 'I'm not going to talk to you'. Her baseline status is one of confusion / disorientation. She offers no complaints at present, but does seem to holding her L chest as if in discomfort. She has mild cough during my
exam.
On arrival to the ED, patient was noted to be in A-Fib with tachycardia. Prior history of 'PAT' but not specifically A-Fib.
Ass:
Pneumonia
Sepsis secondary to the above
Atrial Fibrillation with Rapid Response
ASCVD
Chronic HFpEF
Non-Ischemic Myocardial Injury
CKD V
Chronic Hyponatremia
COPD with Recent Exacerbation
DM-II
Benign Hypertension
Senile Dementia with Mood Disorder
Plan:
Admit for further evaluation and treatment.
Patient presents with fever, leukocytosis and evidence of pneumonia on CXR.
Continue abx with levofloxacin as patient has listed Amoxicillin allergy.
Follow-up culture data and follow for clinical improvement.
IV diltiazem and heparin for newly noted A-Fib.
Cardiology consulted.
Continue usual Lasix and follow I/Os, weights, etc.
Continue other outpatient medications for chronic conditions.
Original Note:
Family Physician
-
Family Physician: * NONE
Chief Complaint
-
cough
History of Present Illness
73 year old with PMH for CHF, COPD, fibromyalgia, GERD, HTN, HLD, IDDM, hypothyroidism presented to us with fever and elevated HR. patient has dementia, not able to provide any history. patient denied cough, even through she is coughing. denied
chest pain, sob. denied CHAVEZ ,dizzy. denied abdominal pain,,nv,d. denied dysuria or hematuria.
on arrival atrial fib with RVR. HR in high 100's . initiated on normal saline and heparin drip. admitting for further management.
patient received a dose of zosn and vanco in ER for pneumonia.
Medical History
Past Medical History
Past Medical History: Reports Other
Additional Past Medical History:
chronic kidney disease
hypothyroidism
bronchitis
fibromyalgia
bipolar
GERd
CAD
alcohol abuse
CVA
HLD
DDD
CHF
type 2 DM
COPD
paroxymal atrial tachycardia
Past Surgical History: Reports Other
Additional Past Surgical History:
hysterectomy
cholecystectomy
left knee surgery
bunionectomy
Social History
Unable to obtain full social history at this time due to: Dementia
Family History
Family History: Not pertinent
Allergies / Home Medications
Allergies reflects when Allergies were last updated in [employer].
Home Medications with original date entered in [employer]
Allergy/Medication List:
Allergies
Allergy/AdvReac Type Severity Reaction Status Date / Time
amoxicillin [From Augmentin] Allergy Rash Verified 04/26/24 15:25
bee venom protein (honey bee) Allergy Unknown Verified 04/26/24 15:25
cephalexin [From Keflex] Allergy Unknown Verified 04/26/24 15:25
clarithromycin Allergy gi problems Verified 04/26/24 15:25
clavulanic acid Allergy Unknown Verified 04/26/24 15:25
[From Augmentin]
ibuprofen Allergy Contraindication Verified 04/26/24 15:25
(use
Tylenol)
per MR
iodine Allergy Unknown Verified 04/26/24 15:25
iodoform Allergy Rash Verified 04/26/24 15:25
lamotrigine Allergy enid Verified 04/26/24 15:25
shanice
syndrome
morphine [Morphine] Allergy Unknown Verified 04/26/24 15:25
nitrofurantoin Allergy headache Verified 04/26/24 15:25
oxcarbazepine Allergy Hives Verified 04/26/24 15:25
potassium iodide Allergy Unknown Verified 04/26/24 15:25
quetiapine [From Seroquel] Allergy Unknown Verified 04/26/24 15:25
shellfish derived Allergy Unknown Verified 04/26/24 15:25
sodium iodide Allergy Rash Verified 04/26/24 15:25
Home Medications
acetaminophen 325 mg tablet (Tylenol) 325 mg PO TIDPRN PRN mild pain 05/28/22
albuterol sulfate 90 mcg/actuation aerosol inhaler 2 puff inhalation R Q6HPRN PRN sob/wheezing 05/28/22
aspirin 81 mg tablet,delayed release 81 mg PO DAILY Blood clot prevention/tx 05/28/22
atorvastatin 20 mg tablet 20 mg PO QPM High cholesterol 05/28/22
fluticasone fur. 100 mcg-umeclid 62.5 mcg-vilant 25 mcg inhalat.powder (Trelegy Ellipta) 1 inh inhalation R DAILY Lung/breathing issues 05/28/22
levothyroxine 75 mcg tablet 75 mcg PO DAILY@0600 Thyroid 05/28/22
aripiprazole 2 mg tablet 2 mg PO BID Mental Health/Anxiety 05/01/23
loratadine 10 mg tablet 10 mg PO DAILY Allergies 05/01/23
sennosides 8.6 mg-docusate sodium 50 mg tablet (Senexon-S) 1 tab PO BID Constipation 05/10/23
diphenhydramine HCl 25 mg tablet 25 mg PO HS Sleep 06/02/23
sodium bicarbonate 650 mg tablet 650 mg PO BID Supplement 06/02/23
umeclidinium 62.5 mcg/actuation blister powder for inhalation (Incruse Ellipta) 1 inh inhalation R DAILY Lung/Breathing Issues 06/02/23
diltiazem HCl 240 mg capsule,extended release 24 hr 240 mg PO DAILY Heart Disease/Condition 11/03/23
hydralazine 100 mg tablet 100 mg PO TID blood pressure 11/03/23
ipratropium 0.5 mg-albuterol 3 mg (2.5 mg base)/3 mL nebulization soln 3 ml inhalation R QIDPRN PRN sob 11/03/23
loperamide 2 mg tablet (Imodium A-D) 2 mg PO QIDPRN PRN diarrhea 11/03/23
prednisone 5 mg tablet 5 mg PO DAILY inflammation 11/03/23
sertraline 50 mg tablet 50 mg PO DAILY Mental Health/Anxiety 11/03/23
calcium carbonate 1,000 mg PO DAILY Supplement 03/27/24
diphenhydramine HCl 25 mg capsule (Benadryl) 25 mg PO DAILY PRN itching 03/27/24
furosemide 80 mg tablet 80 mg PO BID@0800,1600 Fluid Retention/Swelling 04/12/24
insulin aspart U-100 100 unit/mL (3 mL) subcutaneous pen 2 unit SC ACHS diabetes 04/12/24
insulin glargine-yfgn 100 unit/mL subcutaneous solution 5 unit SC HS diabetes 04/12/24
clonidine HCl 0.1 mg tablet 0.1 mg PO BID 30 days #60 tabs 04/20/24
isosorbide mononitrate 30 mg tablet,extended release 24 hr 30 mg PO BID 30 days #60 tabs 04/20/24
bacitracin 500 unit/gram topical ointment 1 applic topical TID R. MIDDLE FINGER 04/26/24
hydrocortisone 1 % topical cream 1 applic topical BIDPRN PRN RASH RIGHT HAND/FINGERS 04/26/24
prednisone 10 mg tablet 5 mg PO DAILY 04/26/24
Review of Systems
-
Constitutional: Reports No Symptoms
EENT: Reports No Symptoms
Respiratory: Reports Cough
Cardiac: Reports No Symptoms
Abdomen/GI: Reports No Symptoms
: Reports No Symptoms
Musculoskeletal: Reports No Symptoms
Skin: Reports No Symptoms
Neurological: Reports No Symptoms
Endocrine: Reports No Symptoms
Hematologic/Lymphatic: Reports No Symptoms
Psych: Reports No Symptoms
Physical Exam
Vital Signs
Vital Signs
Temp Pulse Resp BP Pulse Ox
98.8 F 136 20 124/66 96
04/26/24 18:25 04/26/24 18:45 04/26/24 18:45 04/26/24 18:02 04/26/24 18:45
Physical Exam
General: Well Developed, Well Nourished and No Apparent Distress
HEENT: NormoCephalic, Moist mucous membranes and Atraumatic
Respiratory: Clear
Cardiac: S1/S2 and Regular Rhythm; No Murmur or Rub
GI: Soft, Non Tender, Non Distended and Normal Bowel Sounds; No Organomegaly
Rectal: Deferred by Provider
Musculoskeletal: No Clubbing, No Cyanosis and No Edema
Skin: No Rash
Neuro: Nonfocal/grossly intact
Laboratory Results
-
04/26/24 15:34
04/26/24 15:33
Laboratory Results
Lactic Acid Cancelled 04/26/24 19:45
Total Bilirubin 0.9 mg/dl (0.2-1.3) 04/26/24 15:33
AST 27 U/L (14-36) 04/26/24 15:33
ALT 13 U/L (0-35) 04/26/24 15:33
Alkaline Phosphatase 55 U/L (38-126) 04/26/24 15:33
Troponin I 0.130 ng/ml H* 04/26/24 15:34
Data Reviewed
-
Diagnostic Radiology: Report Reviewed by me
Lab Data: Labs Reviewed by me
Impression/Plan
-
#cough/fever likely hospital acquired pneumonia
-sepsis as evident by wbc 20.0,tachycardia
-covid negative,flu negative
-chest x ray with Small loculated right pleural effusion. Slightly progressed.Cardiomegaly. Stable
-blood culture sent from ER
-Zosyn and vanco in ER
-levaquin continued
-Tylenol prn for fever
-obtain sputum culture, strep pneumoniae, legionella urine
-UA pending
#new onset atrial fib with RVR
#hxt of PAT
-EKG with atrial fib with RVR
-initiated on heparin drip
-diltiazem continued
-cardiology consulted
#chronic hyponatremia/CKD stage V
-na 132, cr 3.6
-ctm
-sodium bicarb continued
#chornic trop elevation
-trop 0.130
-trend trop
# chronic heart failure with preserved ejection fraction
Echo-03/29/2024-normal LV function. EF 55%. Hypokinesis of apical segments c/w Takotsubo cardiomyopathy. Stage II diastolic dysfunction. Aortic stenosis without stenosis. Mild TR. Pulmonary pressure 42 [place] [address]
Lasix 80 mg IV twice daily
# COPD-with mild exacerbation
#Chronic respiratory failure on home oxygen
-Continue Trelegy Ellipta, Incruse Ellipta
-nebs prn continued
-on prednisone
# Diabetes
-will do Lantus 5 HS and 3 AC
-sliding scale
-CHO diet
# Hypertension
-Continue hydralazine, Imdur
# Hypothyroidism-continue Synthroid
# Hyperlipidemia
-continue atorvastatin
# Coronary artery disease
-continue aspirin and statin
# Significant dementia
# Anxiety/bipolar disease-continue sertraline, Abilify
# History of CVA-aspirin statin
# GERD- Pepcid
# Insomnia on Benadryl at night
# Chronic steroid use-for COPD
# Ex-smoker
# DVT prophylaxis-Subcutaneous heparin
#full code
[2024-04-26] MEDS: HEPARIN 4000 UNITS IV (23:16)
[2024-04-26] MEDS: HEPARIN 25000 UNITS/250 ML IV (23:17)
[2024-04-26] MEDS: FLUSH (NSS) 1 FLUSH IV (23:17)
[2024-04-26 23:21] VITALS: BP 123/69
[2024-04-27] VITALS (11 sets, daily range): BP systolic 116–189; BP diastolic 46–91; BMI 25.6
[2024-04-27] MEDS: CARDIZEM 125 IV (03:02)
[2024-04-27] MEDS: LEVAQUIN 100 IV (03:19)
[2024-04-27] MEDS: MUCINEX 600 MG PO ×3 (03:25→20:51)
[2024-04-27] MEDS: TYLENOL 1000 MG PO (03:25)
[2024-04-27 03:56] LABS: Urine Albumin 3+ (Neg - Trace); Urine Bilirubin Negative (Negative); Urine Character Clear (Clear); Urine Color Yellow; Urine Glucose Negative (Negative); Urine Ketone Negative (Negative); Urine Leukocyte Trace (Negative); Urine Nitrite Negative (Negative); Urine Occult Blood Negative (Negative); Urine Urobilinogen Negative (Neg - 1+)
[2024-04-27 04:29] LABS: Troponin I 0.736 ng/ml
[2024-04-27 04:32] LABS: Urine Bacteria Moderate (Negative); Urine Red Blood Cell 0-2 /HPF (0-2); Urine White Cell 26-30 /HPF (0-5)
[2024-04-27 05:46] LABS: Hematocrit 30.3 % (37.0-47.0); Hemoglobin 10.2 g/dL (12.0-16.0); Mean Corp Hgb Conc. 33.7 g/dL (33.0-37.0); Mean Corpuscular Hgb 29.3 pg (27.0-31.0); Mean Corpuscular Volume 87.1 fL (81.0-99.0); Mean Platelet Volume 9.4 fL (7.4-10.4); Platelet Count 216 10^3/uL (130-400); Red Blood Cell Count 3.48 10^6/uL (4.20-5.40); Red Cell Dist. Width 13.8 % (11.5-14.5); White Blood Cell Count 17.3 10^3/uL (4.8-10.8)
[2024-04-27 05:52] LABS: APTT 35.1 Sec (23.4-35.0)
[2024-04-27 06:03] LABS: Blood Urea Nitrogen 119 mg/dl (7-17); Carbon Dioxide 25 mmol/L (22-30); Chloride 96 mmol/L (98-107); Estimated Creatinine Clearance 13 ml/min; Glucose 155 mg/dl (70-99); Potassium 3.3 mmol/L (3.5-5.1); Sodium 131 mmol/L (135-145); eGFR 13.31
[2024-04-27] MEDS: SYNTHROID 75 MCG PO (07:13)
[2024-04-27] MEDS: SPIRIVA RESPIMAT 2.5 MCG INH (08:01)
[2024-04-27] MEDS: SYMBICORT 80/4.5 MCG INHALER INH (08:01)
[2024-04-27] MEDS: NOVOLOG FLEXPEN-LOW RESISTANCE SC ×3 (08:12→17:28)
[2024-04-27 08:13] LABS: Glucose - Point of Care 135 mg/dl (70-99)
[2024-04-27] MEDS: NOVOLOG FLEXPEN 2 UNITS SC ×4 (08:14→21:44)
[2024-04-27] MEDS: CATAPRES PO (08:16)
[2024-04-27] MEDS: ZOLOFT 50 MG PO (08:16)
[2024-04-27] MEDS: ABILIFY 2 MG PO ×2 (08:16→20:51)
[2024-04-27] MEDS: LASIX 80 MG PO ×2 (08:16→16:49)
[2024-04-27] MEDS: APRESOLINE 100 MG PO ×3 (08:18→21:42)
[2024-04-27] MEDS: DELTASONE 5 MG PO (08:18)
[2024-04-27] MEDS: SODIUM BICARBONATE 650 MG PO ×2 (08:18→20:51)
[2024-04-27] MEDS: BACITRACIN OINTMENT 1 APPLIC TOPICAL ×3 (08:18→21:51)
[2024-04-27] MEDS: ASPIR LOW (ENTERIC COATED) 81 MG PO (08:18)
[2024-04-27] MEDS: OSCAL CAL 500 1000 MG PO (08:18)
[2024-04-27] MEDS: IMDUR (EXTENDED RELEASE) 30 MG PO ×2 (08:18→20:51)
[2024-04-27] MEDS: SENOKOT-S 1 TABLET PO ×2 (08:18→20:51)
[2024-04-27] MEDS: CLARITIN 10 MG PO (08:21)
--- NOTE | 2024-04-27 11:35 | W.PN.CD ---
Addendum entered and electronically signed by Flo Dewitt MD 04/27/24 13:13:
-
-
Troponin elevation: Most consistent with nonischemic myocardial injury from rapid A-fib.
-
-
Original Note:
Today's Communication / Plan
-
Plan for rate control
Add Eliquis if affordable and family in agreement
If needed we can add Amio
Watch for bradycardia
Impression / Plan
-
New AFib, pattern not certain yet, duration uncertain
- Symptoms resolved with rate control
- Rate better on IV dilt
- [id number] at least 4 (HF, HTN, age1, female gender)
- On heparin now
Last admission PAT was seen (late March 2024)
Sinus ryan seen on Ca++ eddie + BB
chronic HFpEF:
-Echo 03/29/2024: EF 55%, apical hypo suggesting Takotsubo
-Recent pBNP >27,000, CXR right pleural effusion
-Nephrology managed diuretic last admit (March 2024)
COPD
CKD5, fistula was recently placed for HD planning, nephrology was involved just days ago, dialysis anticipated in future
Paroxysmal atrial tachycardia, now in AFib
Hypertension, defer to nephrology
Dementia, significant:
-supportive care.
-management per primary.
Subjective: Denies CP, palp, dyspnea with rate control
Physical Exam
Vital Signs/Labs
Vital Signs
Temp Pulse Resp BP Pulse Ox
99.8 F 126 26 121/66 95
04/27/24 04:30 04/27/24 11:00 04/27/24 11:00 04/27/24 10:51 04/27/24 08:00
04/26/24 04/27/24 04/28/24
06:59 06:59 06:59
Actual Weight 71.4 kg
04/27/24 05:20
04/27/24 05:20
APTT 35.1 Sec (23.4-35.0) H 04/27/24 05:20
04/26/24
15:34
Njf-P-Ebwsaolnqdh Pept [id number]
LAB Results
04/26/24 04/27/24
15:34 03:44
Troponin I 0.130 H* 0.736 H*
Data Reviewed
-
Date of Service: April 27, 2024
[2024-04-27 11:46] LABS: Glucose - Point of Care 148 mg/dl (70-99)
--- NOTE | 2024-04-27 12:07 | W.PN.HOSP.TC ---
Today's Communication/Plan
-
Continue with IV heparin for now
Case plan for Eliquis called
Continue with antibiotic
CODE STATUS updated
Assessment / Plan
Assessment / Plan
#cough/fever likely hospital acquired pneumonia
-sepsis as evident by wbc 20.0,tachycardia
-covid negative,flu negative
-chest x ray with Small loculated right pleural effusion. Slightly progressed.Cardiomegaly. Stable
-blood culture sent from ER
-Zosyn and vanco in ER
-levaquin continued
-Tylenol prn for fever
-Strep and Legionella negative. Urine culture pending
#new onset atrial fib with RVR
#hxt of PAT
-EKG with atrial fib with RVR
-initiated on heparin drip. Case management for Luz olivia.
-Discussed with patient daughter Lisbeth/son-in-law and explained the risk versus benefits starting patient on anticoagulation of Eliquis. Patient with no recent mechanical fall. No recent GI bleeding. No prior history of bleeding issues. Family
agreed to be started on Eliquis.
-diltiazem continued transition to p.o.
-cardiology consulted
#chronic hyponatremia/CKD stage V
-na 132, cr 3.6
-ctm
-sodium bicarb continued
#chornic trop elevation
-trop 0.130
-trend trop
# chronic heart failure with preserved ejection fraction
Echo-03/29/2024-normal LV function. EF 55%. Hypokinesis of apical segments c/w Takotsubo cardiomyopathy. Stage II diastolic dysfunction. Aortic stenosis without stenosis. Mild TR. Pulmonary pressure 42 mmHg.
[place] [address]
Lasix 80 mgtwice daily
# COPD-with mild exacerbation
#Chronic respiratory failure on home oxygen
-Continue Trelegy Ellipta, Incruse Ellipta
-nebs prn continued
-on prednisone
# Diabetes minus type II
-will do Lantus 5 HS and 3 AC
-sliding scale
-CHO diet
# Hypertension
-Continue hydralazine, Imdur
# Hypothyroidism-continue Synthroid
# Hyperlipidemia
-continue atorvastatin
# Coronary artery disease
-continue aspirin and statin
# Significant dementia watch for behavioral disturbances.
# Anxiety/bipolar disease-continue sertraline, Abilify
# History of CVA-aspirin statin
# GERD- Pepcid
# Insomnia on Benadryl at night
# Chronic steroid use-for COPD
# Ex-smoker
# DVT prophylaxis-Subcutaneous heparin
Discussed with patient daughter and son-in-law over the phone. Per the family patient has advanced directive and she is DNR/DNI.
Anticipated Discharge: > 48 hours
Subjective/Interval History
-
Date of Service: April 27, 2024
States feeling better
remains on afib RVR
not on oxygen
Objective Data
-
Labs:
Laboratory Results
04/27/24 04/27/24
05:20 11:49
WBC 17.3 H
Hgb 10.2 L
Hct 30.3 L
Plt Count 216
APTT 35.1 H Pending
Sodium 131 L
Potassium 3.3 L
Chloride 96 L
Carbon Dioxide 25
BUN 119 H*
Creatinine 3.5 H
Glucose 155 H
Calcium 8.0 L
Vital Signs:
Vital Signs
Temp Pulse Resp BP Pulse Ox
99.8 F 126 26 121/66 95
04/27/24 04:30 04/27/24 11:00 04/27/24 11:00 04/27/24 10:51 04/27/24 08:00
Physical Exam
-
General: No Apparent Distress and Comfortable
HEENT: Moist Mucous Membranes
Respiratory: Non Labored Respirations and Decreased Breath Sounds; Negative Wheezes
Cardiac: S1/S2, Irregular Rhythm and Tachycardic
GI: Soft, Nontender, Nondistended and Normal Bowel Sounds
Musculoskeletal: No Clubbing and No Edema
Skin: Warm and Dry
Neuro: Awake
Psych: Calm and Apparent Dementia
Data Reviewed
-
Total Time Spent with Patient (in minutes): 55
[2024-04-27 12:15] LABS: APTT 38.5 Sec (23.4-35.0)
[2024-04-27 12:54] LABS: Troponin I 0.576 ng/ml
[2024-04-27] MEDS: CARDIZEM 60 MG PO ×3 (13:47→21:43)
[2024-04-27 17:27] LABS: Glucose - Point of Care 143 mg/dl (70-99)
--- NOTE | 2024-04-27 17:47 | PTCARENOTE ---
Received patient from ED to on Heparin gtt at 12units/hr. Last PTT was subtherapeutic at 38.5, next PTT due to be drawn at 1825. Patient is confused, oriented to self. IV team notified to re-evaluate IV's due to small leak.
[2024-04-27] MEDS: LIPITOR 20 MG PO (17:53)
[2024-04-27 19:28] LABS: APTT 38.3 Sec (23.4-35.0)
--- NOTE | 2024-04-27 19:30 | PTCARENOTE ---
During hand off report IV nurse removed IV from patient right AC. Overnight PCT informed this nurse that patients arm is actively bleeding and patients gown needs to be changed. This nurse and day shift nurse assessed the area and held pressure.
Bleeding continued despite pressure on IV site. This nurse called overnight IV nurse to come attempt to stop bleeding. IV nurse stopped bleeding and dressed area. Patient stable in room. Documented in chart of new dressing site.
[2024-04-27] MEDS: SYMBICORT 80/4.5 MCG INHALER 2 PUFF INH (19:44)
[2024-04-27 21:35] LABS: Glucose - Point of Care 200 mg/dl (70-99)
--- NOTE | 2024-04-27 21:36 | VATNOTE ---
1945-CALLED TO ASSESS CONTINUOIS BLEEDING FROM PREVIOUSLY REMOVED IV SITE IN RA. AREA HAVING DIRECT MANUAL PRESSURE APPLIED AND CONTINUES WITH STEADY BLEEDING. QUICK CLOT DRSG X2 APPLIED IN ADDITION TO 4X4 AND CLAY WRAP TO PROVIDE A MODERATE
PRESSURE DRSG. ICE APPLIED AND RUE ELEVATED. PCN AWARE OF INTERVENTION AND PLAN OF CARE.
--- NOTE | 2024-04-27 21:39 | VATNOTE ---
2145-SPOKE WITH PCN WHO REPORTS NO FURTHER BLEEDING NOTED FROM RUE.
[2024-04-27] MEDS: TYLENOL 650 MG PO (21:42)
[2024-04-27] MEDS: BENADRYL 25 MG PO (21:42)
[2024-04-27] MEDS: LANTUS 0.0500000000000000028 UNITS SC (21:43)
[2024-04-27] MEDS: HEPARIN 25000 UNITS/250 ML IV (23:44)
[2024-04-28] VITALS (7 sets, daily range): BP systolic 114–163; BP diastolic 46–103; PULSE 110; BMI 25.8
[2024-04-28] MEDS: TYLENOL 650 MG PO (03:09)
[2024-04-28 05:27] LABS: Hematocrit 28.6 % (37.0-47.0); Hemoglobin 9.1 g/dL (12.0-16.0); Mean Corp Hgb Conc. 31.8 g/dL (33.0-37.0); Mean Corpuscular Hgb 28.3 pg (27.0-31.0); Mean Corpuscular Volume 89.1 fL (81.0-99.0); Mean Platelet Volume 9.9 fL (7.4-10.4); Platelet Count 204 10^3/uL (130-400); Red Blood Cell Count 3.21 10^6/uL (4.20-5.40); Red Cell Dist. Width 13.5 % (11.5-14.5)
[2024-04-28 05:37] LABS: APTT 73.2 Sec (23.4-35.0)
[2024-04-28] MEDS: SYNTHROID 75 MCG PO (05:45)
[2024-04-28 05:54] LABS: Blood Urea Nitrogen 116 mg/dl (7-17); Calcium 8.1 mg/dl (8.4-10.2); Carbon Dioxide 25 mmol/L (22-30); Chloride 95 mmol/L (98-107); Estimated Creatinine Clearance 11 ml/min; Glucose 98 mg/dl (70-99); Potassium 3.2 mmol/L (3.5-5.1); Sodium 131 mmol/L (135-145); eGFR 12.45
[2024-04-28 07:29] LABS: Glucose - Point of Care 117 mg/dl (70-99)
[2024-04-28] MEDS: SYMBICORT 80/4.5 MCG INHALER 2 PUFF INH ×2 (07:45→20:16)
[2024-04-28] MEDS: SPIRIVA RESPIMAT 2.5 MCG 2 PUFF INH (07:45)
[2024-04-28] MEDS: NOVOLOG FLEXPEN-LOW RESISTANCE SC (08:07)
[2024-04-28] MEDS: LASIX 80 MG PO ×2 (08:32→16:25)
[2024-04-28] MEDS: MUCINEX 600 MG PO ×2 (08:32→20:31)
[2024-04-28] MEDS: SODIUM BICARBONATE 650 MG PO ×2 (08:32→20:32)
[2024-04-28] MEDS: OSCAL CAL 500 1000 MG PO (08:32)
[2024-04-28] MEDS: IMDUR (EXTENDED RELEASE) 30 MG PO ×2 (08:32→20:32)
[2024-04-28] MEDS: CLARITIN 10 MG PO (08:32)
[2024-04-28] MEDS: NOVOLOG FLEXPEN 2 UNITS SC ×4 (08:32→22:16)
[2024-04-28] MEDS: KCL 40 MEQ PO (08:32)
[2024-04-28] MEDS: BACITRACIN OINTMENT 1 APPLIC TOPICAL ×3 (08:33→22:16)
[2024-04-28] MEDS: ASPIR LOW (ENTERIC COATED) 81 MG PO (08:33)
[2024-04-28] MEDS: CARDIZEM 60 MG PO ×4 (08:33→22:17)
[2024-04-28] MEDS: APRESOLINE 100 MG PO (08:33)
[2024-04-28] MEDS: ABILIFY 2 MG PO ×2 (08:33→20:31)
[2024-04-28] MEDS: ZOLOFT 50 MG PO (08:33)
[2024-04-28] MEDS: SENOKOT-S 1 TABLET PO ×2 (08:33→20:32)
[2024-04-28] MEDS: DELTASONE 5 MG PO (08:33)
--- NOTE | 2024-04-28 09:30 | W.PN.CD ---
Today's Communication / Plan
-
-
Plan for rate control
=> will need more meds. In past was on combination BB and Ca++ eddie
Add Eliquis if affordable
Stop ASA when oral anticoagulant is added
If needed we can add Amio
Watch for bradycardia
-
Impression / Plan
-
New AFib, pattern not certain yet, duration uncertain
- Symptoms resolved with rate control
- Rate still a bit fast
- [id number] at least 4 (HF, HTN, age1, female gender)
- On heparin now
- Family was ok with anticoagulation per hospitalist
Elevated troponin
- non ischemic myocardial injury with fast afib and kidney failure
Last admission PAT was seen (late March 2024)
Sinus ryan seen on Ca++ eddie + BB
- Need to watch of need for pacemaker
chronic HFpEF:
-Echo 03/29/2024: EF 55%, apical hypo suggesting Takotsubo
-Recent pBNP >27,000, CXR right pleural effusion
-Nephrology managed diuretic last admit (March 2024)
COPD
CKD5, fistula was recently placed for HD planning, nephrology was involved just days ago, dialysis anticipated in future
Paroxysmal atrial tachycardia, now in AFib
Hypertension, defer to nephrology
Dementia, significant:
-supportive care.
-management per primary.
Subjective: Denies CP, palp, dyspnea with rate control
Physical Exam
Vital Signs/Labs
Vital Signs
Temp Pulse Resp BP Pulse Ox
98.3 F 110 16 149/62 97
04/28/24 07:00 04/28/24 07:46 04/28/24 07:46 04/28/24 08:33 04/28/24 07:46
04/27/24 04/28/24 04/29/24
06:59 06:59 06:59
Actual Weight 71.4 kg 63.82 kg
04/28/24 04:32
04/28/24 04:32
APTT 73.2 Sec (23.4-35.0) H 04/28/24 04:32
04/26/24
15:34
Tap-U-Qaqksbzlolg Pept [id number]
LAB Results
04/26/24 04/27/24 04/27/24
15:34 03:44 11:49
Troponin I 0.130 H* 0.736 H* 0.576 H*
Physical Exam
Constitutional: No acute distress
EENT: Anicteric
Cardiovascular: Rhythm/rate is irregular
Respiratory: Respiratory effort normal and Lungs clear to auscul.
GI: Soft and Distention absent
Neuro/Psych: Alert
Data Reviewed
-
Date of Service: April 28, 2024
--- NOTE | 2024-04-28 11:05 | W.PN.HOSP.TC ---
Today's Communication/Plan
-
rate control
IV abx
CM for eliquis cost
hep gtt for now
trend cr
[facility] prognosis poor
Assessment / Plan
Assessment / Plan
#cough/fever likely hospital acquired pneumonia
-sepsis as evident by wbc 20.0,tachycardia
-covid negative,flu negative
-chest x ray with Small loculated right pleural effusion. Slightly progressed.Cardiomegaly. Stable
-blood culture sent from ER neg so far
-Zosyn and vanco in ER
-levaquin continued
-Tylenol prn for fever
-Strep and Legionella negative. Urine culture negative
#new onset atrial fib with RVR
#hxt of PAT
-EKG with atrial fib with RVR
-initiated on heparin drip. Case management for Eliquis cost 5mg BID.
-Discussed with patient daughter Lisbeth/son-in-law and explained the risk versus benefits starting patient on anticoagulation of Eliquis. Patient with no recent mechanical fall. No recent GI bleeding. No prior history of bleeding issues. Family
agreed to be started on Eliquis.
-diltiazem continued transition to p.o. 60mg QID and metoprolol added 25mg Q6H.
-cardiology consulted
#chronic hyponatremia/CKD stage V
-na 131, cr 3.6
-monitor BMP closely. BUN slowly uptrending.
-sodium bicarb continued
-previous admit family/pt not HD candidate.
#chronic trop elevation
-trop 0.130
-trend trop
# chronic heart failure with preserved ejection fraction
Echo-03/29/2024-normal LV function. EF 55%. Hypokinesis of apical segments c/w Takotsubo cardiomyopathy. Stage II diastolic dysfunction. Aortic stenosis without stenosis. Mild TR. Pulmonary pressure 42 mmHg[place] [address]
Lasix 80 mgtwice daily
# COPD-with mild exacerbation
#Chronic respiratory failure on home oxygen
-Continue Trelegy Ellipta, Incruse Ellipta
-nebs prn continued
-on prednisone
# Diabetes minus type II
-will do Lantus 5 HS and 3 AC
-sliding scale
-CHO diet
# Hypertension
-Continue hydralazine, Imdur
# Hypothyroidism-continue Synthroid
# Hyperlipidemia
-continue atorvastatin
# Coronary artery disease
-continue aspirin and statin
# Significant dementia watch for behavioral disturbances.
# Anxiety/bipolar disease-continue sertraline, Abilify
# History of CVA-aspirin statin
# GERD- Pepcid
# Insomnia on Benadryl at night
# Chronic steroid use-for COPD
# Ex-smoker
#Hypokalemia-replete/monitor
# DVT prophylaxis-Subcutaneous heparin
Discussed with patient daughter and son-in-law over the phone on 04/27. Per the family patient has advanced directive and she is DNR/DNI.
Anticipated Discharge: > 48 hours
Subjective/Interval History
-
Date of Service: April 28, 2024
remains in afib
on room air
Objective Data
-
Labs:
Laboratory Results
04/28/24 04/28/24
04:32 11:30
WBC 11.0 H
Hgb 9.1 L
Hct 28.6 L
Plt Count 204
APTT 73.2 H Pending
Sodium 131 L
Potassium 3.2 L
Chloride 95 L
Carbon Dioxide 25
BUN 116 H*
Creatinine 3.7 H
Glucose 98
Calcium 8.1 L
Vital Signs:
Vital Signs
Temp Pulse Resp BP Pulse Ox
98.3 F 110 16 149/62 97
04/28/24 07:00 04/28/24 07:46 04/28/24 07:46 04/28/24 08:33 04/28/24 09:59
I&O
04/27/24 04/28/24 04/29/24
06:59 06:59 06:59
Intake Total 524 / 524
Balance 524 / 524
Physical Exam
-
General: No Apparent Distress and Comfortable
HEENT: Moist Mucous Membranes
Respiratory: Non Labored Respirations and Decreased Breath Sounds; Negative Wheezes
Cardiac: S1/S2, Irregular Rhythm and Tachycardic
GI: Soft, Nontender, Nondistended and Normal Bowel Sounds
Musculoskeletal: No Clubbing and No Edema
Skin: Warm and Dry
Neuro: Awake
Psych: Calm and Apparent Dementia
Data Reviewed
-
Total Time Spent with Patient (in minutes): 55
[2024-04-28 11:48] LABS: Glucose - Point of Care 197 mg/dl (70-99)
[2024-04-28] MEDS: NOVOLOG FLEXPEN-LOW RESISTANCE 1 UNITS SC ×2 (12:03→17:15)
[2024-04-28] MEDS: LOPRESSOR 25 MG PO ×3 (12:09→23:37)
[2024-04-28 12:30] LABS: APTT 61.9 Sec (23.4-35.0)
--- NOTE | 2024-04-28 13:13 | CM ---
Initial Assessment completed via medical records and daughter, Lisbeth. Patient resides at [facility]. She ambulates independently with no DME and has no in-home services. Patient is confused and does need assistance with ADL's. She
uses O2 but is non-compliant. [facility]acy is [facility] and PCP is Dr. Asim Rutherford. [facility] phone # [phone]. Discharge Plan of CAre: Return to [facility].
--- NOTE | 2024-04-28 13:38 | PTCARENOTE ---
heparin gtt increased from 14 to 16 due to a PTT resulting at 61.9 for her coagulation check. new ptt placed for 1914
--- NOTE | 2024-04-28 14:43 | PN.CDI ---
CDI
- -
CDI:
Physician Documentation Request
Admit Date: 04/26/24 22:47
Dear Doctor Hamlet,
Please review the following and provide your response in the progress notes.
Clinical Indicators:
Cardiology consult, 04/27
#9. Elevated troponin consistent with
#...nonischemic myocardial injury from rapid AFib.
Cardiology PN, 04/28
#Elevated troponin
#- non ischemic myocardial injury with fast afib and kidney failure
PN, 04/28
#chronic trop elevation
Laboratory Tests
04/26/24 04/27/24 04/27/24
15:34 03:44 11:49
Troponin I 0.130 H* 0.736 H* 0.576 H*
Please clarify the etiology of the elevated troponins,....:
Non ischemic myocardial injury
Chronic troponin elevation
Other(please specify)
Use of terms such as suspected, likely, concern for, or probable (associated with a specific diagnosis that is being evaluated, monitored, or treated as if it exists) are acceptable and can be coded in the inpatient setting, when documented at the
time of discharge.
Thank you,
Lisa Vieira RN BSN CCDS
CDI Specialist
please contact via tiger text
Please use your independent medical judgment in providing your response.
[2024-04-28 16:34] LABS: Glucose - Point of Care 151 mg/dl (70-99)
[2024-04-28] MEDS: HEPARIN 25000 UNITS/250 ML IV (17:10)
[2024-04-28] MEDS: LIPITOR 20 MG PO (17:12)
[2024-04-28 19:47] LABS: APTT 74.7 Sec (23.4-35.0)
--- NOTE | 2024-04-28 20:11 | PTCARENOTE ---
Heparin disconnected from patient at 20:00 per order. Patient is stable in the room
[2024-04-28] MEDS: ELIQUIS 5 MG PO (20:31)
[2024-04-28 21:29] LABS: Glucose - Point of Care 198 mg/dl (70-99)
[2024-04-28] MEDS: BENADRYL 25 MG PO (22:16)
[2024-04-28] MEDS: LANTUS 0.0500000000000000028 UNITS SC (22:16)
[2024-04-29] VITALS (7 sets, daily range): BP systolic 94–160; BP diastolic 33–55; PULSE 75; BMI 26.8
[2024-04-29] MEDS: SYNTHROID 75 MCG PO (05:29)
[2024-04-29] MEDS: LOPRESSOR 25 MG PO ×3 (05:29→17:42)
[2024-04-29] MEDS: LEVAQUIN 100 IV (05:29)
[2024-04-29 07:07] LABS: Hematocrit 28.5 % (37.0-47.0); Hemoglobin 9.2 g/dL (12.0-16.0); Mean Corp Hgb Conc. 32.3 g/dL (33.0-37.0); Mean Corpuscular Hgb 28.4 pg (27.0-31.0); Mean Platelet Volume 9.6 fL (7.4-10.4); Platelet Count 217 10^3/uL (130-400); Red Blood Cell Count 3.24 10^6/uL (4.20-5.40); Red Cell Dist. Width 13.4 % (11.5-14.5); White Blood Cell Count 10.6 10^3/uL (4.8-10.8)
[2024-04-29 07:19] LABS: Blood Urea Nitrogen 114 mg/dl (7-17); Calcium 8.2 mg/dl (8.4-10.2); Carbon Dioxide 22 mmol/L (22-30); Chloride 94 mmol/L (98-107); Estimated Creatinine Clearance 12 ml/min; Glucose 105 mg/dl (70-99); Potassium 3.7 mmol/L (3.5-5.1); Sodium 129 mmol/L (135-145); eGFR 12.45
[2024-04-29] MEDS: SYMBICORT 80/4.5 MCG INHALER 2 PUFF INH ×2 (07:59→19:53)
[2024-04-29] MEDS: SPIRIVA RESPIMAT 2.5 MCG 2 PUFF INH (07:59)
[2024-04-29 09:11] LABS: Glucose - Point of Care 155 mg/dl (70-99)
[2024-04-29] MEDS: SENOKOT-S 1 TABLET PO ×2 (09:40→20:24)
[2024-04-29] MEDS: ELIQUIS 5 MG PO ×2 (09:40→20:24)
[2024-04-29] MEDS: LASIX 80 MG PO ×2 (09:40→17:43)
[2024-04-29] MEDS: MUCINEX 600 MG PO ×2 (09:40→20:23)
[2024-04-29] MEDS: OSCAL CAL 500 1000 MG PO (09:41)
[2024-04-29] MEDS: SODIUM BICARBONATE 650 MG PO ×2 (09:41→20:23)
[2024-04-29] MEDS: IMDUR (EXTENDED RELEASE) 30 MG PO ×2 (09:41→20:24)
[2024-04-29] MEDS: NOVOLOG FLEXPEN 2 UNITS SC ×4 (09:42→21:50)
[2024-04-29] MEDS: BACITRACIN OINTMENT 1 APPLIC TOPICAL ×3 (09:42→21:49)
[2024-04-29] MEDS: NOVOLOG FLEXPEN-LOW RESISTANCE 1 UNITS SC (09:42)
[2024-04-29] MEDS: CARDIZEM 60 MG PO ×4 (09:43→21:50)
[2024-04-29] MEDS: TYLENOL 650 MG PO (09:46)
[2024-04-29] MEDS: DELTASONE 5 MG PO (09:46)
[2024-04-29] MEDS: CLARITIN 10 MG PO (09:46)
[2024-04-29] MEDS: ABILIFY 2 MG PO ×2 (09:46→20:24)
[2024-04-29] MEDS: ZOLOFT 50 MG PO (09:46)
--- NOTE | 2024-04-29 10:57 | W.PN.HOSP.TC ---
Addendum entered and electronically signed by Andres Mcnulty MD 04/29/24 13:08:
non ischemic myocardial injury
Original Note:
Today's Communication/Plan
-
cards recs
monitor HR
OOB/PT
start dispo
Assessment / Plan
Assessment / Plan
#cough/fever likely hospital acquired pneumonia
-sepsis as evident by wbc 20.0,tachycardia
-covid negative,flu negative
-chest x ray with Small loculated right pleural effusion. Slightly progressed.Cardiomegaly. Stable
-blood culture sent from ER neg so far
-Zosyn and vanco in ER
-levaquin continued
-Tylenol prn for fever
-Strep and Legionella negative. Urine culture negative
#new onset atrial fib with RVR
#hxt of PAT
-EKG with atrial fib with RVR
-s/p heparin gtt and now Eliquis 5mg BID
-Discussed with patient daughter Lisbeth/son-in-law and explained the risk versus benefits starting patient on anticoagulation of Eliquis. Patient with no recent mechanical fall. No recent GI bleeding. No prior history of bleeding issues. Family
agreed to be started on Eliquis.
-diltiazem continued transition to p.o. 60mg QID and metoprolol added 25mg Q6H.
-cardiology recs
#chronic hyponatremia/CKD stage V
-na 131, cr 3.6
-monitor BMP closely. BUN slowly uptrending.
-sodium bicarb continued
-previous admit family/pt not HD candidate.
#chronic trop elevation
-trop 0.130
-trend trop
# chronic heart failure with preserved ejection fraction
Echo-03/29/2024-normal LV function. EF 55%. Hypokinesis of apical segments c/w Takotsubo cardiomyopathy. Stage II diastolic dysfunction. Aortic stenosis without stenosis. Mild TR. Pulmonary pressure 42 mmHg[place] [address]
Lasix 80 mgtwice daily
# COPD-with mild exacerbation
#Chronic respiratory failure on home oxygen
-Continue Trelegy Ellipta, Incruse Ellipta
-nebs prn continued
-on prednisone
# Diabetes minus type II
-will do Lantus 5 HS and 3 AC
-sliding scale
-CHO diet
# Hypertension Primary
-Continue Imdur, restart clonidine. Hold hydralazine for now as cardizem and BB added.
# Hypothyroidism-continue Synthroid
# Hyperlipidemia
-continue atorvastatin
# Coronary artery disease
-continue statin. asa stopped as on Eliquis.
# Significant dementia watch for behavioral disturbances.
# Anxiety/bipolar disease-continue sertraline, Abilify
# History of CVA-aspirin statin
# GERD- Pepcid
# Insomnia on Benadryl at night
# Chronic steroid use-for COPD
# Ex-smoker
#Hypokalemia-replete/monitor
#
# DVT prophylaxis-Eliquis
Discussed with patient daughter and son-in-law over the phone on 04/27. Per the family patient has advanced directive and she is DNR/DNI.
Anticipated Discharge: Within 24 hours
Subjective/Interval History
-
Date of Service: April 29, 2024
Denies cp or sob
Objective Data
-
Labs:
Laboratory Results
04/29/24
05:55
WBC 10.6
Hgb 9.2 L
Hct 28.5 L
Plt Count 217
Sodium 129 L
Potassium 3.7
Chloride 94 L
Carbon Dioxide 22
BUN 114 H*
Creatinine 3.7 H
Glucose 105 H
Calcium 8.2 L
Vital Signs:
Vital Signs
Temp Pulse Resp BP Pulse Ox
98.7 F 84 16 149/55 97
04/29/24 07:30 04/29/24 09:43 04/29/24 08:02 04/29/24 09:43 04/29/24 08:02
I&O
04/28/24 04/29/24 04/30/24
06:59 06:59 06:59
Intake Total 524 / 524 1382 / 1382
Balance 524 / 524 1382 / 1382
Data Reviewed
-
Total Time Spent with Patient (in minutes): 55
--- NOTE | 2024-04-29 11:29 | W.PN.CD ---
Today's Communication / Plan
-
Plan for rate control
=> will need more meds. In past was on combination BB and Ca++ eddie
- Will stop short acting dilt/metoprolol tonight and move to ER dose forms tomorrow
- I wrote for Cardizem CD 240 daily@0800 AND Toprol XL 100 mg daily@2000
- Agree with new Eliquis (agree with stopping of ASA
- Seems like Amio will not be needed
Watch for bradycardia => if SYMPTOMATIC ryan on the above meds then will need PACEMAKER
Given BUN over 100 and Cr over 3 will need close f/ with nephrology
Discharge tomorrow makes sense to me
-
Impression / Plan
-
New AFib, pattern not certain yet, duration uncertain
- Symptoms resolved with rate control
- Rate VERY GOOD on metoprolol and Dilt at current doses that she is tolerating
- [id number] at least 4 (HF, HTN, age1, female gender)
- On heparin now
- Family was ok with anticoagulation per hospitalist
Elevated troponin => non ischemic myocardial injury with fast afib and kidney failure
Last admission PAT was seen (late March 2024)
Prior asymptomatic sinus ryan seen on Ca++ eddie + BB with last admit
- Need to watch of need for pacemaker
Chronic HFpEF:
-Echo 03/29/2024: EF 55%, apical hypo suggesting Takotsubo
-Recent pBNP >27,000, CXR right pleural effusion
-Nephrology managed diuretic last admit (March 2024)
COPD
CKD5, fistula was recently placed for HD planning, nephrology was involved just days ago, dialysis anticipated in future
Paroxysmal atrial tachycardia, now in AFib
Hypertension, defer to nephrology
Dementia, significant:
-supportive care.
-management per primary.
Subjective: Denies CP, palp, dyspnea with rate control
Physical Exam
Vital Signs/Labs
Vital Signs
Temp Pulse Resp BP Pulse Ox
98.7 F 84 16 149/55 97
04/29/24 07:30 04/29/24 09:43 04/29/24 08:02 04/29/24 09:43 04/29/24 08:02
04/28/24 04/29/24 04/30/24
06:59 06:59 06:59
Actual Weight 63.82 kg 66.361 kg
04/29/24 05:55
04/29/24 05:55
APTT 74.7 Sec (23.4-35.0) H 04/28/24 19:29
04/26/24
15:34
Adq-E-[id number] Pept [id number]
LAB Results
04/26/24 04/27/24 04/27/24
15:34 03:44 11:49
Troponin I 0.130 H* 0.736 H* 0.576 H*
Physical Exam
Constitutional: No acute distress
EENT: Anicteric
Cardiovascular: S1S2 is normal
Respiratory: Respiratory effort normal and Lungs clear to auscul.
GI: Soft and Distention absent
Neuro/Psych: Alert
Data Reviewed
-
Date of Service: April 29, 2024
[2024-04-29 13:25] LABS: Glucose - Point of Care 201 mg/dl (70-99)
[2024-04-29] MEDS: NOVOLOG FLEXPEN-LOW RESISTANCE 2 UNITS SC ×2 (13:26→17:44)
--- NOTE | 2024-04-29 15:33 | CM ---
met with patient at bedside.patient with dementia.her cxr showed small right pleural effusion,on eliquis with jay and metoprolol,heparin gtt stopped.she has a recently placecd fistula-dialysis anticipated in future.patient may be able to dc back to
new per attending.plan:dc to new [place] [facility].
--- NOTE | 2024-04-29 16:53 | PTCARENOTE ---
Patient's daughter (Lulu from [place]) called to get update on mom. Daughter requested PT/OT eval before leaving hospital. Daughter feels like patient should be in a wheelchair because when patient does not have O2 available at facility, she will be at
lower risk for falling. Family wants to explore hospice care.
[2024-04-29 17:04] LABS: Glucose - Point of Care 244 mg/dl (70-99)
[2024-04-29] MEDS: LIPITOR 20 MG PO (17:43)
[2024-04-29] MEDS: CATAPRES 0.100000000000000006 MG PO (20:24)
[2024-04-29] MEDS: TOPROL XL 100 MG PO (20:24)
[2024-04-29 21:40] LABS: Glucose - Point of Care 161 mg/dl (70-99)
[2024-04-29] MEDS: LANTUS 0.0500000000000000028 UNITS SC (21:49)
[2024-04-29] MEDS: BENADRYL 25 MG PO (21:50)
[2024-04-30 03:33] VITALS: BP 129/57
[2024-04-30] MEDS: SYNTHROID 75 MCG PO (05:51)
[2024-04-30 06:00] VITALS: BMI 26.5
[2024-04-30 07:23] LABS: Glucose - Point of Care 118 mg/dl (70-99)
[2024-04-30 07:33] LABS: Hematocrit 26.9 % (37.0-47.0); Hemoglobin 8.8 g/dL (12.0-16.0); Mean Corp Hgb Conc. 32.7 g/dL (33.0-37.0); Mean Corpuscular Hgb 28.8 pg (27.0-31.0); Mean Corpuscular Volume 87.9 fL (81.0-99.0); Mean Platelet Volume 9.6 fL (7.4-10.4); Platelet Count 191 10^3/uL (130-400); Red Blood Cell Count 3.06 10^6/uL (4.20-5.40); Red Cell Dist. Width 13.4 % (11.5-14.5); White Blood Cell Count 8.4 10^3/uL (4.8-10.8)
[2024-04-30] MEDS: NOVOLOG FLEXPEN-LOW RESISTANCE SC ×2 (07:38→17:15)
[2024-04-30 07:48] LABS: Blood Urea Nitrogen 115 mg/dl (7-17); Calcium 8.1 mg/dl (8.4-10.2); Carbon Dioxide 22 mmol/L (22-30); Chloride 93 mmol/L (98-107); Estimated Creatinine Clearance 12 ml/min; Glucose 100 mg/dl (70-99); Potassium 3.8 mmol/L (3.5-5.1); Sodium 128 mmol/L (135-145); eGFR 12.45
[2024-04-30 07:53] VITALS: BP 108/50
[2024-04-30] MEDS: SYMBICORT 80/4.5 MCG INHALER 2 PUFF INH (08:11)
[2024-04-30] MEDS: SPIRIVA RESPIMAT 2.5 MCG 2 PUFF INH (08:11)
[2024-04-30] MEDS: CLARITIN 10 MG PO (09:16)
[2024-04-30] MEDS: MUCINEX 600 MG PO (09:17)
[2024-04-30] MEDS: OSCAL CAL 500 1000 MG PO (09:17)
[2024-04-30] MEDS: ELIQUIS 5 MG PO (09:17)
[2024-04-30] MEDS: SENOKOT-S 1 TABLET PO (09:18)
[2024-04-30] MEDS: DELTASONE 5 MG PO (09:18)
[2024-04-30] MEDS: ZOLOFT 50 MG PO (09:18)
[2024-04-30] MEDS: ABILIFY 2 MG PO (09:18)
[2024-04-30] MEDS: CATAPRES 0.100000000000000006 MG PO (09:18)
[2024-04-30] MEDS: BACITRACIN OINTMENT 1 APPLIC TOPICAL (09:18)
[2024-04-30] MEDS: CARDIZEM CD 240 MG PO (09:18)
[2024-04-30] MEDS: LASIX 80 MG PO (09:19)
[2024-04-30] MEDS: IMDUR (EXTENDED RELEASE) 30 MG PO (09:19)
[2024-04-30] MEDS: NOVOLOG FLEXPEN 2 UNITS SC ×2 (09:19→13:04)
[2024-04-30] MEDS: SODIUM BICARBONATE 650 MG PO (09:20)
[2024-04-30 09:36] VITALS: BP 126/59
--- NOTE | 2024-04-30 10:05 | W.PN.CD ---
Today's Communication / Plan
-
cont diltiazem 240mg daily, Toprol XL 100mg daily
eliquis 5 mg bid
transition to torsemide 40mg bid
she will need close outpatient nephrology follow up, and BMP next week
please call us back with additional questions
Impression / Plan
-
New AFib, pattern not certain yet, duration uncertain
- Symptoms resolved with rate control, which will be the plan
-cont diltiazem 240mg daily, Toprol XL 100mg daily
- [id number] at least 4 (HF, HTN, age1, female gender)
-eliquis 5 mg bid
Elevated troponin => non ischemic myocardial injury with fast afib and kidney failure
Last admission PAT was seen (late March 2024)
Prior asymptomatic sinus ryan seen on Ca++ eddie + BB with last admit
- Need to watch of need for pacemaker: no long pauses on tele in setting of new A fib
Chronic HFpEF: high risk with CKD4-->5 and cardiorenal syndrome
-Echo 03/29/2024: EF 55%, apical hypo suggesting Takotsubo
-Recent pBNP >27,000, CXR right pleural effusion
-transition to torsemide 40mg bid
COPD
CKD4-->5, fistula was recently placed for HD planning, nephrology was involved just days ago, dialysis anticipated in future
Paroxysmal atrial tachycardia, now in AFib
Hypertension
Dementia, significant:
-supportive care.
-management per primary.
Subjective:
No cardiac complaints (dementia noted).
Physical Exam
Vital Signs/Labs
Vital Signs
Temp Pulse Resp BP Pulse Ox
98.6 F 79 16 126/59 100
04/30/24 07:53 04/30/24 09:36 04/30/24 08:14 04/30/24 09:36 04/30/24 08:14
04/29/24 04/30/24 05/01/24
06:59 06:59 06:59
Actual Weight 66.361 kg 65.68 kg
04/30/24 06:25
04/30/24 06:25
APTT 74.7 Sec (23.4-35.0) H 04/28/24 19:29
04/26/24
15:34
Waq-K-Sesloxkdjvn Pept [id number]
LAB Results
04/27/24
11:49
Troponin I 0.576 H*
Physical Exam
Constitutional: No acute distress and Comfortable
EENT: Moist mucous membranes
Cardiovascular: Pedal edema is absent, Systolic murmur absent, Rhythm/rate is irregular and JVD present
Respiratory: Respiratory effort normal and Lungs clear to auscul.
GI: Soft and Distention absent
Neuro/Psych: Alert
Data Reviewed
-
Date of Service: April 30, 2024
EKG: Other (Tele: A fib 70s)
Labs: Labs Reviewed by me
--- NOTE | 2024-04-30 10:53 | W.PN.HOSP.TC ---
Today's Communication/Plan
-
dc today
OP bmp
OP nephro f/u
Assessment / Plan
Assessment / Plan
#cough/fever likely hospital acquired pneumonia
-sepsis as evident by wbc 20.0,tachycardia
-covid negative,flu negative
-chest x ray with Small loculated right pleural effusion. Slightly progressed.Cardiomegaly. Stable
-blood culture sent from ER neg so far
-Zosyn and vanco in ER
-levaquin continued short course on discharge renally doses.
-Tylenol prn for fever
-Strep and Legionella negative. Urine culture negative
#new onset atrial fib with RVR
#hxt of PAT
-EKG with atrial fib with RVR
-s/p heparin gtt and now Eliquis 5mg BID
-Discussed with patient daughter Lisbeth/son-in-law and explained the risk versus benefits starting patient on anticoagulation of Eliquis. Patient with no recent mechanical fall. No recent GI bleeding. No prior history of bleeding issues. Family
agreed to be started on Eliquis.
-Transition to Cardizem CD 240 daily and Toprol 100 mg daily.
-cardiology recs
#chronic hyponatremia/CKD stage V
-monitor BMP closely. BUN slowly uptrending.
-sodium bicarb continued
-previous admit family/pt not HD candidate.
#chronic trop elevation
non ischemic myocardial injury in setting of rapid ventricular response
-trop 0.130
-trend trop
# chronic heart failure with preserved ejection fraction
Echo-03/29/2024-normal LV function. EF 55%. Hypokinesis of apical segments c/w Takotsubo cardiomyopathy. Stage II diastolic dysfunction. Aortic stenosis without stenosis. Mild TR. Pulmonary pressure 42 mmHg[place] [address]
Lasix 80 mg twice daily discontinued and now on torsemide 40 mg twice daily. Outpatient repeat BMP.
# COPD-with mild exacerbation
#Chronic respiratory failure on home oxygen
-Continue Trelegy Ellipta, Incruse Ellipta
-nebs prn continued
-on prednisone
# Diabetes minus type II
-will do Lantus 5 HS and 3 AC
-sliding scale
-CHO diet
# Hypertension Primary
-Continue Imdur, restart clonidine. Cont cardizem and Toprol added. DC hydralazine. BP well controlled overall so far.
# Hypothyroidism-continue Synthroid
# Hyperlipidemia
-continue atorvastatin
# Coronary artery disease
-continue statin. asa stopped as on Eliquis.
# Significant dementia watch for behavioral disturbances.
# Anxiety/bipolar disease-continue sertraline, Abilify
# History of CVA-statin. ASA stopped as now on Eliquis per cards
# GERD- Pepcid
# Insomnia on Benadryl at night
# Chronic steroid use-for COPD
# Ex-smoker
#Hypokalemia-replete/monitor
#
# DVT prophylaxis-Eliquis
DNR/DNI
Discussed with patient daughter Lisbeth over the phone for prolonged period of time and described patient prognosis. Patient will require close follow-up outpatient with nephrology to discuss further prognosis. Patient during previous
hospitalization was not deemed to be a appropriate dialysis candidate due to dementia which is progressively worsening. Daughter Lisbeth understood patient poor prognosis and if it further decline of renal function then will consider hospice at [facility]
season.
Anticipated Discharge: Today
Subjective/Interval History
-
Date of Service: April 30, 2024
Room air
Tolerating diet
Denies chest pain or palpitations
Remains in A-fib but rate controlled
Objective Data
-
Labs:
Laboratory Results
04/30/24
06:25
WBC 8.4
Hgb 8.8 L
Hct 26.9 L
Plt Count 191
Sodium 128 L
Potassium 3.8
Chloride 93 L
Carbon Dioxide 22
BUN 115 H*
Creatinine 3.7 H
Glucose 100 H
Calcium 8.1 L
Vital Signs:
Vital Signs
Temp Pulse Resp BP Pulse Ox
98.6 F 79 16 126/59 100
04/30/24 07:53 04/30/24 09:36 04/30/24 08:14 04/30/24 09:36 04/30/24 10:18
I&O
04/29/24 04/30/24 05/01/24
06:59 06:59 06:59
Intake Total 1382 / 1382 880 / 880
Balance 1382 / 1382 880 / 880
Physical Exam
-
General: No Apparent Distress and Comfortable
HEENT: Moist Mucous Membranes
Respiratory: Clear to Auscultation and Non Labored Respirations; Negative Wheezes or Accessory Resp Muscle Use
Cardiac: S1/S2 and Irregular Rhythm
GI: Soft, Nontender, Nondistended and Normal Bowel Sounds
Musculoskeletal: No Clubbing and No Edema
Skin: Warm and Dry
Neuro: Awake
Psych: Calm and Apparent Dementia
--- NOTE | 2024-04-30 11:04 | W.DCSUMMARY ---
Discharge Summary
Discharge Data
Date of Admission: 04/26/24
Date of Discharge: 04/30/24
-
Pending Results: No
Hospital Course
74 female past medical history of atrial tachycardia, chronic hyponatremia, CKD stage V, admission, HFpEF, COPD, diabetes mellitus, hypertension, hypothyroidism, hyperlipidemia, CAD, significant dementia, anxiety, bipolar disorder, is presenting
from custodial with fever and tachycardia. Patient upon admission was found to have pneumonia and was started on Levaquin. Also found to be in sepsis secondary to pneumonia. Cultures remain negative. Also found to be in severe atrial
fibrillation with rapid ventricular response. He was started on IV Cardizem. Cardizem was discontinued and started on p.o. short acting Cardizem and metoprolol. Heart rate finally stabilized and then was transition back to Cardizem 240 mg home
dose and Toprol-XL was added and adjusted. Heparin drip was started and then transition to Eliquis. Patient provide PT and OT. Patient heart rate was well-controlled. Cardiology discontinued Lasix and transition to torsemide. Discussed case
with patient daughter throughout hospitalization. Plan monitor for hospice if creatinine continues to worsen in the future as patient was deemed not to be dialysis candidate. Patient be discharged back to previous living situation.
Discharge Plan
-
Patient Disposition: Retirement/SNF
Discharge Diagnosis/Procedures: Pneumonia
New onset of atrial fibrillation with rapid ventricular response
Nonischemic myocardial injury
Condition: Fair
Diet: 2 Gram Sodium and Restrict fluids to 48 oz
Activity: With assistance and As tolerated
Driving Restrictions: No driving
Blood Work: BMP in 1 week via primary doctor.
Specialty Instructions: Weigh Daily- Call MD for wt gain/loss 3 lbs overnight/5 lbs in 1 week
Referrals:
Gege Syed CRNP [Specified Professional Personl] - 05/13/24 10:40 am
NONE,* [Family Provider] - in less than 1 week
Additional Discharge Medication Instructions: Aspirin, Lasix and hydralazine was discontinued
Prescriptions:
New
torsemide 20 mg Tablet
40 mg PO BID@0800,1600 30 Days Qty: 120 0RF
Eliquis 5 mg Tablet
5 mg PO BID Qty: 60 0RF
metoprolol succinate 100 mg Tablet Extended Release 24 Hr
100 mg PO DAILY@1999 Qty: 30 0RF
levofloxacin 500 mg tablet
500 mg PO Q48H Qty: 2 0RF
Continued
acetaminophen [Tylenol] 325 mg Tablet
325 mg PO TIDPRN PRN (Reason: mild pain)
levothyroxine 75 mcg Tablet
75 mcg PO DAILY@0600
Trelegy Ellipta 100-62.5-25 mcg Blister With Device
1 inh INHALATION R DAILY
atorvastatin 20 mg Tablet
20 mg PO QPM
albuterol sulfate 90 mcg/actuation Hfa Aerosol Inhaler
2 puff INHALATION R Q6HPRN PRN (Reason: sob/wheezing)
loratadine 10 mg Tablet
10 mg PO DAILY
aripiprazole 2 mg tablet
2 mg PO BID
sennosides-docusate sodium [Senexon-S] 8.6-50 mg tablet
1 tab PO BID
diphenhydramine HCl 25 mg Tablet
25 mg PO HS
Incruse Ellipta 62.5 mcg/actuation blister with device
1 inh INHALATION R DAILY
sodium bicarbonate 650 mg tablet
650 mg PO BID
ipratropium-albuterol 0.5 mg-3 mg(2.5 mg base)/3 mL Solution For Nebulization
3 ml INHALATION R QIDPRN PRN (Reason: sob)
sertraline 50 mg Tablet
50 mg PO DAILY
diltiazem HCl 240 mg capsule,extended release 24hr
240 mg PO DAILY
prednisone 5 mg tablet
5 mg PO DAILY
Hold Instructions: resume after prednisone taper, 10 mg daily for 3 days, completes.
calcium carbonate 500 mg calcium (1,250 mg) Tablet
1,000 mg PO DAILY
diphenhydramine HCl [Benadryl] 25 mg Capsule
25 mg PO DAILY PRN (Reason: itching)
insulin aspart U-100 100 unit/mL (3 mL) Insulin Pen
2 unit SC ACHS
insulin glargine-yfgn 100 unit/mL Solution
5 unit SC HS
isosorbide mononitrate 30 mg Tablet Extended Release 24 Hr
30 mg PO BID 30 Days Qty: 60 0RF
clonidine HCl 0.1 mg Tablet
0.1 mg PO BID 30 Days Qty: 60 0RF
bacitracin 500 unit/gram Ointment
1 applic TOPICAL TID
hydrocortisone 1 % Cream
1 applic TOPICAL BIDPRN PRN (Reason: RASH RIGHT HAND/FINGERS)
Discontinued
aspirin 81 mg Tablet,Delayed Release (Dr/Ec)
81 mg PO DAILY
loperamide [Imodium A-D] 2 mg Tablet
2 mg PO QIDPRN MDD 8 mg/24 hrs PRN (Reason: diarrhea)
hydralazine 100 mg Tablet
100 mg PO TID
furosemide 80 mg tablet
80 mg PO BID@0800,1600
prednisone 10 mg tablet
5 mg PO DAILY
Discharge Orders:
Discharge Patient (As Directed); Ordered 04/30/24
Ordered By: Andres Mcnulty
Discharge Date and Time
Print Language: MALAY
[2024-04-30 11:06] VITALS: BP 97/42
[2024-04-30 11:12] LABS: Glucose - Point of Care 231 mg/dl (70-99)
--- NOTE | 2024-04-30 11:44 | CM ---
Addendum entered by Vicki Villagran 04/30/24 13:34:
daughter gave permission to sign imm letter.
Original Note:
met with patient who is stable for dc back to .i called and left daughter betsey and left a m asking if family wants to transport patient back to faciity.
phone number to call report is [phone] (ask for nursing)and fax is [phone]. i called [facility] and they are [facility] to accept patient back.
[2024-04-30] MEDS: NOVOLOG FLEXPEN-LOW RESISTANCE 2 UNITS SC (13:04)
[2024-04-30 15:19] VITALS: BP 110/49
--- NOTE | 2024-04-30 15:45 | PTCARENOTE ---
Addendum entered by Tori Lombardi RN 04/30/24 18:35:
pt transferred back to facility via Ambulance around 1830. prior to discharge pt given metoprolol xl due to facility not being able to process new medication orders when patient gets there due to time of return. facility made aware of medication
pass and updated fax was sent by PM loading unit tool setter.
Original Note:
this nurse attempted to call report to [facility] twice at [phone]. this nurse spoke to loading unit tool setter twice and was transferred to reporting nurse. this nurse was then sent to voicemail twice. loading unit tool setter apologized after first attempt. pt is
going back to previous living facility. pt is aaox1 and on a medsitter here. Tele and IV site removed prior to discharge. voicemail left on number for a call back for report. information about stay and discharge plan faxed to facility by our unit
secretary office clerk.
[2024-04-30] MEDS: NOVOLOG FLEXPEN SC (17:15)
[2024-04-30] MEDS: LIPITOR 20 MG PO (17:16)
[2024-04-30] MEDS: DEMADEX 40 MG PO (17:16)
[2024-04-30] MEDS: BACITRACIN OINTMENT TOPICAL (17:20)
--- NOTE | 2024-04-30 17:44 | CM ---
Per Eladio with Acute Care, pt is being transported via [facility] (sister company to [facility]) in between 6:15 and 6:30pm . Per Eladio Pullman Car Repairer already made aware.
[2024-04-30] MEDS: TOPROL XL 100 MG PO (18:29)
== END 2024-04-30 18:30 | DRG 871 ==
LOC: 2 NORTH 22:47
PROVIDERS: Emergency Medicine; Registered Nurse; ADMITTING PHYSICIAN Hospitalist; ATTENDING PHYSICIAN Hospitalist; CONSULT PHYSICIAN Internal Medicine Cardiovascular Disease; EMERGENCY PHYSICIAN Emergency Medicine
DX: A41.89 Other specified sepsis (principal); J18.9 Pneumonia, unspecified organism; I5A Non-ischemic myocardial injury (non-traumatic); I50.32 Chronic diastolic (congestive) heart failure; I13.2 Hypertensive heart and chronic kidney disease with heart failure and with stage 5 chronic kidney disease, or end stage renal disease; N18.5 Chronic kidney disease, stage 5; J44.0 Chronic obstructive pulmonary disease with (acute) lower respiratory infection; F03.918 Unspecified dementia, unspecified severity, with other behavioral disturbance; E87.1 Hypo-osmolality and hyponatremia; I47.19 Other supraventricular tachycardia; J96.11 Chronic respiratory failure with hypoxia; I48.91 Unspecified atrial fibrillation; F31.9 Bipolar disorder, unspecified; E03.9 Hypothyroidism, unspecified; E11.22 Type 2 diabetes mellitus with diabetic chronic kidney disease
CPT/HCPCS: 71046; 80048; 80053; 81003; 81015; 82962; 83605; 83880; 84484; 85025; 85027; 85730; 87040; 87086; 87449; 87502; 87811; 87899; 93005; 94640; 96365; 96366; 97116; 97162; 99285

== ENCOUNTER 2024-05-07 05:15 | Inpatient (IN) | payer MEDICARE, OTHER, SELFPAY ==
[2024-05-07] VITALS (19 sets, daily range): BP systolic 114–178; BP diastolic 41–109; BMI 24.3
[2024-05-07 00:30] LABS: % Basophils 0.3 % (0-2); % Eosinophils 0.9 % (0-6); % Immature Granulocytes 1.7 % (0-0.5); % Lymphocytes 5.2 % (20.5-51.1); % Monocytes 8.5 % (1.7-9.3); % Neutrophils 83.4 % (42.2-75.2); Absolute Eosinophils 0.1 10^3/uL (0-0.7); Absolute Immature Granulocytes 0.1 10^3/uL (0-0.05); Absolute Lymphocytes 0.4 10^3/uL (1.2-3.4); Absolute Monocytes 0.7 10^3/uL (0.1-0.6); Absolute Neutrophils 6.5 10^3/uL (1.4-6.5); Hematocrit 28.1 % (37.0-47.0); Hemoglobin 9.4 g/dL (12.0-16.0); Mean Corp Hgb Conc. 33.5 g/dL (33.0-37.0); Mean Corpuscular Hgb 28.5 pg (27.0-31.0); Mean Corpuscular Volume 85.2 fL (81.0-99.0); Mean Platelet Volume 8.9 fL (7.4-10.4); Nucleated Red Blood Cells % 0 %; Platelet Count 353 10^3/uL (130-400); Red Cell Dist. Width 13.4 % (11.5-14.5); White Blood Cell Count 7.8 10^3/uL (4.8-10.8)
--- NOTE | 2024-05-07 00:46 | ED.GENMED ---
History of Present Illness
<Lucy Rhodes MD - Last Filed: 05/07/24 02:40>
General
Chief Complaint: Heart Rate Problem
Source: patient, records and ambulance crew
Time Seen by Provider: 05/07/24 00:28
Travel History
Have you had any contact with someone who has COVID-19?: No
Do you have any symptoms of coronavirus? Fever > 100 degrees, chills, cough, shortness of breath, sore throat, loss of taste or smell, muscle aches, or headache?: No
History of Present Illness
History of Present Illness:
This patient is a 73-year-old female who was brought here from [facility] by EMS due to complaint of lightheaded and dizziness associated with A-fib with RVR. Patient was given 10 mg of Cardizem on transport after discussion with me. Reportedly,
complaints of lightheadedness/dizziness is relatively common for the patient however she is also reporting low back pain. Patient has not had any recent trauma or falls. History is very limited given patient's underlying dementia.
Past History
<Lucy Rhodes MD - Last Filed: 05/07/24 02:40>
Past History
ED Past Medical History: CHF, COPD, Fibromyalgia, GERD, HTN, Hypercholesterolemia, IDDM, Hypothyroidism, Psychiatric and Other
ED Past Surgical History: Appendectomy, Cholecystectomy, Gynecological, Orthopedic and Other
Social History
Tobacco: Former smoker
Alcohol: Former
Drug: Former user
Personal:
Living: [facility]
Employment: Not employed
Family History
Family History: Other
Phy Exam
<Lucy Rhodes MD - Last Filed: 05/07/24 02:40>
Physical Exam
Physical Exam:
GENERAL: Alert , in no apparent distress
EYE: pupils equal and reactive
NECK: Supple, no significant adenopathy.
ENT: o/p clr, mmm.
CARDIAC: Irregularly irregular, tachycardic
LUNGS: Clear breath sounds bilaterally, no acute respiratory distress,
ABDOMEN: Soft, without focal tenderness, no r/g, no cvat
NEUROLOGICAL: Alert and oriented only to first name given underlying dementia, moves all extremities equally, sensation intact to light touch, speech clear, no facial droop
SKIN: Warm and dry, skin intact.
MUSCULOSKELETAL: No edema, well perfused.
PSYCH: Normal and appropriate interaction.
BACK: ?ttp lumbar area, no skin chages/cvat/swelling
Course
<Lucy Rhodes MD - Last Filed: 05/07/24 02:40>
Orders/Labs/Results
Orders:
Orders
05/07/24 00:03
Electrocardiogram (*1) Urgent
Reason for Study: Atrial Fibrillation
EKG- Treatment ONCE
05/07/24 00:08
Complete Blood Count/With Diff Urgent
05/07/24 00:31
Comprehensive Metabolic Panel Urgent
Troponin I Urgent
05/07/24 00:50
Diltiazem Extended Release [Cardizem Cd] 120 mg PO NOW STA
Diltiazem HCl [Cardizem] 10 mg IV NOW STA
05/07/24 02:38
LS Spine Complete, 4 View [CR Lumbar Spine Comp Min 4 Vw*] Urgent
Comment:
Reason For Exam: pain
05/07/24 03:24
Diltiazem HCl [Cardizem] 20 mg IV NOW STA
05/07/24 03:54
Diltiazem 125 mg/125 ml Nss [Cardizem] 125 mg in 125 ml IV NOW
Initial dose in mg/hr, then titrate:: 5
Titrate to keep:: Heart rate 80-100 bpm
Titrate by mg/hr:: 5 mg/hr
Frequency of titrations (minutes):: 15
Maximum dose in mg/hr:: 15
Abnormal Lab Results
05/07/24 05/07/24
00:08 00:31
RBC 3.30 L 10^6/uL
(4.20-5.40)
Hgb 9.4 L g/dL
(12.0-16.0)
Hct 28.1 L %
(37.0-47.0)
Abs Immat Gran (auto) 0.1 H 10^3/uL
(0-0.05)
Absolute Lymphs (auto) 0.4 L 10^3/uL
(1.2-3.4)
Absolute Monos (auto) 0.7 H 10^3/uL
(0.1-0.6)
Immature Gran % 1.7 H %
(0-0.5)
Neutrophils % 83.4 H %
(42.2-75.2)
Lymphocytes % 5.2 L %
(20.5-51.1)
Sodium 128 L mmol/L
(135-145)
Chloride 92 L mmol/L
(98-107)
BUN 101 H* mg/dl
(7-17)
Creatinine 3.4 H mg/dL
(0.6-1.0)
Glucose 109 H mg/dl
(70-99)
Calcium 7.0 L mg/dl
(8.4-10.2)
Total Protein 5.3 L g/dl
(6.3-8.2)
Albumin 3.1 L g/dl
(3.5-5.0)
05/07/24 00:08
05/07/24 00:31
Vital Signs
Initial and Last Documented VS:
Initial Vital Signs
BP
127/78
05/07/24 00:09
Last Documented Vital Signs
Temp Pulse Resp BP Pulse Ox
98.7 F 145 22 164/105 100
05/07/24 00:12 05/07/24 03:31 05/07/24 03:15 05/07/24 03:31 05/07/24 03:15
<Bandar Lopez, DO - Last Filed: 05/07/24 04:01>
Orders/Labs/Results
Orders:
Orders
05/07/24 00:03
Electrocardiogram (*1) Urgent
Reason for Study: Atrial Fibrillation
EKG- Treatment ONCE
05/07/24 00:08
Complete Blood Count/With Diff Urgent
05/07/24 00:31
Comprehensive Metabolic Panel Urgent
Troponin I Urgent
05/07/24 00:50
Diltiazem Extended Release [Cardizem Cd] 120 mg PO NOW STA
Diltiazem HCl [Cardizem] 10 mg IV NOW STA
05/07/24 02:38
LS Spine Complete, 4 View [CR Lumbar Spine Comp Min 4 Vw*] Urgent
Comment:
Reason For Exam: pain
05/07/24 03:24
Diltiazem HCl [Cardizem] 20 mg IV NOW STA
05/07/24 03:54
Diltiazem 125 mg/125 ml Nss [Cardizem] 125 mg in 125 ml IV NOW
Initial dose in mg/hr, then titrate:: 5
Titrate to keep:: Heart rate 80-100 bpm
Titrate by mg/hr:: 5 mg/hr
Frequency of titrations (minutes):: 15
Maximum dose in mg/hr:: 15
Abnormal Lab Results
05/07/24 05/07/24
00:08 00:31
RBC 3.30 L 10^6/uL
(4.20-5.40)
Hgb 9.4 L g/dL
(12.0-16.0)
Hct 28.1 L %
(37.0-47.0)
Abs Immat Gran (auto) 0.1 H 10^3/uL
(0-0.05)
Absolute Lymphs (auto) 0.4 L 10^3/uL
(1.2-3.4)
Absolute Monos (auto) 0.7 H 10^3/uL
(0.1-0.6)
Immature Gran % 1.7 H %
(0-0.5)
Neutrophils % 83.4 H %
(42.2-75.2)
Lymphocytes % 5.2 L %
(20.5-51.1)
Sodium 128 L mmol/L
(135-145)
Chloride 92 L mmol/L
(98-107)
BUN 101 H* mg/dl
(7-17)
Creatinine 3.4 H mg/dL
(0.6-1.0)
Glucose 109 H mg/dl
(70-99)
Calcium 7.0 L mg/dl
(8.4-10.2)
Total Protein 5.3 L g/dl
(6.3-8.2)
Albumin 3.1 L g/dl
(3.5-5.0)
05/07/24 00:08
05/07/24 00:31
Vital Signs
Initial and Last Documented VS:
Initial Vital Signs
BP
127/78
05/07/24 00:09
Last Documented Vital Signs
Temp Pulse Resp BP Pulse Ox
98.7 F 145 22 164/105 100
05/07/24 00:12 05/07/24 03:31 05/07/24 03:15 05/07/24 03:31 05/07/24 03:15
<Bandar Lopez, DO - Last Filed: 05/07/24 04:01>
*Critical Care Note
Total Time (30-74mins, 75-104mins- exclusive of procedures): 33 min
comment:
The high probability of a clinically significant, sudden or life threatening deterioration of the cardiovascular system(s) required my full and direct attention, intervention and personal management. The aggregate critical care time was 33 minutes.
This time is in addition to time spent performing reported procedures but includes the following:
[x] Data Review and interpretation
[x] Patient assessment and monitoring of vital signs
[x] Documentation
[x] Medication orders and management
<Lucy Rhodes MD - Last Filed: 05/07/24 02:40>
Update Note
Update Note:
Patient presents to the Emergency Department with lightheadedness and back pain
Number and Complexity of Problems Addressed at the Encounter
� Chronic conditions affecting care:
� Acute Exacerbation and/or Progression of Chronic Illness:
� Differential Diagnosis includes: But not limited to arrhythmia with RVR, electrolyte disorder, etc. etc.
Amount and/or Complexity of Data to be Reviewed and Analyzed
� I performed an independent evaluation of and my interpretation is:
EKG: Read by me, A-fib with RVR, normal axis, nonspecific T wave inversions laterally
CT:
Xrays:
Laboratory Studies: Lab abnormalities noted particular BUN and creatinine however unchanged from recent admission about a week ago. In fact, plan is to monitor for hospice if creatinine continues to worsen as patient is not
deemed to be a dialysis candidate.
Other:
� Review of other/old records reveals: Patient was in the hospital April 26 to the , discharge summary reviewed, at that time, she developed severe A-fib with rapid ventricular response started on IV Cardizem and ultimately
transition to p.o. Cardizem and metoprolol as well as Eliquis. Eliquis is noted on her medication list here from the [facility].
� Clinical information was obtained by an independent historian:
� Prescriptions/Medications Considered but not given:
� Further testing considered but not performed:
Risk of Complications and/or Morbidity or Mortality of Patient Management
� Social determinants of health affecting care:
� Discussion with other providers (PCP, Hospitalists, Consultants, etc):
� Escalation of care including admission/observation vs risk of discharge considered: 2:39 AM patient resting comfortably, sleeping at this time, heart rate low 100s high 90s. Will continue to monitor closely for a little bit
longer to make sure she remains rate controlled likely discharge. History very difficult however given questionable history of low back pain will check x-ray. Signout
<Bandar Lopez, DO - Last Filed: 05/07/24 04:01>
Update Note
Update Note:
Patient presents to the Emergency Department with lightheadedness and back pain
Number and Complexity of Problems Addressed at the Encounter
� Chronic conditions affecting care:
� Acute Exacerbation and/or Progression of Chronic Illness:
� Differential Diagnosis includes: But not limited to arrhythmia with RVR, electrolyte disorder, etc. etc.
Amount and/or Complexity of Data to be Reviewed and Analyzed
� I performed an independent evaluation of and my interpretation is:
EKG: Read by me, A-fib with RVR, normal axis, nonspecific T wave inversions laterally
CT:
Xrays:
Laboratory Studies: Lab abnormalities noted particular BUN and creatinine however unchanged from recent admission about a week ago. In fact, plan is to monitor for hospice if creatinine continues to worsen as patient is not
deemed to be a dialysis candidate.
Other:
� Review of other/old records reveals: Patient was in the hospital April 26 to the , discharge summary reviewed, at that time, she developed severe A-fib with rapid ventricular response started on IV Cardizem and ultimately
transition to p.o. Cardizem and metoprolol as well as Eliquis. Eliquis is noted on her medication list here from the [facility].
� Clinical information was obtained by an independent historian:
� Prescriptions/Medications Considered but not given:
� Further testing considered but not performed:
Risk of Complications and/or Morbidity or Mortality of Patient Management
� Social determinants of health affecting care:
� Discussion with other providers (PCP, Hospitalists, Consultants, etc):
� Escalation of care including admission/observation vs risk of discharge considered: 2:39 AM patient resting comfortably, sleeping at this time, heart rate low 100s high 90s. Will continue to monitor closely for a little bit
longer to make sure she remains rate controlled likely discharge. History very difficult however given questionable history of low back pain will check x-ray. Signout
4 AM patient was initially signed out pending discharge after she became rate controlled. We were unable to wake up for patient with multiple doses of IV Cardizem she is not a good cardioversion due to the unknown whether or not she is compliant
with Eliquis. Due to persistent A-fib with RVR, will place on Cardizem drip and admit
ED Attending Note
<Lucy Rhodes MD - Last Filed: 05/07/24 02:40>
-
Portions of this chart may have been created with voice recognition software.� Occasional wrong word or��sound alike� substitutions may have occurred due to the inherent limitations of voice recognition software.
Discharge Plan
Departure
Patient Disposition: Admit
Date of Disposition: 05/07/24
Time of Disposition: 04:00
Presentation/result/management discussed w/ accepting MD/DO: Hospitalist
Condition: Good
Discharge Problem:
Atrial fibrillation
Instructions: Atrial Fibrillation (DC), BLOOD PRESSURE
Prescriptions:
No Action
acetaminophen [Tylenol] 325 mg Tablet
325 mg PO TIDPRN PRN (Reason: mild pain)
levothyroxine 75 mcg Tablet
75 mcg PO DAILY@0600
Trelegy Ellipta 100-62.5-25 mcg Blister With Device
1 inh INHALATION R DAILY
atorvastatin 20 mg Tablet
20 mg PO QPM
albuterol sulfate 90 mcg/actuation Hfa Aerosol Inhaler
2 puff INHALATION R Q6HPRN PRN (Reason: sob/wheezing)
loratadine 10 mg Tablet
10 mg PO DAILY
aripiprazole 2 mg tablet
2 mg PO BID
sennosides-docusate sodium [Senexon-S] 8.6-50 mg tablet
1 tab PO BID
diphenhydramine HCl 25 mg Tablet
25 mg PO HS
Incruse Ellipta 62.5 mcg/actuation blister with device
1 inh INHALATION R DAILY
sodium bicarbonate 650 mg tablet
650 mg PO BID
ipratropium-albuterol 0.5 mg-3 mg(2.5 mg base)/3 mL Solution For Nebulization
3 ml INHALATION R QIDPRN PRN (Reason: sob)
sertraline 50 mg Tablet
50 mg PO DAILY
diltiazem HCl 240 mg capsule,extended release 24hr
240 mg PO DAILY
prednisone 5 mg tablet
5 mg PO DAILY
Hold Instructions: resume after prednisone taper, 10 mg daily for 3 days, completes.
calcium carbonate 500 mg calcium (1,250 mg) Tablet
1,000 mg PO DAILY
diphenhydramine HCl [Benadryl] 25 mg Capsule
25 mg PO DAILY PRN (Reason: itching)
insulin aspart U-100 100 unit/mL (3 mL) Insulin Pen
2 unit SC ACHS
insulin glargine-yfgn 100 unit/mL Solution
5 unit SC HS
isosorbide mononitrate 30 mg Tablet Extended Release 24 Hr
30 mg PO BID 30 Days Qty: 60 0RF
clonidine HCl 0.1 mg Tablet
0.1 mg PO BID 30 Days Qty: 60 0RF
bacitracin 500 unit/gram Ointment
1 applic TOPICAL TID
hydrocortisone 1 % Cream
1 applic TOPICAL BIDPRN PRN (Reason: RASH RIGHT HAND/FINGERS)
torsemide 20 mg Tablet
40 mg PO BID@0800,1600 30 Days Qty: 120 0RF
Eliquis 5 mg Tablet
5 mg PO BID Qty: 60 0RF
metoprolol succinate 100 mg Tablet Extended Release 24 Hr
100 mg PO DAILY@1999 Qty: 30 0RF
levofloxacin 500 mg tablet
500 mg PO Q48H Qty: 2 0RF
Referrals:
YUE HAZEL MD [Family Provider] - Next open appointment
Activity Restrictions/Additional Instructions:
PLEASE TAKE YOUR MEDICATIONS DIRECTED.
Interventions
Interventions:
*Risk Screen - Suicide Last Done: 05/07/24 00:12
*General Assessment Last Done: 05/07/24 00:12
*Neglect/Abuse Screening Last Done: 05/07/24 00:12
ED- Fall Risk Assessment Last Done: 05/07/24 00:34
*ED COVID-19 Vaccine History Last Done: 05/07/24 00:24
ED- Cardiac Assessment Last Done: 05/07/24 00:34
ED- Pulmonary Assessment Last Done: 05/07/24 00:34
Discharge Date and Time
Print Language: UKRAINIAN
[2024-05-07 00:58] LABS: ALT (SGPT) 19 U/L (0-35); AST (SGOT) 25 U/L (14-36); Albumin 3.1 g/dl (3.5-5.0); Alkaline Phosphatase 55 U/L (38-126); Blood Urea Nitrogen 101 mg/dl (7-17); Carbon Dioxide 25 mmol/L (22-30); Chloride 92 mmol/L (98-107); Estimated Creatinine Clearance 15 ml/min; Glucose 109 mg/dl (70-99); Potassium 4.1 mmol/L (3.5-5.1); Sodium 128 mmol/L (135-145); Total Bilirubin 0.4 mg/dl (0.2-1.3); Total Protein 5.3 g/dl (6.3-8.2); eGFR 13.78
[2024-05-07 01:06] LABS: Troponin I 0.026 ng/ml
[2024-05-07] MEDS: CARDIZEM CD 120 MG PO (01:40)
[2024-05-07] MEDS: CARDIZEM 10 MG IV (01:51)
[2024-05-07] MEDS: CARDIZEM 20 MG IV (03:31)
[2024-05-07] MEDS: CARDIZEM 125 IV (04:08)
--- NOTE | 2024-05-07 04:42 | HPS.HSE ---
Family Physician
-
Family Physician: YUE HZAEL MD
Chief Complaint
-
Dizziness
History of Present Illness
Patient is 73 years old female history of dementia, hypertension, hyperlipidemia, diabetes mellitus, CKD, atrial fibrillation, COPD, came into the hospital with dizziness and found to be in atrial fibrillation with rapid ventricular response.
Patient unable to provide much information due to her dementia. By the time of my evaluation she denies any chest pain shortness of breath palpitations. She is currently on Cardizem drip and they had to titrated up from 5 to 10 to get heart rate
better controlled. The only complaint has been dizziness scribes of some lightheadedness and also some back pain but again she also denies dizziness to me. No fever or chills reported. She had a recent hospitalization from April 26 until April 30 for
pneumonia and A-fib. In the ER, WBC 7.8, hemoglobin 9.4, sodium 128, creatinine 3.4. Chest x-ray small loculated right pleural effusion. Lumbar x-ray done but pending report. She was referred to hospitalist for further evaluation.
Medical History
Past Medical History
Past Medical History: Reports Other (Paroxysmal A-fib, chronic diastolic CHF, COPD, hypertension, hyperlipidemia, dementia, CKD stage V, insomnia, right pleural effusion.)
Past Surgical History: Reports Other (Hysterectomy, appendectomy, orthopedic procedures)
Social History
Unable to obtain full social history at this time due to: Dementia
Family History
Family History: Not pertinent
Allergies / Home Medications
Allergies reflects when Allergies were last updated in [facility].
Home Medications with original date entered in [facility]
Allergy/Medication List:
Allergies
Allergy/AdvReac Type Severity Reaction Status Date / Time
amoxicillin [From Augmentin] Allergy Rash Verified 04/26/24 15:25
bee venom protein (honey bee) Allergy Unknown Verified 04/26/24 15:25
cephalexin [From Keflex] Allergy Unknown Verified 04/26/24 15:25
clarithromycin Allergy gi problems Verified 04/26/24 15:25
clavulanic acid Allergy Unknown Verified 04/26/24 15:25
[From Augmentin]
ibuprofen Allergy Contraindication Verified 04/26/24 15:25
(use
Tylenol)
per MR
iodine Allergy Unknown Verified 04/26/24 15:25
iodoform Allergy Rash Verified 04/26/24 15:25
lamotrigine Allergy enid Verified 04/26/24 15:25
shanice
syndrome
morphine [Morphine] Allergy Unknown Verified 04/26/24 15:25
nitrofurantoin Allergy headache Verified 04/26/24 15:25
oxcarbazepine Allergy Hives Verified 04/26/24 15:25
potassium iodide Allergy Unknown Verified 04/26/24 15:25
quetiapine [From Seroquel] Allergy Unknown Verified 04/26/24 15:25
shellfish derived Allergy Unknown Verified 04/26/24 15:25
sodium iodide Allergy Rash Verified 04/26/24 15:25
Home Medications
acetaminophen 325 mg tablet (Tylenol) 325 mg PO TIDPRN PRN mild pain 05/28/22
albuterol sulfate 90 mcg/actuation aerosol inhaler 2 puff inhalation R Q6HPRN PRN sob/wheezing 05/28/22
atorvastatin 20 mg tablet 20 mg PO QPM High cholesterol 05/28/22
fluticasone fur. 100 mcg-umeclid 62.5 mcg-vilant 25 mcg inhalat.powder (Trelegy Ellipta) 1 inh inhalation R DAILY Lung/breathing issues 05/28/22
levothyroxine 75 mcg tablet 75 mcg PO DAILY@0600 Thyroid 05/28/22
aripiprazole 2 mg tablet 2 mg PO BID Mental Health/Anxiety 05/01/23
loratadine 10 mg tablet 10 mg PO DAILY Allergies 05/01/23
sennosides 8.6 mg-docusate sodium 50 mg tablet (Senexon-S) 1 tab PO BID Constipation 05/10/23
diphenhydramine HCl 25 mg tablet 25 mg PO HS Sleep 06/02/23
sodium bicarbonate 650 mg tablet 650 mg PO BID Supplement 06/02/23
umeclidinium 62.5 mcg/actuation blister powder for inhalation (Incruse Ellipta) 1 inh inhalation R DAILY Lung/Breathing Issues 06/02/23
diltiazem HCl 240 mg capsule,extended release 24 hr 240 mg PO DAILY Heart Disease/Condition 11/03/23
ipratropium 0.5 mg-albuterol 3 mg (2.5 mg base)/3 mL nebulization soln 3 ml inhalation R QIDPRN PRN sob 11/03/23
prednisone 5 mg tablet 5 mg PO DAILY inflammation 11/03/23
sertraline 50 mg tablet 50 mg PO DAILY Mental Health/Anxiety 11/03/23
calcium carbonate 1,000 mg PO DAILY Supplement 03/27/24
diphenhydramine HCl 25 mg capsule (Benadryl) 25 mg PO DAILY PRN itching 03/27/24
insulin aspart U-100 100 unit/mL (3 mL) subcutaneous pen 2 unit SC [facility] diabetes 04/12/24
insulin glargine-yfgn 100 unit/mL subcutaneous solution 5 unit SC HS diabetes 04/12/24
clonidine HCl 0.1 mg tablet 0.1 mg PO BID 30 days #60 tabs 04/20/24
isosorbide mononitrate 30 mg tablet,extended release 24 hr 30 mg PO BID 30 days #60 tabs 04/20/24
bacitracin 500 unit/gram topical ointment 1 applic topical TID R. MIDDLE FINGER 04/26/24
hydrocortisone 1 % topical cream 1 applic topical BIDPRN PRN RASH RIGHT HAND/FINGERS 04/26/24
apixaban 5 mg tablet (Eliquis) 5 mg PO BID #60 tabs 04/30/24
levofloxacin 500 mg tablet 500 mg PO Q48H #2 tabs 04/30/24
metoprolol succinate 100 mg tablet,extended release 24 hr 100 mg PO DAILY@1999 #30 tabs 04/30/24
torsemide 20 mg tablet 40 mg (2 x 20 mg) PO BID@0800,1600 30 days #120 tabs 04/30/24
Review of Systems
-
Unable to obtain full review of systems at this time due to: Dementia
Physical Exam
Vital Signs
Vital Signs
Temp Pulse Resp BP Pulse Ox
98.7 F 100 28 140/68 96
05/07/24 00:12 05/07/24 04:30 05/07/24 04:30 05/07/24 04:30 05/07/24 04:15
Physical exam:
General: Acutely ill
HEENT: Normocephalic, Atraumatic and Moist Mucous Membranes
Respiratory: Decreased breath sounds bilaterally more pronounced on the right; Negative Wheezes, Rales or Rhonchi
Cardiac: Irregular rate and rhythm, tachycardic, and S1/S2
GI: Soft, Nontender and Nondistended
Musculoskeletal: No Clubbing, No Cyanosis and No Edema
Neuro: Awake, Alert and Disoriented, no gross neurodeficits
Psych: Calm
Physical Exam
General: Other
Laboratory Results
-
05/07/24 00:08
05/07/24 00:31
Laboratory Results
Total Bilirubin 0.4 mg/dl (0.2-1.3) 05/07/24 00:31
AST 25 U/L (14-36) 05/07/24 00:31
ALT 19 U/L (0-35) 05/07/24 00:31
Alkaline Phosphatase 55 U/L (38-126) 05/07/24 00:31
Troponin I 0.026 ng/ml 05/07/24 00:31
Data Reviewed
-
Diagnostic Radiology: Image Personally Visualized and interpreted
Lab Data: Labs Reviewed by me
Impression/Plan
-
IMPRESSION:
Patient 73 years old female with multiple comorbidities came into the hospital with dizziness and found to have atrial fibrillation rapid ventricular response difficult to control. Given patient's presentation and multiple comorbidities she is at
risk of increased morbidity and mortality and she will need to be treated in the hospital manage accordingly.
PLAN:
Atrial fibrillation rapid ventricular response:
Continue Cardizem drip and titrate to better heart rate control but would avoid too aggressive control given her age and multiple AV bao agents.
Continue rate control agents, oral Cardizem CD 240 daily and Toprol 100 mg daily.
Continue anticoagulation, Eliquis
Continue cardiac monitoring
Cardiology consulted
Given her overall outlook and multiple comorbidities might not be unreasonable to discuss with family goals of care discussion about her candidacy for hospice.
Chronic hyponatremia/CKD stage V
-monitor BMP closely. BUN slowly uptrending over time but compared to prior actually BUN and creatinine slightly improved.
-sodium bicarb continued
-previous admit family/pt not HD candidate.
Right pleural effusion
Mild worsening but known pleural effusion and not far off from baseline
Continue diuresis
Chronic heart failure with preserved ejection fraction
Echo-03/29/2024-normal LV function. EF 55%. Hypokinesis of apical segments c/w Takotsubo cardiomyopathy. Stage II diastolic dysfunction. Aortic stenosis without stenosis. Mild TR. Pulmonary pressure 42 mmHg.
Lasix 80 mg twice daily discontinued and now on torsemide 40 mg twice daily. Outpatient repeat BMP.
COPD
Chronic respiratory failure on home oxygen
-Continue Trelegy Ellipta, Incruse Ellipta
-nebs prn continued
-on prednisone
Diabetes minus type II
-will cont Lantus 5 HS and insulin sliding scale
-CHO diet
Hypertension Primary, uncontrolled
-one dose of clonidine since she probably has some rebound hypertension if she has not taken it.
-Continue Imdur, clonidine, cardizem and Toprol.
Hypothyroidism
continue Synthroid
Hyperlipidemia
-continue atorvastatin
Coronary artery disease
-continue statin. not on asa since she is on Eliquis.
Significant dementia watch for behavioral disturbances.
Anxiety/bipolar disease-continue sertraline, Abilify
History of CVA-statin. Continue on Eliquis
GERD- Pepcid
Insomnia on Benadryl at night
Chronic steroid use-for COPD
DVT prophylaxis
Eliquis
CODE STATUS
DNR as per prior records
Time spent 75 minutes
[2024-05-07] MEDS: CATAPRES 0.100000000000000006 MG PO ×2 (05:08→20:11)
[2024-05-07 08:38] LABS: Hematocrit 25.8 % (37.0-47.0); Hemoglobin 8.5 g/dL (12.0-16.0); Mean Corp Hgb Conc. 32.9 g/dL (33.0-37.0); Mean Corpuscular Hgb 28.3 pg (27.0-31.0); Mean Platelet Volume 8.8 fL (7.4-10.4); Platelet Count 294 10^3/uL (130-400); Red Cell Dist. Width 13.3 % (11.5-14.5); White Blood Cell Count 7.1 10^3/uL (4.8-10.8)
[2024-05-07] MEDS: SYMBICORT 80/4.5 MCG INHALER INH (08:53)
[2024-05-07] MEDS: SPIRIVA RESPIMAT 2.5 MCG INH (08:53)
--- NOTE | 2024-05-07 08:54 | PTCARENOTE ---
received pt at change of shift from ED. Pt is confused, pulling at IV site, trying to take off tele monitor and trying to get OOB w/o assistance. Bed alarm in place, medsitter notified for need. Medsitter set up and in place. pt educated on plan of
care but needs reinforcement due to hx of dementia. pt continues to be afib on the monitor, HR in the70s, vss. pt offers no complaints at this time. Sabina pierson running per protocol, see documentation. call fowler within reach.
[2024-05-07] MEDS: SODIUM BICARBONATE 650 MG PO ×2 (09:04→20:11)
[2024-05-07] MEDS: ZOLOFT 50 MG PO (09:04)
[2024-05-07] MEDS: ELIQUIS 5 MG PO ×2 (09:04→20:12)
[2024-05-07] MEDS: ABILIFY 2 MG PO ×2 (09:05→20:11)
[2024-05-07] MEDS: DELTASONE 5 MG PO (09:05)
[2024-05-07] MEDS: SYNTHROID 75 MCG PO (09:05)
--- NOTE | 2024-05-07 09:13 | CON.CAR ---
Addendum entered and electronically signed by Alirio Mercado MD 05/07/24 11:14:
I saw and examined the patient.
The NEWS ANCHOR's note was reviewed and I agree with the note.
Comment: 73 y/o female with significant dementia, HFpEF, Advanced CKD, atrial tachycardia, AFIB on Eliquis, HLD, and COPD. Recent echo showed EF 55% with apical hypokinesis and takotsubo was suspected. She is here from care facility due to
light-headedness per chart. She is a poor historian due to her dementia.
- HRs are more controlled
- Uremic encephalopathy contributing?
Original Note:
Medical History
-
Chief Complaint: Light-headedness per chart (patient does not recall)
History of Present Illness:
73 y/o female with significant dementia, HFpEF, Advanced CKD, atrial tachycardia, AFIB on Eliquis, HLD, and COPD. Recent echo showed EF 55% with apical hypokinesis and takotsubo was suspected. She is here from care facility due to light-headedness
per chart. She is a poor historian due to her dementia. She has had multiple recent hospitalizations and most recently was discharged one week ago after an admission with PNA and AFIB with RVR. Metoprolol added for rate-control of AFIB, Eliquis for
OAC, and Lasix was adjusted to torsemide. She was seen to have AFIB with RVR and is on diltiazem drip at the time of my assessment with HR around 100 BPM. She is wheezing to assessment, but is in no respiratory distress.
Past Medical History
Past Medical History: Arrhythmias, CHF, COPD, HTN, Hypercholesterolemia and Other (dementia)
Social History
Living: Assisted Living ([facility])
Family History
Family History: Reviewed & Not Pertinent
Allergies / Home Medications
Allergy/AdvReac Type Severity Reaction Status Date / Time
amoxicillin [From Augmentin] Allergy Rash Verified 04/26/24 15:25
bee venom protein (honey bee) Allergy Unknown Verified 04/26/24 15:25
cephalexin [From Keflex] Allergy Unknown Verified 04/26/24 15:25
clarithromycin Allergy gi problems Verified 04/26/24 15:25
clavulanic acid Allergy Unknown Verified 04/26/24 15:25
[From Augmentin]
ibuprofen Allergy Contraindication Verified 04/26/24 15:25
(use
Tylenol)
per MR
iodine Allergy Unknown Verified 04/26/24 15:25
iodoform Allergy Rash Verified 04/26/24 15:25
lamotrigine Allergy enid Verified 04/26/24 15:25
shanice
syndrome
morphine [Morphine] Allergy Unknown Verified 04/26/24 15:25
nitrofurantoin Allergy headache Verified 04/26/24 15:25
oxcarbazepine Allergy Hives Verified 04/26/24 15:25
potassium iodide Allergy Unknown Verified 04/26/24 15:25
quetiapine [From Seroquel] Allergy Unknown Verified 04/26/24 15:25
shellfish derived Allergy Unknown Verified 04/26/24 15:25
sodium iodide Allergy Rash Verified 04/26/24 15:25
�Medication �Instructions �Recorded �Confirmed �Type
acetaminophen 325 mg tablet 325 mg PO TIDPRN PRN mild pain 05/28/22 04/26/24 History
(Tylenol)
albuterol sulfate 90 mcg/actuation 2 puff inhalation R Q6HPRN PRN 05/28/22 04/26/24 History
aerosol inhaler sob/wheezing
atorvastatin 20 mg tablet 20 mg PO QPM High cholesterol 05/28/22 04/26/24 History
fluticasone fur. 100 mcg-umeclid 1 inh inhalation R DAILY 05/28/22 04/26/24 History
62.5 mcg-vilant 25 mcg Lung/breathing issues
inhalat.powder (Trelegy Ellipta)
levothyroxine 75 mcg tablet 75 mcg PO DAILY@0600 Thyroid 05/28/22 04/26/24 History
aripiprazole 2 mg tablet 2 mg PO BID Mental Health/Anxiety 06/08/23 06/03/24 History
loratadine 10 mg tablet 10 mg PO DAILY Allergies 05/01/23 04/26/24 History
sennosides 8.6 mg-docusate sodium 1 tab PO BID Constipation 05/10/23 04/26/24 History
50 mg tablet (Senexon-S)
diphenhydramine HCl 25 mg tablet 25 mg PO HS Sleep 06/02/23 04/26/24 History
sodium bicarbonate 650 mg tablet 650 mg PO BID Supplement 06/02/23 04/26/24 History
umeclidinium 62.5 mcg/actuation 1 inh inhalation R DAILY 06/02/23 04/26/24 History
blister powder for inhalation Lung/Breathing Issues
(Incruse Ellipta)
diltiazem HCl 240 mg 240 mg PO DAILY Heart 11/03/23 04/26/24 History
capsule,extended release 24 hr Disease/Condition
ipratropium 0.5 mg-albuterol 3 mg 3 ml inhalation R QIDPRN PRN sob 11/03/23 04/26/24 History
(2.5 mg base)/3 mL nebulization
soln
prednisone 5 mg tablet 5 mg PO DAILY inflammation 11/03/23 04/26/24 History
sertraline 50 mg tablet 50 mg PO DAILY Mental 11/03/23 04/26/24 History
Health/Anxiety
calcium carbonate 1,000 mg PO DAILY Supplement 03/27/24 04/26/24 History
diphenhydramine HCl 25 mg capsule 25 mg PO DAILY PRN itching 03/27/24 04/26/24 History
(Benadryl)
insulin aspart U-100 100 unit/mL 2 unit SC ACHS diabetes 04/12/24 04/26/24 History
(3 mL) subcutaneous pen
insulin glargine-yfgn 100 unit/mL 5 unit SC HS diabetes 04/12/24 04/26/24 History
subcutaneous solution
clonidine HCl 0.1 mg tablet 0.1 mg PO BID 30 days #60 tabs 04/20/24 04/26/24 Rx
isosorbide mononitrate 30 mg 30 mg PO BID 30 days #60 tabs 24 04/26/24 Rx
tablet,extended release 24 hr
bacitracin 500 unit/gram topical 1 applic topical TID R. MIDDLE 04/26/24 04/26/24 History
ointment FINGER
hydrocortisone 1 % topical cream 1 applic topical BIDPRN PRN RASH 04/26/24 04/26/24 History
RIGHT HAND/FINGERS
apixaban 5 mg tablet (Eliquis) 5 mg PO BID #60 tabs 04/30/24 Rx
levofloxacin 500 mg tablet 500 mg PO Q48H #2 tabs 04/30/24 Rx
metoprolol succinate 100 mg 100 mg PO DAILY@2000 #30 tabs 04/30/24 Rx
tablet,extended release 24 hr
torsemide 20 mg tablet 40 mg (2 x 20 mg) PO BID@0800,1600 04/30/24 Rx
30 days #120 tabs
Review of Systems
-
Unable to obtain full review of systems at this time due to: Dementia
Physical Exam
Vital Signs
Temp Pulse Resp BP Pulse Ox
98.7 F 71 20 125/51 95
05/07/24 00:12 05/07/24 06:15 05/07/24 06:15 05/07/24 06:00 05/07/24 06:15
Lab Results
05/07/24 08:26
Troponin I 0.026 ng/ml 05/07/24 00:31
Physical Exam
General: Well Developed
HEENT: Normocephalic and Anicteric
Respiratory: Wheezes and Other (on O2 by NC)
Cardiac: Irregular Rhythm
Skin: Warm and Dry
Neuro: Awake and Other (confused)
Psych: Calm
Impression / Plan
-
AFIB with RVR:
-persistent, plan is rate control
-heart rate-controlled on diltiazem drip - continue for now, requires intensive monitoring. Of note, prior asymptomatic ryan seen when in sinus and on CCB and BB. Follow telemetry.
-OP medicines include diltiazem 240 mg daily and metoprolol 100 mg daily- will adjust with plan to come off drip
-[id number] at least 4 (HF, HTN, age1, female gender)- continue Eliquis for OAC
COPD:
-wheezing to assessment
-management per primary team
-denies SOB, but poor historian. No respiratory distress.
HFpEF: chronic
-does not appear volume overloaded to assessment
Advanced CKD, hyponatremia:
-per primary team
HTN:
-elevated on arrival, now stabilized
-follow
Data Reviewed
-
EKG: Tracing Personally Visualized and interpreted (AFIB 120 BPM, ST/T wave inversions)
Medical Tests (Nuc Med, Echo etc): Report Reviewed by me (echo 03/29/24: LV ejection fraction is 55%. Hypokinesis of the apical segments: pattern may be consistent with Takotsubo. Stage II DD. Aortic sclerosis without stenosis. Mild tricuspid
regurgitation. Mildly elevated PASP. PAP 42 mmHg.)
Labs: Labs Reviewed by me
[2024-05-07] MEDS: SPIRIVA RESPIMAT 2.5 MCG 2 PUFF INH (09:19)
[2024-05-07] MEDS: SYMBICORT 80/4.5 MCG INHALER 2 PUFF INH ×2 (09:19→19:39)
[2024-05-07] MEDS: CARDIZEM CD 240 MG PO (09:28)
[2024-05-07] MEDS: IMDUR (EXTENDED RELEASE) 30 MG PO ×2 (09:28→20:11)
[2024-05-07 09:52] LABS: Blood Urea Nitrogen 100 mg/dl (7-17); Calcium 7.1 mg/dl (8.4-10.2); Carbon Dioxide 23 mmol/L (22-30); Chloride 94 mmol/L (98-107); Estimated Creatinine Clearance 15 ml/min; Glucose 119 mg/dl (70-99); Potassium 3.6 mmol/L (3.5-5.1); Sodium 129 mmol/L (135-145); eGFR 14.29
[2024-05-07] MEDS: NOVOLOG FLEXPEN-MODERATE RESISTANCE SC (10:04)
[2024-05-07] MEDS: TYLENOL 325 MG PO (10:11)
[2024-05-07] MEDS: DEMADEX PO (11:12)
[2024-05-07] MEDS: CARDIZEM 30 MG PO ×3 (11:32→22:09)
[2024-05-07] MEDS: DILAUDID 0.25 MG IV (12:43)
--- NOTE | 2024-05-07 13:06 | CM ---
Chart reviewed. I spoke to Assisted Living. Patient receives assistance with ADLS, 0 DME, but wears O2 when compliant. [place]. Plan is for the patient to return to . Report
[phone] and
[2024-05-07 14:41] LABS: Glucose - Point of Care 173 mg/dl (70-99)
[2024-05-07] MEDS: NOVOLOG FLEXPEN-MODERATE RESISTANCE 1 UNITS SC (14:42)
--- NOTE | 2024-05-07 15:30 | W.PN.UPDATE ---
Update Note
Progress Note Update
Nonbillable note
A-fib RVR -on Cardizem drip with oral Cardizem/metoprolol. Cardiology evaluation for further recommendation.
Back pain -lumbar spine x-ray showing worsening L5-S1 arthropathy. Started on oral and IV pain medication
Chronic hyponatremia-due to underlying CKD. Close to baseline continue monitor.
CKD stage IV/V -creatinine between 3.5-4 range. Nephrology have discussed with both daughters in past futility and clinical difficulty of maintaining patient on hemodialysis. Family have agreed for not to start patient on HD.
Chronic diastolic HF - no signs of exacerbation. maintain on home dose of torsemide.
[2024-05-07 17:29] LABS: Glucose - Point of Care 306 mg/dl (70-99)
[2024-05-07] MEDS: NOVOLOG FLEXPEN-MODERATE RESISTANCE 7 UNITS SC (17:36)
[2024-05-07] MEDS: LIPITOR 20 MG PO (17:38)
--- NOTE | 2024-05-07 18:07 | PTCARENOTE ---
pt continues to be afib on the monitor, hr in the 70s-80s, vss. pt c/o pain in back, Dilaudid given per order from dr. hu, see MAR. pt found relief. pt has been OOB to chair with assistance. Sabina gtt d/c'd per cards. pt educated on plan of
care but needs continuous reinforcement. bed alarm and medsitter in place due to pts hx of dementia. call fowler within reach.
--- NOTE | 2024-05-07 19:45 | PTCARENOTE ---
report received. aaox1. pt sitting in chair, making frequent attempts to stand. pt able to be redirected, nsr. vss. med sitter intact and functioning properly. will monitor.
--- NOTE | 2024-05-07 19:45 | PTCARENOTE ---
report received. aaox1. pt sitting in chair, making frequent attempts to stand. pt able to be redirected, afib in 80's. vss. med sitter intact and functioning properly. will monitor.
[2024-05-07] MEDS: DEMADEX 40 MG PO (20:10)
[2024-05-07] MEDS: TOPROL XL 100 MG PO (20:11)
[2024-05-07] MEDS: LANTUS 0.0500000000000000028 UNITS SC (22:03)
[2024-05-07] MEDS: BENADRYL 25 MG PO (22:03)
[2024-05-07 22:05] LABS: Glucose - Point of Care 123 mg/dl (70-99)
[2024-05-08 02:15] VITALS: BP 120/60
[2024-05-08 03:14] LABS: Hematocrit 24.2 % (37.0-47.0); Hemoglobin 8.2 g/dL (12.0-16.0); Mean Corp Hgb Conc. 33.9 g/dL (33.0-37.0); Mean Corpuscular Hgb 28.3 pg (27.0-31.0); Mean Corpuscular Volume 83.4 fL (81.0-99.0); Mean Platelet Volume 8.8 fL (7.4-10.4); Platelet Count 339 10^3/uL (130-400); Red Cell Dist. Width 13.4 % (11.5-14.5)
[2024-05-08 03:26] LABS: Blood Urea Nitrogen 95 mg/dl (7-17); Calcium 7.1 mg/dl (8.4-10.2); Carbon Dioxide 27 mmol/L (22-30); Chloride 95 mmol/L (98-107); Estimated Creatinine Clearance 15 ml/min; Glucose 96 mg/dl (70-99); Potassium 3.8 mmol/L (3.5-5.1); Sodium 130 mmol/L (135-145); eGFR 14.29
[2024-05-08] MEDS: ROXICODONE 5 MG PO (04:12)
[2024-05-08] MEDS: SYNTHROID 75 MCG PO (04:12)
[2024-05-08 04:24] VITALS: BMI 23.0
[2024-05-08] MEDS: SYMBICORT 80/4.5 MCG INHALER 2 PUFF INH (08:46)
[2024-05-08] MEDS: SPIRIVA RESPIMAT 2.5 MCG 2 PUFF INH (08:46)
[2024-05-08 09:39] LABS: Glucose - Point of Care 130 mg/dl (70-99)
[2024-05-08] MEDS: SODIUM BICARBONATE 650 MG PO (10:03)
[2024-05-08] MEDS: DEMADEX 40 MG PO (10:03)
[2024-05-08] MEDS: ZOLOFT 50 MG PO (10:03)
[2024-05-08] MEDS: CATAPRES 0.100000000000000006 MG PO (10:03)
[2024-05-08] MEDS: IMDUR (EXTENDED RELEASE) 30 MG PO (10:03)
[2024-05-08] MEDS: CARDIZEM CD 360 MG PO (10:03)
[2024-05-08] MEDS: NOVOLOG FLEXPEN-MODERATE RESISTANCE SC ×2 (10:03→12:34)
[2024-05-08] MEDS: DELTASONE 5 MG PO (10:03)
[2024-05-08] MEDS: ELIQUIS 5 MG PO (10:04)
[2024-05-08] MEDS: ABILIFY 2 MG PO (10:04)
--- NOTE | 2024-05-08 10:24 | W.PN.HOSP.TC ---
Today's Communication/Plan
-
Discharge back to assisted living
Assessment / Plan
Assessment / Plan
1. Atrial fibrillation rapid ventricular response
-Weaned off of Cardizem drip,
-Heart rate controlled on increased dose of oral Cardizem to 60 mg daily with Toprol 100 mg daily-
-maintain on Eliquis 5 mg twice daily
2. CKD stage V
-Previous visits nephro have evaluated and family have agreed upon not starting hemodialysis
-Renal function remained close to baseline, continue torsemide dose
-sodium bicarb continued
3. Right pleural effusion
-Mild worsening but known pleural effusion and not far off from baseline
-Continue diuresis
4. Chronic heart failure with preserved ejection fraction
- Echo-03/29/2024-normal LV function. EF 55%. Hypokinesis of apical segments c/w Takotsubo cardiomyopathy. Stage II diastolic dysfunction. Aortic stenosis without stenosis. Mild TR. Pulmonary pressure 42 mmHg.
-Maintain on torsemide 40 mg twice daily
5. COPD
Chronic respiratory failure on home oxygen
-Continue Trelegy Ellipta, Incruse Ellipta
-nebs prn continued
-on prednisone
6. Diabetes minus type II
-will cont Lantus 5 HS and insulin sliding scale
-CHO diet
Hypertension Primary, uncontrolled
Hypothyroidism
Hyperlipidemia
Coronary artery disease
Significant dementia watch for behavioral disturbances.
Anxiety/bipolar disease-continue sertraline, Abilify
History of CVA-statin.
GERD
Insomnia on Benadryl at night
Chronic steroid use-for COPD
DVT prophylaxis -Eliquis
CODE STATUS -DNR as per prior records
Patient daughter Lisbeth updated and agreeable with discharge planning.
More than 30 minutes spent in discharge including
Final examination of the patient
Summarizing hospital stay
Instructions for continuing care to all relevant caregivers
Preparation of discharge records, prescriptions, and referral forms
Total time spent (in minutes): 38mins
Anticipated Discharge: Today
Subjective/Interval History
-
Date of Service: May 08, 2024
resting comfortably in bed
no chest pain/dyspnea
HR controlled with increased dose of diltiazem
Objective Data
-
Labs:
Laboratory Results
05/08/24
02:22
WBC 6.0
Hgb 8.2 L
Hct 24.2 L
Plt Count 339
Sodium 130 L
Potassium 3.8
Chloride 95 L
Carbon Dioxide 27
BUN 95 H
Creatinine 3.3 H
Glucose 96
Calcium 7.1 L
Vital Signs:
Vital Signs
Temp Pulse Resp BP Pulse Ox
97.9 F 83 16 120/60 97
05/08/24 02:18 05/08/24 08:50 05/08/24 08:50 05/08/24 02:15 05/08/24 02:18
I&O
05/07/24 05/08/24 05/09/24
06:59 06:59 06:59
Intake Total 720 / 720
Balance 720 / 720
Review of Systems
-
Unable to obtain full review of systems at this time due to: Dementia
Respiratory: Reports No Symptoms
Cardiac: Reports No Symptoms
Abdomen/GI: Reports No Symptoms
Physical Exam
-
General: Comfortable
HEENT: Negative Oxygen
Respiratory: Clear to Auscultation; Negative Wheezes
Cardiac: S1/S2 and Irregular Rhythm; Negative Tachycardic
GI: Soft, Nontender and Nondistended
Musculoskeletal: No Clubbing and No Edema
Neuro: Awake, Alert, Oriented and No Motor Deficits
Psych: Calm and Apparent Dementia
[2024-05-08 10:35] VITALS: BP 122/62
[2024-05-08 10:40] VITALS: BP 131/65
--- NOTE | 2024-05-08 10:42 | W.PN.CD ---
Addendum entered and electronically signed by LEELA Barnes 05/08/24 11:16:
Correction to exam below. Patient is oriented to herself and remains confused
Addendum entered and electronically signed by Justa Pacheco MD 05/08/24 11:14:
Patient seen and evaluated personally. I agree with the note, documentation, physical examination and plan of care as documented below.
Briefly, 73-year-old woman with HFpEF, CKD, persistent atrial fibrillation, atypical atrial flutter versus atrial tachycardia on chronic anticoagulation therapy with Eliquis and COPD presented with A-fib with RVR. At this time we are controlling
the atrial fibrillation. With her ongoing COPD, beta-blockers are of limited option. Will continue diltiazem and increase to 360 once a day. Continue metoprolol 100 mg once a day.
Rhythm control agents like Tikosyn is not a good candidate drug for her given kidney disease, amiodarone and sotalol may not be ideal given COPD and lung disease.
Limited options present. A-fib ablation is a possibility.
Original Note:
Today's Communication / Plan
-
Continue rate control
Impression / Plan
-
BACKGROUND: 73F with significant dementia, HFpEF, Advanced CKD, atrial tachycardia, paroxysmal atrial fibrillation on Eliquis, HLD, and COPD presented with RVR
Atrial fibrillation, persistent
-Plan is rate control
-Diltiazem increased from 240 mg daily to 360mg daily and metoprolol 100 mg daily
-Of note, prior asymptomatic ryan seen when in sinus and on CCB and BB. Follow telemetry.
-[id number] at least 4 (HF, HTN, age 73, female gender), continue Eliquis 5mg BID
COPD:
-Management per primary team
-No respiratory distress, denies symptoms
HFpEF: chronic
-Does not appear volume overloaded, continue outpatient diuretic
CKD Stage V
-Family does not want HD
-per primary team
HTN, chronic, stable
Hyponatremia, chronic
SUBJECTIVE:
Denies CP, HAIDER, and palps
Physical Exam
Vital Signs/Labs
Vital Signs
Temp Pulse Resp BP Pulse Ox
98.3 F 105 18 122/62 93
05/08/24 10:35 05/08/24 10:30 05/08/24 10:35 05/08/24 10:35 05/08/24 10:35
05/07/24 05/08/24 05/09/24
06:59 06:59 06:59
Actual Weight 70.2 kg 66.5 kg
05/08/24 02:22
05/08/24 02:22
LAB Results
05/07/24 05/07/24
00:08 00:31
Troponin I Cancelled 0.026
Physical Exam
Constitutional: No acute distress and Comfortable
EENT: Anicteric and Moist mucous membranes
Cardiovascular: Rhythm/rate is irregular
Respiratory: Respiratory effort normal and Other (diminished)
GI: Soft, Distention absent, Flat, Non tender and Normal bowel sounds
Neuro/Psych: AO x 3
Other: Skin (warm and dry)
Data Reviewed
-
Date of Service: May 08, 2024
Labs: Labs Reviewed by me
Old Records: Reviewed
--- NOTE | 2024-05-08 11:26 | PTCARENOTE ---
report called to [facility], fruit picker set up for 12. pt educated on plan of care. bed alarm and medsitter currently still in place.
--- NOTE | 2024-05-08 12:16 | PTCARENOTE ---
report called. iv and tele removed. d/c instructions sent to [facility]. pt left via ambulance with belongings from room.
--- NOTE | 2024-05-09 14:34 | W.DCSUMMARY ---
Discharge Summary
Discharge Data
Date of Admission: 05/07/24
Date of Discharge: 05/08/24
-
Pending Results: No
Hospital Course
Discharging Physician : Dr Miguelito Marrero
Disposition : Assisted living
Primary care physician : Dr Asim Rutherford
Principal Discharge diagnosis :
Atrial fibrillation with rapid ventricular rate
Chronic Discharge diagnosis :
Chronic kidney stage V
Small chronic right pleural effusion
Congestive manage heart failure
Chronic obstructive pulmonary disease
Type 2 diabetes mellitus
Dementia without behavioral problems
Essential hypertension
Hypothyroidism
Hyperlipidemia
Coronary artery disease
History of stroke
Gastroesophageal reflux disease
Insomnia
Hospital Course :
Patient is a 73-year-old female with above-mentioned past medical history was brought to ER after having new onset of dizziness and found to having A-fib with RVR. Patient was just recently discharged after initial diagnosis of new A-fib. In ER
patient was restarted on Cardizem drip and was admitted to cardiac unit for further monitoring. Cardiology was involved in care and recommended increasing patient oral Cardizem dose. Patient was able to be weaned off of Cardizem drip with
increased oral Cardizem. Patient discharged back to assisted living facility at this point. Ptient to follow-up with cardiology in office.
Important imaging findings :
None
Procedure findings :
None
Discharge Plan
-
Patient Disposition: Assisted Living
Discharge Diagnosis/Procedures: Afib/RVR
Condition: Fair
Diet: Low Cholesterol and 2 Gram Sodium
Activity: As tolerated
Driving Restrictions: No driving
Bathing Restrictions: OK to Shower
Referrals:
[facility] [Other]
ASIM RUTHERFORD MD [Family Provider] - in one week
Alirio Mercado MD [Active] - in one to two weeks
Prescriptions:
New
diltiazem HCl 180 mg capsule,extended release 24 hr
360 mg PO DAILY 30 Days Qty: 60 1RF
Continued
acetaminophen [Tylenol] 325 mg Tablet
325 mg PO TIDPRN PRN (Reason: mild pain)
levothyroxine 75 mcg Tablet
75 mcg PO DAILY@0600
Trelegy Ellipta 100-62.5-25 mcg Blister With Device
1 inh INHALATION R DAILY
atorvastatin 20 mg Tablet
20 mg PO QPM
albuterol sulfate 90 mcg/actuation Hfa Aerosol Inhaler
2 puff INHALATION R Q6HPRN PRN (Reason: sob/wheezing)
loratadine 10 mg Tablet
10 mg PO DAILY
aripiprazole 2 mg tablet
2 mg PO BID
sennosides-docusate sodium [Senexon-S] 8.6-50 mg tablet
1 tab PO BID
diphenhydramine HCl 25 mg Tablet
25 mg PO HS
Incruse Ellipta 62.5 mcg/actuation blister with device
1 inh INHALATION R DAILY
sodium bicarbonate 650 mg tablet
650 mg PO BID
ipratropium-albuterol 0.5 mg-3 mg(2.5 mg base)/3 mL Solution For Nebulization
3 ml INHALATION R QIDPRN PRN (Reason: sob)
sertraline 50 mg Tablet
50 mg PO DAILY
prednisone 5 mg tablet
5 mg PO DAILY
Hold Instructions: resume after prednisone taper, 10 mg daily for 3 days, completes.
calcium carbonate 500 mg calcium (1,250 mg) Tablet
1,000 mg PO DAILY
diphenhydramine HCl [Benadryl] 25 mg Capsule
25 mg PO DAILY PRN (Reason: itching)
insulin aspart U-100 100 unit/mL (3 mL) Insulin Pen
2 unit SC ACHS
insulin glargine-yfgn 100 unit/mL Solution
5 unit SC HS
isosorbide mononitrate 30 mg Tablet Extended Release 24 Hr
30 mg PO BID 30 Days Qty: 60 0RF
clonidine HCl 0.1 mg Tablet
0.1 mg PO BID 30 Days Qty: 60 0RF
bacitracin 500 unit/gram Ointment
1 applic TOPICAL TID
hydrocortisone 1 % Cream
1 applic TOPICAL BIDPRN PRN (Reason: RASH RIGHT HAND/FINGERS)
torsemide 20 mg Tablet
40 mg PO BID@0800,1600 30 Days Qty: 120 0RF
Eliquis 5 mg Tablet
5 mg PO BID Qty: 60 0RF
metoprolol succinate 100 mg Tablet Extended Release 24 Hr
100 mg PO DAILY@1999 Qty: 30 0RF
levofloxacin 500 mg tablet
500 mg PO Q48H Qty: 2 0RF
Discontinued
diltiazem HCl 240 mg capsule,extended release 24hr
240 mg PO DAILY
Discharge Orders:
Discharge Patient (As Directed); Ordered 05/08/24
Ordered By: Miguelito Marrero
Care Plan Goals
Care Plan Goals:
Problem: Readiness for enhanced knowledge related to diagnosis and treatment plan
Goal: Understand your diagnosis and treatment plan needs, including medications if applicable.
Instructions: Know your diagnosis, underlying causes and treatment plan options, including medications if applicable. Consult with your health care team to learn about your diagnosis and treatment plan, including medications if applicable.
Discharge Date and Time
Discharge Date/Time: 05/08/24 13:06
Print Language: VENEZUELAN
== END 2024-05-08 13:06 | disposition home or self-care (01) | DRG 309 ==
LOC: IVU 05:15
PROVIDERS: Student in an Organized Health Care Education/Training Program; ADMITTING PHYSICIAN Hospitalist; ATTENDING PHYSICIAN Hospitalist; CONSULT PHYSICIAN Internal Medicine Cardiovascular Disease; EMERGENCY PHYSICIAN Emergency Medicine; FAMILY PHYSICIAN Internal Medicine
DX: I48.0 Paroxysmal atrial fibrillation (principal); E87.1 Hypo-osmolality and hyponatremia; I50.32 Chronic diastolic (congestive) heart failure; I13.2 Hypertensive heart and chronic kidney disease with heart failure and with stage 5 chronic kidney disease, or end stage renal disease; N18.5 Chronic kidney disease, stage 5; J96.10 Chronic respiratory failure, unspecified whether with hypoxia or hypercapnia; E03.9 Hypothyroidism, unspecified; F03.90 Unspecified dementia, unspecified severity, without behavioral disturbance, psychotic disturbance, mood disturbance, and anxiety; E11.22 Type 2 diabetes mellitus with diabetic chronic kidney disease; G47.00 Insomnia, unspecified; E78.00 Pure hypercholesterolemia, unspecified; I35.0 Nonrheumatic aortic (valve) stenosis; I25.10 Atherosclerotic heart disease of native coronary artery without angina pectoris; F31.9 Bipolar disorder, unspecified; J44.9 Chronic obstructive pulmonary disease, unspecified; K21.9 Gastro-esophageal reflux disease without esophagitis; M79.7 Fibromyalgia; Z66 Do not resuscitate; Z79.890 Hormone replacement therapy; Z79.51 Long term (current) use of inhaled steroids; Z79.52 Long term (current) use of systemic steroids; Z79.01 Long term (current) use of anticoagulants; Z79.4 Long term (current) use of insulin; Z79.2 Long term (current) use of antibiotics; Z87.891 Personal history of nicotine dependence; Z87.01 Personal history of pneumonia (recurrent); Z90.710 Acquired absence of both cervix and uterus; Z88.8 Allergy status to other drugs, medicaments and biological substances; Z88.6 Allergy status to analgesic agent; Z88.1 Allergy status to other antibiotic agents; Z88.3 Allergy status to other anti-infective agents; Z91.041 Radiographic dye allergy status; Z88.0 Allergy status to penicillin; Z91.013 Allergy to seafood; Z99.81 Dependence on supplemental oxygen; Z86.73 Personal history of transient ischemic attack (TIA), and cerebral infarction without residual deficits
CPT/HCPCS: 72110; 80048; 80053; 82962; 84484; 85025; 85027; 93005; 94640; 96365; 96366; 96376; 99291

== ENCOUNTER 2024-05-19 22:21 | Emergency (ER) | payer MEDICARE, OTHER, SELFPAY ==
[2024-05-19 22:24] VITALS: BP 156/59
[2024-05-20 00:03] VITALS: BP 157/61
--- NOTE | 2024-05-20 00:25 | ED.GENMED ---
History of Present Illness
General
Chief Complaint: Cardiac Symptoms
Source: patient
Time Seen by Provider: 05/20/24 00:11
History of Present Illness
History of Present Illness:
73-year-old female [facility] staff noted she was bradycardic. The exact heart rate they noted is unknown. Patient was recently hospitalized for atrial fibrillation and is on rate control medication.
Patient is confused and unable to provide any history.
Past History
Past History
ED Past Medical History: CHF, COPD, Fibromyalgia, GERD, HTN, Hypercholesterolemia, IDDM, Hypothyroidism, Psychiatric and Other
ED Past Surgical History: Appendectomy, Cholecystectomy, Gynecological, Orthopedic and Other
Social History
Tobacco: Former smoker
Alcohol: Former
Drug: Former user
Personal:
Living: correction
Employment: Not employed
Family History
Family History: Other
Phy Exam
Physical Exam
Physical Exam:
General: Awake, Alert, Oriented X1. No acute distress.
Vitals: unremarkable
Head: Atraumatic
Eyes: Pupils equal, EOMI
Throat: Airway intact, no exudates
Neck: Trachea midline
Lungs: Clear and equal b/l
Heart: Regular rate, no murmurs
Abd: Soft, Nontender, No pulsatile mass
Neuro: Nonfocal
Skin: Warm, dry, no rash
Extremities: pulses equal b/l, no edema
Course
Orders/Labs/Results
Orders:
Orders
05/19/24 22:27
EKG [Electrocardiogram (*1)] Urgent
Reason for Study: Bradycardia / Tachycardia
05/19/24 22:28
EKG- Treatment ONCE
05/20/24 00:28
CMP [Comprehensive Metabolic Panel] Urgent
Complete Blood Count/With Diff Urgent
Abnormal Lab Results
05/20/24
00:28
RBC 2.84 L 10^6/uL
(4.20-5.40)
Hgb 7.9 L g/dL
(12.0-16.0)
Hct 24.7 L %
(37.0-47.0)
MCHC 32.0 L g/dL
(33.0-37.0)
Abs Immat Gran (auto) 0.1 H 10^3/uL
(0-0.05)
Absolute Lymphs (auto) 0.5 L 10^3/uL
(1.2-3.4)
Immature Gran % 1.2 H %
(0-0.5)
Neutrophils % 79.6 H %
(42.2-75.2)
Lymphocytes % 7.9 L %
(20.5-51.1)
Monocytes % 9.7 H %
(1.7-9.3)
Sodium 131 L mmol/L
(135-145)
Chloride 96 L mmol/L
(98-107)
BUN 70 H mg/dl
(7-17)
Creatinine 3.2 H mg/dL
(0.6-1.0)
Glucose 118 H mg/dl
(70-99)
Calcium 6.9 L* mg/dl
(8.4-10.2)
Total Protein 4.8 L g/dl
(6.3-8.2)
Albumin 2.9 L g/dl
(3.5-5.0)
05/20/24 00:28
05/20/24 00:28
Vital Signs
Initial and Last Documented VS:
Initial Vital Signs
Temp Pulse Resp BP Pulse Ox
98.2 F 60 18 156/59 99
05/19/24 22:24 05/19/24 22:24 05/19/24 22:24 05/19/24 22:05/19/24 22:24
Last Documented Vital Signs
Temp Pulse Resp BP Pulse Ox
98.2 F 55 15 156/50 96
05/19/24 22:24 05/20/24 02:00 05/20/24 02:00 05/20/24 02:00 05/20/24 02:00
MDM/Problems Addressed
Differential Diagnosis Includes:
Sinus bradycardia, sick sinus syndrome, medication induced bradycardia, electrolyte abnormality
MDM/Problems Addressed:
Patient is sent to the emergency room because her heart rate was 'low' and new seasons. While on the monitor here in the emergency room the patient's heart rate has varied from around 54 or so to 60. Her blood pressure has been normal. This level
of bradycardia is consistent medication list. Patient seems to be tolerating this heart rate but we can have the patient reduce her metoprolol to 50 mg a day. Patient's labs are essentially equivalent to labs she had on May 08. Calcium level was
resulted as a critical result however it is essentially the same and when corrected for albumin level it is not significantly low.
*Pulse Oximetry
Patient hypoxic: no
*EKG
Interpreted by ED Provider?: Yes
Interpretation: abnormal
Heart Rate: 58
Rate: bradycardiac
Rhythm: sinus
[place]ona: normal axis
Interval: normal interval
QRS Pattern: normal QRS
Ischemia: no ischemia
*What Job Titles Mean Interpretation
Rate: bradycardiac
Interpretation: normal
Rhythm: sinus
*Critical Care Note
Total Time (30-74mins, 75-104mins- exclusive of procedures): Not Applicable
ED Attending Note
-
Portions of this chart may have been created with voice recognition software.� Occasional wrong word or��sound alike� substitutions may have occurred due to the inherent limitations of voice recognition software.
Discharge Plan
Departure
Patient Disposition: Group Home/SNF
Date of Disposition: 05/20/24
Time of Disposition: 02:20
Condition: Fair
Discharge Problem:
Bradycardia, sinus
Instructions: Bradycardia
Prescriptions:
No Action
acetaminophen [Tylenol] 325 mg Tablet
325 mg PO TIDPRN PRN (Reason: mild pain)
levothyroxine 75 mcg Tablet
75 mcg PO DAILY@0600
Trelegy Ellipta 100-62.5-25 mcg Blister With Device
1 inh INHALATION R DAILY
atorvastatin 20 mg Tablet
20 mg PO QPM
albuterol sulfate 90 mcg/actuation Hfa Aerosol Inhaler
2 puff INHALATION R Q6HPRN PRN (Reason: sob/wheezing)
loratadine 10 mg Tablet
10 mg PO DAILY
aripiprazole 2 mg tablet
2 mg PO BID
sennosides-docusate sodium [Senexon-S] 8.6-50 mg tablet
1 tab PO BID
diphenhydramine HCl 25 mg Tablet
25 mg PO HS
Incruse Ellipta 62.5 mcg/actuation blister with device
1 inh INHALATION R DAILY
sodium bicarbonate 650 mg tablet
650 mg PO BID
ipratropium-albuterol 0.5 mg-3 mg(2.5 mg base)/3 mL Solution For Nebulization
3 ml INHALATION R QIDPRN PRN (Reason: sob)
sertraline 50 mg Tablet
50 mg PO DAILY
prednisone 5 mg tablet
5 mg PO DAILY
Hold Instructions: resume after prednisone taper, 10 mg daily for 3 days, completes.
calcium carbonate 500 mg calcium (1,250 mg) Tablet
1,000 mg PO DAILY
diphenhydramine HCl [Benadryl] 25 mg Capsule
25 mg PO DAILY PRN (Reason: itching)
insulin aspart U-100 100 unit/mL (3 mL) Insulin Pen
2 unit SC ACHS
insulin glargine-yfgn 100 unit/mL Solution
5 unit SC HS
isosorbide mononitrate 30 mg Tablet Extended Release 24 Hr
30 mg PO BID 30 Days Qty: 60 0RF
clonidine HCl 0.1 mg Tablet
0.1 mg PO BID 30 Days Qty: 60 0RF
bacitracin 500 unit/gram Ointment
1 applic TOPICAL TID
hydrocortisone 1 % Cream
1 applic TOPICAL BIDPRN PRN (Reason: RASH RIGHT HAND/FINGERS)
torsemide 20 mg Tablet
40 mg PO BID@0800,1600 30 Days Qty: 120 0RF
Eliquis 5 mg Tablet
5 mg PO BID Qty: 60 0RF
metoprolol succinate 100 mg Tablet Extended Release 24 Hr
100 mg PO DAILY@1999 Qty: 30 0RF
levofloxacin 500 mg tablet
500 mg PO Q48H Qty: 2 0RF
diltiazem HCl 180 mg capsule,extended release 24 hr
360 mg PO DAILY 30 Days Qty: 60 1RF
lidocaine [Lidocaine Pain Relief] 4 % Adhesive Patch,Medicated
1 patch TOPICAL DAILY
loperamide [Imodium] 2 mg Capsule
2 mg PO Q8 PRN (Reason: diarrhea)
Referrals:
UNKNOWN - PT DOES,NOT KNOW [Family Provider] -
Activity Restrictions/Additional Instructions:
Smita's heart rate is on the lower side due to the medications that cardiology has prescribed to control her atrial fibrillation. Her blood pressure is normal to high despite her heart rate. Metoprolol dose can be reduced to 50 mg a day.
Interventions
Interventions:
*Risk Screen - Suicide Last Done: 05/19/24 22:24
*General Assessment Last Done: 05/20/24 00:06
*Neglect/Abuse Screening Last Done: 05/19/24 22:24
ED- Fall Risk Assessment Last Done: 05/20/24 00:07
*ED COVID-19 Vaccine History Last Done: 05/20/24 00:06
ED- Pulmonary Assessment Last Done: 05/20/24 00:07
ED- Cardiac Assessment Last Done: 05/20/24 00:07
Discharge Date and Time
Print Language: DIVEHI
[2024-05-20 00:36] LABS: % Basophils 0.3 % (0-2); % Eosinophils 1.3 % (0-6); % Immature Granulocytes 1.2 % (0-0.5); % Lymphocytes 7.9 % (20.5-51.1); % Monocytes 9.7 % (1.7-9.3); % Neutrophils 79.6 % (42.2-75.2); Absolute Eosinophils 0.1 10^3/uL (0-0.7); Absolute Immature Granulocytes 0.1 10^3/uL (0-0.05); Absolute Lymphocytes 0.5 10^3/uL (1.2-3.4); Absolute Monocytes 0.6 10^3/uL (0.1-0.6); Absolute Neutrophils 4.8 10^3/uL (1.4-6.5); Hematocrit 24.7 % (37.0-47.0); Hemoglobin 7.9 g/dL (12.0-16.0); Mean Corpuscular Hgb 27.8 pg (27.0-31.0); Nucleated Red Blood Cells % 0 %; Platelet Count 193 10^3/uL (130-400); Red Blood Cell Count 2.84 10^6/uL (4.20-5.40); Red Cell Dist. Width 14.1 % (11.5-14.5); White Blood Cell Count 6.1 10^3/uL (4.8-10.8)
[2024-05-20 01:00] VITALS: BP 151/48
[2024-05-20 01:22] LABS: ALT (SGPT) 10 U/L (0-35); AST (SGOT) 18 U/L (14-36); Albumin 2.9 g/dl (3.5-5.0); Alkaline Phosphatase 62 U/L (38-126); Blood Urea Nitrogen 70 mg/dl (7-17); Calcium 6.9 mg/dl (8.4-10.2); Carbon Dioxide 28 mmol/L (22-30); Chloride 96 mmol/L (98-107); Glucose 118 mg/dl (70-99); Potassium 4.1 mmol/L (3.5-5.1); Sodium 131 mmol/L (135-145); Total Bilirubin 0.4 mg/dl (0.2-1.3); Total Protein 4.8 g/dl (6.3-8.2); eGFR 14.82
[2024-05-20 02:00] VITALS: BP 156/50
[2024-05-20 03:00] VITALS: BP 164/46
[2024-05-20 04:00] VITALS: BP 155/58
== END 2024-05-20 04:23 ==
LOC: EMR 22:21
PROVIDERS: EMERGENCY PHYSICIAN Emergency Medicine
DX: R00.1 Bradycardia, unspecified (principal); R41.0 Disorientation, unspecified; I48.91 Unspecified atrial fibrillation; I11.0 Hypertensive heart disease with heart failure; I50.9 Heart failure, unspecified; M79.7 Fibromyalgia; E11.9 Type 2 diabetes mellitus without complications; E03.9 Hypothyroidism, unspecified; E78.00 Pure hypercholesterolemia, unspecified; J44.9 Chronic obstructive pulmonary disease, unspecified; K21.9 Gastro-esophageal reflux disease without esophagitis; Z87.891 Personal history of nicotine dependence; Z90.49 Acquired absence of other specified parts of digestive tract
CPT/HCPCS: 99283; 80053; 85025; 93005